=== PATIENT | female | born 1955 | race Caucasian/White ===

== ENCOUNTER 2019-10-02 14:16 | Outpatient (CLI) | payer OTHER, SELFPAY ==
--- NOTE | 2019-10-02 15:29 | ECG_ITS ---
Measurements Intervals [place] Rate: 57 P: 42 [place]: 242 QRS: -8 QRSD: 83 T: 38 QT: 426 QTc: 418 Interpretive Statements SINUS BRADYCARDIA WITH FIRST DEGREE AV BLOCK LOW QRS VOLTAGE IN PRECORDIAL LEADS CANNOT RULE OUT SEPTAL INFARCT, AGE INDETERMINATE ABNORMAL ECG Electronically Signed On 10-02-2019 15:43:49 CDT by Roddy Gao D.O.
[2019-10-02 15:52] LABS: Blood Urea Nitrogen 30 mg/dL (7-17); Calcium 9.5 mg/dL (8.4-10.2); Carbon Dioxide 31 mmol/L (22-30); Chloride 105 mmol/L (98-107); Estimated Glomerular Filt Rate 56; Glucose 92 mg/dL (65-105); Potassium 4.4 mmol/L (3.4-5.0); Sodium 139 mmol/L (137-145)
== END 2019-10-02 14:17 | disposition home or self-care (01) ==
PROVIDERS: PCP Family Medicine; Visit Provider Orthopaedic Surgery
DX: Z01.818 Encounter for other preprocedural examination (principal); I10 Essential (primary) hypertension; I44.0 Atrioventricular block, first degree
CPT/HCPCS: 36415; 80048; 93005

== ENCOUNTER 2019-10-16 17:08 | Emergency (ER) | payer OTHER, SELFPAY ==
[2019-10-16 17:13] VITALS: BP 122/70; PULSE 63; RESP 18; TEMP 36.2; O2SAT 98
--- NOTE | 2019-10-16 17:41 | ED.GENADULT ---
HPI - General Adult General Chief complaint: Wound/Laceration Stated complaint: left index finger lac Time Seen by Provider: 10/16/19 17:11 Source: patient and family Mode of arrival: ambulatory Limitations: no limitations History of Present Illness HPI narrative: Patient is a 63-year-old female who presents with skin avulsion to the distal left index finger and middle finger that occurred just prior to arrival while using a sewing machine patient in the room in no distress noting burning aching pain states that her tetanus is up-to-date has not taken anything for symptoms presents due to not being able to getting the bleeding to stop patient denies anticoagulant use and on arrival is in the room in no distress Related Data Home Medications Medication Instructions Recorded Confirmed aspirin 81 mg tablet,delayed 81 mg PO DAILY 03/31/19 release cetirizine 10 mg capsule 10 mg PO DAILY 03/31/19 cholecalciferol (vitamin D3) 25 1,000 unit PO DAILY 03/31/19 mcg (1,000 unit) tablet citalopram 10 mg tablet 10 mg PO DAILY 03/31/19 gabapentin 600 mg tablet 600 mg PO DAILY 03/31/19 multivit with 1 tablet PO DAILY 03/31/19 xyapduxc-ekad-RA-lutein 8 mg iron-400 mcg-300 mcg tablet pravastatin 20 mg tablet 20 mg PO DAILY 03/31/19 propafenone 150 mg tablet 150 mg PO Q8H 03/31/19 Allergies Allergy/AdvReac Type Severity Reaction Status Date / Time codeine Allergy Mild Verified 03/21/19 10:50 hydrocodone Allergy Unknown Verified 03/21/19 10:50 iodine Allergy Unknown Verified 03/21/19 10:50 povidone Allergy Unknown Verified 03/21/19 10:50 soap Allergy Unknown Verified 03/21/19 10:50 1.BETADINE, 2.IODINE. 3 Allergy Unknown Uncoded 03/21/19 10:50 HYDROCODEINE 4 DARVOCET NKFA Allergy Unknown Uncoded 03/21/19 10:50 POVIDONE IODINE (Generic Allergy Y Uncoded 03/21/19 10:50 Allergy) PROPOXYPHENE/ACETAMINOPHEN Allergy Y Uncoded 03/21/19 10:50 (Generic Allergy) Review of Systems Review of Systems: Narrative: CONSTITUTIONAL: Denies fever, chills, or sweats. SKIN: Skin avulsion to the distal left index and middle digits MUSCULOSKELETAL: Denies joint pain, or myalgia. NEUROLOGIC: Denies numbness, or weakness. [facility] Family History Family History Sibling Diabetes mellitus Mother Hypertension Social History Social History Smoking status: Never smoker Alcohol intake: never Gender identity (if verbalized by the patient): Female Exam Narrative: Exam Narrative: GENERAL: Well-appearing, well-nourished, and in no acute distress. HEAD: Normocephalic, atraumatic. EYES: PERRLA and EOMI. ENT: Nares clear, no rhinorrhea or epistaxis. Mucous membranes moist. EXTREMITIES: Normal range of motion. No edema. SKIN: Warm, dry, no rash. Half centimeter superficial skin avulsions of the distal left index and middle digit NEURO: No focal deficits. Alert and oriented x3. Neurovascularly intact PSYCH: Normal mood and affect. Course Course Emergency Course: Patient in the room in no distress aware of case findings treatment plan and diagnosis Vital Signs Vital signs: Vital Signs Temperature 97.2 F L 10/16/19 17:13 Pulse Rate 63 10/16/19 17:13 Respiratory Rate 18 10/16/19 17:13 Blood Pressure 122/70 10/16/19 17:13 Pulse Oximetry 98 10/16/19 17:13 Temperature 97.2 F L 10/16/19 17:13 Pulse Rate 63 10/16/19 17:13 Respiratory Rate 18 10/16/19 17:13 Blood Pressure 122/70 10/16/19 17:13 Pulse Oximetry 98 10/16/19 17:13 Procedures Other Procedure Procedure 1: Other Procedure: Surgicel LET placed on wound with hemostasis achieved 4 x 4 and Coban pressure dressing applied Medical Decision Making MDM Narrative Medical decision making narrative: Patients injury or pain is consistent with musculoskeletal etiology. No signs of neurological or vascular compro
== END 2019-10-16 19:38 | disposition home or self-care (01) ==
PROVIDERS: Emergency Provider Emergency Medicine; PCP Family Medicine
DX: S61.201A Unspecified open wound of left index finger without damage to nail, initial encounter (principal); S61.203A Unspecified open wound of left middle finger without damage to nail, initial encounter; Z79.82 Long term (current) use of aspirin; W29.2XXA Contact with other powered household machinery, initial encounter
CPT/HCPCS: 12001; 99282

== ENCOUNTER 2021-01-21 09:32 | Outpatient (CLI) | payer OTHER, SELFPAY ==
--- NOTE | 2021-01-21 09:30 | ECG_ITS ---
Measurements Intervals [place] Rate: 72 P: 57 [place]: 228 QRS: 2 QRSD: 86 T: 62 QT: 386 QTc: 423 Interpretive Statements SINUS RHYTHM WITH FIRST DEGREE AV BLOCK CANNOT RULE OUT SEPTAL INFARCT, AGE INDETERMINATE BORDERLINE ST-T WAVE ABNORMALITY- HIGH LATERAL LEADS ABNORMAL ECG Electronically Signed On 01-21-2021 9:52:17 CDT by Roddy Gao D.O.
== END 2021-01-21 09:33 | disposition home or self-care (01) ==
LOC: ANHSURGERY 09:34
PROVIDERS: PCP Family Medicine; Visit Provider Podiatrist Foot & Ankle Surgery
DX: Z01.818 Encounter for other preprocedural examination (principal); E78.00 Pure hypercholesterolemia, unspecified; R94.31 Abnormal electrocardiogram [ECG] [EKG]
CPT/HCPCS: 93005

== ENCOUNTER 2021-01-24 00:43 | Day surgery (SDC) | payer OTHER, SELFPAY ==
[2021-01-16 15:38] VITALS: BMI 28.0
--- NOTE | 2021-01-23 11:39 | WPDANESEPPF ---
Anes - Initial Pre Proc Eval Procedure: Operation Date: 01/24/21 11:30 Proposed Procedures p Arthrodesis First Metatarsal Phalangeal Joint Right Foot, Plantar Fasciotomy Right Foot - Beltran Griggs JR, MD s Tarsal Tunnel Release Right Foot - Beltran Griggs JR, MD Date/Time: 01/23/21 11:39 Surgeon: Beltran Griggs JR, MD Pre Op Diagnosis: Bunion Right Foot, Plantar Fascitis, & Patient Data Age: 65 Gender: F Height: 1.63 m Weight: 73.95 kg Allergies Allergy/AdvReac Type Severity Reaction Status Date / Time codeine Allergy Severe Nausea and Verified 01/24/21 09:48 Vomiting hydrocodone Allergy Severe Nausea and Verified 01/24/21 09:48 Vomiting iodine Allergy Unknown Unknown Verified 01/24/21 09:48 povidone Allergy Unknown Unknown Verified 01/24/21 09:48 NKFA Allergy Unknown Unknown Uncoded 01/16/21 15:13 POVIDONE IODINE (Generic Allergy Unknown Uncoded 01/24/21 09:48 Allergy) PROPOXYPHENE/ACETAMINOPHEN Allergy Nausea and Uncoded 01/24/21 09:48 (Generic Allergy) Vomiting Home Medications Medication Instructions Recorded Confirmed Type aspirin 81 mg tablet,delayed 81 mg PO DAILY 03/31/19 01/24/21 History release cetirizine 10 mg capsule 10 mg PO DAILY 03/31/19 01/24/21 History cholecalciferol (vitamin D3) 25 1,000 unit PO DAILY 03/31/19 01/24/21 History mcg (1,000 unit) tablet citalopram 10 mg tablet 5 mg PO QAM 03/31/19 01/24/21 History multivit with 1 tablet PO DAILY 03/31/19 01/24/21 History cwbxomkv-psfp-OS-lutein 8 mg iron-400 mcg-300 mcg tablet propafenone 150 mg tablet 150 mg PO BID 03/31/19 01/24/21 History pregabalin 75 mg capsule 75 mg PO BID 12/25/19 01/24/21 History diclofenac sodium 75 mg 75 mg PO BID #60 tablet 01/02/21 01/24/21 Rx tablet,delayed release ibuprofen-diphenhydramine HCl 1 cap PO HS 01/16/21 01/24/21 History [Ibuprofen PM] pravastatin 40 mg PO HS 01/16/21 01/24/21 History Patient hx anesthesia problems: none Family hx anesthesia problems: none [facility] Past Medical History Medical History (Updated 01/23/21 @ 11:40 by Kieran Paige DO) CKD (chronic kidney disease) stage 3, GFR 30-59 ml/min Idiopathic peripheral neuropathy ZEINA on CPAP Paroxysmal A-fib Pure hypercholesterolemia, unspecified Surgical History Surgical History (Updated 01/23/21 @ 11:40 by Kieran Paige DO) History of x3 History of fusion of cervical spine C5-6 History of tonsillectomy History of tubal ligation Family History Family History Sibling Diabetes mellitus Mother Hypertension Social History Social History (Updated 11/06/20 @ 09:33 by Kerry Peña) Smoking status: Never smoker Second hand tobacco smoke exposure: No Alcohol intake: never Substance use: never Substance use type: does not use Living arrangements: with family Gender identity (if verbalized by the patient): Female Spiritual care concerns: No Anes - Eval Final PreProcedure Day of Procedure 01/23/21 11:39 Patient weight: overweight Heart: regular rate and rhythm Lungs: clear to auscultation and normal air movement Airway: Mallampati scale class II Neurological: alert and oriented Last oral intake: >/= 8 hours ASA classification: III Emergent: no Anesthetic plan: proceed Anesthesia type and monitoring: general GIVS and standard monitoring Informed Consent: The patient's anesthetic plan and its attendant risks and benefits were discussed with the patient/family/POA. Questions were solicited and answers provided to the satisfaction of the patient/family/POA.
[2021-01-24] VITALS (9 sets, daily range): BP systolic 110–128; BP diastolic 52–69; PULSE 54–69; RESP 10–16; TEMP 36.7–36.9; O2SAT 95–100; BMI 27.1
--- NOTE | ~2021-01-24 | XR_ITS ---
EXAMINATION: XR surgery orthopedic EXAM DATE: 01/24/2021 12:18 INDICATION: Arthrodesis right 1st toe. TECHNIQUE: Fluoroscopy used during right 1st MTP arthrodesis performed by JR Lien Combs. Radiologist was not present for the imaging or procedure. Total fluoroscopic time of 18 seconds. The DAP for this procedure was 0.47 cGycm2. A total of 3 images sent to PACS from the exam. FINDINGS: Frontal and lateral images demonstrates an orthopedic plate bridging the right 1st metatar sophalangeal joint, with supporting screws. Correlate with procedure note. IMPRESSION: Fluoroscopy used during right 1st toe arthrodesis. Reviewed, dictated and finalized at location A.
--- NOTE | 2021-01-24 07:11 | WPDHPUPDATE1 ---
History and Physical Update Update Date/Time: 01/24/21 07:11 History and Physical has been reviewed, including an updated exam of the patient. There are NO changes in the patient's condition. Risks, benefits, and alternatives have been discussed and questions answered. Patient agrees to proceed with procedure.
--- NOTE | 2021-01-24 07:15 | WPDANESPNB ---
Anes - Peripheral Nerve Block Date/Time: 01/24/21 07:15 I have discussed with the patient/family/POA the placement of a peripheral nerve block for post-operative pain management, including associated risks, benefits, complications, and side effects. Alternative methods of post-operative analgesia were detailed. Questions were solicited and answers provided to the satisfaction of the patient/family/POA. Time-Out: A pre-procedural Time-Out was completed immediately before starting the procedure and confirmed: Patient Identification, Site, Procedure, Patient Position and the Availability of Requisite Equipment. Clinical Indications: Acute post-operative pain management requested by the operative surgeon. Nerve Block Insertion Note Anes-nerve block: posterior fossa sciatic right and adductor canal right Patient position: supine (for adductor canal) and other (right lateral for popliteal) Skin prep: chlorhexidine Needle: 22 gauge, stimulating, insulated echogenic needle. Needle length: 80 mm Technique: nerve stimulation lost at (mA) (for popliteal lost at 0.2) and ultrasound Injectate: bupivacaine 0.5% with epi 5 mcg/ml (20 mL for popliteal, 10 mL for adductor canal (no epi)) Observations: tolerated well Complications: none Procedure start time:: 1116 Procedure end time:: 1122
--- NOTE | 2021-01-24 10:06 | SUR.PREOP ---
PT STATES SHE SPOKE TO HER [employer] GATHERER AND WAS INSTRUCTED TO CONTINUE HER ASA 81MG.
[2021-01-24] MEDS: LACTATED RINGERS 1,000 ML 30 ML IV CONT ×2 (10:18→13:11)
--- NOTE | 2021-01-24 11:03 | SUR.PREOP ---
DR SHAW NOTIFIED OF PT HAVING A BLISTER ON RT 5TH TOE. AND PT CONTINUED ASA 81MG.
--- NOTE | 2021-01-24 11:06 | PM.IMHP ---
H&P: HPI History of Present Illness Date/Time: 01/24/21 11:06 The patient has a history of pain to the right first metatarsal phalangeal joint she has failed conservative treatment. Furthermore, she has received extensive conservative management to treat her chronic inferior hindfoot pain including medial hindfoot pain and proximal hindfoot and is seeking surgical management. She has been diagnosed with tarsal tunnel syndrome and plantar fasciitis of the right foot. Chief Complaint: Right foot pain Review of Systems Musculoskeletal: Comments: Pain to right foot with difficulty walking. [facility] Past Medical History Medical History (Updated 01/23/21 @ 11:40 by Kieran Paige DO) CKD (chronic kidney disease) stage 3, GFR 30-59 ml/min Idiopathic peripheral neuropathy ZEINA on CPAP Paroxysmal A-fib Pure hypercholesterolemia, unspecified Surgical History Surgical History (Updated 01/23/21 @ 11:40 by Kieran Paige DO) History of x3 History of fusion of cervical spine C5-6 History of tonsillectomy History of tubal ligation Family History Family History Sibling Diabetes mellitus Mother Hypertension Social History Social History (Updated 11/06/20 @ 09:33 by Kerry Peña) Smoking status: Never smoker Second hand tobacco smoke exposure: No Alcohol intake: never Substance use: never Substance use type: does not use Living arrangements: with family Gender identity (if verbalized by the patient): Female Spiritual care concerns: No Meds Home Medications and Allergies Home Medications Medication Instructions Recorded Confirmed Type aspirin 81 mg tablet,delayed 81 mg PO DAILY 03/31/19 01/24/21 History release cetirizine 10 mg capsule 10 mg PO DAILY 03/31/19 01/24/21 History cholecalciferol (vitamin D3) 25 1,000 unit PO DAILY 03/31/19 01/24/21 History mcg (1,000 unit) tablet citalopram 10 mg tablet 5 mg PO QAM 03/31/19 01/24/21 History multivit with 1 tablet PO DAILY 03/31/19 01/24/21 History tnzzcldp-cmbg-IV-lutein 8 mg iron-400 mcg-300 mcg tablet propafenone 150 mg tablet 150 mg PO BID 03/31/19 01/24/21 History pregabalin 75 mg capsule 75 mg PO BID 12/25/19 01/24/21 History diclofenac sodium 75 mg 75 mg PO BID #60 tablet 01/02/21 01/24/21 Rx tablet,delayed release ibuprofen-diphenhydramine HCl 1 cap PO HS 01/16/21 01/24/21 History [Ibuprofen PM] pravastatin 40 mg PO HS 01/16/21 01/24/21 History Allergies Allergy/AdvReac Type Severity Reaction Status Date / Time codeine Allergy Severe Nausea and Verified 01/24/21 09:48 Vomiting hydrocodone Allergy Severe Nausea and Verified 01/24/21 09:48 Vomiting iodine Allergy Unknown Unknown Verified 01/24/21 09:48 povidone Allergy Unknown Unknown Verified 01/24/21 09:48 NKFA Allergy Unknown Unknown Uncoded 01/16/21 15:13 POVIDONE IODINE (Generic Allergy Unknown Uncoded 01/24/21 09:48 Allergy) PROPOXYPHENE/ACETAMINOPHEN Allergy Nausea and Uncoded 01/24/21 09:48 (Generic Allergy) Vomiting Vital Signs Vital Signs - 24 hr 01/24/21 10:04 Temperature 36.9 C Pulse Rate 69 Respiratory Rate 16 Blood Pressure 113/61 Pulse Oximetry 99 Exam Extrem: Other: Decreased first metatarsal phalangeal joint range of motion right foot lateral deviation of the hallux. Positive tinel sign right medial hindfoot, positive pain along the origin of the medial band of the plantar fascia. Assessment and Plan Additional Plan 1. Bunion deformity right foot with arthralgia- Arthrodesis of the first metatarsal phalangeal joint right foot 2. Tarsal Tunnel syndrome right foot-Tarsal tunnel release right foot 3. Plantar fasciitis right foot- partial plantar fasciectomy right foot
[2021-01-24] MEDS: ceFAZolin 2 GM/D5W 50 ML 2 GM/50 ML BAG IVPB (11:25)
--- NOTE | 2021-01-24 13:13 | W.PM.PROC2 ---
Procedure Note - Detailed Date of Procedure 01/24/21 Pre-op Diagnosis 1. Arthritic bunion right foot 2. Plantar fasciitis right foot 3. Tarsal tunnel syndrome right foot Post-op Diagnosis same Procedure Performed 1. Arthrodesis of the first metatarsal phalangeal joint right foot 2. Partial plantar fasciectomy right foot 3. Tarsal tunnel release right foot Surgeon Beltran Griggs JR, SYLVIA Anesthesia general and regional (Popliteal fossa block right lower extremity) Indications Pain to the first metatarsal phalangeal right foot with pain and paresthesias to the medial ankle and inferior right heel Description of Procedure PROCEDURE IN DETAIL: Under mild sedation, the patient was brought into the operating room, placed on the operating table in supine position. A pneumatic thigh tourniquet was placed about the patient's ipsilateral thigh. Following general LMA, and a previous popliteal fossa block to the right lower extremity, the foot was then scrubbed, prepped, and draped in the usual aseptic manner. An Esmarch bandage was then used to exsanguinate the patient's foot and the pneumatic thigh tourniquet was then inflated. Surgery began in the following manner: Attention was directed to the dorsal aspect of the 1st metatarsophalangeal joint where there was a large subcutaneous prominence noted along the dorsomedial aspect of the joint along with lateral deviation of the hallux and a prominent first metatarsal head medially. The incision was made starting along the central shaft of the 1st metatarsal and extending just proximal to the interphalangeal joint of the hallux. The incision was continued deep down through the subcutaneous tissues using sharp and blunt dissection. All bleeders were cauterized as necessary. At this point, the dissection was continued down to the level of the periosteum and capsular structures overlying the 1st metatarsophalangeal joint. A full length periosteum and capsular incision was made just medial to the extensor hallucis longus tendon. The periosteum and capsular structures were freed from the base of the proximal phalanx as well as the distal 1st metatarsal. At this point, the 1st metatarsophalangeal joint was identified. There was almost complete loss of articular cartilage to the head of the 1st metatarsal as well as the base of the proximal phalanx especially superiorly and centrally. There was significant broadening and hypertrophy of the 1st metatarsophalangeal joint. Utilizing a sagittal bone saw, the hypertrophied 1st metatarsal was resected dorsally, medially, and laterally. A power bur was used to make sure that there were no rough edges and also to further debride the hypertrophic 1st metatarsal. Next, a rongeur was used to resect all hypertrophic base of the proximal phalanx. At this point, the reamer system for the Jumbas system was used to denude the degenerative cartilage from the head of the 1st metatarsal as well as the base of the proximal phalanx. The cartilage and subchondral bone were fully debrided utilizing the reamer system until healthy bleeding bone was noted. Next, a 2-0 drill bit was used to further fenestrate the head of the 1st metatarsal as well as the base of the proximal phalanx in order to facilitate fusion across the 1st metatarsophalangeal joint. Next, a 0.045 inch K-wire was driven from the medial aspect of the base of the proximal phalanx into the head of the 1st metatarsal in order to serve as temporary fixation. A large steel plate was placed under the foot to make sure that the hallux was in a rectus position both in the sagittal plane as well as the frontal and transverse plane. Excellent position of the hallux was noted. Next, a CrossCHECK plate was placed atop the 1st metatarsophalangeal joint held in position with Flippin wires. Utilizing standard principles and techniques, the 2 distal drill holes were drilled with one 2.7mm locking and one 3.5m
--- NOTE | 2021-01-24 13:41 | SUR.PHASEI ---
8122 - dr. mendez at bedside assessing exposed toes
== END 2021-01-24 15:30 | disposition home or self-care (01) ==
PROVIDERS: PCP Family Medicine; Visit Provider Podiatrist Foot & Ankle Surgery
PROC: (CPT 28750; principal; 2021-01-24 11:30)
PROC: (CPT 28035; 2021-01-24 11:30)
DX: M21.611 Bunion of right foot (principal); M72.2 Plantar fascial fibromatosis; G57.51 Tarsal tunnel syndrome, right lower limb; M19.071 Primary osteoarthritis, right ankle and foot; G89.18 Other acute postprocedural pain; N18.30 Chronic kidney disease, stage 3 unspecified; G62.9 Polyneuropathy, unspecified; I48.0 Paroxysmal atrial fibrillation; E78.00 Pure hypercholesterolemia, unspecified; G47.33 Obstructive sleep apnea (adult) (pediatric); Z98.1 Arthrodesis status; Z79.82 Long term (current) use of aspirin
CPT/HCPCS: 28060; 28750; 28035; 64445; 64447; C1713; J0690; J1100; J2250; J2405; J2704; J3010; J7120

== ENCOUNTER → 2022-05-22 15:37 | Outpatient (CLI) | payer OTHER, SELFPAY ==
--- NOTE | ~2022-05-22 | XR_ITS ---
XR finger 1st RT min 2V, XR wrist RT w scaphoid 05/22/2022 16:06 Indication: Right first finger pain Procedure: 3 views right first finger and 4 views right wrist Comparison: No prior studies for comparison. Findings: There is mild osteoarthritis of the right first metacarpal phalangeal joint. Mild degenerat becky change of the first carpal metacarpal joint. No fracture or traumatic malalignment. No focal soft tissue abnormality. No foreign bodies. Scaphoid intact. Normal mineralization. No foreign bodies. 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 Reviewed, dictated and finalized at location A. 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
== END ==
PROVIDERS: PCP Family Medicine; Visit Provider Physician Assistant
DX: M79.644 Pain in right finger(s) (principal); M19.041 Primary osteoarthritis, right hand
CPT/HCPCS: 73110; 73140

== ENCOUNTER 2022-06-10 08:56 | Outpatient (CLI) | payer OTHER, SELFPAY ==
--- NOTE | 2022-06-10 10:00 | NEURO_ITS ---
Impression: # Complains of weakness and pain in right hand. # No Carpal Tunnel Syndrome. # No ulnar neuropathy. # Normal needle/EMG exam. # Clinical correlation recommended. Motor Nerve Conduction Upper Extremities Median Nerve Conduction Velocity (m/sec) Terminal Latency (msec) Response Voltage(mV) Elbow-Wrist Wrist Elbow Wrist Right 55 3.1 4 5 Left 55 3.4 4 3 Ulnar Nerve Conduction Velocity (m/sec) Terminal Latency (msec) Response Voltage(mV) Above Elbow Below Elbow Wrist Above Elbow Below Elbow Wrist Right 55 2.3 6 7 Left 57 2.3 5 6 F-Wave Latency Median (ms) Ulnar (ms) Right 28.3 28.3 Left 29.3 29.2 Sensory Nerve Conduction Upper Extremities Median Nerve Stimulation Terminal Latency (msec) Wrist/Digit Response Voltage (uV) Wrist Right 2.8/2.7 13/41 Left 3.2/3.1 35/52 Ulnar Nerve Stimulation Terminal Latency (msec) Wrist/Digit Response Voltage (uV) Wrist Right 2.1 46 Left 2.3 38 Radial Nerve Terminal Latency (msec) Response Voltage(mV) Right 2.4 14 Left 2.7 18 Left Right Muscles Examined Fibrillation Fasciculation Scarcity Voltage Duration Left Right Left Right Left Right Left Right Left Right Deltoid Biceps X X Brachioradialis Triceps X X Pronator Teres X X Ext Indicis X X Ext Digitorum X X Abd Poll Brev X X 1st Dorsal Interosseus X X Abd Dig Min MTDD
== END 2022-06-10 08:57 | disposition home or self-care (01) ==
PROVIDERS: PCP Family Medicine; Visit Provider Family Medicine
DX: R20.0 Anesthesia of skin (principal)
CPT/HCPCS: 95886; 95911

== ENCOUNTER 2024-06-17 16:02 | Emergency (ER) | payer MEDICARE, OTHER, SELFPAY ==
--- OUTSIDE RECORDS SUMMARY | 2024-06-17 16:04 | XMS_ITS | Encounter Summary ---
Author Organization [employer] Address [address] [place] [address] Care Team Providers Care Head Sugar Reprocess Operator Name Role Phone Unavailable Primary Care Provider Unavailabl e Encounter Details Date Type Department Care Team (Latest Contact Info) Description 06/26/[address] Outpatient [address] 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
--- OUTSIDE RECORDS SUMMARY | 2024-06-17 16:04 | XMS_ITS | Encounter Summary ---
Author Organization [employer] Address [address] [place] [address] Care Team Providers Care Mapping Specialist Name Role Phone Unavailable Primary Care Provider Unavailabl e Encounter Details Date Type Department Care Team (Late st Contact Info) Description 05/14/2004 Outpatient Historical [facility] [address] 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
--- OUTSIDE RECORDS SUMMARY | 2024-06-17 16:04 | XMS_ITS | Encounter Summary ---
Author Organization [employer] Address [address] [place] [address] Care Team Providers Care Cloth Printing Back Tender Name Role Phone Unavailable Primary Care Provider Unavailabl e Encounter Details Date Type Department Care Team (Latest Contact Info) Description 05/20/2004 Outpatient Historical [facility] Jonathan Mcdowell CERVICAL SPONDYLOSIS (Primary Dx) Social History Tobacco Use Types Packs/Day Years Used Date Smoking Tobacco: Never Assessed Comments Unknown Sex and Gender Information Value Date Recorded Sex Assigned at Not on file Legal Sex Female 3:11 AM LCAC RADAR OPERATOR/NAVIGATOR Gender Identity Not on file Sexual Orientation Not on file documented as of this encounter Plan of Treatment Not on file documented as of this encounter Procedures Procedure Name Priority Date/Time Associated Diagnosis Comments HCG QUALITATIVE, URINE Routine 05/20/2004 8:53 AM LCAC RADAR OPERATOR/NAVIGATOR documented in this encounter Results * HCG QUALITATIVE, URINE (05/20/2004 8:53 AM LCAC RADAR OPERATOR/NAVIGATOR) HCG QUAL URINE Negative Negative INTER FACE SYSTEM SPECIFIC GRAVITY UA 1.020 1.001 - 1.035 INTERFACE SYSTEM 05/20/2004 8:53 AM LCAC RADAR OPERATOR/NAVIGATOR Jonathan Mcdowell URINE ORDERABLES Final Result INTERFACE SYSTEM Refer to clinic/hospital department documented in this encounter Visit Diagnoses Diagnosis Cervical spondylosis without myelopathy- Primary documented in this encounter
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
--- OUTSIDE RECORDS SUMMARY | 2024-06-17 16:05 | XMS_ITS | Encounter Summary ---
Author Name [facility] Organization [facility] Address [address] [place] [address] Care Team Providers Care Investment Professional Name Role Phone THANH ZAZUETA Primary Care [...] [employer] VISIO N PLAN May 17, 2016 [id number] [phone] KADI MARTINEZ PATIENT EYEMED (WNR) VISION VISIO N May 17, 2019 [id number] KADI MARTINEZ PATIENT MEDICARE (WNR) MEDICARE (M) PART B Nov 14, 2022 PART B [id number] KADI MARTINEZ PATIENT MEDICARE (WNR) MEDICARE (M) PART A Nov 14, 2022 PART A [id number] KADI MARTINEZ PATIENT Selected Encounter This section includes the information on record at NH for the Encounter. Date/Time Encounter Type Encounter Description Reason Pro vider Source Mar 15, 2024 08:16 AM Outpatient Encounter GENERAL INTERNAL MEDICINE IHE Encounter Template Text not used by [facility] Plan of Treatment: Future Appointments (+ 6 months) and Future Tests (+/- 45 days) The Plan of Treatment section includes future care activities for the patient from [facility]. This section includes future appointments and future orders which are active, pending or scheduled. Future Appointments This section includes appointments that were scheduled to occur 6 months from the date of the Encounter, up to a maximum of 20 appointments. The data comes from all NH treatment facilities. Appointment Date/Time Appointment Type Appointme nt Facility Name Mar 20, 2024 10:40 AM AMBULATORY - SUR[facility]ERY [facility] Apr 06, 2024 11:00 AM AMBULATORY - NONE [facility] Apr 07, 2024 09:30 AM AMBULATORY - SUR[facility]ERY [facility] Apr 25, 2024 02:30 AM [facility]ULATORY - [facility]ERY [facility] Jun 28, 2024 07:30 AM [facility]ERY [facility] Jul 25, 2024 10:00 AM AMBULATORY - SUR[facility]ERY [facility] Aug 22, 2024 10:45 AM [facility]ULATORY [facility]ERY [facility] Active, Pending, and Scheduled Orders This section includes a listing of several types of active, pending, and scheduled orders, including clinic medications orders, diagnostic test orders, procedure orders and consult orders; where the start date of the order is 45 days before the date of the Encounter or 45 days after the date of theEncounter. The data comes from all [place] treatment facilities. 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 Radiology Reports and Pathology Reports are provided separately, in subsequent sections. Lab Results This section contains the Chemistry/Hematology Results that were resulted 30 days before or 30 daysafter the date of the Encounter. Date/Time Source Result Type Result - Unit Interpretation Reference Range Comment Mar 09, 2024 11:30 AM [facility] LIPID PANEL (STL) Specimen Type: PLASMA Comment: No hemolysis noted. Ordering Provider: WARREN ZAZUETA Report Released Date/Time: Mar 09, 2024 10:49 AM Reporting Lab: [facility] [address] [place] [phone] Performing Lab: [facility] [address] [place] [phone] CHOLESTEROL 160 mg/dL 0-200 TRIGLYCERIDE 46 mg/dL 0-150 CALCULATED LDL 95 mg/dL HDL(New) 56 mg/dL >40 Mar 09, 2024 11:30 AM [facility] HGA1C Specimen Type: BLOOD No comment entered. Ordering Provider: WARREN ZAZUETA Report Released Date/Time: Mar 09, 2024 10:49 AM Reporting Lab: [facility] [address] [place] [phone] Performing Lab: [address] [phone] HGA1C 5.6 4.0-6.0 Mar 09, 2024 11:30 AM [facility] TSH W/ REFLEX FT4 (STL) Specimen Type: PLASMA No comment entered. Ordering Provider: WARREN ZAZUETA Report Released Date/Time: Mar 09, 2024 10:49 AM Reporting Lab: [facility] [address] [place] [phone] Performing Lab: [address] [address] TSH 2.453 u[IU]/mL 0.47-5 Mar 09, 2024 11:30 AM [facility] AMYLASE Specimen Type: PLASMA Comment: No hemolysis noted. Ordering Provider: WARREN ZAZUETA Report Released Date/Time: Mar 09, 2024 11:00 AM Reporting Lab: [facility] [address] [place] [phone] Performing Lab: [facility] [address] [place] [phone] AMYLASE 155 U/L H 25-125 Mar 09, 2024 11:30 AM [facility] VITAMIN D, 25-HYDROXY Specimen Type: SERUM No comment entered. Ordering Provider: WARREN ZAZUETA Report Released Date/Time: Mar 09, 2024 10:49 AM Reporting Lab: [facility] [address] [place] [phone] Performing Lab: [facility] [address] [place] [phone] VITAMIN D, 25-HYDROXY 49.2 ng/mL 30-96 Mar 09, 2024 11:30 AM [facility] URINALYSIS (STL-PB) Specimen Type: URINE No comment entered. Ordering Provider: WARREN ZAZUETA Report Released Date/Time: Mar 09, 2024 10:49 AM Reporting Lab: [facility] [address] [place] [phone] Performing Lab: [address] [phone] URINE COLOR Colorless Yellow U.BILIRUBIN Negative mg/dL Negative U.PH 7.0 5.0-8.0 APPEARANCE Clear Clear U.NITRITE Negative mg/dL Negative URN.GLUCOSE Normal mg/dL Negative URN.PROTEIN Negative mg/dL URN.UROBILINOGEN Normal mg/dL Normal URN.BLOOD Negative mg/dL Negative-Tra ce URN.KETONES Negative mg/dL Negative-Tra ce URN.LEUK.EST. Negative mg/dL Negative-Tra ce URN.SPECIFIC GRAVITY 1.004 L Mar 09, 2024 11:30 AM [facility] LIPASE Specimen Type: PLASMA Comment: No hemolysis noted. Ordering Provider: WARREN ZAZUETA Report Released Date/Time: Mar 09, 2024 11:00 AM Reporting Lab: [facility] [address] [place] [phone] Performing Lab: [facility] [address] [place] [phone] LIPASE 267 U/L H 8-78 Mar 09, 2024 11:30 AM [facility] COMPREHENSIVE METABOLIC PANEL Specimen Type: PLASMA Comment: No hemolysis noted. Ordering Provider: WARREN ZAZUETA Report Released Date/Time: Mar 09, 2024 10:49 AM Reporting Lab: [facility] [address] [place], [place] [phone] Performing Lab: [facility] [address] [facility] [phone] CREATININE 0.96 mg/dL 0.6-1.1 UREA NITROGEN 16.6 mg/dL 9.0-25.0 GLUCOSE 85 mg/dL 72-99 SODIUM 141 meq/L 136-145 POTASSIUM 3.9 meq/L 3.5-5 CHLORIDE 107 meq/L 98-107 CARBON DIOXIDE 27 meq/L 22-31 CALCIUM 9.4 mg/dL 8.4-10.4 PROTEIN 6.5 g/dL 6-8.6 ALBUMIN 4.1 g/dL 3.4-5 TOTAL BILIRUBIN 0.6 mg/dL 0.2-1.2 ALKALINE PHOSPHATASE 73 U/L 40-150 AST/SGOT 32 U/L 5-34 ALT/SGPT 19 U/L 8-40 EGFR (CKD-EPI 2020) 65.3 >60 Mar 09, 2024 11:30 AM [facility] CBC Specimen Type: BLOOD No comment entered. Ordering Provider: WARREN ZAZUETA Report Released Date/Time: Mar 09, 2024 10:49 AM Reporting Lab: [facility] [address] [facility] [phone] Performing Lab: [facility] [address] [place] [phone] WBC 4.2 10*3/uL 3.6-11.2 RBC 3.56 10*6/uL L 3.60-5.00 HGB 11.3 g/dL 11.0-14.9 HCT 33.0 32.6-43.4 MCV 92.7 fL 80.0-100.0 MCH 31.7 pg 27.0-34.0 MCHC 34.2 g/dL 33.0-36.0 PLT 211 10*3/uL 150-400 MPV 10.7 fL 7.5-11.2 RDW 11.7 L 11.8-15.1 LYMPHOCYTES, AUTO % 28 MONOCYTES, AUTO % 8 NEUTROPHILS, AUTO % 61 EOSINOPHILS, AUTO % 1 BASOPHILS, AUTO % 1 LYMPHOCYTES, ABSOLUTE 1.16 10*3/uL 0.77-4.50 MONOCYTES, ABSOLUTE 0.35 10*3/uL 0.19-0.80 NEUTROPHILS, ABSOLUTE 2.55 10*3/uL 2.10-8.00 EOSINOPHILS, ABSOLUTE 0.06 10*3/uL 0.00-0.60 BASOPHILS, ABSOLUTE 0.03 10*3/uL 0.00-0.20 Social History: Smoking Status (Most current) and Tobacco Use (All prior to encounter date) This section includes the most current, and the historical, smoking and tobacco- related health factors from the NH facility where the Encounter took place. Current Smoking Status This section includes the most current smoking, or tobacco-related health factor, from the NH facility where the Encounter took place. Date/Time Current Smoking Status Comment [place] Jan 15, 2016 10:21 AM LIFETIME NON-USER OF TOBACCO [facility] Tobacco Use History This section includes a history of the smoking, or tobacco-related health factors, that were collected on or before the date of the Encounter. The data comes from the NH facility where the Encounter took place. Date/Time Smoking Status/Tobacco Use Comment F acility Mar 04, 2015 08:10 AM LIFETIME NON-USER OF TOBACCO [facility] Aug 02, 2006 11:04 AM LIFETIME NON-USER OF TOBACCO [facility] Dec 22, 2005 03:00 PM LIFETIME NON-TOBACCO USER [facility] Feb 17, 2005 03:19 PM LIFETIME NON-TOBACCO USER [facility] Jul 17, 2004 02:13 PM LIFETIME NON-TOBACCO USER [facility] Jul 17, 2004 01:43 PM LIFETIME NON-TOBACCO USER [facility] Advance Directives: All historical and current Section Date Range: From patient's date of to the date document was created. This section includes ALL of a patient's completed or amended [place] Advance and Rescinded Directives. The entries below indicate that a directive exists for the patient, but an actual copy is not included with this document. The data comes from all [facility]. Date Advance Directives Provider Source Feb 23, 2014 ADVANCE DIRECTIVE DISCUSSION ANGELITA AGUILA [facility] Radiology Reports: +/- 30 days of the encounter Radiology Reports For cases when an order for radiology services may have been completed prior to the date of the Encounter, the report list includes the Radiology Reports that were completed up to 30 days before dateof the Encounter. For cases when an order for radiology services may have been completed after the date of the Encounter, the report list also includes the Radiology Reports that were completed up to30 days after date of the Encounter. The data comes from all NH treatment facilities. Date/Time Radiology Report Provider Source Mar 15, 2024 08:52 AM US ABDOMEN LIMITED W/BLOOD FLOW DOPPLER: KADI MARTINEZ [id number] -1955 F Exm Date: MAR 15, 2024@08:52 Req Phys: THANH ZAZUETA Pat Loc: [facility]-OLV PACT WH W2 PCP (Req'g L Img Loc: [facility]-ULTRASOUND FRAN Service: [address] [address] (Case [id number] COMPLETE) US ABDOMEN LTD, SINGLE ORG OR GENARO(US Detailed) CPT:41968 Reason for Study: pain RUQ (Case [id number] COMPLETE) US BLOOD FLOW ABD/RENAL (LTD) (US Detailed) CPT:41738 Clinical History: Organ to Image: RUQ Reason for exam: pain after eating Report Status: Verified Date Reported: MAR 15, 2024 Date Verified: MAR 15, 2024 Snout Puller E-Sig:/ES/SAMANTHA ALEMAN Report: DATE: 03/15/2024 8:52 AM EXAM: US ABDOMEN LTD, SINGLE ORG OR QUADRANT, US BLOOD FLOW ABD/RENAL (LTD) ACCESSION NUMBERS: [id number], [id number] HISTORY: pain RUQ Technique: Real-time ultrasound examination of the right upper quadrant was obtained in multiple projections using grayscale and Doppler ultrasound. Comparison: Ultrasound abdomen 04/03/2016 Findings: Pancreas: Incompletely visualized. The visible portions of the pancreas appear normal. Liver: The hepatic echotexture is mildly coarsened with subtle surface nodularity, recommend clinical correlation for chronic liver disease. The liver echogenicity appears normal. No focal liver masses are identified. Gallbladder: No gallbladder calculi are present. A few gallbladder polyps seen, the largest one measuring up to 4 mm. No gallbladder wall thickening or pericholecystic fluid is present. The sonographic Anderson's sign is negative. Biliary system: No dilatation of the intrahepatic biliary tree is seen. The common duct is within normal limits measuring 4 mm. Right kidney (limited views): Within normal limits. Doppler evaluation: The visible hepatic veins are patent with appropriate flow direction. The main portal vein is patent with appropriate hepatopetal blood flow. Impression: 1. Incidental note of a few sub-5 mm gallbladder polyps. These appear new from the prior examination performed in 2016 but are likely benign due to small size. 12 months follow-up recommended. No cholelithiasis or evidence of cholecystitis. 2. Findings suspicious for chronic liver disease, recommend clinical correlation. Ruperto Awad MD (Magistrate Judge) I, Samantha Aleman, have reviewed the images and report and concur with these findings. Primary Interpreting Staff: SAMANTHA ALEMAN MD (Snout Puller) Primary Interpreting Resident: RUPERTO AWAD, Resident Physician /SAMANTHA GONZALEZ [facility] Mar 09, 2024 12:28 PM KNEE,RIGHT 3 VIEWS: KADI MARTINEZ Phoebe [id number] -1955 F Exm Date: MAR 09, 2024@12:28 Req Phys: THANH ZAZUETA Pat Loc: -OLV PACT WH W2 PCP (Req'g L Img Loc: -MAIN RADIOLOGY SUITE Service: [address] [address] (Case [id number] COMPLETE) KNEE,RIGHT 3 VIEWS (RAD Detailed) CPT:07353 Proc Modifiers : RIGHT Reason for Study: right knee pain after fall Clinical History: Report Status: Verified Date Reported: MAR 09, 2024 Date Verified: MAR 09, 2024 Snout Puller E-Sig:/ES/AMARJIT TRACEY MD Report: Case #[id number]. Right knee examination. Finding: AP and lateral views of the right knee examination followed by sunrise view of the patella shows no fracture dislocation. No evidence of lytic or blastic bony lesion. No joint space narrowing or suprapatellar effusion. No radiopaque foreign body or abnormal calcification. Impression: No fracture dislocation or arthritic change. Primary Interpreting Staff: AMARJIT TRACEY MD, Staff Physician - Radiologist (Snout Puller) /CHRISTI VELARDE [facility] Mar 09, 2024 12:28 PM FOOT,RIGHT,3 VIEWS OR MORE: KADI MARTINEZ [id number] -1955 F Exm Date: MAR 09, 2024@12:28 Req Phys: THANH ZAZUETA Pat Loc: [facility]AN-OLV PACT W2 PCP [facility]Req[facility]g L [facility] Service: Unknown [address] [address] (Case [id number] COMPLETE) FOOT,RIGHT,3 VIEWS OR MORE (RAD Detailed) CPT:08216 Proc Modifiers : RIGHT Reason for Study: foot pain Clinical History: Report Status: Verified Date Reported: MAR 09, 2024 Date Verified: MAR 09, 2024 Snout Puller E-Sig:/ES/AMARJIT TRACEY MD Report: Case #[id number]. Right foot examination. COMPARISON: 03/18/2017. Finding: Three views of the right foot examination shows surgical fusion at the first metatarsophalangeal joint with a metallic plate and multiple screws. No recent study is available for comparison. No new fracture dislocation or arthritic change. No soft tissue swelling or radiopaque foreign body. Impression: Surgical fusion at the first metatarsophalangeal joint. No fracture dislocation or radiopaque foreign body. Primary Interpreting Staff: AMARJIT TRACEY MD, Staff Physician - Radiologist (Snout Puller) /CHRISTI VELARDE [facility] Mar 09, 2024 12:28 PM KNEE,LEFT, 3 VIEWS: KADI MARTINEZ [id number] -1955 F Exm Date: MAR 09, 2024@12:28 Req Phys: THANH ZAZUETA Loc: FRAN-OLV PACT W2 PCP (Req'g L Img Loc: [facility] RADIOLOGY SUITE Service: Unknown [address] [address] (Case [id number] COMPLETE) KNEE,LEFT, 3 VIEWS (RAD Detailed) CPT:63351 Proc Modifiers : LEFT Reason for Study: pain in knee Clinical History: Report Status: Verified Date Reported: MAR 09, 2024 Date Verified: MAR 09, 2024 Snout Puller E-Sig:/COLT/AMARJIT TRACEY MD Report: Case #[id number]. Left knee examination. COMPARISON: 10/09/2008. Finding: AP and lateral views of the left knee examination followed by sunrise view of the patella shows no fracture dislocation. No evidence of lytic or blastic bony lesion. No joint space narrowing or suprapatellar effusion. No radiopaque foreign body or abnormal calcification. Impression: No fracture dislocation or arthritic change. Primary Interpreting Staff: AMARJIT TRACEY MD, Staff Physician - Radiologist (Snout Puller) /CHRISTI VELARDE [facility] Mar 09, 2024 12:28 PM FOOT,LEFT 3 VIEWS OR MORE: MICHELLEKADI E [id number] -1955 F Exm Date: MAR 09, 2024@12:28 Req Phys: THANH ZAZUETA Pat Loc: -[facility] PACT WH W2 PCP (Req'g L Img Loc: -MAIN RADIOLOGY SUITE Service: [facility], [facility] [address] [place] [address] (Case [id number] COMPLETE) FOOT,LEFT 3 VIEWS OR MORE (RAD Detailed) CPT:86798 Proc Modifiers : LEFT Reason for Study: foot pain Clinical History: Report Status: Verified Date Reported: MAR 09, 2024 Date Verified: MAR 09, 2024 Snout Puller E-Sig:/COLT/AMARJIT TRACEY MD Report: Case #[id number]. Left foot examination. COMPARISON: 01/12/2020. Finding: Three views of the left foot examination shows no fracture dislocation. No evidence of lytic or blastic bony lesion. No joint space narrowing or marginal spur. No soft tissue swelling, radiopaque foreign body or abnormal calcification. Impression: No fracture dislocation or arthritic change. Primary Interpreting Staff: AMARJIT TRACEY MD, Staff Physician - Radiologist (Snout Puller) /CHRISTI VELARDE [facility] Encounter Notes: All associated encounter notes This section contains the clinical notes associated to the Encounter. Date/Time Encounter Note(s) Provider Source Mar 15, 2024 08:16 AM NONVA NOTE: LOCAL TITLE: COMMUNITY CARE-CARE COORDINATION PLAN NOTE [address] STANDARD TITLE: NONVA NOTE DATE OF NOTE: MAR 15, 2024@08:16 ENTRY DATE: MAR 15, 2024@08:16:51 AUTHOR: AINSLEY VEGA EXP COSIGNER: URGENCY: STATUS: COMPLETED [facility] received a call from Adrien([facility]); 's name, last four of N, address and date of were used to verify identity. REASON FOR CALL: ENT Consult Request/Advised RFS was Back Hand communicated to the caller this does not have an ENT on file, but the RFS has not yet been decided upon decision on. /colt/ AINSLEY VEGA [facility] [place] Signed: 03/15/2024 08:22 AINSLEY VEGA [facility]
--- OUTSIDE RECORDS SUMMARY | 2024-06-17 16:05 | XMS_ITS | Clinical Summary ---
Author Organization [facility] Address [address] [place] [address] Care Team Providers Care Dj Instructor Name Role Phone Patricia Diaz MD Primary Care Provider + Allergies Active Allergy Reactions Criticality Noted Date Comments Allerg Xt,D.Farinae-D.Pteronys Headache,Rhinorrhea,Sneez ing Low 05/26/2021 per [facility] Cinnamon Bark Blisters High 03/07/2021 Codeine Seizures,Vomiting High 07/05/2020 Meperidine Seizures,Nausea & Vomiting High 03/07/2021 House Dust Headache,Rhinorrhea, Sneez ing Low 07/31/2020 Iodinated Contrast Media Other (See comments) Low 1 Iodine Rash,Blisters High 07/05/2020 Poloxamer 188-Sorbitol Soln Diarrhea Low 03/07/20 21 Povidone-Iodine Rash,Blisters High 07/05/2020 Sorbitol Diarrhea Low 05/26/2021 per [facility] Medications aspirin 81 mg enteric coated tabletIndicatio ns:A-fib Take 1 tablet (81 mg total) by mouth every morning Active ldbqbjdw-pdo-pj lq-BT-lturto (Centrum Silver Women) 8 mg iron-400 mcg-300 mcg tabletIndicatio ns:otc Take 1 tablet by mouth every morning Active pravastatin (PRAVACHOL) 40 mg tabletIndicatio ns:hyperlipidem ia Take 1 tablet (40 mg total) by mouth nightly Active citalopram (CeleXA) 10 mg tabletIndicatio ns:Anxiety with Depression Take 0.5 tablets (5 mg total) by mouth every morning Active artificial tears,hypromell ose, 0.3 % dropsIndication s:Dry Eye Administer 1 drop into affected eye(s) 4 (four) times a day as needed Active propafenone (RYTHMOL) 150 mg tabletIndicatio ns:A-Fib Take 1 tablet (150 mg total) by mouth 2 (two) times a day 1 Active ibuprofen-diphe nhydramine HCl 200-25 mg capsuleIndicati ons:Insomnia,ot c Take 1 capsule by mouth nightly Active loratadine (CLARITIN) 10 mg tablet 2 Active acetaminophen (TYLENOL) 325 mg tablet 3 Active fluticasone propionate (FLONASE) 50 mcg/actuation nasal spray 3 Active Active Problems Problem Noted Date Diagnosed Date Asymmetric SNHL (sensorineural hearing loss) 05/2020 Vestibular schwannoma (CMS/HCC) 07/31/2020 Encounters Date Type Department Care Team Description 04/25/2024 2:30 PM NURSERY WORKER Office Visit [facility] Neurosurgery [address], [address] [place] [address] Kerry Zuleta PA Vestibular schwannoma (CMS/HCC) (HCC) (Primary Dx); Vertigo; Dizziness; Cochlear implant status 04/06/2024 10:20 AM NURSERY WORKER - 04/06/2024 11:59 PM NURSERY WORKER Hospital Encounter [facility] [address] [place] [address] Vestibular disorder, left; Vestibular nerve equilibration disorder, left Discharge Disposition: Discharge to home or self care 04/05/[address] [facility] Health Information Management [address] [place] [address] Scanning, Provider 04/03/2024 Telephone [facility] Scheduling [address] [place] [address] Tania Burris 03/29/[address] [facility] Information Management [address] [place] [address] Scanning, Provider 03/20/2024 10:40 AM NURSERY WORKER Office Visit [facility] ([facility]) - [facility] ENT [address] [facility] [address] [place] [address] [place] [id number] Bettie Bruno MD Vestibular schwannoma (CMS/HCC) (HCC) (Primary Dx); Asymmetric SNHL (sensorineural hearing loss) from Last 3 Months Immunizations Name Administration Dates Next Due Pfizer SARS-CoV-2 Monovalent Vaccination (12+ Yrs) PURPLE 08/13/2020,07/23/2020 Surgical History Surgery Date Site/Laterality Comments WISDOM TOOTH EXTRACTION 05/17/1976 - 05/16/1977 ANTERIOR CERVICAL DISCECTOMY W/ FUSION 05/17/2003 - 05/16/2004 CARPAL TUNNEL RELEASE 05/17/2000 - 05/16/2001 Bilateral TUBAL LIGATION 05/17/1989 - 05/16/1990 EYE MUSCLE SURGERY 05/17/2010 - 05/16/2011 BROW LIFT 05/17/2010 - 05/16/2011 BUNIONECTOMY tarsal tunnel release and plantar fascia release DORSAL COMPARTMENT RELEASE 05/17/2019 - 05/16/2020 Left COLONOSCOPY 2021 Medical History Medical History Date Comments Sleep apnea Vestibular schwannoma (HCC) Depressive disorder CKD (chronic kidney disease) stage 2, GFR 60-89 ml/min Atrial fibrillation (CMS/HCC) (HCC) Delayed emergence from general anesthesia patient states that she has been told that she is slow to wake up Motion sickness PONV (postoperative nausea and vomiting) patient states not immediately after she wakes up usually greg with medications like Codeine Allergic rhinitis 1979 HL (hearing loss) 1997 Family History Medical History Relation Name Comments Diabetes Brother Don Diabetes Maternal Grandmother Chantilly Hypertension Mother Jeanine Diabetes Mother's Brother Al Diabetes Sister Rama Relation Name Status Comments Brother Don Maternal Grandmother Julia Mother Jeanine Mother's Brother Al Sister Rama Social History Tobacco Use Types Packs/Day Years Used Date Smoking Tobacco: Never Smokeless Tobacco: Never Tobacco Cessation:Counseling Given: Not Answered Alcohol Use Standard Drinks/Week Comments Not Currently 0 (1 standard drink = 0.6 oz pur e alcohol) AUDIT-C Answer Date Recorded Q1: How often do you have a drink containing alc ohol? Never 06/17/2021 Average Number of Drinks Not on file 022 Frequency of Binge Drinking Not on file 05/2021 Comments No Sex and Gender Information Value Date Recorded Sex Assigned at Not on file Legal Sex Female 2:56 PM NURSERY WORKER Gender Identity Female 07/05/2020 12:08 PM NURSERY WORKER Sexual Orientation Straight 07/05/2020 12 :08 PM NURSERY WORKER Obstetrics History Last Filed Vital Signs Vital Sign Reading Time Taken Comments Blood Pressure 111/58 04/25/2024 2:07 PM NURSERY WORKER Pulse 84 04/25/2024 2:07 PM NURSERY WORKER Temperature 37 ??C (98.6 ??F) 04/25/2024 2:07 PM NURSERY WORKER Respiratory Rate 17 04/25/2024 2:07 PM NURSERY WORKER Oxygen Saturation 98% 04/25/2024 2:07 PM NURSERY WORKER Inhaled Oxygen Concentration - - Weight 70.8 kg (156 lb) 04/25/2024 2:07 PM NURSERY WORKER Height 162.6 cm (5' 4 ) 04/25/2024 2:07 PM NURSERY WORKER Body Mass Index 26.78 04/25/2024 2:07 PM NURSERY WORKER Plan of Treatment Health Maintenance Due Date Last Done Comments Breast Cancer Screening-Mammogram 1957 Colon Cancer Screening-Colonoscopy 1955 Depression Screening 1955 Hepatitis C Screening 1955 Osteoporosis Screening-Bone Density Scan 1957 Fall Risk Assessment 03/28/2022 03/28/2021 Well Visit 65+ 2022 Covid-19 Vaccine (4 - 2023-2 5 season) 2024 05/15/2021, 08/13/2020, 07/23/2020 DTaP/Tdap/Td Vaccine (3 - Td or Tdap) 07/06/2033 07/06/2023, 01/04/2013, 02/14/2004, Additional history exists Zoster Vaccine Completed 09/30/2021, 06/17/2021 Pneumococcal vaccine 65+ Completed 024, 09/05/2015, 03/04/2015, Additional history exists Influenza Vaccine Completed 03/09/2024, , 03/26/2022, Additional history exists Medical Devices Implanted Type Area Curriculum And Instruction Director Device Identifier Shelf Expiration Date Model / Serial / Lot [id number] Synchrony 2- Flex 28 - Coclear Implant Implanted:Qty: 1 on 03/20/2021 by Bettie Bruno MD at [facility] Other - see comments Left: Ear Med El 10/16/2023 [id number] / [id number] / Description:Cochlear Implant - Patient enrolled in [facility] ANTS study. No charge to patient. * Jolene Delgado Replaced with clinical trial item [id number] [facility]- SYNCHRONY IMPLANT SYSTEM Cervical Spine Fusion Instrumentation Spine Cervical Integra [employer] Immanuel [id number] Duragen Plus 7.5x7.5cm Patch Resorbable Suturable Cranial Dura Graft - [id number] Implanted:Qty: 1 on 03/20/2021 by Bettie Bruno MD at [facility] Left: Ear Integra [employer] [id number] 10/15/2023 [id number] / / [place] Craniomaxillof[place] ial [id number] Mtm 76x50x.85mm Embed Sheet Craniomaxillofac ial Mesh Cranial Latex Free - [id number] Implanted:Qty: 1 on 03/20/2021 by Bettie Bruno MD at [facility] Left: Ear [place] Cran[employer]axillofacia l [id number] 11/13/2028 [id number] / / [id number] [place] Craniomaxillofac ial [id number] [facility] 3 1.5mm 4mm Self Drill Axial Stability Screw Bone Latex Free - [id number] Implanted:Qty: 4 on 03/20/2021 by Bettie Bruno MD at [facility] Head [place] Craniomaxillofacia l [id number] / / Procedures Procedure Name Priority Date/Time Associated Diagnosis Comments MRI INTERNAL AUDITORY CANAL INCL BRAIN W WO CONTRAST Schedule Routine, Read Routine (OP Routine) 04/06/2024 12:10 PM NURSERY WORKER Vestibular disorder, left Vestibular nerve equilibration disorder, left SCAN - OTHER ORDERS 04/05/2024 SCAN - OTHER ORDERS 03/29/2024 12:33 PM NURSERY WORKER from Last 3 Months Results * MRI Internal Auditory Canal Brain W WO Contrast (04/06/2024 12:10 PM NURSERY WORKER) Anatomical Region Laterality Modality Head and Neck N/A Magnetic Resonan ce 04/06/2024 1:35 PM NURSERY WORKER Impressions 04/06/2024 2:17 PM NURSERY WORKER Postsurgical changes of left mastoidectomy and cochlear implantation. Within the limitations of this examination, there is no abnormal enhancement within the left cerebellopontine angle or internal auditory canal to suggest recurrent disease. ??Consider CT head without and with contrast for future follow-up given limitations imposed by metallic artifact. Dictated by: Francisco Diop D.O. The radiology attending physician has personally reviewed this study, and had reviewed and/or edited this written report and agrees with it. Electronically signed by: Roman Dupree M.D. 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 TECHNIQUE: Multiplanar multi-weighted MRI of the brain and brainstem was performed without and with intravenous contrast using the general brain protocol. Additionally sequences detailing the internal auditory canals and posterior fossa were acquired as a part of the internal auditory canal protocol. Contrast information: 14 mL Gadoterate Meglumine COMPARISON: Brain MRI dated 06/17/2021, 03/16/2022 and 04/14/2023. FINDINGS: Study is degraded due to susceptibility artifact of a left cochlear implant which limits interpretation of the majority of the left cerebellum and cerebral hemisphere. Postsurgical changes of left mastoidectomy with subsequent fat packing and cochlear implantation. ??No masslike enhancement noted within the left cerebellopontine angle or internal auditory canal to suggest recurrence. The right cerebellopontine angle is normal, with no evidence of extra-axial mass or aneurysm. The upper cervical spinal cord and spine are normal. ??Limited views of the remainder of the brain appear normal. The scalp and calvarium are normal. The superior sagittal sinus demonstrates normal venous flow. ??The pituitary and sella are normal. The brainstem and craniocervical junction are unremarkable. Mild paranasal sinus mucosal thickening of the maxillary sinuses. The orbits appear normal. 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 TECHNIQUE: Multiplanar multi-weighted MRI of the brain and brainstem was performed without and with intravenous contrast using the general brain protocol. Additionally sequences detailing the internal auditory canals and posterior fossa were acquired as a part of the internal auditory canal protocol. Contrast information: 14 mL Gadoterate Meglumine COMPARISON: Brain MRI dated 06/17/2021, 03/16/2022 and 04/14/2023. FINDINGS: Study is degraded due to susceptibility artifact of a left cochlear implant which limits interpretation of the majority of the left cerebellum and cerebral hemisphere. Postsurgical changes of left mastoidectomy with subsequent fat packing and cochlear implantation. No masslike enhancement noted within the left cerebellopontine angle or internal auditory canal to suggest recurrence. The right cerebellopontine angle is normal, with no evidence of extra-axial mass or aneurysm. The upper cervical spinal cord and spine are normal. Limited views of the remainder of the brain appear normal. The scalp and calvarium are normal. The superior sagittal sinus demonstrates normal venous flow. The pituitary and sella are normal. The brainstem and craniocervical junction are unremarkable. Mild paranasal sinus mucosal thickening of the maxillary sinuses. The orbits appear normal. IMPRESSION: Postsurgical changes of left mastoidectomy and cochlear implantation. Within the limitations of this examination, there is no abnormal enhancement within the left cerebellopontine angle or internal auditory canal to suggest recurrent disease. Consider CT head without and with contrast for future follow-up given limitations imposed by metallic artifact. Dictated by: Francisco Diop D.O. The radiology attending physician has personally reviewed this study, and had reviewed and/or edited this written report and agrees with it. Electronically signed by: Roman Dupree M.D. Eladia AGUILAR Javon MRI PROCEDURES Final Result * SCAN - OTHER ORDERS (04/05/2024) us Provider Scanning Final Result * SCAN - OTHER ORDERS (03/29/2024 12:33 PM NURSERY WORKER) us Provider Scanning Final Result from Last 3 Months Insurance [facility] MEDICARE [facility] Address: [address] [address] [place] [address] [facility] MEDICARE Advance Directives For more information, please contact: [phone] Documents on File Type Date Recorded Patient Cinetechnician Expl anation ADVANCE DIRECTIVE 03/20/2021 6:34 AM Pream ble: Advanced Medical Directive ADVANCE DIRECTIVE 03/20/2021 6:33 AM Power of Repairer Maintenance Building-Medical ADVANCE DIRECTIVE 03/20/2021 6:31 AM Appoi ntment of Agent to Control Disposition of Remains * Full Code (Latest Code Status on File) Date Activated Date Inactivated Comments 03/20/2021 4:47 PM 03/28/2021 10:55 PM Care Teams Dj Instructor Relationship Specialty Start Date End Date Patricia Diaz MD [address] [place] [address] PCP - General Internal Medicine 06/27/20
--- OUTSIDE RECORDS SUMMARY | 2024-06-17 16:05 | XMS_ITS | Encounter Summary ---
Author Name [facility] [place] [facility] [place] Address [address] [place] [address] Care Team Providers Care Manager Editorial Name Role Phone THANH ZAZUETA Primary Care [...] [employer] VIS[employer] N PLAN May 17, 2016 [id number] [phone] CHARO MARTINEZ PATIENT EYEMED (WNR) VISION VISIO N May 17, 2019 [id number] MARTINEZCHARO PATIENT MEDICARE (WNR) MEDICARE (M) PART B Nov 14, 2022 PART B [id number] [phone] CHARO MARTINEZ PATIENT MEDICARE (WNR) MEDICARE (M) PART A Nov 14, 2022 PART A [id number] MARTINEZCHARO PATIENT Selected Encounter This section includes the information on record at [place] for the Encounter. Date/Time Encounter Type Encounter Description Reason Provider Source Sep 08, 2023 10:00 AM OFFICE O/P EST MOD 30 MIN PAIN CLINIC ICD-10-CM M47.892 Other spondylosis, cervical region ISAIAS MOY [place] Encounter Template Text not used by [place] Assessments - Encounter Diagnoses This section includes the primary and secondary diagnoses documented for the Encounter. Date/Time Primary/Secondary Diagnosis Diagnosis Name Provider Source Sep 08, 2023 10:26 AM PRIMARY Other spondylosis, cervical region ISAIAS OMY [facility] Sep 08, 2023 10:26 AM SECONDARY Other chronic pain ISAIAS MOY [facility] Plan of Treatment: Future Appointments (+ 6 months) and Future Tests (+/- 45 days) The Plan of Treatment section includes future care activities for the patient from all [place] [facility]. This section includes future appointments and future orders which are active, pending or scheduled. Future Appointments This section includes appointments that were scheduled to occur 6 months from the date of the Encounter, up to a maximum of 20 appointments. The data comes from all [place] treatment facilities. Appointment Date/Time Appointment Type Appointme nt Facility Name Jan 19, 2024 01:00 PM AMBULATORY - NONE [facility] Jan 26, 2024 09:30 AM AMBULATORY - SURGERY [facility] Feb 29, 2024 01:30 PM AMBULATORY - MEDICINE [facility] Mar 09, 2024 10:30 AM AMBULATORY - MEDICINE [facility] Social History: Smoking Status (Most current) and Tobacco Use (All prior to encounter date) This section includes the most current, and the historical, smoking and tobacco- related health factors from the [place] facility where the Encounter took place. Current Smoking Status This section includes the most current smoking, or tobacco-related health factor, from the [place] facility where the Encounter took place. Date/Time Current Smoking Status Comment [place] October 12, 2013 08:01 AM LIFETIME NON-USER OF TOBACCO [facility] Tobacco Use History This section includes a history of the smoking, or tobacco-related health factors, that were collected on or before the date of the Encounter. The data comes from the [place] facility where the Encounter took place. Date/Time Smoking Status/Tobacco Use Comment F acility Dec 13, 2012 08:02 AM LIFETIME NON-USER OF TOBACCO [facility] Advance Directives: All historical and current Section Date Range: From patient's date of to the date document was created. This section includes ALL of a patient's completed or amended [place] Advance and Rescinded Directives. The entries below indicate that a directive exists for the patient, but an actual copy is not included with this document. The data comes from all [place] facilities. Date Advance Directives Provider Source Feb 23, 2014 ADVANCE DIRECTIVE DISCUSSION ANGELITA AGUILA [facility] Encounter Notes: All associated encounter notes This section contains the clinical notes associated to the Encounter. Date/Time Encounter Note(s) Provider Source Sep 08, 2023 10:04 AM PAIN NOTE: LOCAL TITLE: PAIN REHAB [facility] CLINIC F/U [facility] STANDARD TITLE: PAIN NOTE DATE OF NOTE: SEP 08, 2023@10:04 ENTRY DATE: SEP 08, 2023@10:04:28 AUTHOR: ISAIAS MOY COSIGNER: URGENCY: STATUS: COMPLETED Pain follow up note: Patient Name: CHARO MARTINEZ Patient : Nov Today's Date: SEP 08, 2023 PCP: THANH ZAZUETA Chief Complaint: neck pain HPI HISTORICAL INFO: Charo is a 67 year old FEMALE was referred by THANH ZAZUETA for consultation regarding treatment recommendations for management of chronic neck pain and back pain Charo is a 67 year-old FEMALE with a history of atrial fibrillation, depression, right carpal tunnel release 1995, 2000 , chronic kidney disease 3A, who presents with chronic neck and back pain for the last 10 plus years. The worst and more persistent of her pain is in her neck. In 2004- she was found to have bulging discs and eventually underwent a C5-C6 disc fusion , installed plate, 4 screws and cadaver bone. She previously had pain that was shooting down her right upper extremity. She had 90% improvement in the radicular component of her pain. However, she continues to have axial neck pain, radiating into her right shoulder. Current neck pain began with no precipitating event. Since onset, pain has progressed. She reports no new bowel/bladder incontinence, numbness, tingling recent fevers, chills, or weight loss. The pain is constant and described as Worst Pain: neck pain Pain description, characteristics: constant ache Pain intensity: worst pain in last week - 8/10; least pain in the last week- 2/10; current pain - 5/10. 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 She states that she is only approved for so many sessions [X ]whole health- has improved with yoga Previous injections: - no prior spinal injections Current and Prior Pain Medications: Opioid: AEDs: Pregabalin 75mg BID ( was previously on 100mg BID, however creatinine was increased on higher dosing regimen) Anti-Depressants: Muscle Relaxants: Anti-Inflammatories: Topical: Sleep Aids: Other: INTERVAL HISTORY (SEP 08, 2023): CHARO MARTINEZ returns to care for persistent neck pain. They reports no new numbness, weakness, bowel/bladder incontinence. Since the last visit, the pain has improved. Corby is taking Pregabalin 75mg BID. Corby denies any side effects to current pain medications. The pain is constant and described as achy. Corby rates his pain at 2-3/10 on average. The pain increases with looking up and down, doing yard work and decreases with rest. Corby's ADLs are difficult, but manageable on their own. Current and Prior Pain Medications: Opioid: AEDs: Pregabalin 75mg BID Anti-Depressants: Muscle Relaxants: Anti-Inflammatories: Topical: Sleep Aids: Other: Review of Systems - negative unless as stated above Active Outpatient Medications (including Supplies): Active Outpatient Medications Status 1) ACETAMINOPHEN 325MG TAB TAKE ONE TABLET BY MOUTH ACTIVE THREE TIMES A DAY NEEDED FOR PAIN CAUTION: DO NOT EXCEED 4000MG PER DAY ACETAMINOPHEN (APAP) FROM ALL MEDS. 2) ASPIRIN 81MG EC TAB TAKE ONE TABLET BY MOUTH ONCE A ACTIVE DAY FOR HEART OR CIRCULATION. TAKE WITH FOOD. 3) CHOLECALCIF 50MCG (D3-2,000UNIT) TAB TAKE ONE TABLET ACTIVE BY MOUTH ONCE A DAY FOR VITAMIN D DEFICIENCY. 4) CITALOPRAM HYDROBROMIDE 10MG TAB TAKE ONE-HALF TABLET ACTIVE BY MOUTH EVERY MORNING FOR DEPRESSION 5) ETODOLAC 300MG CAP TAKE ONE CAPSULE BY MOUTH TWICE ACTIVE DAILY NEEDED FOR PAIN (TAKE WITH FOOD) 6) FLUTICASONE PROP 50MCG 120D NASAL INHL INSTILL 1 ACTIVE SPRAY IN NOSTRIL(S) ONCE A DAY FOR ALLERGIES (MUST BE USED DIRECTED FOR MINIMUM OF 21 DAYS TO PROVIDE ADEQUATE BENEFITS) 7) LORATADINE 10MG TAB TAKE ONE TABLET BY MOUTH ONCE A ACTIVE DAY FOR ALLERGIES ON EMPTY STOMACH 8) METHOCARBAMOL 500MG TAB TAKE 1 TABLET BY MOUTH AT ACTIVE BEDTIME NEEDED 9) PRAVASTATIN NA 40MG TAB TAKE ONE TABLET BY MOUTH ACTIVE EVERY EVENING TO LOWER CHOLESTEROL (REPORT ANY MUSCLE PAIN OR WEAKNESS) 10) PREGABALIN 75MG ORAL CAP TAKE ONE CAPSULE BY MOUTH ACTIVE TWICE A DAY FOR NERVE PAIN *MAY CAUSE DROWSINESS* 11) PROPAFENONE HCL 150MG TAB TAKE ONE TABLET BY MOUTH ACTIVE TWICE A DAY FOR HEART. Allergies: CODEINE, BETADINE, IODINATED CONTRAST MEDIA Labs Methadone panel: No METHADONE PANEL EO data found Buprenorphine: No BUPRENORPHINE EO data found UDS: No URINE DRUG SCREEN EO data found Creatinine: No CREATININE EO data found Hemoglobin A1c HGA1C 5.8 % 11/03/2022 08:35 Hemoglobin HGB 13.4 g/dL 03/08/2023 09:53 Hematocrit HCT 40.5 % 03/08/2023 09:53 White Blood Cell 5.2 10*3/uL (03/08/23 09:53) Platelets: PLT 252 10*3/uL 03/08/2023 09:53 Vitamin D SCLU - Lab Cum Selected No selection items chosen for this component. LFTs: AST/SGOT 25 U/L 03/08/2023 09:53 ALT/SGPT 21 U/L 03/08/2023 09:53 Creatinine CL No CREATININE CLEARANCE(MA-PB) data found Physical Exam: - please see detailed vitals for SEP 08, 2023 BMI: 27.2 Constitutional: Patient is well-groomed, in NAD ENT: hearing assessment grossly normal Lung: normal respiratory effort Spine Cervical Palpation: Tenderness along cervical paraspinal muscles ROM: decreased in flexion and extension Special Tests: Spurling's: negative for concordant pain Neurologic: Upper Ext Power: C5 elbow flex 5/5 bilaterally C6 wrist ext 5/5 bilaterally C7 elbow ext 5/5 bilaterally C8 finger ext 5/5 bilaterally T1 finger abduction 5/5 bilaterally Results: No data available Assessment: The above note documents my personal evaluation of this patient. In addition, I have reviewed and confirmed with the patient and nurse the supportive information documented in today's scanned Patient Health Questionnaire and Office Note. Diagnosis: 1) cervical spondylosis 2) Other,chronic pain Plan: 1. Interventions: none at this time. If pain does not improve, or worsens, would like to be considered for a cervical epidural steroid injection in the community, prior to her cruise in October 2. Medications: ? Adjuvants: continue pregabalin 75mg BID 3. Imaging: none at this time 4. Referral: referral to yoga 5. Follow-up: Time documentation and that the information was discussed and agreed upon with the : I Spent 35 min total in preparing services for this patient, before, during and after the F2F visit today in evaluation, chart review and care planning with/for pt. /colt/ ISAIAS MOY Physician Signed: 09/08/2023 10:27 ISAIAS MOY [facility]
--- OUTSIDE RECORDS SUMMARY | 2024-06-17 16:05 | XMS_ITS | Continuity of Care Document ---
Author Name [facility] Organization [facility] Care Team Providers Care Chick Sexer Name Role Phone [facility] Unavailable Unavailable Problems Combined list of problems from Department of Defense and [facility] Affairs facilities. It does not include entries that were removed or entered in error. 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 Allergic rhinitis * (ICD-9-CM 477.9) Active Condition [facility] Atrial Fibrillation * (ICD-9-CM 427.31) Active Condition [facility] Breast Mass (ICD-9-CM 611.72) Active Condition 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 Chronic kidney disease stage 2 Active Condition [facility] Chronic Kidney Disease, Unspecified (ICD-9-CM 585.9) Active Condition [facility] Chronic renal insufficiency Active Condition [facility] Deficiency of other vitamins Active Condition [facility] Depression * (ICD-9-CM 311./300.4) Active Condition [facility] Gynecologic Exam Active Condition [facility] Gynecological examination normal Active Condition [facility] Hearing loss Active Condition [facility] Hearing Loss, Sensorineural, Unspecified Active Condition [facility] Hip pain Active Condition [facility] Hip Pain (ICD-9-CM 719.45) Active Condition [facility] Hyperlipidemia Active Condition [facility] Kidney Failure * (ICD-9-CM 586.) Active Condition [facility] Localized swelling, mass and lump, trunk Active Condition [facility] Low back pain Active Condition [facility] Low Back Pain * (ICD-9-CM 724.2) Active Condition [facility] Major depressive disorder Active Condition [facility] Neck pain (SNOMED CT 95725076) Active Condition [facility] Neuritis Active Condition [facility] Neuroma (SNOMED CT 529129860) Active Condition [facility] Other Malaise and Fatigue (ICD-9-CM 780.79) Active Condition [facility] Pain in joint involving ankle and foot (ICD-9-CM 719.47) Active Condition [facility] Pain in joint involving shoulder region (ICD-9-CM 719.41) Active Condition [facility] Pain in right hand Active Condition [facility] Pain of left ankle joint Active Condition [facility] Palpitations (ICD-9-CM 785.1) Active Condition [facility] Postmenopausal atrophic vaginitis Active Condition [facility] PROPHY VACC. STREP PNEU Active Condition Jan 05, 2008 Entered By: THANH ZAZUETA Comment: Right Deltoid [facility] Routine gynecologic examination done Active Condition [facility] Sinusitis * (ICD-9-CM 473.9) Active Condition [facility] Unresolved Active Condition [facility] VACCIN FOR INFLUENZA Active Condition [facility] Vaginal discharge (SNOMED CT 822342170) Active Condition [facility] Vaginitis Active Condition [facility] Diagnosis: ICD-10-CM M79.672 Pain in left foot Active Diagnosis [facility] Diagnosis: ICD-10-CM Z00.01 Encounter for general adult medical exam w abnormal findings Active Diagnosis [facility] Diagnosis: ICD-10-CM I48.0 Paroxysmal atrial fibrillation Active Diagnosis [facility] Diagnosis: ICD-10-CM 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, bilateral, mild stage Active Diagnosis [facility] Diagnosis: ICD-10-CM G47.30 Sleep apnea, unspecified Active Diagnosis [facility] Diagnosis: ICD-10-CM M47.892 Other spondylosis, cervical region Active Diagnosis [facility] Diagnosis: ICD-10-CM Z46.89 Encounter for fitting and adjustment of oth devices Active Diagnosis [facility] Diagnosis: ICD-10-CM M54.2 Cervicalgia Active Diagnosis [facility] Diagnosis: ICD-10-CM G47.36 Sleep related hypoventilation in conditions classd elswhr Active Diagnosis [facility] Diagnosis: ICD-10-CM N18.2 Chronic kidney disease, stage 2 (mild) Active Diagnosis [facility] Diagnosis: ICD-10-CM 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, unspecified foot Active Diagnosis [facility] Diagnosis: ICD-10-CM R42 Dizziness and giddiness Active Diagnosis [facility] Diagnosis: ICD-10-CM H90.3 Sensorineural hearing loss, bilateral Active Diagnosis [facility] Diagnosis: ICD-10-CM G43.709 Chronic migraine w/o aura, not intractable, w/o stat migr Active Diagnosis [facility] Diagnosis: ICD-10-CM Z12.4 Encounter for screening for malignant neoplasm of cervix Active Diagnosis [facility] Medications Combined list of outpatient medications from Department of Defense and [facility] Affairs facilities.Medications provided include 1) outpatient medications from the last 15 months, and 2) patient-reported medications. Medication Details Route Status Patient Instructions Prescription Expires Prescription Number Last Dispense Date Ordering Provider Order Date Order Qty Source ACETAMINOPH EN (U/D) 325 MG ORAL TAB TAKE ONE TABLET BY MOUTH THREE TIMES A DAY NEEDED FOR PAIN CAUTION: DO NOT EXCEED 4000MG PER DAY ACETAMIN OPHEN (APAP) FROM ALL MEDS. 03/10/2024 [id number] THANH ZAZUETA 2023 100 [facility] Divisio n ACETAMINOPH EN 325MG TAB TAKE ONE TABLET BY MOUTH THREE TIMES A DAY NEEDED FOR PAIN CAUTION: DO NOT EXCEED 4000MG PER DAY ACETAMIN OPHEN (APAP) FROM ALL MEDS. ORAL DISCONT INUED 03/10/2024 [id number] 4 Brandi ZAZUETA 2022 100 [facility] ACETAMINOPH EN 325MG TAB TAKE ONE TABLET BY MOUTH THREE TIMES A DAY NEEDED FOR PAIN CAUTION: DO NOT EXCEED 4000MG PER DAY ACETAMIN OPHEN (APAP) FROM ALL MEDS. ORAL 03/10/2024 [id number] 4 Brandi ZAZUETA 2023 300 [facility] ASPIRIN 81MG TAB,EC TAKE ONE TABLET BY MOUTH ONCE A DAY FOR CARDIOVA SCULAR DISEASE TAKE WITH FOOD. ORAL ACTIVE 03/01/2025 [id number] 4 NIURKA GARCIA 2023 120 [facility] ASPIRIN 81MG TAB,EC TAKE ONE TABLET BY MOUTH ONCE A DAY FOR HEART OR CIRCULAT ION. TAKE WITH FOOD. ORAL DISCONT INUED BY ASHLEY R 10/28/2023 [id number] 4 Brandi ZAZUETA 2022 120 [facility] ASPIRIN EC (U/D) 81 MG ORAL TBEC TAKE ONE TABLET BY MOUTH ONCE A DAY FOR HEART OR CIRCULAT ION. TAKE WITH FOOD. 10/28/2023 [id number] THANH ZAZUETA 2023 120 [facility] Divisio n ASPIRIN EC (U/D) 81 MG ORAL TBEC TAKE ONE TABLET BY MOUTH ONCE A DAY FOR HEART OR CIRCULAT ION. TAKE WITH FOOD. 10/28/2023 [id number] 4 THANH ZAZUETA 2023 120 [facility] Divisio celeXA (BRAND) 10 MG ORAL TAB TAKE ONE-HALF TABLET BY MOUTH EVERY MORNING FOR DEPRESSI ON Active 10/01/2024 [id number] 4 THANH ZAZUETA 2023 45 [facility] Divisio n celeXA (BRAND) 10 MG ORAL TAB TAKE ONE-HALF TABLET BY MOUTH EVERY MORNING FOR DEPRESSI ON Discont inued 10/28/2023 [id number] THANH ZAZUETA 2023 45 [facility] Divisio n celeXA (BRAND) 10 MG ORAL TAB TAKE ONE-HALF TABLET BY MOUTH EVERY MORNING FOR DEPRESSI ON 10/28/2023 [id number] 3 THANH ZAZUETA 2022 45 [facility] Divisio n cholecalcif (VIT D3) 2,000 UNIT ORAL TAB TAKE ONE TABLET BY MOUTH ONCE A DAY FOR VITAMIN D DEFICIEN CY. 10/28/2023 [id number] 4 RYTHANH SANCHEZ Lien 2023 100 [facility] Divisio n CHOLECALCIF MACARIO 50MCG (2,000UNIT) TAB TAKE ONE TABLET BY MOUTH ONCE A DAY FOR VITAMIN D DEFICIEN CY. ORAL 10/28/2023 [id number] 4 Brandi ZAZUETA 2022 100 [facility] CITALOPRAM HYDROBROMID E 10MG TAB TAKE ONE-HALF TABLET BY MOUTH EVERY MORNING FOR DEPRESSI ON ORAL ACTIVE 10/01/2024 [id number] 4 Brandi ZAZUETA 2023 45 [facility] DIV[facility] N CITALOPRAM HYDROBROMID E 10MG TAB TAKE ONE-HALF TABLET BY MOUTH EVERY MORNING FOR DEPRESSI ON ORAL DISCONT INUED 10/28/2023 [id number] 4 Brandi ZAZUETA 2022 45 [facility] FLONASE-OTC (BRAND) 50 MCG ANTOLIN SPSN [9.9] INSTILL 1 SPRAY IN NOSTRIL( S) ONCE A DAY FOR ALLERGIE S (MUST BE USED DIRECTED FOR MINIMUM OF 21 DAYS TO PROVIDE ADEQUATE BENEFITS ) 02/11/2024 [id number] 4 KADENDANIELTHANH 2023 1 [facility] Divisio n FLUAD QUAD (influenza vaccine quadrivalen t 2022- (65 yr up)/MF59C.1 /PF), 60MCG/.5ML, [employer] .5 ml SYRINGE Active [id number] 2023 0.5 Pharmac y Data Transac tion Service Facilit y FLUTICASONE PROPIONATE 50MCG/SPRAY SOLN,NASAL, 16GM INSTILL 1 SPRAY IN NOSTRIL( S) ONCE A DAY FOR ALLERGIE S (MUST BE USED DIRECTED FOR MINIMUM OF 21 DAYS TO PROVIDE ADEQUATE BENEFITS ) NASAL ACTIVE 03/10/2025 [id number] 4 Brandi ZAZUETA 2023 1 [facility] FLUTICASONE PROPIONATE 50MCG/SPRAY SOLN,NASAL, 16GM INSTILL 1 SPRAY IN NOSTRIL( S) ONCE A DAY FOR ALLERGIE S (MUST BE USED DIRECTED FOR MINIMUM OF 21 DAYS TO PROVIDE ADEQUATE BENEFITS ) NASAL DISCONT INUED 02/11/2024 [id number] 4 Brandi ZAZUETA 2022 1 [facility] Loratadine (Alavert ODT) Tablet 10 mg Oral TAKE ONE TABLET BY MOUTH ONCE A DAY FOR ALLERGIE S ON EMPTY STOMACH Active 08/02/2024 [id number] 4 THANH ZAZUETA 2023 90 [facility] Divisio n Loratadine (Alavert ODT) Tablet 10 mg Oral TAKE ONE TABLET BY MOUTH ONCE A DAY FOR ALLERGIE S ON EMPTY STOMACH Active 08/02/2024 [id number] 4 THANH ZAZUETA 2023 90 [facility] Divisio n Loratadine (Alavert ODT) Tablet 10 mg Oral TAKE ONE TABLET BY MOUTH ONCE A DAY FOR ALLERGIE S ON EMPTY STOMACH Discont inued 07/08/2023 [id number] THANH ZAZUETA 2023 90 [facility] Divisio n LORATADINE 10MG TAB TAKE ONE TABLET BY MOUTH ONCE A DAY FOR ALLERGIE S ON EMPTY STOMACH ORAL ACTIVE 08/02/2024 [id number] 4 Brandi ZAZUETA [address] [place] [address] LORATADINE 10MG TAB TAKE ONE TABLET BY MOUTH ONCE A DAY FOR ALLERGIE S ON EMPTY STOMACH ORAL DISCONT INUED 07/08/2023 [id number] 3 Brandi ZAZUETA 2022 90 [facility] DIV[facility] N methocarbam ol (U/D) 500 MG ORAL TAB TAKE 1 TABLET BY MOUTH AT BEDTIME NEEDED 05/26/2024 [id number] ISAIAS MOY 2023 30 [facility] Divisio n methocarbam ol (U/D) 500 MG ORAL TAB TAKE 1 TABLET BY MOUTH AT BEDTIME NEEDED 05/26/2024 [id number] ISAIAS MOY 2023 30 [facility] Divisio n methocarbam ol (U/D) 500 MG ORAL TAB TAKE 1 TABLET BY MOUTH AT BEDTIME NEEDED Discont inued 06/17/2023 [id number] ISAIAS MOY 2023 30 [facility] Divisio n methocarbam ol (U/D) 500 MG ORAL TAB TAKE 1 TABLET BY MOUTH AT BEDTIME NEEDED Discont inued 05/27/2023 [id number] ISAIAS MOY 2023 30 [facility] Divisio n METHOCARBAM OL 500MG TAB TAKE 1 TABLET BY MOUTH AT BEDTIME NEEDED ORAL DISCONT INUED 06/17/2023 [id number] 4 ISAIAS MOY 2023 30 [facility] DIVISIO N METHOCARBAM OL 500MG TAB TAKE 1 TABLET BY MOUTH AT BEDTIME NEEDED ORAL DISCONT INUED 05/27/2023 [id number] ISAIAS MOY 2022 30 [facility] DIVISIO N METHOCARBAM OL 500MG TAB TAKE 1 TABLET BY MOUTH AT BEDTIME NEEDED ORAL 05/26/2024 [id number] 4 ISAIAS MOY 2023 30 [facility] DIVISIO N PRAVASTATIN 40 MG ORAL TAB TAKE ONE TABLET BY MOUTH EVERY EVENING TO LOWER CHOLESTE ROL (REPORT ANY MUSCLE PAIN OR WEAKNESS ) Active 10/01/2024 [id number] THANH ZAZUETA [address] [place] [address] Divisio n PRAVASTATIN 40 MG ORAL TAB TAKE ONE TABLET BY MOUTH EVERY EVENING TO LOWER CHOLESTE ROL (REPORT ANY MUSCLE PAIN OR WEAKNESS ) Discont inued 10/28/2023 [id number] 4 THANH ZAZUETA 2023 90 [facility] Divisio n PRAVASTATIN 40 MG ORAL TAB TAKE ONE TABLET BY MOUTH EVERY EVENING TO LOWER CHOLESTE ROL (REPORT ANY MUSCLE PAIN OR WEAKNESS ) 10/28/2023 [id number] 4 THANH ZAZUETA 2022 90 [facility] Divisio n PRAVASTATIN NA 40MG TAB TAKE ONE TABLET BY MOUTH EVERY EVENING TO LOWER CHOLESTE ROL (REPORT ANY MUSCLE PAIN OR WEAKNESS ) ORAL ACTIVE 10/01/2024 [id number] 4 Brandi ZAZUETA 2023 90 [facility] DIVISIO N PRAVASTATIN NA 40MG TAB TAKE ONE TABLET BY MOUTH EVERY EVENING TO LOWER CHOLESTE ROL (REPORT ANY MUSCLE PAIN OR WEAKNESS ) ORAL DISCONT INUED 10/28/2023 [id number] 4 Brandi ZAZUETA 2022 90 [facility] PREGABALIN (U/D) 75 MG ORAL CAP TAKE ONE CAPSULE BY MOUTH TWICE A DAY FOR NERVE PAIN *MAY CAUSE DROWSINE SS* 12/11/2023 [id number] THANH ZAZUETA 2023 60 [facility] Divisio n PREGABALIN (U/D) 75 MG ORAL CAP TAKE ONE CAPSULE BY MOUTH TWICE A DAY FOR NERVE PAIN *MAY CAUSE DROWSINE SS* 12/11/2023 [id number] 4 THANH ZAZUETA 2023 60 [facility] Divisio n PREGABALIN (U/D) 75 MG ORAL CAP TAKE ONE CAPSULE BY MOUTH TWICE A DAY FOR NERVE PAIN *MAY CAUSE DROWSINE SS* 06/13/2023 [id number] 4 THANH ZAZUETA 2023 60 [facility] Divisio n PREGABALIN 75MG CAP,ORAL TAKE ONE CAPSULE BY MOUTH TWICE A DAY *MAY CAUSE DROWSINE SS* ORAL ACTIVE 09/09/2024 [id number] 5 Brandi ZAZUETA 2023 60 [facility] PREGABALIN 75MG CAP,ORAL TAKE ONE CAPSULE BY MOUTH TWICE A DAY *MAY CAUSE DROWSINE SS* ORAL DISCONT INUED 07/09/2024 [id number] 4 KYLE ODEN [address] [place] [address] PREGABALIN 75MG CAP,ORAL TAKE ONE CAPSULE BY MOUTH TWICE A DAY FOR NERVE PAIN *MAY CAUSE DROWSINE SS* ORAL DISCONT INUED 06/13/2023 [id number] 4 Brandi ZAZUETA [address] [place] [address] PREGABALIN 75MG CAP,ORAL TAKE ONE CAPSULE BY MOUTH TWICE A DAY FOR NERVE PAIN *MAY CAUSE DROWSINE SS* ORAL 12/11/2023 [id number] 4 Brandi ZAZUETA [address] [place] [address] PROPAFENONE 150 MG ORAL TAB TAKE ONE TABLET BY MOUTH TWICE A DAY FOR HEART. Active 10/01/2024 [id number] THANH ZAZUETA [address] [place] [address] Divisio n PROPAFENONE 150 MG ORAL TAB TAKE ONE TABLET BY MOUTH TWICE A DAY FOR HEART. Discont inued 10/28/2023 [id number] THANH ZAZUETA [address] [place] [address] Divisio n PROPAFENONE HCL 150MG TAB TAKE ONE TABLET BY MOUTH TWICE A DAY FOR HEART. ORAL ACTIVE 10/01/2024 [id number] 4 Brandi ZAZUETA [address] [place] [address] DIVISIO N PROPAFENONE HCL 150MG TAB TAKE ONE TABLET BY MOUTH TWICE A DAY FOR HEART. ORAL DISCONT INUED 10/28/2023 [id number] 4 Brandi ZAZUETA [address] [place] [address] Allergies, Adverse Reactions, Alerts Combined list of allergies from Department of Defense and Veterans Affairs facilities. It does not include entries that were removed or entered in error. Substance Category Reaction Severity Reaction type Status Date Reported Comments Source BETADINE Propensity to adverse reactions to drug (finding) Burning sensation active 5 [facility] Codeine Drug allergy (disorder) Seizures active 5 [facility] CODEINE Propensity to adverse reactions to drug (finding) Seizure active 5 [facility] IODINATED CONTRAST MEDIA Propensity to adverse reactions to drug (finding) Burning sensation active 7 [facility] Immunizations Combined list of available immunizations from the Department of Defense and Veterans Affairs facilities. Immunization Series Date Given Administered By Site Reaction Lot Number CVX Code Drug General Accounting Manager Status Comments Source INFLUENZA, HIGH-DOSE, TRIVALENT, PF 2023 SIMONS,ADDI V LEFT DELTO ID [id number] A 135 complet [facility] PNEUMOCOCCAL CONJUGATE PCV20, POLYSACCHARID E [id number] CONJUGATE, ADJUVANT, PF 2023 SIMONS,ADDI V LEFT DELTO ID [id number] 216 complet [facility] TDAP 2023 SIMONS,ADDI V LEFT DELTO ID [id number] 115 complet [facility] INFLUENZA, UNSPECIFIED FORMULATION 2023 88 complet ed [facility] DIVISIO N ZOSTER RECOMBINANT 2 2021 187 complet [facility] ZOSTER RECOMBINANT 1 2021 187 complet [facility] COVID-19 (PFIZER), MRNA, LNP-S, PF, 30 MCG/0.3 ML DOSE 3 2020 208 complet ed PFR; [id number]; 2 [facility] DIVISIO N INFLUENZA, INJECTABLE, QUADRIVALENT, PRESERVATIVE FREE 2020 150 complet ed [facility] DIV[facility] N COVID-19 (Micronotes), MRNA, LNP-S, PF, 30 MCG/0.3 ML DOSE 2 2020 208 complet ed PFR; [id number]; 1 [facility] N COVID-19 (Micronotes), MRNA, LNP-S, PF, 30 MCG/0.3 ML DOSE 1 2020 208 complet ed PFR; [id number]; 1 [facility] DIV[facility] N INFLUENZA, INJECTABLE, QUADRIVALENT, PRESERVATIVE FREE 2019 150 complet [facility] DIVISIO N typhoid Vi capsular polysaccharid e vaccine 1 2018 Unknown, Provider [id number] [employer] (PMC) complet ed typhoid Vi capsular polysacch aride vaccine DoD influenza virus vaccine, unspecified formulation 1 2017 Unknown, Provider 88 Transcribed (TRS) complet ed influenza virus vaccine, unspecifi ed formulati on DoD INFLUENZA, INJECTABLE, QUADRIVALENT, PRESERVATIVE FREE 2017 150 complet [facility] DIVISIO N tuberculin skin test; purified protein derivative solution, intradermal 1 2016 Unknown, Provider 96 Transcribed (TRS) complet ed tuberculi n skin test; purified protein derivativ e solution, intraderm al DoD INFLUENZA, INJECTABLE, QUADRIVALENT, PRESERVATIVE FREE 2016 150 complet [facility] DIVISIO N hepatitis B vaccine, adult dosage 1 2015 Unknown, Provider [id number] [employer] (SKB) complet ed hepatitis B vaccine, adult dosage DoD Influenza, seasonal, injectable, preservative free 1 2015 Unknown, Provider [id number] [employer] (SEQ) complet ed Influenza , seasonal, injectabl e, preservat becky free DoD hepatitis B vaccine, adult dosage 1 2015 Unknown, Provider [id number] 43 [employer] (SKB) complet ed hepatitis B vaccine, adult dosage DoD hepatitis A vaccine, adult dosage 1 2015 Unknown, Provider [id number] [employer] (SKB) complet ed hepatitis A vaccine, adult dosage DoD PNEUMOCOCCAL POLYSACCHARID E [id number] 2015 33 complet [facility] DIVISIO N pneumococcal polysaccharid e vaccine, 23 valent 1 2015 Unknown, Provider 33 Transcribed (TRS) complet ed pneumococ deric polysacch aride vaccine, 23 valent DoD hepatitis B vaccine, adult dosage 1 2015 Unknown, Provider [id number] 43 [employer] (SKB) complet ed hepatitis B vaccine, adult dosage DoD typhoid Vi capsular polysaccharid e vaccine 1 2015 Unknown, Provider [id number] [employer] Paste[employer] (PMC) complet ed typhoid Vi capsular polysacch aride vaccine DoD PNEUMOCOCCAL CONJUGATE PCV 13 2014 133 complet ed [facility] DIV[facility] N pneumococcal conjugate vaccine, 13 valent 1 2014 Unknown, Provider 133 Transcribed (TRS) complet ed pneumococ deric conjugate vaccine, 13 valent DoD INFLUENZA, SEASONAL, INJECTABLE, PRESERVATIVE FREE 2014 140 complet ed [facility] DIVISIO N influenza virus vaccine, unspecified formulation 1 2014 Unknown, Provider 88 Transcribed (TRS) complet ed influenza virus vaccine, unspecifi ed formulati on DoD INFLUENZA, UNSPECIFIED FORMULATION 2013 88 complet [facility] DIVISIO N INFLUENZA, UNSPECIFIED FORMULATION 2012 88 complet [facility] DIVISIO N TDAP 2012 115 complet [facility] DIVISIO N tetanus toxoid, reduced diphtheria toxoid, and acellular pertu is vaccine, adsorbed 1 2012 Unknown, Provider 115 Transcribed (TRS) complet ed tetanus toxoid, reduced diphtheri a toxoid, and acellular pertussis vaccine, adsorbed DoD INFLUENZA, UNSPECIFIED FORMULATION 2010 88 complet [facility] DIVISIO N INFLUENZA, UNSPECIFIED FORMULATION 2009 88 complet [facility] DIVISIO N hepatitis A vaccine, adult dosage 1 2008 Unknown, Provider [id number] [address] (B) complet ed hepatitis A vaccine, adult dosage DoD typhoid Vi capsular polysaccharid e vaccine 1 2008 Unknown, Provider [id number] [employer] Paste[employer] (PMC) complet ed typhoid Vi capsular polysacch aride vaccine DoD INFLUENZA, UNSPECIFIED FORMULATION 2008 88 complet [facility] DIVISIO N INFLUENZA, UNSPECIFIED FORMULATION 2007 88 complet [facility] DIVISIO N PNEUMOCOCCAL, UNSPECIFIED FORMULATION 2007 109 complet ed [facility] DIV[facility] N pneumococcal polysaccharid e vaccine, 23 valent 1 2007 Unknown, Provider 33 Transcribed (TRS) complet ed pneumococ deric polysacch aride vaccine, 23 valent DoD INFLUENZA, UNSPECIFIED FORMULATION 2005 [place] 88 comple t ed [facility] DIVISIO N tetanus and diphtheria toxoids, adsorbed, preservative free, for adult use (2 Lf of tetanus toxoid and 2 Lf of diphtheria toxoid) 1 2003 Unknown, Provider 09 Transcribed (TRS) complet ed tetanus and diphtheri a toxoids, adsorbed, preservat becky free, for adult use (2 Lf of tetanus toxoid and 2 Lf of diphtheri a toxoid) DoD tetanus and diphtheria toxoids, adsorbed, preservative free, for adult use (2 Lf of tetanus toxoid and 2 Lf of diphtheria toxoid) 1 1987 Unknown, Provider 09 () complet ed tetanus and diphtheri a toxoids, adsorbed, preservat becky free, for adult use (2 Lf of tetanus toxoid and 2 Lf of diphtheri a toxoid) [facility] vaccinia (smallpox) vaccine 1 1979 Unknown, Provider 75 () complet ed vaccinia (smallpox ) vaccine DoD typhoid vaccine, parenteral, acetone-kille d, dried (U.S. ) 1 1976 Unknown, Provider 53 () complet ed typhoid vaccine, parentera l, acetone-k illed, dried ([place].S. ) [facility] trivalent poliovirus vaccine, live, oral 1 1976 Unknown, Provider 02 () complet ed trivalent polioviru s vaccine, live, oral [facility] Results Combined list of recent chemistry, hematology and other laboratory results from Department of Defense and Veterans Affairs, ranging from 15 months to all on record, depending upon the facility. Order Name Results Value Reference Range Date Interpretation Specimen Comments Source HGA1C HEMOGLOBIN A1C/HEMOGLO BIN.TOTAL IN BLOOD 5.6 4.0 - 6.0 03/09 Specimen Type: BLOOD No comment entered. Ordering Provider: MIGUEL ZAZUETA Report Released Date/Time: Mar 09, 2024 10:49 AM Reporting Lab: [facility] [address] [facility] [id number] Performing Lab: [facility] [address] [facility] [id number] [facility] LIPID PANEL (STL) CHOLESTEROL [MASS/VOLUM E] IN SERUM OR PLASMA 160 mg/dL 0 - 200 03/09 Specimen Type: PLASMA Comment: No hemolysis noted. Ordering Provider: MIGUEL ZAZUETA Report Released Date/Time: Mar 09, 2024 10:49 AM Reporting Lab: [address] [phone] Performing Lab: [phone] [place] [address] LIPID PANEL (STL) TRIGLYCERID E [MASS/VOLUM E] IN SERUM OR PLASMA 46 mg/dL 0 - 150 03/09 Specimen Type: PLASMA Comment: No hemolysis noted. Ordering Provider: MIGUEL ZAZUETA Report Released Date/Time: Mar 09, 2024 10:49 AM Reporting Lab: [address] [address] Performing Lab: [place] [phone] [place] [address] LIPID PANEL (STL) CHOLESTEROL IN LDL [MASS/VOLUM E] IN SERUM OR PLASMA BY CALCULATION 95 mg/dL 03/09 Specimen Type: PLASMA Comment: No hemolysis noted. Ordering Provider: MIGUEL ZAZUETA Report Released Date/Time: Mar 09, 2024 10:49 AM Reporting Lab: [address] [address] Performing Lab: [address] [phone] [place] [address] LIPID PANEL (STL) CHOLESTEROL IN HDL [MASS/VOLUM E] IN SERUM OR PLASMA 56 mg/dL 40 03/09 Specimen Type: PLASMA Comment: No hemolysis noted. Ordering Provider: MIGUEL ZAZUETA Report Released Date/Time: Mar 09, 2024 10:49 AM Reporting Lab: [address] [phone] Performing Lab: [address] [phone] [place] [address] TSH W/ REFLEX FT4 (STL) THYROTROPIN [UNITS/VOLU ME] IN SERUM OR PLASMA 2.453 u[IU]/mL 0.47 - 5 03/09 Specimen Type: PLASMA No comment entered. Ordering Provider: MIGUEL ZAZUETA Report Released Date/Time: Mar 09, 2024 10:49 AM Reporting Lab: [place] [phone] Performing Lab: [address] URINALYSI S (STL-PB) COLOR OF URINE Colorles s 03/09 Specimen Type: URINE No comment entered. Ordering Provider: MIGUEL ZAZUETA Report Released Date/Time: Mar 09, 2024 10:49 AM Reporting Lab: [place] [address] Performing Lab: [address] URINALYSI S (STL-PB) BILIRUBIN.T OTAL [PRESENCE] IN URINE BY TEST STRIP Negative mg/dL 03/09 Specimen Type: URINE No comment entered. Ordering Provider: MIGUEL ZAZUETA Report Released Date/Time: Mar 09, 2024 10:49 AM Reporting Lab: [address] [address] Performing Lab: [address] [phone] [place] [address] URINALYSI S (STL-PB) PH OF URINE BY TEST STRIP 7.0 5.0 - 8.0 03/09 Specimen Type: URINE No comment entered. Ordering Provider: MIGUEL ZAZUETA Report Released Date/Time: Mar 09, 2024 10:49 AM Reporting Lab: [address] [phone] Performing Lab: [address] [phone] [place] [address] URINALYSI S (STL-PB) APPEARANCE OF URINE Clear 03/09 Specimen Type: URINE No comment entered. Ordering Provider: MIGUEL ZAZUETA Report Released Date/Time: Mar 09, 2024 10:49 AM Reporting Lab: [facility] [address] [place] [phone] Performing Lab: [facility] [address] [place] [phone] [place] [address] URINALYSI S (STL-PB) NITRITE [PRESENCE] IN URINE BY TEST STRIP Negative mg/dL 03/09 Specimen Type: URINE No comment entered. Ordering Provider: MIGUEL ZAZUETA Report Released Date/Time: Mar 09, 2024 10:49 AM Reporting Lab: [facility] [address] [place] [phone] Performing Lab: [phone] [place] [address] URINALYSI S (STL-PB) GLUCOSE [MASS/VOLUM E] IN URINE BY TEST STRIP Normalmg /dL 03/09 Specimen Type: URINE No comment entered. Ordering Provider: MIGUEL ZAZUETA Report Released Date/Time: Mar 09, 2024 10:49 AM Reporting Lab: [facility] [address] [place] [phone] Performing Lab: [address] [phone] [place] [address] URINALYSI S (STL-PB) PROTEIN [MASS/VOLUM E] IN URINE BY TEST STRIP Negative mg/dL 03/09 Specimen Type: URINE No comment entered. Ordering Provider: MIGUEL ZAZUETA Report Released Date/Time: Mar 09, 2024 10:49 AM Reporting Lab: [facility] [address] [place] [phone] Performing Lab: [facility] [address] [place] [phone] [place] [address] URINALYSI S (STL-PB) URN.UROBILI NOGEN Normalmg /dL 03/09 Specimen Type: URINE No comment entered. Ordering Provider: MIGUEL ZAZUETA Report Released Date/Time: Mar 09, 2024 10:49 AM Reporting Lab: [facility] [address] [place] [address] Performing Lab: [facility] [address] [place] [address] [phone] [place] [address] URINALYSI S (STL-PB) HEMOGLOBIN [MASS/VOLUM E] IN URINE BY TEST STRIP Negative mg/dL 03/09 Specimen Type: URINE No comment entered. Ordering Provider: MIGUEL ZAZUETA Report Released Date/Time: Mar 09, 2024 10:49 AM Reporting Lab: [facility] [address] [place] [address] Performing Lab: [address] URINALYSI S (STL-PB) KETONES [MASS/VOLUM E] IN URINE BY TEST STRIP Negative mg/dL 03/09 Specimen Type: URINE No comment entered. Ordering Provider: MIGUEL ZAZUETA Report Released Date/Time: Mar 09, 2024 10:49 AM Reporting Lab: [facility] [address] [place] [address] Performing Lab: [facility] [address] [place] [phone] [place] [address] URINALYSI S (STL-PB) URN.LEUK.ES T. Negative mg/dL 03/09 Specimen Type: URINE No comment entered. Ordering Provider: MIGUEL ZAZUETA Report Released Date/Time: Mar 09, 2024 10:49 AM Reporting Lab: [facility] [address] [place] [address] Performing Lab: [facility] [address] [place], [place] [phone] [place] [address] URINALYSI S (STL-PB) SPECIFIC GRAVITY OF URINE 1.004 03/09 L Specimen Type: URINE No comment entered. Ordering Provider: MIGUEL ZAZUETA Report Released Date/Time: Mar 09, 2024 10:49 AM Reporting Lab: [facility] [address] [place] [address] Performing Lab: [address] VITAMIN D, 25-HYDROX Y 25-HYDROXYV ITAMIN D3 [MASS/VOLUM E] IN SERUM OR PLASMA 49.2 ng/mL 30 - 96 03/09 Specimen Type: SERUM No comment entered. Ordering Provider: MIGUEL ZAZUETA Report Released Date/Time: Mar 09, 2024 10:49 AM Reporting Lab: [place] [address] Performing Lab: [address] LIPASE LIPASE [ENZYMATIC ACTIVITY/VO LUME] IN SERUM OR PLASMA 267 U/L 8 - 78 03/09 H Specimen Type: PLASMA Comment: No hemolysis noted. Ordering Provider: MIGUEL ZAZUETA Report Released Date/Time: Mar 09, 2024 11:00 AM Reporting Lab: [place] [address] Performing Lab: [address] AMYLASE AMYLASE [ENZYMATIC ACTIVITY/VO LUME] IN SERUM, PLASMA OR BLOOD 155 U/L 25 - 125 03/09 H Specimen Type: PLASMA Comment: No hemolysis noted. Ordering Provider: MIGUEL ZAZUETA Report Released Date/Time: Mar 09, 2024 11:00 AM Reporting Lab: [facility] [address] [place] [address] Performing Lab: [address] COMPREHEN SIVE METABOLIC PANEL CREATININE [MASS/VOLUM E] IN SERUM OR PLASMA 0.96 mg/dL 0.6 - 1.1 03/09 Specimen Type: PLASMA Comment: No hemolysis noted. Ordering Provider: MIGUEL ZAZUETA Report Released Date/Time: Mar 09, 2024 10:49 AM Reporting Lab: [facility] [address] [facility] [address] Performing Lab: [facility] [address] [facility] [phone] [place] [address] COMPREHEN SIVE METABOLIC PANEL UREA NITROGEN [MASS/VOLUM E] IN SERUM OR PLASMA 16.6 mg/dL 9.0 - 25.0 03/09 Specimen Type: PLASMA Comment: No hemolysis noted. Ordering Provider: MIGUEL ZAZUETA Report Released Date/Time: Mar 09, 2024 10:49 AM Reporting Lab: [facility] [address] [place] [phone] Performing Lab: [facility] [address] [place], [place] [phone] [place] [address] COMPREHEN SIVE METABOLIC PANEL GLUCOSE [MASS/VOLUM E] IN SERUM OR PLASMA 85 mg/dL 72 - 99 03/09 Specimen Type: PLASMA Comment: No hemolysis noted. Ordering Provider: MIGUEL ZAZUETA Report Released Date/Time: Mar 09, 2024 10:49 AM Reporting Lab: [facility] [address] [place] [phone] Performing Lab: [facility] [address] [place] [address] [phone] [place] [address] COMPREHEN SIVE METABOLIC PANEL SODIUM [MOLES/VOLU ME] IN SERUM OR PLASMA 141 meq/L 136 - 145 03/09 Specimen Type: PLASMA Comment: No hemolysis noted. Ordering Provider: MIGUEL ZAZUETA Report Released Date/Time: Mar 09, 2024 10:49 AM Reporting Lab: [facility] [address] [place] [phone] Performing Lab: [facility] [address] [place] [phone] [place] [address] COMPREHEN SIVE METABOLIC PANEL POTASSIUM [MOLES/VOLU ME] IN SERUM OR PLASMA 3.9 meq/L 3.5 - 5 03/09 Specimen Type: PLASMA Comment: No hemolysis noted. Ordering Provider: MIGUEL ZAZUETA Report Released Date/Time: Mar 09, 2024 10:49 AM Reporting Lab: [facility] [address] [place], [place] [phone] Performing Lab: [facility] [address] [place] [phone] [place] [address] COMPREHEN SIVE METABOLIC PANEL CHLORIDE [MOLES/VOLU ME] IN SERUM OR PLASMA 107 meq/L 98 - 107 03/09 Specimen Type: PLASMA Comment: No hemolysis noted. Ordering Provider: MIGUEL ZAZUETA Report Released Date/Time: Mar 09, 2024 10:49 AM Reporting Lab: [facility] [address] [place] [address] Performing Lab: [facility] [address] [place] [phone] [place] [address] COMPREHEN SIVE METABOLIC PANEL CARBON DIOXIDE, TOTAL [MOLES/VOLU ME] IN SERUM OR PLASMA 27 meq/L 22 - 31 03/09 Specimen Type: PLASMA Comment: No hemolysis noted. Ordering Provider: MIGUEL ZAZUETA Report Released Date/Time: Mar 09, 2024 10:49 AM Reporting Lab: [facility] [address] [place] [phone] Performing Lab: [facility] [address] [place] [phone] [place] [address] COMPREHEN SIVE METABOLIC PANEL CALCIUM [MASS/VOLUM E] IN SERUM OR PLASMA 9.4 mg/dL 8.4 - 10.4 03/09 Specimen Type: PLASMA Comment: No hemolysis noted. Ordering Provider: MIGUEL ZAZUETA Report Released Date/Time: Mar 09, 2024 10:49 AM Reporting Lab: [facility] [address] [place] [phone] Performing Lab: [facility] [address] [place] [phone] [place] [address] COMPREHEN SIVE METABOLIC PANEL PROTEIN [MASS/VOLUM E] IN SERUM OR PLASMA 6.5 g/dL 6 - 8.6 03/09 Specimen Type: PLASMA Comment: No hemolysis noted. Ordering Provider: MIGUEL ZAZUETA Report Released Date/Time: Mar 09, 2024 10:49 AM Reporting Lab: [facility] [address] [place] [phone] Performing Lab: [facility] [address] [facility] [phone] [place] [address] COMPREHEN SIVE METABOLIC PANEL ALBUMIN [MASS/VOLUM E] IN SERUM OR PLASMA 4.1 g/dL 3.4 - 5 03/09 Specimen Type: PLASMA Comment: No hemolysis noted. Ordering Provider: MIGUEL ZAZUETA Report Released Date/Time: Mar 09, 2024 10:49 AM Reporting Lab: [facility] [address] [place] [address] Performing Lab: [facility] [address] [place] [address] [phone] [place] [address] COMPREHEN SIVE METABOLIC PANEL BILIRUBIN.T OTAL [MASS/VOLUM E] IN SERUM OR PLASMA 0.6 mg/dL 0.2 - 1.2 03/09 Specimen Type: PLASMA Comment: No hemolysis noted. Ordering Provider: MIGUEL ZAZUETA Report Released Date/Time: Mar 09, 2024 10:49 AM Reporting Lab: [facility] [address] [facility] [phone] Performing Lab: [facility] [address] [place] [phone] [place] [address] COMPREHEN SIVE METABOLIC PANEL ALKALINE PHOSPHATASE [ENZYMATIC ACTIVITY/VO LUME] IN SERUM OR PLASMA 73 U/L 40 - 150 03/09 Specimen Type: PLASMA Comment: No hemolysis noted. Ordering Provider: MIGUEL ZAZUETA Report Released Date/Time: Mar 09, 2024 10:49 AM Reporting Lab: [facility] [address] [facility] [phone] Performing Lab: [facility] [address] [place] [phone] [facility] COMPREHEN SIVE METABOLIC PANEL ASPARTATE AMINOTRANSF ERASE [ENZYMATIC ACTIVITY/VO LUME] IN SERUM OR PLASMA 32 U/L 5 - 34 03/09 Specimen Type: PLASMA Comment: No hemolysis noted. Ordering Provider: MIGUEL ZAZUETA Report Released Date/Time: Mar 09, 2024 10:49 AM Reporting Lab: [facility] [address] [place] [phone] Performing Lab: [address] [phone] [place] [address] COMPREHEN SIVE METABOLIC PANEL ALANINE AMINOTRANSF ERASE [ENZYMATIC ACTIVITY/VO LUME] IN SERUM OR PLASMA 19 U/L 8 - 40 03/09 Specimen Type: PLASMA Comment: No hemolysis noted. Ordering Provider: MIGUEL ZAZUETA Report Released Date/Time: Mar 09, 2024 10:49 AM Reporting Lab: [address] [phone] Performing Lab: [address] COMPREHEN SIVE METABOLIC PANEL GLOMERULAR FILTRATION RATE/1.73 SQ M.PREDICTED [VOLUME RATE/AREA] IN SERUM, PLASMA OR BLOOD BY CREATININE- BASED FORMULA (CKD-EPI 2020) 65.3 60 03/09 Specimen Type: PLASMA Comment: No hemolysis noted. Ordering Provider: MIGUEL ZAZUETA Report Released Date/Time: Mar 09, 2024 10:49 AM Reporting Lab: [facility] [address] [place] [phone] Performing Lab: [address] [phone] [facility] LEUKOCYTES [#/VOLUME] IN BLOOD BY AUTOMATED COUNT 4.2 10*3/uL 3.6 - 11.2 03/09 Specimen Type: BLOOD No comment entered. Ordering Provider: MIGUEL ZAZUETA Report Released Date/Time: Mar 09, 2024 10:49 AM Reporting Lab: [facility] [address] [place] [phone] Performing Lab: [address] [phone] [facility] CBC ERYTHROCYTE S [#/VOLUME] IN BLOOD BY AUTOMATED COUNT 3.56 10*6/uL 3.60 - 5.00 03/09 L Specimen Type: BLOOD No comment entered. Ordering Provider: MIGUEL ZAZUEAT Report Released Date/Time: Mar 09, 2024 10:49 AM Reporting Lab: [place] [address] Performing Lab: [address] [facility] HEMOGLOBIN [MASS/VOLUM E] IN BLOOD 11.3 g/dL 11.0 - 14.9 03/09 Specimen Type: BLOOD No comment entered. Ordering Provider: MIGUEL ZAZUETA Report Released Date/Time: Mar 09, 2024 10:49 AM Reporting Lab: [place] [address] Performing Lab: [address] [facility] HEMATOCRIT [VOLUME FRACTION] OF BLOOD 33.0 32.6 - 43.4 03/09 Specimen Type: BLOOD No comment entered. Ordering Provider: MIGUEL ZAZUETA Report Released Date/Time: Mar 09, 2024 10:49 AM Reporting Lab: [address] [phone] Performing Lab: [address] [phone] [place] [address] CBC MCV [ENTITIC VOLUME] BY AUTOMATED COUNT 92.7 fL 80.0 - 100.0 03/09 Specimen Type: BLOOD No comment entered. Ordering Provider: MIGUEL ZAZUETA Report Released Date/Time: Mar 09, 2024 10:49 AM Reporting Lab: [address] [phone] Performing Lab: [address] [phone] [place] [address] CBC MCH [ENTITIC MASS] BY AUTOMATED COUNT 31.7 pg 27.0 - 34.0 03/09 Specimen Type: BLOOD No comment entered. Ordering Provider: MIGUEL ZAZUETA Report Released Date/Time: Mar 09, 2024 10:49 AM Reporting Lab: [facility] [address] [place] [phone] Performing Lab: [address] [phone] [place] [address] CBC MCHC [MASS/VOLUM E] BY AUTOMATED COUNT 34.2 g/dL 33.0 - 36.0 03/09 Specimen Type: BLOOD No comment entered. Ordering Provider: MIGUEL ZAZUETA Report Released Date/Time: Mar 09, 2024 10:49 AM Reporting Lab: [facility] [address] [place] [address] Performing Lab: [address] CBC PLATELETS [#/VOLUME] IN BLOOD BY AUTOMATED COUNT 211 10*3/uL 150 - 400 03/09 Specimen Type: BLOOD No comment entered. Ordering Provider: MIGUEL ZAZUETA Report Released Date/Time: Mar 09, 2024 10:49 AM Reporting Lab: [facility] [address] [place] [phone] Performing Lab: [address] [phone] [place] [address] CBC PLATELET MEAN VOLUME [ENTITIC VOLUME] IN BLOOD BY AUTOMATED COUNT 10.7 fL 7.5 - 11.2 03/09 Specimen Type: BLOOD No comment entered. Ordering Provider: MIGUEL ZAZUETA Report Released Date/Time: Mar 09, 2024 10:49 AM Reporting Lab: [facility] [address] [place] [address] Performing Lab: [facility] [address] [place] [address] [phone] [place] [address] CBC ERYTHROCYTE DISTRIBUTIO N WIDTH [RATIO] BY AUTOMATED COUNT 11.7 11.8 - 15.1 10/24 /2024 L Specimen Type: BLOOD No comment entered. Ordering Provider: MIGUEL ZAZUETA Report Released Date/Time: Mar 09, 2024 10:49 AM Reporting Lab: [facility] [address] [facility] [phone] Performing Lab: [facility] [address] [facility] [address] [facility] CBC LYMPHOCYTES /100 LEUKOCYTES IN BLOOD BY AUTOMATED COUNT 28 03/09 Specimen Type: BLOOD No comment entered. Ordering Provider: MIGUEL ZAZUETA Report Released Date/Time: Mar 09, 2024 10:49 AM Reporting Lab: [facility] [address] [facility] [phone] Performing Lab: [facility] [address] [facility] [phone] [place] [address] CBC MONOCYTES/1 00 LEUKOCYTES IN BLOOD BY AUTOMATED COUNT 8 03/09 Specimen Type: BLOOD No comment entered. Ordering Provider: MIGUEL ZAZUETA Report Released Date/Time: Mar 09, 2024 10:49 AM Reporting Lab: [facility] [address] [facility] [phone] Performing Lab: [facility] [address] [facility] [phone] [place] [address] CBC NEUTROPHILS /100 LEUKOCYTES IN BLOOD BY AUTOMATED COUNT 61 03/09 Specimen Type: BLOOD No comment entered. Ordering Provider: MIGUEL ZAZUETA Report Released Date/Time: Mar 09, 2024 10:49 AM Reporting Lab: [facility] [address] [facility] [address] Performing Lab: [facility] [address] [facility] [phone] [place] [address] CBC EOSINOPHILS /100 LEUKOCYTES IN BLOOD BY AUTOMATED COUNT 1 03/09 Specimen Type: BLOOD No comment entered. Ordering Provider: MIGUEL ZAZUETA Report Released Date/Time: Mar 09, 2024 10:49 AM Reporting Lab: [facility] [address] [facility] [phone] Performing Lab: [facility] [address] [place] [phone] [facility] CBC BASOPHILS/1 00 LEUKOCYTES IN BLOOD BY AUTOMATED COUNT 1 03/09 Specimen Type: BLOOD No comment entered. Ordering Provider: MIGUEL ZAZUETA Report Released Date/Time: Mar 09, 2024 10:49 AM Reporting Lab: [address] [phone] Performing Lab: [address] [address] [facility] CBC LYMPHOCYTES [#/VOLUME] IN BLOOD BY AUTOMATED COUNT 1.16 10*3/uL 0.77 - 4.50 03/09 Specimen Type: BLOOD No comment entered. Ordering Provider: MIGUEL ZAZUETA Report Released Date/Time: Mar 09, 2024 10:49 AM Reporting Lab: [address] [phone] Performing Lab: [address] [address] [facility] CBC MONOCYTES [#/VOLUME] IN BLOOD BY AUTOMATED COUNT 0.35 10*3/uL 0.19 - 0.80 03/09 Specimen Type: BLOOD No comment entered. Ordering Provider: MIGUEL ZAZUETA Report Released Date/Time: Mar 09, 2024 10:49 AM Reporting Lab: [address] [phone] Performing Lab: [address] [phone] [facility] CBC NEUTROPHILS [#/VOLUME] IN BLOOD BY AUTOMATED COUNT 2.55 10*3/uL 2.10 - 8.00 03/09 Specimen Type: BLOOD No comment entered. Ordering Provider: MIGUEL ZAZUETA Report Released Date/Time: Mar 09, 2024 10:49 AM Reporting Lab: [address] [address] Performing Lab: [address] [phone] CBC EOSINOPHILS [#/VOLUME] IN BLOOD BY AUTOMATED COUNT 0.06 10*3/uL 0.00 - 0.60 03/09 Specimen Type: BLOOD No comment entered. Ordering Provider: MIGUEL ZAZUETA Report Released Date/Time: Mar 09, 2024 10:49 AM Reporting Lab: [address] [phone] Performing Lab: [address] CBC BASOPHILS [#/VOLUME] IN BLOOD BY AUTOMATED COUNT 0.03 10*3/uL 0.00 - 0.20 03/09 Specimen Type: BLOOD No comment entered. Ordering Provider: MIGUEL ZAZUETA Report Released Date/Time: Mar 09, 2024 10:49 AM Reporting Lab: [place] [address] Performing Lab: [address] CYSTATIN C EGFR PANELS (STL-PB-M A) CYSTATIN C [MASS/VOLUM E] IN SERUM OR PLASMA 0.91 mg/L 0.57 - 1.80 03/08 Specimen Type: PLASMA Comment: Choice of which of the reported eGFR values to use depends on the clinical situation. For example, for patients with severe muscle wasting or reduced muscle mass, eGFR calculated using the 2012 cystatin equation may be preferred. Ordering Provider: MIGUEL ZAZUETA Report Released Date/Time: Dec 11, 2022 02:35 PM Reporting Lab: [address] [id number] Performing Lab: [address] CYSTATIN C EGFR PANELS (STL-PB-M A) CKD-EPI CYSTATIN C (2011) 80.5 60 03/08 Specimen Type: PLASMA Comment: Choice of which of the reported eGFR values to use depends on the clinical situation. For example, for patients with severe muscle wasting or reduced muscle mass, eGFR calculated using the 2012 cystatin equation may be preferred. Ordering Provider: MIGUEL ZAZUETA Report Released Date/Time: Dec 11, 2022 02:35 PM Reporting Lab: [address] [id number] Performing Lab: [id number] [place] [address] CYSTATIN C EGFR PANELS (STL-PB-M A) CKD-EPI CREAT-CYSC (2020) 77.3 60 03/08 Specimen Type: PLASMA Comment: Choice of which of the reported eGFR values to use depends on the clinical situation. For example, for patients with severe muscle wasting or reduced muscle mass, eGFR calculated using the 2011 cystatin equation may be preferred. Ordering Provider: MIGUEL ZAZUETA Report Released Date/Time: Dec 11, 2022 02:35 PM Reporting Lab: [address] [id number] Performing Lab: [id number] [place] [address] CYSTATIN C EGFR PANELS (STL-PB-M A) CREATININE [MASS/VOLUM E] IN SERUM OR PLASMA 0.95 mg/dL 0.6 - 1.1 03/08 Specimen Type: PLASMA Comment: Choice of which of the reported eGFR values to use depends on the clinical situation. For example, for patients with severe muscle wasting or reduced muscle mass, eGFR calculated using the 2011 cystatin equation may be preferred. Ordering Provider: MIGUEL ZAZUETA Report Released Date/Time: Dec 11, 2022 02:35 PM Reporting Lab: [address] [phone] Performing Lab: [address] [id number] Vital Signs Combined list of inpatient and outpatient Vital Signs from [employer], ranging from 12 months to all on record, depending upon the facility. Vital Sign Value Date Comments Source SYSTOLIC BLOOD PRESSURE [id number] 03/09/2024 10:04:00 M [facility] DIASTOLIC BLOOD PRESSURE 57 03/09/2024 10:04:00 [facility] PULSE OXIMETRY 100 03/09/2024 10:04:00 [facility] WEIGHT 156 03/09/2024 10:04:00 [facility] BMI 27kg/m2 03/09/2024 10:04:00 [facility] PAIN 4 03/09/2024 10:04:00 [facility] HEIGHT 64 03/09/2024 10:04:00 [facility] TEMPERATURE 97.6 03/09/2024 10:04:00 [facility] PULSE 69 03/09/2024 10:04:00 [facility] RESPIRATION 18 03/09/2024 10:04:00 [facility] SYSTOLIC BLOOD PRESSURE 105 02/29/2024 13:36:23 [facility] DIASTOLIC BLOOD PRESSURE 66 02/29/2024 13:36:23 [facility] PULSE OXIMETRY 97 02/29/2024 13:36:23 [facility] WEIGHT 156.6 02/29/2024 13:36:23 [facility] BMI 27kg/m2 02/29/2024 13:36:23 [facility] PAIN 0 02/29/2024 13:36:23 [facility] TEMPERATURE 97.8 02/29/2024 13:36:23 [facility] PULSE 78 02/29/2024 13:36:23 [facility] RESPIRATION 16 02/29/2024 13:36:23 [facility] SYSTOLIC BLOOD PRESSURE 104 07/06/2023 10:30:05 [facility] DIASTOLIC BLOOD PRESSURE 64 07/06/2023 10:30:05 [facility] PULSE OXIMETRY 96 07/06/2023 10:30:05 [facility] WEIGHT 158 07/06/2023 10:30:05 [facility] BMI 27kg/m2 07/06/2023 10:30:05 [facility] PAIN 0 07/06/2023 10:30:05 [facility] HEIGHT 64 07/06/2023 10:30:05 [facility] TEMPERATURE 97.7 07/06/2023 10:30:05 [facility] PULSE 81 07/06/2023 10:30:05 [facility] RESPIRATION 16 07/06/2023 10:30:05 [facility] PAIN 0 06/30/2023 09:34:48 [facility] Encounters Combined list of: 1) Encounters from Department of [facility] Affairs facilities going back up to thelast 18 months. 2) Encounters from the Department of Defense facilities going back up to 280 months. 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, bilater al, mild stage<b r/> LEBRON,J DENTON B III 12/22 [facility] VISUAL FIELD EXAMINATIO N(S) [id number] Diagnos is: ICD-10- CM 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, bilater al, mild stage<b r/> ERICA MOLINA I M 12/22 [facility] OFF/OP CONSLTJ NEW/[place] HI 55 [id number] Diagnos is: ICD-10- CM M47.892 Other spondyl osis, cervica l region< br/> ISAIAS MOY A 01/05 [facility] Outpatient Encounter [id number] 01/12 [facility] OFFICE O/P EST LOW 20-29 MIN [id number] [id number] Diagnos is: ICD-10- CM G43.709 Chronic migrain e w/o aura, not intract able, w/o stat migr
CHUCK KAY 01/14 [facility] HEARING AID SUP/ACCESS /DEV [id number] Diagnos is: ICD-10- CM H90.3 Sensori neural hearing loss, bilater al
MALLOYENRIQUE K 02/16 [facility] OFFICE O/P EST MOD 30-39 MIN [id number] Diagnos is: ICD-10- CM I48.0 Paroxys mal atrial fibrill ation<b r/> SARAY GARCIA H 02/26 [facility] Outpatient Encounter [id number] MARCUS NUNEZ NTHIA A 03/01 [facility] Outpatient Encounter [id number] 03/01 [facility] OFFICE O/P EST MOD 30-39 MIN [id number] [id number] Diagnos is: ICD-10- CM M54.2 Cervica lgia
LAUREN ZAZUETA M 03/10 [facility] Outpatient Encounter [id number] 03/12 [facility] Outpatient Encounter [id number] JO ANN HELLER YNDA R 03/15 [facility] Outpatient Encounter [id number] 03/17 [facility] Outpatient Encounter [id number] 03/29 [facility] Outpatient Encounter [id number] 04/01 [facility] Outpatient Encounter [id number] 04/13 [facility] OFFICE O/P EST MOD 30-39 MIN [id number] [id number] Diagnos is: ICD-10- CM M47.892 Other spondyl osis, cervica l region< br/> ISAIAS MOY 04/27 [facility] MNGMENT TRAINING [id number] Diagnos is: ICD-10- CM M54.2 Cervica lgia
PARVIN DODSON 04/27 [facility] Outpatient Encounter [id number] 04/28 [facility] Outpatient Encounter [id number] [id number] 04/29 [facility] Outpatient Encounter [id number] [id number] 05/03 [facility] MANUAL THERAPY 1/> REGIONS [id number] [id number] Diagnos is: ICD-10- CM M54.2 Cervica lgia
MAURICIO MAHMOOD 05/12 [facility] Outpatient Encounter [id number] WILY JACKSON A 05/14 [facility] MANUAL THERAPY 1/> REGIONS [id number] [id number] Diagnos is: ICD-10- CM M54.2 Cervica lgia
PARVIN DODSON 05/20 [facility] Outpatient Encounter [id number] [id number] FEROZ AUSTIN T 05/20 [facility] Outpatient Encounter [id number] [id number] FEROZ AUSTIN T 05/24 [facility] Outpatient Encounter [id number] 05/26 [facility] OFFICE O/P EST MOD 30 MIN [id number] [id number] Diagnos is: ICD-10- CM M47.892 Other spondyl osis, cervica l region< br/> ISAIAS MOY 05/26 [facility] NEUROMUSCU LAR REEDUCATIO N [id number] [id number] Diagnos is: ICD-10- CM R42 Dizzine ss and giddine ss
LEILANI CARTWRIGHT J 06/01 [facility] MANUAL THERAPY 1/> REGIONS [id number] [id number] Diagnos is: ICD-10- CM M54.2 Cervica lgia
PARVIN DODSON 06/08 [facility] Outpatient Encounter [id number] JO ANN HELLER R 06/09 [facility] Outpatient Encounter [id number] [id number] 06/16 [facility] MANUAL THERAPY 1/> REGIONS [id number] [id number] Diagnos is: ICD-10- CM M54.2 Cervica lgia
PARVIN DODSON J 06/24 [facility] Outpatient Encounter [id number] [id number] WILY JACKSON 06/25 [facility] Outpatient Encounter [id number]. 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
LAUREN ZAZUETA 07/06 [facility] Outpatient Encounter [id number] 07/08 [facility] NEUROMUSCU LAR REEDUCATIO N [id number] [id number] Diagnos is: ICD-10- CM N18.2 Chronic kidney disease , stage 2 (mild)< br/> LEILANI CARTWRIGHT MIN J 07/13 [facility] Outpatient Encounter [id number] [id number] JO ANN HELLER R 07/13 [facility] MANUAL THERAPY 1/> REGIONS [id number] [id number] Diagnos is: ICD-10- CM M54.2 Cervica lgia
PARVIN DODSON [facility] COMPRE OPH EXAM EST PT /> [id number] [id number] Diagnos is: ICD-10- CM 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, bilater al, mild stage<b r/> Bernardino LEBRON III 07/27 [facility] CMPTR OPHTH IMG OPTIC NERVE [id number] [id number] Diagnos is: ICD-10- CM 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, bilater al, mild stage<b r/> ERICA MOILNA I M 07/27 [facility] Outpatient Encounter [id number] Diagnos is: ICD-10- CM G47.30 Sleep apnea, unspeci fied
LAUREN ZAZUETA HARVINDER M 07/27 [facility] PT EDUCATION NOC INDIVID [id number] [id number] Diagnos is: ICD-10- CM G47.36 Sleep related hypoven tilatio n in conditi ons classd elswhr< br/> MILLION,KE LLY G 08/01 [facility] Outpatient Encounter [id number] [id number] JO ANN HELLER R 08/01 [facility] MANUAL THERAPY 1/> REGIONS [id number] [id number] Diagnos is: ICD-10- CM M54.2 Cervica lgia
PARVIN DODSON 08/04 [facility] ORTHO DVC REPAIR PER 15 MIN [id number] [id number] Diagnos is: ICD-10- CM Z46.89 Encount er for fitting and adjustm ent of oth devices
JORGE SHARMA ERT J 08/08 [facility] NEUROMUSCU LAR REEDUCATIO N [id number] [id number] Diagnos is: ICD-10- CM M54.2 Cervica lgia
LEILANI CARTWRIGHT J 08/16 [facility] Outpatient Encounter [id number] 08/22 [facility] Outpatient Encounter [id number] [id number] NOHELIA BRUNNER 08/29 [facility] MNGMENT TRAINING [id number] [id number] Diagnos is: ICD-10- CM M54.2 Cervica lgia
PARVIN DODSON 08/31 [facility] Outpatient Encounter [id number] [id number] 09/01 [facility] DIAB SHOE FOR DENSITY INSERT [id number] Diagnos is: ICD-10- CM Z46.89 Encount er for fitting and adjustm ent of oth devices
JORGE SHARMA J 09/06 [facility] OFFICE O/P EST MOD 30 MIN [id number] [id number] Diagnos is: ICD-10- CM M47.892 Other spondyl osis, cervica l region< br/> ISAIAS MOY A 09/07 [facility] Outpatient Encounter [id number] 09/20 [facility] Outpatient Encounter [id number] SCAR CLARK 09/28 [facility] Outpatient Encounter [id number] JO ANN HELLER 09/30 [facility] QNHP OL DIG ASSMT&MGMT 5-10 [id number] [id number] Diagnos is: ICD-10- CM G47.30 Sleep apnea, unspeci fied
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, bilater al, mild stage<b r/> JESSEMALDONADO Monique M 01/25 [facility] INTRM OPH EXAM EST PATIENT [id number] [id number] Diagnos is: ICD-10- CM 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, bilater al, mild stage<b r/> Bernardino LEBRON DENTON B III 01/25 [facility] Outpatient Encounter [id number] [id number] JO ANN HELLER R 02/06 [facility] Outpatient Encounter [id number] [id number] Bernardino LEBRON DENTON B III 02/07 [facility] Outpatient Encounter [id number] [id number] Bernardino LEBRON DENTON B III 02/08 [facility] Outpatient Encounter [id number] [id number] ADDI SIMONS V 02/28 [facility] OFFICE O/P EST MOD 30 MIN [id number] [id number] Diagnos is: ICD-10- CM I48.0 Paroxys mal atrial fibrill ation<b r/> SARAY GARCIA H 02/28 [facility] Outpatient Encounter [id number] [id number] AJAY DARBY 02/28 [facility] OFFICE O/P EST MOD 30 MIN [id number] [id number] Diagnos is: ICD-10- CM Z00.01 Encount er for general adult medical exam w abnorma l finding s
LAUREN ZAZUETA 03/09 [facility] Outpatient Encounter [id number] [id number] 03/10 [facility] Outpatient Encounter [id number] [id number] 03/10 [facility] Outpatient Encounter [id number] [id number] JO ANN HELLER R 03/13 [facility] Outpatient Encounter [id number] [id number] 03/15 [facility] Outpatient Encounter [id number] [id number] 03/21 [facility] Outpatient Encounter [id number] [id number] JO ANN HELLER R 03/21 [facility] Outpatient Encounter [id number] [id number] 03/31 [facility] Outpatient Encounter [id number] [id number] 04/03 [facility] Outpatient Encounter [id number] [id number] 04/06 [facility] OFF/OP CNSLTJ NEW/EST MOD 40 [id number] [id number] Diagnos is: ICD-10- CM M79.672 Pain in left foot
RADHA,ST UART L 04/07 [facility] Outpatient Encounter [id number] 04/[address] [facility] Outpatient Encounter [id number] ENRIQUE MALLOY 05/[address] [facility] Outpatient Encounter [id number] [id number] 05/30 [facility] Procedures Combined list of: 1) Procedures from Department of Veterans Affairs facilities going back up to thelast 18 months, not all [place] non-surgical procedures are included; 2) All procedures from the Department of Defense facilities. Procedure Procedure Type Code Date Perfomer Comments Shira chacon SYNOVECTOMY OF WRIST 12/28/1995 [facility] RELEASE OF CARPAL TUNNEL 12/28/1995 [facility] OTHER BILATERAL DESTRUCTION OR OCCLUSION OF FALLOPIAN TUBES 06/13/1989 [facility] INJECTION OF ANTIBIOTIC 06/13/1989 [facility] MONITORING, NOT OTHERWISE SPECIFIED 06/13/1989 [facility] EKG (SCALP) 06/13/1989 [facility] LOW CERVICAL SECTION 06/13/1989 [facility] INJECTION OR INFUSION OF OTHER THERAPEUTIC OR PROPHYLACTIC SUBSTANCE 06/13/1989 [facility] MEDICAL INDUCTION OF LABOR 06/13/1989 [facility] INJECTION OR INFUSION OF OTHER THERAPEUTIC OR PROPHYLACTIC SUBSTANCE 06/02/1989 [facility] OTHER DIAGNOSTIC PROCEDURES ON FETUS AND AMNION 06/02/1989 [facility] INJECTION OR INFUSION OF OTHER THERAPEUTIC OR PROPHYLACTIC SUBSTANCE 07/23/1988 [facility] INJECTION OF ANTIBIOTIC 07/23/1988 [facility] DILATION AND CURETTAGE FOLLOWING DELIVERY OR 07/23/1988 [facility] Social History Combined list of available smoking, tobacco, and other social history from Department of Defense and Veterans Affairs facilities. Social History Type Response Date Comment Shira chacon Tobacco smoking status [facility] VA-TOBACCO NEVER USED 03/09/2024 [facility] History of tobacco use VA-TOBACCO NEVER USED 10/27/2022 [facility] History of tobacco use VA-TOBACCO NEVER USED 09/30/2021 [facility] History of tobacco use VA-TOBACCO NEVER USED 12/26/2019 [facility] History of tobacco use LIFETIME NON-USER OF TOBACCO 03/03/2017 [facility] History of tobacco use LIFETIME NON-USER OF TOBACCO 01/15/2016 [facility] History of tobacco use LIFETIME NON-USER OF TOBACCO 03/04/2015 [facility] History of tobacco use LIFETIME NON-USER OF TOBACCO 10/12/2013 [facility] History of tobacco use LIFETIME NON-USER OF TOBACCO 12/13/2012 [facility] History of tobacco use LIFETIME NON-USER OF TOBACCO 08/02/2006 [facility] History of tobacco use 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 [facility] Plan of Care List of future care activities from [facility] facilities. Additional future care activities may be listed in the Assessment and Plan section. Date/Time Care Activity Care Activity Detail [place] [facility] 06/28/2024 AMBULATORY - SURGERY AMBULATORY - SURGERY [facility] 07/25/2024 AMBULATORY - SURGERY AMBULATORY - SURGERY [facility] 08/22/2024 AMBULATORY - SURGERY AMBULATORY - SURGERY [facility] Advance Directives List of completed, amended, or rescinded Advance Directives on record at [facility] facilities. An actual copy of the Directive is not included. Date Advance Directive Provider Source 02/23/2014 ADVANCE DIRECTIVE DISCUSSION ANGELITA AGUILA [facility]
--- OUTSIDE RECORDS SUMMARY | 2024-06-17 16:05 | XMS_ITS | Encounter Summary ---
Author Organization [employer] Address [address] [place] [address] Care Team Providers Care Fish Seiner Name Role Phone Unavailable Primary Care Provider Unavailabl e Encounter Details Date Type Department Care Team (Latest Contact Info) Description 04/20/2005 Outpatient Historical [facility] Jonathan Mcdowell CERVICALGIA (Primary Dx) Social History Tobacco Use Types Packs/Day Years Used Date Smoking Tobacco: Never Assessed Comments Unknown Sex and Gender Information Value Date Recorded Sex Assigned at Not on file Legal Sex Female 3:11 AM [employer] Gender Identity Not on file Sexual Orientation Not on file documented as of this encounter Plan of Treatment Not on file documented as of this encounter Visit Diagnoses Diagnosis Cervicalgia- Primary documented in this encounter
--- OUTSIDE RECORDS SUMMARY | 2024-06-17 16:05 | XMS_ITS | Referral Summary ---
Author Organization [facility] Address [address] [place] [address] Care Team Providers Care Stamps Or Coins Salesperson Name Role Phone Patricia Diaz MD Primary Care Provider + Encounters Date Type Department Care Team Description 04/25/2024 2:30 PM BAR TACKER SEWING MACHINE Office Visit [facility] Neurosurgery [address], [address] [place] [address] Kerry Zuleta PA Vestibular schwannoma (CMS/HCC) (HCC) (Primary Dx); Vertigo; Dizziness; Cochlear implant status 04/06/2024 10:20 AM BAR TACKER SEWING MACHINE - 04/06/2024 11:59 PM BAR TACKER SEWING MACHINE Hospital Encounter [facility] [address] [place] [address] Vestibular disorder, left; Vestibular nerve equilibration disorder, left Discharge Disposition: Discharge to home or self care 04/05/2024 Orders Only [facility] Information Management [address] [place] [address] Scanning, Provider 04/03/2024 Telephone [facility] Scheduling [address] [place] [address] Tania Burris 03/29/2024 Orders Only [facility] Information Management [address] [place] [address] Scanning, Provider 03/20/2024 10:40 AM BAR TACKER SEWING MACHINE Office Visit [facility] - [facility] ENT [address] 11th [place] [address] Bettie Bruno MD Vestibular schwannoma (CMS/HCC) ([facility]) (Primary Dx); Asymmetric SNHL (sensorineural hearing loss) from Last 3 Months Allergies Active Allergy Reactions Criticality Noted Date Comments Allerg Xt,D.Farinae-D.Pteronys Headache,Rhinorrhea,Sneez ing Low 05/26/2021 per [facility] Cinnamon Bark Blisters High 03/07/2021 Codeine Seizures,Vomiting High 07/05/2020 Meperidine Seizures,Nausea & Vomiting High 03/07/2021 House Dust Headache,Rhinorrhea, Sneez ing Low 07/31/2020 Iodinated Contrast Media Other (See comments) Low 1 Iodine Rash,Blisters High 07/05/2020 Poloxamer 188-Sorbitol Soln Diarrhea Low 03/07/20 Povidone-Iodine Rash,Blisters High 07/05/2020 Sorbitol Diarrhea Low 05/26/2021 per [facility] Medications aspirin 81 mg enteric coated tabletIndicatio ns:A-fib Take 1 tablet (81 mg total) by mouth every morning Active yelirnln-cal-wu gg-YG-pwspgv (Centrum Silver Women) 8 mg iron-400 mcg-300 [...] by mouth 2 (two) times a day Active ibuprofen-diphe nhydramine HCl 200-25 mg capsuleIndicati ons:Insomnia,ot c Take 1 capsule by mouth nightly Active loratadine (CLARITIN) 10 mg tablet 2 Active acetaminophen (TYLENOL) 325 mg tablet 3 Active fluticasone propionate (FLONASE) 50 mcg/actuation nasal spray 3 Active Active Problems Problem Noted Date Diagnosed Date Asymmetric SNHL (sensorineural hearing loss) 05/2020 Vestibular schwannoma (CMS/HCC) 07/31/2020 Immunizations Name Administration Dates Next Due Pfizer SARS-CoV-2 Monovalent Vaccination (12+ Yrs) PURPLE 08/13/2020,07/23/2020 Social History Tobacco Use Types Packs/Day Years [...] on file Legal Sex Female 2:56 PM BAR TACKER SEWING MACHINE Gender Identity Female 07/05/2020 12:08 PM BAR TACKER SEWING MACHINE Sexual Orientation Straight 07/05/2020 12 :08 PM BAR TACKER SEWING MACHINE Last Filed Vital Signs Vital Sign Reading Time Taken Comments Blood Pressure 111/58 04/25/2024 2:07 PM BAR TACKER SEWING MACHINE Pulse 84 04/25/2024 2:07 PM BAR TACKER SEWING MACHINE Temperature 37 ??C (98.6 ??F) 04/25/2024 2:07 PM BAR TACKER SEWING MACHINE Respiratory Rate 17 04/25/2024 2:07 PM BAR TACKER SEWING MACHINE Oxygen Saturation 98% 04/25/2024 2:07 PM BAR TACKER SEWING MACHINE Inhaled Oxygen Concentration - - Weight 70.8 kg (156 lb) 04/25/2024 2:07 PM BAR TACKER SEWING MACHINE Height 162.6 cm (5' 4 ) 04/25/2024 2:07 PM BAR TACKER SEWING MACHINE Body Mass Index 26.78 04/25/2024 2:07 PM BAR TACKER SEWING MACHINE Plan of Treatment Not on file Medical Devices Implanted Type Area Retail Team Leader Device Identifier Shelf Expiration Date Model / Serial / Lot [id number] Synchrony 2- Flex 28 - Coclear Implant Implanted:Qty: 1 on 03/20/2021 by Bettie Bruno MD at [facility] Other - see comments Left: Ear Med El 10/16/2023 [id number] / [id number] / Description:Cochlear Implant - Patient enrolled in [facility] ANTS study. No charge to patient. * Jolene Delgado Replaced with clinical trial item [id number] MED-EL SYNCHRONY IMPLANT SYSTEM Cervical Spine Fusion Instrumentation Spine Cervical Integra Lif[employer]iences Immanuel [id number] Duragen Plus 7.5x7.5cm Patch Resorbable Suturable Cranial Dura Graft - [id number] Implanted:Qty: 1 on 03/20/2021 by Bettie Bruno MD at [facility] Left: Ear Integra [employer] Immanuel [id number] 10/15/2023 [id number] / / [place] Craniomaxillofac ial [id number] Mtm 76x50x.85mm Embed Sheet Craniomaxillofac ial Mesh Cranial Latex Free - [id number] Implanted:Qty: 1 on 03/20/2021 by Bettie Bruno MD at [facility] Left: Ear [place] Craniomaxillofacia l [id number] 11/13/2028 [id number] / / [id number] [place] Craniomaxillofac ial [id number] [place] Neuro 3 1.5mm 4mm Self Drill Axial Stability Screw Bone Latex Free - [id number] Implanted:Qty: 4 on 03/20/2021 by Bettie Bruno MD at [facility] Head [place] Craniomaxillofacia l [id number] / / Procedures Procedure Name Priority Date/Time Associated Diagnosis Comments MRI INTERNAL AUDITORY CANAL INCL BRAIN W WO CONTRAST Schedule Routine, Read Routine (OP Routine) 04/06/2024 12:10 PM BAR TACKER SEWING MACHINE Vestibular disorder, left Vestibular nerve equilibration disorder, left SCAN - OTHER ORDERS 04/05/2024 SCAN - OTHER ORDERS 03/29/2024 12:33 PM BAR TACKER SEWING MACHINE from Last 3 Months Results * MRI Internal Auditory Canal Brain W WO Contrast (04/06/2024 12:10 PM BAR TACKER SEWING MACHINE) Anatomical Region Laterality Modality Head and Neck N/A Magnetic Resonan ce 04/06/2024 1:35 PM BAR TACKER SEWING MACHINE Impressions 04/06/2024 2:17 PM BAR TACKER SEWING MACHINE Postsurgical changes of left mastoidectomy and cochlear [...] Roman Dupree M.D. Narrative 04/06/2024 2:17 PM BAR TACKER SEWING MACHINE EXAMINATION: Magnetic resonance imaging (MRI) of the [...] it. Electronically signed by: Roman Dupree M.D. us Eladia AGUILAR IM MRI PROCEDURES Final Result * SCAN - OTHER ORDERS (04/05/2024) us Provider Scanning Final Result * SCAN - OTHER ORDERS (03/29/2024 12:33 PM BAR TACKER SEWING MACHINE) us Provider Scanning Final Result from Last 3 Months Insurance [place] [id number] [facility] MEDICARE [place] [id number] [facility] CARE [facility] CARE [facility] MEDICARE Advance Directives For more information, please contact: [phone] Documents on File Type Date Recorded Patient Weight Inspector Expl anation ADVANCE DIRECTIVE 03/20/2021 6:34 AM Pream ble: Advanced Medical Directive ADVANCE DIRECTIVE 03/20/2021 6:33 AM Power of Conservation Science Teacher-Medical ADVANCE DIRECTIVE 03/20/2021 6:31 AM Appoi ntment of Agent to Control Disposition of Remains * Full Code (Latest Code Status on File) Date Activated Date Inactivated Comments 03/20/2021 4:47 PM 03/28/2021 10:55 PM Care Teams Stamps Or Coins Salesperson Relationship Specialty Start Date End Date Patricia Diaz MD [address] [place] [address] PCP - General Internal Medicine 06/27/20
--- OUTSIDE RECORDS SUMMARY | 2024-06-17 16:05 | XMS_ITS ---
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 Date/Time Primary/Secondary Diagnosis Diagnosis Name Provider Source Jul 06, 2023 10:52 AM PRIMARY Congenital vertical talus deformity, unspecified foot PATRICIA ZAZUETA [facility] Jul 06, 2023 10:52 AM SECONDARY Encounter for immunization ADDI SIMONS V [facility] Jul 06, 2023 10:52 AM SECONDARY Neuralgia and neuritis, unspecified KADENDANIELPATRICIA Emmanuel [facility] Plan of Treatment: Future Appointments (+ 6 months) and Future Tests (+/- 45 days) The Plan of Treatment section includes future care activities for the patient from all [place] treatment[facility]. This section includes future appointments and future orders which are active, pending or scheduled. Future Appointments This section includes appointments that were scheduled to occur 6 months from the date of the Encounter, up to a maximum of 20 appointments. The data comes from all [place] treatment facilities. Appointment Date/Time Appointment Type Appointme nt Facility Name Jul 13, 2023 10:00 AM AMBULATORY - REHAB MEDICIN E [facility] Jul 15, 2023 09:00 AM AMBULATORY - REHAB MEDICIN E [facility] Jul 28, 2023 09:30 AM AMBULATORY - SURGERY [facility] Jul 28, 2023 02:00 PM AMBULATORY - MEDICINE [facility] Aug 02, 2023 01:00 PM AMBULATORY - MEDICINE [facility] Aug 05, 2023 10:00 AM AMBULATORY - REHAB MEDICIN E [facility] Aug 09, 2023 09:30 AM AMBULATORY - NONE [facility] Aug 17, 2023 10:30 AM AMBULATORY - REHAB MEDICIN E [facility] Sep 01, 2023 09:30 AM AMBULATORY - REHAB MEDICIN E [facility] Sep 02, 2023 05:00 PM AMBULATORY - MEDICINE [facility] Sep 07, 2023 08:00 AM AMBULATORY - NONE [facility] Sep 08, 2023 10:00 AM AMBULATORY - NONE [facility] Vital Signs: All taken on the encounter date This section contains inpatient and outpatient Vital Signs collected on the date of the Encounter. Date/Time Temperature Pulse Blood Pressure Respiratory Rate SP02 Pain Height Weight Body Mass Index Source Jul 06, 2023 10:30 AM 97.7 81 104/64 16 96 0 64 158 27 [facility] Immunizations: All administered on the encounter date This section contains immunizations associated to the Encounter. Immunization Series Date Issued Reaction Comments PNEUMOCOCCAL CONJUGATE PCV20 , POLYSACCHARIDE [id number] CONJUGATE, ADJUVANT, PF Jul 06, 2023 TDAP Jul 06, 2023 Social History: Smoking Status (Most current) and Tobacco Use (All prior to encounter date) This section includes the most current, and the historical, smoking and tobacco- related health factors from the [place] facility where the Encounter took place. Current Smoking Status This section includes the most current smoking, or tobacco-related health factor, from the [place] facility where the Encounter took place. Date/Time Current Smoking Status Comment Facil niko Oct 27, 2022 03:00 PM [place]-TOBACCO NEVER USED [facility] Tobacco Use History This section includes a history of the smoking, or tobacco-related health factors, that were collected on or before the date of the Encounter. The data comes from the [place] facility where the Encounter took place. Date/Time Smoking Status/Tobacco Use Comment F acility September 30, 2021 01:30 PM [place]-TOBACCO NEVER USED [facility] Dec 26, 2019 03:02 PM [place]-TOBACCO NEVER USED [facility] Mar 03, 2017 08:52 AM LIFETIME NON-USER OF TOBACCO [facility] Advance Directives: All historical and current Section Date Range: From patient's date of to the date document was created. This section includes ALL of a patient's completed or amended [place] Advance and Rescinded Directives. The entries below indicate that a directive exists for the patient, but an actual copy is not included with this document. The data comes from all [place] facilities. Date Advance Directives Provider Source Feb 23, 2014 ADVANCE DIRECTIVE DISCUSSION ANGELITA AGUILA [facility] Encounter Notes: All associated encounter notes This section contains the clinical notes associated to the Encounter. Date/Time Encounter Note(s) Provider Source Jul 06, 2023 11:01 AM NURSING IMMUNIZATI ON NOTE: LOCAL TITLE: CLINIC ADMINISTERED IMMUNIZATION/MEDICATION(S) STANDARD TITLE: NURSING IMMUNIZATION NOTE DATE OF NOTE: JUL 06, 2023@11:01:20 ENTRY DATE: JUL 06, 2023@11:01:20 AUTHOR: ADDI SIMONS V EXP COSIGNER: URGENCY: STATUS: COMPLETED Administered: TDAP Date Administered: Jul 06, 2023 10:30 Series: Complete Radiation Officer: SANOFI PASTEUR Lot: [id number] Exp Date: Oct 20, 2024 ND: [id number] Admin Route/Site: INTRAMUSCULAR/LEFT DELTOID Dosage: 0.5mL Vaccine Information Statement(s): TDAP (TETANUS, DIPHTHERIA, PERTUSSIS) VACCINE VIS Dec 20, 2020 ([place]) Order By: Patricia Zazueta Administered By: Addi Simons V /colt/ ADDI SIMONS LPN LICENSED PRACTICAL NURSE Signed: 07/06/2023 11:10 ADDI SIMONS V [facility] Jul 06, 2023 10:54 AM ORTHOTICS PROSTHET ICS NOTE: LOCAL TITLE: PROSTHETICS FOOT EVALUATION ST STANDARD TITLE: ORTHOTICS PROSTHETICS NOTE DATE OF NOTE: JUL 06, 2023@10:54 ENTRY DATE: JUL 06, 2023@10:55:01 AUTHOR: PATRICIA ZAZUETA EXP COSIGNER: URGENCY: STATUS: COMPLETED PROSTHETICS FOOT EVALUATION DIAGNOSIS: Tarsal tunnel syndrome, pes cavus, hallux limitus, bunion deformity neuritis Giles-Filament Test: Jun (within last 30 days) Sensation: Intact Circulation: Pedal Pulses: Posterior Tibial LEFT: Present RIGHT: Present Dorsalis Pedis LEFT: Present RIGHT: Present Hair Present: No History of Ulcers/Amputation: No List specific issues below. If none, indicate none below. pes cavus, hallux limitus, bunion deformity,neuritis ASSESSMENT: Foot Risk Score Level 2 MODERATE RISK Decreased sensation and circulation Foot deformity No ulceration or history of amputation Description of foot deformity or infection: foot deformity and neuritis /colt/ PATRICIA ZAZUETA M.D. physician Signed: 07/06/2023 10:57 PATRICIA ZAZUETA [facility] Jul 06, 2023 10:40 AM PRIMARY CARE NOTE: LOCAL TITLE: PRIMARY CARE PROVIDER ESTABLISHED VISIT ST STANDARD TITLE: PRIMARY CARE NOTE DATE OF NOTE: JUL 06, 2023@10:40 ENTRY DATE: JUL 06, 2023@10:40:21 AUTHOR: PATRICIA ZAZUETA COSIGNER: URGENCY: STATUS: COMPLETED This is a 67 year old, WHITE FEMALE with a chief complaint of: Referral to podiatry for orthotics With the following known Allergies: CODEINE, BETADINE, IODINATED CONTRAST MEDIA On the following Active Medications: Active Outpatient Medications (including Supplies): Active Outpatient [...] MOUTH ACTIVE TWICE A DAY FOR HEART. Recent Vital Signs: Temperature: 97.7 F [36.5 C] (07/06/2023 10:30) BP: 104/64 (07/06/2023 10:30) Pulse: 81 (07/06/2023 10:30) Resp: 16 (07/06/2023 10:30) Pain: 0 (07/06/2023 10:30) Weight: 158 lb [71.67 kg] (07/06/2023 10:30) Patient is alert,oriented x 3 chest cta bilateral CVS S1,S2 nsr abdomen soft ext no edema foot exam: color normal, pulses 2 +, sensory intact. pes cavus, hallux limitus, bunion deformity,neuritis Recent Labs: HGB A1C (last): HGA1C 5.8 % 11/03/2022 08:35 LDL(calculated): CALCULATED LDL 103 mg/dL 11/03/2022 08:35 HDL:57 mg/dL (11/03/22 08:35) Cholesterol:CHOLESTEROL 172 mg/dL 11/03/2022 08:35 Triglycerides: 60 mg/dL (11/03/22 08:35) PSA:No PSA EO data found Urine Micral/creat profile: No data available WBC:5.2 10*3/uL (03/08/23 09:53) RBC:4.30 10*6/uL (03/08/23 09:53) HGB:HGB 13.4 g/dL 03/08/2023 09:53 HCT:40.5 % (03/08/23 09:53) PLT:PLT 252 10*3/uL 03/08/2023 09:53 Chem 7 SODIUM 139 mEq/L 03/08/2023 09:53 POTASSIUM 4.5 mEq/L 03/08/2023 09:53 CHLORIDE 104 mEq/L 03/08/2023 09:53 UREA NITROGEN 14.1 mg/dL 03/08/2023 09:53 CREATININE 0.95 mg/dL 03/08/2023 09:53 CALCIUM 9.7 mg/dL 03/08/2023 09:53 CARBON DIOXIDE 29 mEq/L 03/08/2023 09:53 GLUCOSE 90 mg/dL 03/08/2023 09:53 EGFR (CKD-EPI 2020) 66.5 03/08/2023 09:53 Urinalysis URINE COLOR Light-Yellow 11/03/2022 08:35 APPEARANCE Clear 11/03/2022 08:35 U.PH 5.5 11/03/2022 08:35 U.BILIRUBIN Negative mg/dL 11/03/2022 08:35 U.NITRITE Negative mg/dL 11/03/2022 08:35 URINE RBC/HPF <1 /HPF 11/03/2022 08:35 URINE WBC/HPF 1 /HPF 11/03/2022 08:35 SQUAMOUS EPITH. <1 /HPF 11/03/2022 08:35 A: Foot deformity, neuritis. Referral for orthotics foot clinic Td / Tdap Immunization: See orders Pneumococcal PPSV23 (Pneumovax): See orders. Palliative Care Provider: Palliative care is not clinically indicated at this time. /colt/ PATRICIA ZAZUETA M.D. physician Signed: 07/06/2023 10:54 PATRICIA ZAZUETA [facility] Jul 06, 2023 10:38 AM NURSING NOTE: LOCAL TITLE: V15 PACT FACE TO FACE NOTE STL STANDARD TITLE: NURSING NOTE DATE OF NOTE: JUL 06, 2023@10:38 ENTRY DATE: JUL 06, 2023@10:38:14 AUTHOR: ADDI SIMONS COSIGNER: URGENCY: STATUS: COMPLETED V15 PACT FACE TO FACE NOTE STL Has ADDENDA Provider Visit: Patient Identifiers : Full Name Date of Reason for visit: Other: Patient is a white female 67 years of age presents alert oriented able to make needs known. Here today for foot exam podiatry consult for Orthotics. Mode of Arrival: Ambulatory Allergy Review: CODEINE, BETADINE, IODINATED CONTRAST MEDIA Allergy list reviewed and remains current. Recent Vital Signs: Temperature: 97.7 F [36.5 C] (07/06/2023 10:30) Pulse: 81 (07/06/2023 10:30) Respiration: 16 (07/06/2023 10:30) B/P: 104/64 (07/06/2023 10:30) Pain: 0 (07/06/2023 10:30) Wt: 158 lb [71.67 kg] (07/06/2023 10:30) Ht: 64 in [162.6 cm] (07/06/2023 10:30) BMI: 27.2 POX: 96% (07/06/2023 10:30) Would you like to discuss any personal problem, family problem, alcohol use, drug use, or a mental or emotional illness? No My [facility] ([facility]), please select appointment type: Face to face: Yes-Do you have an upgraded (Premium) account which gives you the added benefit of Secure Messaging with your Primary Care Provider and refilling your prescriptions online? Contact provided Primary Care phone number and encouraged to call if any questions or concerns. Review that after hours nurse line [phone] and emergency room are available 07/12 for patient use. Contact verbalized good understanding. Homelessness/Food Insecurity Screen: In the past 2 months, have you been living in stable housing that you own, rent, or stay in as part of a household? Yes - Living in stable housing. Are you worried or concerned that in the next 2 months you may NOT have stable housing that you own, rent, or stay in as part of a household? No - Not worried about housing near future The reports the following: Within the past 12 months, you worried whether your food would run out before you got money to buy more. Never true Within the past 12 months, the food you bought just didn't last and you didn't have money to get more. Never true Influenza Immunization: The patient has received the seasonal influenza vaccine for the current season at another location. Documented: INFLUENZA, UNSPECIFIED FORMULATION Historical Date Administered: May 26, 2023 Outside Location: [facility] Admin Route/Site: INTRAMUSCULAR/ Information Source: FROM PATIENT'S WRITTEN RECORD /colt/ ADDI SIMONS LPN LICENSED PRACTICAL NURSE Signed: 07/06/2023 10:58 07/06/2023 ADDENDUM STATUS: COMPLETED Pneumococcal Conjugate Vaccine (PCV15/PCV20): PCV20 (Prevnar 20) Administered: PNEUMOCOCCAL CONJUGATE PCV20, POLYSACCHARIDE [id number] CONJUGATE, ADJUVANT, PF Date Administered: Jul 06, 2023 10:30 Series: Complete Radiation Officer: [employer] Lot: [id number] Exp Date: Aug 14, 2024 Admin Route/Site: INTRAMUSCULAR/LEFT DELTOID Dosage: 0.5mL Vaccine Information Statement(s): PNEUMOCOCCAL CONJUGATE ([id number]) VIS September 25, 2022 ([place]) Order By: Patricia Zazueta Administered By: Addi Simons V Vaccine Information Sheet (VIS) was given to the patient/caregiver, education regarding adverse reactions was discussed, as well as barriers to learning, if any, were acknowledged. /colt/ ADDI SIMONS LPN LICENSED PRACTICAL NURSE Signed: 07/06/2023 11:12 ADDI SIMONS V [facility]
--- OUTSIDE RECORDS SUMMARY | 2024-06-17 16:05 | XMS_ITS | Encounter Summary ---
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 Date/Time Encounter Type Encounter Description Reason Provider Source Aug 30, 2023 04:42 PM Outpatient Encounter ADMIN PAT ACTIVTIES (MASNONCT) MYLES BRUNNER [place] Encounter Template Text not used by [place] Plan of Treatment: Future Appointments (+ 6 months) and Future Tests (+/- 45 days) The Plan of Treatment section includes future care activities for the patient from all [place] [facility]. This section includes future appointments and future orders which are active, pending or scheduled. Future Appointments This section includes appointments that were scheduled to occur 6 months from the date of the Encounter, up to a maximum of 20 appointments. The data comes from all [place] treatment facilities. Appointment Date/Time Appointment Type Appointme nt Facility Name Sep 01, 2023 09:30 AM AMBULATORY - REHAB MED[facility]IN [facility] Sep 02, 2023 05:00 PM AMBULATORY - MEDICINE [facility] Sep 07, 2023 08:00 AM AMBULATORY - NONE [facility] Sep 08, 2023 10:00 AM AMBULATORY - NONE [facility] Jan 19, 2024 01:00 PM AMBULATORY - NONE . [facility] Jan 26, 2024 09:30 AM AMBULATORY - SURGERY . [facility] Feb 29, 2024 01:30 PM AMBULATORY - MEDICINE [facility] Social History: Smoking Status (Most current) and Tobacco Use (All prior to encounter date) This section includes the most current, and the historical, smoking and tobacco- related health factors from the [place] facility where the Encounter took place. Current Smoking Status This section includes the most current smoking, or tobacco-related health factor, from the [place] facility where the Encounter took place. Date/Time Current Smoking Status Comment [place] October 12, 2013 08:01 AM LIFETIME NON-USER OF TOBACCO [facility] Tobacco Use History This section includes a history of the smoking, or tobacco-related health factors, that were collected on or before the date of the Encounter. The data comes from the [place] facility where the Encounter took place. Date/Time Smoking Status/Tobacco Use Comment F acility Dec 13, 2012 08:02 AM LIFETIME NON-USER OF TOBACCO [facility] Advance Directives: All historical and current Section Date Range: From patient's date of to the date document was created. This section includes ALL of a patient's completed or amended [place] Advance and Rescinded Directives. The entries below indicate that a directive exists for the patient, but an actual copy is not included with this document. The data comes from all [place] facilities. Date Advance Directives Provider Source Feb 23, 2014 ADVANCE DIRECTIVE DISCUSSION LEATHAANGELITA [facility] Encounter Notes: All associated encounter notes This section contains the clinical notes associated to the Encounter. Date/Time Encounter Note(s) Provider Source Aug 30, 2023 04:42 PM PHARMACY MEDICATIO N MGT DISCHARGE NOTE: LOCAL TITLE: PHARMACY COMMUNITY CARE PRESCRIPTION PROCESSING NOT STANDARD TITLE: PHARMACY MEDICATION MGT DISCHARGE NOTE DATE OF NOTE: AUG 30, 2023@16:42 ENTRY DATE: AUG 30, 2023@16:42:54 AUTHOR: MYLES BRUNNER WHI EXP COSIGNER: URGENCY: STATUS: COMPLETED Pharmacy service received prescription(s) via: Inbound ERx ELIGIBILITY: [facility] ([facility]) eligibility has been verified and/or is documented. PRESCRIPTION INFORMATION: Provider Information:Robbie Shaw, fax: [phone] 1) Nasacort Allergy 24HR 55 MCG/ACT Aerosol, 2 sprays in each nostril Nasally Once a day 30 days #1, 3 refills DISPOSITION: The medication(s) prescribed is/are non-formulary. A fax was sent to the prescriber including the formulary alternatives, a non-formulary request form, and [place] Criteria for Use (if applicable). Contacted patient's provider regarding: Prescription is for a non-formulary medication/supply or has criteria for use and further information and evaluation is required. Recommendation to convert to a formulary or [place] preferred product /es/ MYLES BRUNNER PharmD [facility] Pharmacist, Pharmacy Signed: 08/30/2023 16:44 MYLES BRUNNER [facility]
--- OUTSIDE RECORDS SUMMARY | 2024-06-17 16:05 | XMS_ITS | Encounter Summary ---
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 Date/Time Encounter Type Encounter Description Reason Provider Source Aug 05, 2023 10:00 AM MANUAL THERAPY 1/> [facility] ICD-10-CM M54.2 Cervicalgia LYNN DODSON [facility] Encounter Template Text not used by [place] Assessments - Encounter Diagnoses This section includes the primary and secondary diagnoses documented for the Encounter. Date/Time Primary/Secondary Diagnosis Diagnosis Name Provider Source Aug 05, 2023 11:24 AM PRIMARY Cervicalgia LYNN DODSON [facility] Plan of Treatment: Future Appointments (+ 6 months) and Future Tests (+/- 45 days) The Plan of Treatment section includes future care activities for the patient from all [place] [facility]. This section includes future appointments and future orders which are active, pending or scheduled. Future Appointments This section includes appointments that were scheduled to occur 6 months from the date of the Encounter, up to a maximum of 20 appointments. The data comes from all [place] treatment facilities. Appointment Date/Time Appointment Type Appointme nt Facility Name Aug 09, 2023 09:30 AM AMBULATORY - NONE [facility] Aug 17, 2023 10:30 AM AMBULATORY - REHAB MEDICIN E [facility] Sep 01, 2023 09:30 AM [facility] Sep 02, 2023 05:00 PM AMBULATORY - MEDICINE [facility] Sep 07, 2023 08:00 AM AMBULATORY - NONE [facility] Sep 08, 2023 10:00 AM AMBULATORY - NONE [facility] Jan 19, 2024 01:00 PM AMBULATORY - NONE [facility] Jan 26, 2024 09:30 AM AMBULATORY - SURGERY [facility] Advance Directives: All historical and current [...] 23, 2014 ADVANCE DIRECTIVE DISCUSSION ANGELITA AGUILA [facility] Encounter Notes: All associated encounter notes This section contains the clinical notes associated to the Encounter. Date/Time Encounter Note(s) Provider Source Aug 05, 2023 07:41 AM PHYSICAL MEDICINE REHAB TREATMENT PLAN NOTE: LOCAL TITLE: REHAB TREATMENT PLAN EXTENSION STANDARD TITLE: PHYSICAL MEDICINE REHAB TREATMENT PLAN NOTE DATE OF NOTE: AUG 05, 2023@07:41 ENTRY DATE: AUG 05, 2023@07:41:57 AUTHOR: LYNN DODSON EXP COSIGNER: URGENCY: STATUS: COMPLETED Chart Review: Imaging Chart Review: PMH including: --- Referring provider: THANH ZAZUETA Start of Care: 04/27/2023 Reevaluation due:04/27/2024 POC through: 07/27/2023 Visits to date: 8 No shows/cancellations: 0 Diagnosis: Cervicalgia(ICD-10-CM M54.2) Treatment time: Total: 35 mins. Therapeutic exercise:25 mins. Manual Therapy:10 mins Self care-management: mins Mechanical traction: mins reassessment: mins neuro re ed : mins Todays subjective 08/05/23: Patient rates neck pain at 1/10, reports having sinus MARTINES today. Rates pain at 3-4/10 at worst. EVAL Subjective: Pt reports neck pain and [...] (* = pain) right left -cervical rotation 55 deg* 59 deg* (08/04) -cervical lateral flexion 20 deg* 22 deg* -cervical flexion -cervical extension AROM Shoulder: (* = pain) right left -standing flexion 165 deg 165 deg (no neck pain with b/l shoulder flexion) -standing abduction NT Treatment: Therapeutic exercise: -D2 with yellow TB, 3 x 10 reps -standing unilateral shoulder extension with yellow Tb, x 30 reps -hooklying serratus anterior punch with yellow TB, 3 x 10 reps -seated mid back stretch with self subclavius release. Pt was instructed in and demonstrated independence with current HEP x 1 (pt was provided with handouts): -hooklying cervical rotation, x 10 reps b/l; 2x daily -hooklying thoracic rotation, opp UE/LE rotation; 1-2 x daily-d/c -hooklying cane flexion, 2 x 10 reps; 2x daily-d/c -wall slides with lift off, x 10 reps; 3x daily -seated mid back stretch, cueing for posterior mediastinum expansion -hooklying horizontal abd with yellow TB, 2 x 10; reps -hooklying serratus anterior punch with yellow TB Manual Therapy: -right subclavius release neuro re-ed-added to HEP [] seated on [place] ball medial/lateral bounce slow down to a stop 5-10 sec x 3 reps [] seated on [place] ball vertical bounce slow down to a stop 5-10 sec x 3 reps taping [] posterior superior tape to support R Rib at level T3-T4 / area of tenderness Patient education: -discussed sitting postures, looking down at phone, breaks with crotching -discussed graduated walking program Assessment: Patient reports subjective pain improvements, demonstrates improved cervical ROM and proficiencty with HEP. Will consider d/c next visit given symptoms don't increase. tx tolerance: minimal complaints of pain. utes spent on above code: Goals: Short term:(4 weeks) 1) Pt. will demonstrate independence with current HEP x 1 (met) 2) Pt. will verbalize 8/10 pain at worst (met) 3) Pt. will demonstrate independence with sitting, standing, and sleeping postures.(ongoing) Penitentiary: (12 weeks) 1) Pt. will demonstrate independence with current HEP x 1(met) 2) Pt. will verbalize 4/10 pain at worst to assist with ADL's(met) 3) Pt will improve b/l shoulder flexion to 165 deg b/l without pain (met) indicating improved scapular mechanics and ADL's.(met) --BARRIERS: [...] Has: -TENS unit, theracane Plan: Cont. PT 1-2 visits to finalize HEP. --PATIENT EDUCATION DOCUMENTATION: Person(s) who received education: [...] instruction [] Family/Other acknowledged understanding of instruction /es/ LYNN DODSON Physical Therapist Signed: 08/05/2023 11:25 LYNN DODSON [facility]
--- OUTSIDE RECORDS SUMMARY | 2024-06-17 16:06 | XMS_ITS ---
Author Name [facility] Organization [facility] Address [address] [place] [address] Care Team Providers Care [employer] Salesperson Name Role Phone THANH DIAZ Primary Care Provider Unavailsameer e Insurance Providers: [...] [employer] VISIO N PLAN May 17, 2016 [id number] [phone] KADI MARTNIEZ PATIENT EYEMED (WNR) VISION VISIO N May 17, 2019 [id number] [phone] KADI MARTINEZ PATIENT MEDICARE (WNR) MEDICARE (M) PART B Nov 14, 2022 PART B [id number] KADI MARTINEZ PATIENT MEDICARE (WNR) MEDICARE (M) PART A Nov 14, 2022 PART A [id number] KADI MARTINEZ PATIENT Selected Encounter This section includes the information on record at ID for the Encounter. Date/Time Encounter Type Encounter Description Reason Provider Source Mar 09, 2024 10:30 AM OFFICE O/P EST MOD 30 MIN COMP WMS HLTH [facility]DR D[facility]SE [facility] ICD-10-CM Z00.01 Encounter for general adult medical exam w abnormal findings THANH DIAZ [facility] Encounter Template Text not used by ID Assessments - Encounter Diagnoses This section includes the primary and secondary diagnoses documented for the Encounter. Date/Time Primary/Secondary Diagnosis Diagnosis Name Provider Source Mar 09, 2024 11:06 AM PRIMARY Encounter for general adult medical exam w abnormal findings [facility] Mar 09, 2024 11:06 AM SECONDARY Encounter for immunization [facility] Mar 09, 2024 11:06 AM SECONDARY Hyperlipidemia, unspecified [facility] Mar 09, 2024 11:06 AM SECONDARY Pain in left foot [facility] Mar 09, 2024 11:06 AM SECONDARY Pain in right knee [facility] Plan of Treatment: Future Appointments (+ 6 months) and Future Tests (+/- 45 days) The Plan of Treatment section includes future care activities for the patient from all [facility] This section includes future appointments and future orders which are active, pending or scheduled. Future Appointments This section includes appointments that were scheduled to occur 6 months from the date of the Encounter, up to a maximum of 20 appointments. The data comes from all ID treatment facilities. Appointment Date/Time Appointment Type Appointme nt Facility Name Mar 15, 2024 09:00 AM AMBULATORY - MEDICINE [facility] Mar 20, 2024 10:40 AM AMBULATORY - SURGERY [facility] Apr 06, 2024 11:00 AM AMBULATORY - NONE [facility] Apr 07, 2024 09:30 AM [facility] Apr 25, 2024 02:30 AM AM[facility]ULATORY - SUR[facility]ERY [facility] Jun 28, 2024 07:30 AM AMBULATORY - SUR[facility]ERY [facility] Jul 25, 2024 10:00 AM AMBULATORY - SURGERY [facility] Aug 22, 2024 10:45 AM AMBULATORY - SURGERY [facility] Active, Pending, and Scheduled Orders This section includes a listing of several types of active, pending, and scheduled orders, including clinic medications orders, diagnostic test orders, procedure orders and consult orders; where the start date of the order is 45 days before the date of the Encounter or 45 days after the date of theEncounter. The data comes from all ID treatment facilities. Test Date/Time Test Type Test Details Facility Name Mar 13, 2024 03:23 PM Consult Order [facility] Cons Docking Saw Operator's Choice [facility] Lab Results: +/- 30 days of the encounter This section includes the Chemistry and Hematology Lab Results on record with ID for the patient. Radiology Reports and Pathology Reports are provided separately, in subsequent sections. Lab Results This section contains the Chemistry/Hematology Results that were resulted 30 days before or 30 daysafter the date of the Encounter. Date/Time Source Result Type Result - Unit Interpretation Reference Range Comment Mar 09, 2024 11:[address] [facility] LIPID PANEL (STL) Specimen Type: PLASMA Comment: No hemolysis noted. Ordering Provider: WARREN DIAZ Report Released Date/Time: Mar 09, 2024 10:49 AM Reporting Lab: [facility] [address] [facility] [facility] [phone] Performing Lab: [facility] [address] [place] [phone] CHOLESTEROL 160 mg/dL 0-200 TRIGLYCERIDE 46 mg/dL 0-150 CALCULATED LDL 95 mg/dL HDL(New) 56 mg/dL >40 Mar 09, 2024 11:[address] [facility] HGA1C Specimen Type: BLOOD No comment entered. Ordering Provider: WARREN DIAZ Report Released Date/Time: Mar 09, 2024 10:49 AM Reporting Lab: [facility] [address] [phone] Performing Lab: [facility] [address] [place] [phone] HGA1C 5.6 4.0-6.0 Mar 09, 2024 11:[address] [facility] TSH W/ REFLEX FT4 (STL) Specimen Type: PLASMA No comment entered. Ordering Provider: WARREN DIAZ Report Released Date/Time: Mar 09, 2024 10:49 AM Reporting Lab: [facility] [address] [facility] [phone] Performing Lab: [facility] [address] [place] [phone] TSH 2.453 u[IU]/mL 0.47-5 Mar 09, 2024 11:[address] [facility] URINALYSIS (STL-PB) Specimen Type: URINE No comment entered. Ordering Provider: WARREN DIAZ Report Released Date/Time: Mar 09, 2024 10:49 AM Reporting Lab: [facility] [address] [place] [phone] Performing Lab: [address] [address] URINE COLOR Colorless Yellow U.BILIRUBIN Negative mg/dL Negative U.PH 7.0 5.0-8.0 APPEARANCE Clear Clear U.NITRITE Negative mg/dL Negative URN.GLUCOSE Normal mg/dL Negative URN.PROTEIN Negative mg/dL URN.UROBILINOGEN Normal mg/dL Normal URN.BLOOD Negative mg/dL Negative-Tra ce URN.KETONES Negative mg/dL Negative-Tra ce URN.LEUK.EST. Negative mg/dL Negative-Tra ce URN.SPECIFIC GRAVITY 1.004 L Mar 09, 2024 11:[address] [facility] AMYLASE Specimen Type: PLASMA Comment: No hemolysis noted. Ordering Provider: WARREN DIAZ Report Released Date/Time: Mar 09, 2024 11:00 AM Reporting Lab: [facility] [address] [place] [phone] Performing Lab: [facility] [address] [place] [phone] AMYLASE 155 U/L H 25-125 Mar 09, 2024 11:[address] [facility] VITAMIN D, 25-HYDROXY Specimen Type: SERUM No comment entered. Ordering Provider: WARREN DIAZ Report Released Date/Time: Mar 09, 2024 10:49 AM Reporting Lab: [facility] [address] [place] [phone] Performing Lab: [facility] [place] [phone] VITAMIN D, 25-HYDROXY 49.2 ng/mL 30-96 Mar 09, 2024 11:[address] [facility] LIPASE Specimen Type: PLASMA Comment: No hemolysis noted. Ordering Provider: WARREN DIAZ Report Released Date/Time: Mar 09, 2024 11:00 AM Reporting Lab: [address] [phone] Performing Lab: [address] [address] LIPASE 267 U/L H 8-78 Mar 09, 2024 11:[address] [facility] COMPREHENSIVE METABOLIC PANEL Specimen Type: PLASMA Comment: No hemolysis noted. Ordering Provider: WARREN DIAZ Report Released Date/Time: Mar 09, 2024 10:49 AM Reporting Lab: [address] [address] Performing Lab: [address] [address] CREATININE 0.96 mg/dL 0.6-1.1 UREA NITROGEN 16.6 [...] 65.3 >60 Mar 09, 2024 11:[address] [facility] CBC Specimen Type: BLOOD No comment entered. Ordering Provider: WARREN DIAZ Report Released Date/Time: Mar 09, 2024 10:49 AM Reporting Lab: [facility] [address] [place] [phone] Performing Lab: [address] [place] [address] WBC 4.2 10*3/uL 3.6-11.2 RBC 3.56 10*6/uL [...] 10*3/uL 0.00-0.60 BASOPHILS, ABSOLUTE 0.03 10*3/uL 0.00-0.20 Vital Signs: All taken on the encounter date This section contains inpatient and outpatient Vital Signs collected on the date of the Encounter. Date/Time Temperature Pulse Blood Pressure Respiratory Rate SP02 Pain Height Weight Body Mass Index Source Mar 09, 2024 10:04 AM 97.6 69 112/57 18 [address] [facility] Immunizations: All administered on the encounter date This section contains immunizations associated to the Encounter. Immunization Series Date Issued Reaction Comments INFLUENZA, HIGH-DOSE, TRIVALENT, PF Mar 09 Social History: Smoking Status (Most current) and Tobacco Use (All prior to encounter date) This section includes the most current, and the historical, smoking and tobacco- related health factors from the ID facility where the Encounter took place. Current Smoking Status This section includes the most current smoking, or tobacco-related health factor, from the ID facility where the Encounter took place. Date/Time Current Smoking Status Comment Nehal pope Mar 09, 2024 10:30 AM VA-TOBACCO NEVER USED [facility] Tobacco Use History This section includes a history of the smoking, or tobacco-related health factors, that were collected on or before the date of the Encounter. The data comes from the ID facility where the Encounter took place. Date/Time Smoking Status/Tobacco Use Comment F acility Oct 27, 2022 03:00 PM ID-TOBACCO NEVER USED [facility] September 30, 2021 01:30 PM ID-TOBACCO NEVER USED [facility] Dec 26, 2019 03:02 PM ID-TOBACCO NEVER USED [facility] Mar 03, 2017 08:52 AM LIFETIME NON-USER OF TOBACCO [facility] Advance Directives: All historical and current Section Date Range: From patient's date of to the date document was created. This section includes ALL of a patient's completed or amended ID Advance and Rescinded Directives. The entries below indicate that a directive exists for the patient, but an actual copy is not included with this document. The data comes from all ID facilities. Date Advance Directives Provider Source Feb 23, 2014 ADVANCE DIRECTIVE DISCUSSION ANGELITA AGUILA [facility] Radiology Reports: +/- 30 days of the [...] the Encounter. The data comes from all ID treatment facilities. Date/Time Radiology Report Provider Source Mar 15, 2024 08:52 AM US ABDOMEN LIMITED W/BLOOD FLOW DOPPLER: KADI MARTINEZ [id number] -1955 F Exm Date: MAR 15, 2024@08:52 Req Phys: THANH DIAZ Pat Loc: [facility] PACT WH W2 PCP (Req'g L Img Loc: [facility]ULTRASOUND [facility] Service: Unknown [address] [address] (Case [id number] COMPLETE) US ABDOMEN LTD, SINGLE ORG OR GENARO(US Detailed) CPT:38170 Reason for Study: pain RUQ (Case [id number] COMPLETE) US BLOOD FLOW ABD/RENAL (LTD) (US Detailed) CPT:89448 Clinical History: Organ to Image: RUQ Reason for exam: pain after eating Report Status: Verified Date Reported: MAR 15, 2024 Date Verified: MAR 15, 2024 Product Expert E-Sig:/ES/SAMANTHA ALEMAN Report: DATE: 03/15/2024 8:52 AM EXAM: US ABDOMEN LTD, SINGLE ORG OR QUADRANT, US BLOOD FLOW ABD/RENAL (LTD) ACCESSION NUMBERS: [id number], [id number] HISTORY: pain RUQ Technique: Real-time ultrasound examination [...] new from the prior examination performed in 2015 but are likely benign due to small size. 12 months follow-up recommended. No cholelithiasis or evidence of cholecystitis. 2. Findings suspicious for chronic liver disease, recommend clinical correlation. Ruperto Awad MD (College Associate) Samantha Amaya, have reviewed the images and report and concur with these findings. Primary Interpreting Staff: SAMANTHA ALEMAN MD (Product Expert) Primary Interpreting Resident: RUPERTO AWAD, Resident Physician /SAMANTHA GONZALEZ [facility] Mar 09, 2024 12:28 PM KNEE,RIGHT 3 VIEWS: KADI MARTINEZ [id number] -1955 F Exm Date: MAR 09, 2024@12:28 Req Phys: THANH DIAZ Pat Loc: [facility] PACT W2 PCP (Req'g L Img Loc: [facility] RADIOLOGY SUITE Service: Unknown [address] [address] (Case [id number] COMPLETE) KNEE,RIGHT 3 VIEWS (RAD Detailed) CPT:26205 Proc Modifiers : RIGHT Reason for Study: right knee pain after fall Clinical History: Report Status: Verified Date Reported: MAR 09, 2024 Date Verified: MAR 09, 2024 Product Expert E-Sig:/COLT/AMARJIT TRACEY MD Report: Case #[id number]. Right knee [...] AMARJIT TRACEY MD, Staff Physician - Radiologist (Product Expert) /CHRISTI VELARDE [facility] Mar 09, 2024 12:28 PM KNEE,LEFT, 3 VIEWS: KADI MARTINEZ Phoebe [id number] -1955 F Exm Date: MAR 09, 2024@12:28 Req Phys: THANH DIAZ Loc: [facility] PACT W2 PCP (Req'g L Img Loc: [facility] SUITE Service: Unknown [address] [address] (Case [id number] COMPLETE) KNEE,LEFT, 3 VIEWS (RAD Detailed) CPT:80717 Proc Modifiers : LEFT Reason for Study: pain in knee Clinical History: Report Status: Verified Date Reported: MAR 09, 2024 Date Verified: MAR 09, 2024 Product Expert E-Sig:/COLT/AMARJIT TRACEY MD Report: Case #[id number]. Left [...] AMARJIT TRACEY MD, Staff Physician - Radiologist (Product Expert) /CHRISTI VELARDE [facility] Mar 09, 2024 12:28 PM FOOT,LEFT 3 VIEWS OR MORE: KADI MARTINEZ [id number] -1955 F Exm Date: MAR 09, 2024@12:28 Req Phys: THANH DIAZ Loc: [facility] PACT W2 PCP (Req'g L Img Loc: [facility] SUITE Service: Unknown [address] [address] (Case [id number] COMPLETE) FOOT,LEFT 3 VIEWS OR MORE (RAD Detailed) CPT:17652 Proc Modifiers : LEFT Reason for Study: foot pain Clinical History: Report Status: Verified Date Reported: MAR 09, 2024 Date Verified: MAR 09, 2024 Product Expert E-Sig:/ES/AMARJIT TRACEY MD Report: Case #[id number]. Left foot [...] AMARJIT TRACEY MD, Staff Physician - Radiologist (Product Expert) /CHRISTI VELARDE [facility] Mar 09, 2024 12:28 PM FOOT,RIGHT,3 VIEWS OR MORE: KADI MARTINEZ [id number] -1955 F Exm Date: MAR 09, 2024@12:28 Req Phys: THANH DIAZ Loc: [facility] PACT W2 PCP (Req'g L Img Loc: [facility] SUITE Service: Unknown [address] [address] (Case [id number] COMPLETE) FOOT,RIGHT,3 VIEWS OR MORE (RAD Detailed) CPT:06553 Proc Modifiers : RIGHT Reason for Study: foot pain Clinical History: Report Status: Verified Date Reported: MAR 09, 2024 Date Verified: MAR 09, 2024 Product Expert E-Sig:/ES/AMARJIT TRACEY MD Report: Case #[id number]. Right [...] AMARJIT TRACEY MD, Staff Physician - Radiologist (Product Expert) /CHRISTI VELARDE [facility] Encounter Notes: All associated encounter notes This section contains the clinical notes associated to the Encounter. Date/Time Encounter Note(s) Provider Source Mar 10, 2024 02:01 PM PHYSICIAN LETTERS: LOCAL TITLE: TEST RESULT GENERAL LETTER STL STANDARD TITLE: PHYSICIAN LETTERS DATE OF NOTE: MAR 10, 2024@14:01 ENTRY DATE: MAR 10, 2024@14:01:45 AUTHOR: THANH DIAZ EXP COSIGNER: URGENCY: STATUS: COMPLETED [facility] [address] [place] [address] MAR 10, 2024 KADI MARTINEZ [address] [place], [place] [address] Dear Kadi Martinez, I would like to update you on your recent test results. LIPID PROFILE - High cholesterol and triglycerides (lipids) are risk factors for heart disease. Your cholesterol should fall between 140 and 200, and your triglycerides levels should be less than or equal to 150. HDL is the good cholesterol and should ideally be greater than 40. LDL is the bad cholesterol and optimal levels should be less than 100 (near optimal is between 100 and 129). TRIGLYCERIDE 46 mg/dL 03/09/2024 11:30 CHOLESTEROL 160 mg/dL 03/09/2024 11:30 HDL(New) 56 mg/dL 03/09/2024 11:30 CALCULATED LDL 95 mg/dL 03/09/2024 11:30 No DIRECT LDL EO data found These readings are within normal limits. HEMOGLOBIN A1C - Gives us information about your diabetes (sugar or glucose) control over the past 3 months. Your target is to keep your A1C below 0 %. HGA1C 5.6 % 03/09/2024 11:30 These readings are within normal limits. CBC - A complete blood count (CBC) gives important information about the kinds and numbers of cells in the blood, especially red blood cells, white blood cells, and platelets. HGB 11.3 g/dL 03/09/2024 11:30 HEMATOCRIT 33.0 % (03/09/24 11:30) PLT 211 10*3/uL 03/09/2024 11:30 WHITE BLOOD COUNT 4.2 10*3/uL (03/09/24 11:30) These readings are within normal limits. CHEM 7 - This is important information about the current status of your kidneys, liver, and electrolyte and acid/base balance as well as of your blood sugar and blood proteins. SODIUM 141 mEq/L 03/09/2024 11:30 POTASSIUM 3.9 mEq/L 03/09/2024 11:30 CHLORIDE 107 mEq/L 03/09/2024 11:30 UREA NITROGEN 16.6 mg/dL 03/09/2024 11:30 CREATININE 0.96 mg/dL 03/09/2024 11:30 CALCIUM 9.4 mg/dL 03/09/2024 11:30 CARBON DIOXIDE 27 mEq/L 03/09/2024 11:30 GLUCOSE 85 mg/dL 03/09/2024 11:30 EGFR (CKD-EPI 2020) 65.3 03/09/2024 11:30 These readings are within normal limits. LIVER FUNCTION PANEL - These are tests for liver function: PROTEIN 6.5 g/dL 03/09/2024 11:30 ALBUMIN 4.1 g/dL 03/09/2024 11:30 TOTAL BILIRUBIN 0.6 mg/dL 03/09/2024 11:30 ALKALINE PHOSPHATASE 73 U/L 03/09/2024 11:30 AST/SGOT 32 U/L 03/09/2024 11:30 ALT/SGPT 19 U/L 03/09/2024 11:30 These readings are within normal limits. TSH - Thyroid-stimulating hormone (also known as TSH or thyrotropin) is a peptide hormone synthesized and secreted by thyrotrope cells in the anterior pituitary gland, which regulates the endocrine function of the thyroid gland. TSH TSH 2.453 uIU/mL 03/09/2024 11:30 These readings are within normal limits. VITAMIN D - Helps promote the proper utilization of calcium and phosphorus, thereby producing proper bone maintenance. VITAMIN D, 25-HYDROXY 49.2 ng/mL 03/09/2024 11:30 These readings are within normal limits. URINALYSIS - A urinalysis (or UA ) is an array of tests performed on urine and one of the most common methods of medical diagnosis. URINALYSIS URINE COLOR Colorless 03/09/2024 11:30 APPEARANCE Clear 03/09/2024 11:30 U.PH 7.0 03/09/2024 11:30 U.BILIRUBIN Negative mg/dL 03/09/2024 11:30 U.NITRITE Negative mg/dL 03/09/2024 11:30 URINE RBC/HPF <1 /HPF 11/03/2022 08:35 URINE WBC/HPF 1 /HPF 11/03/2022 08:35 SQUAMOUS EPITH. <1 /HPF 11/03/2022 08:35 These readings are within normal limits. FUTURE APPOINTMENTS: 03/15/2024 09:00 [facility]-ULTRASOUND (1) 07/25/2024 10:00 [facility]OPHTH EYE [facility] 03/01/2025 10:00 [facility]-CARDIOLOGY EP TECHNICAL DOCUMENTATION SPECIALIST 1 Sincerely, THANH DIAZ M.D. physician KADI MARTINEZ,THANH [facility] Mar 09, 2024 11:13 AM ACCOUNTING OF DISC LOSURES NOTE: LOCAL TITLE: STATE PRESCRIPTION DRUG MONITORING PROGRAM STANDARD TITLE: ACCOUNTING OF DISCLOSURES NOTE DATE OF NOTE: MAR 09, 2024@11:13:28 ENTRY DATE: MAR 09, 2024@11:13:28 AUTHOR: RYERSON,THANH M EXP COSIGNER: URGENCY: STATUS: COMPLETED This PDMP query was submitted by Thanh Diaz MD. The clinical justification for this PDMP query is to review controlled substances prescribed outside of the [facility], and any additional information that may become available, as an important component of standard clinical care, and in accordance with [facility] policy. Patient information was shared with the PDMP [employer] [place]. No prescription(s) for controlled substances outside the [facility] were found in the last 90 days. /colt/ THANH DIAZ M.D. physician Signed: 03/09/2024 11:[address] [facility] Mar 09, 2024 11:09 AM NURSING NOTE: LOCAL TITLE: V15 PACT FACE TO FACE NOTE STL STANDARD TITLE: NURSING NOTE DATE OF NOTE: MAR 09, 2024@11:09 ENTRY DATE: MAR 09, 2024@11:09:27 AUTHOR: MATILDA SIMONS V EXP COSIGNER: URGENCY: STATUS: COMPLETED V15 PACT FACE TO FACE NOTE STL Has ADDENDA Provider Visit: Patient Identifiers : Full Name Date of Reason for visit: Other: Patient is a white female 68 years of age, presents alert and oriented able to make needs known. Here today for management of chronic medical conditions, preventive/annual exam, flu vaccine, labs and be evaluated for injury to her left knee from a fall, left foot, and pain upper right quadrant after eating. Mode of Arrival: Ambulatory Allergy Review: CODEINE, BETADINE, IODINATED CONTRAST MEDIA Allergy list reviewed and remains current. Recent Vital Signs: Temperature: 97.6 F [36.4 C] (03/09/2024 10:04) Pulse: 69 (03/09/2024 10:04) Respiration: 18 (03/09/2024 10:04) B/P: 112/57 (03/09/2024 10:04) Pain: 4 (03/09/2024 10:04) Wt: 156 lb [70.76 kg] (03/09/2024 10:04) Ht: 64 in [162.6 cm] (03/09/2024 10:04) BMI: 26.8 POX: 100% (03/09/2024 10:04) PERSONAL HEALTH INVENTORY Notes: No data available for PHI note titles PERSONAL HEALTH INVENTORY - MAP: 08/21/2020 Personal Health Plan [place], [place], Purpose (MAP) Want to be more active, play with my grandkids ane keep up with traveling. What matters most to you in your life right now? - [place] Response: [id number] Would you like to discuss any personal problem, family problem, alcohol use, drug use, or a mental or emotional illness? No My [facility] ([facility]), please select appointment type: Face to face: Yes- Done Contact provided Primary Care phone number and encouraged to call if any questions or concerns. Review that after hours nurse line [phone] and emergency room are available 07/12 for patient use. Contact verbalized good understanding. Influenza Immunization - L,N,P,PH,U: Influenza, High-Dose, Trivalent, Preservative Free (Fluzone-Syringe) Administered: INFLUENZA, HIGH-DOSE, TRIVALENT, PF Date Administered: Mar 09, 2024 10:30 Series: Complete Research Test Engine Evaluator: SANOFI PASTEUR Lot: [id number] Exp Date: Nov 13, [address] [facility]: [phone] Admin Route/Site: INTRAMUSCULAR/LEFT DELTOID Dosage: 0.5mL Vaccine Information Statement(s): INFLUENZA(FLU) VACC(INACTIVATED OR RECOMBINANT)VIS Dec 20, 2020 ([place]RA[place]) Order By: Policy Administered By: Matilda Simons V The Influenza Vaccine Information Statement (VIS) was reviewed with the patient/caregiver which lists the benefits and risks of the vaccine and the risks of not receiving the Influenza vaccine. The patient/caregiver denied any prior severe reaction to this vaccine or its components or a severe allergic reaction, such as anaphylaxis, to any vaccine or any injectable therapy. The patient/caregiver gave verbal consent to receive the vaccine. Alcohol Use Screen (AUDIT-C) - V: Alcohol Screen: SCREEN FOR ALCOHOL (AUDIT-C) An alcohol screening test (AUDIT-C) was negative (score=0). 1. How often did you have a drink containing alcohol in the past year? Consider a drink to be a 12 ounce can or bottle of regular beer, 8 ounces of malt liquor, a 5 ounce glass of table wine, or a 1.5 ounce shot of liquor (like scotch, gin, or vodka). Never 2. How many drinks containing alcohol did you have on a typical day when you were drinking in the past year? Response not required due to responses to other questions. 3. How often did you have 4 or more drinks on one occasion in the past year? Response not required due to responses to other questions. COVID-19 Immunization - L,N,P,PH,U: Refused Pfizer Monovalent COVID-19 vaccine Immunization: COVID-19 (PFIZER), MRNA, LNP-S, PF, YVONNE-SUCROSE, 30 MCG/0.3 ML (AGES 12+ YEARS) Refusal Reason: PATIENT DECISION Patient refuses all immunization(s) in the COVID-19 group Date Documented: 03/09/24 11:57 /colt/ MATILDA SIMONS LPN LICENSED PRACTICAL NURSE Signed: 03/09/2024 12:00 03/09/2024 ADDENDUM STATUS: COMPLETED What matters most to you in life right now. Patient response: Volunteering, traveling, time with family and friends /keyla SIMONS LPN LICENSED PRACTICAL NURSE Signed: 03/09/2024 12:[address] [facility] Mar 09, 2024 10:50 AM PRIMARY CARE NOTE: LOCAL TITLE: PRIMARY CARE PROVIDER ESTABLISHED VISIT [facility] STANDARD TITLE: PRIMARY CARE NOTE DATE OF NOTE: MAR 09, 2024@10:50 ENTRY DATE: MAR 09, 2024@10:50:12 AUTHOR: THANH DIAZ COSIGNER: URGENCY: STATUS: COMPLETED PRIMARY CARE PROVIDER ESTABLISHED VISIT [facility] Has ADDENDA ESTABLISHED PATIENT [id number]: REASON FOR VISIT/CHIEF COMPLAINT: Ms. Martinez is 68 y/o female established patient comes in for her annual/preventive and follow up chronic medical conditions. Patient reports recent fall injuring her knees. She has a new puppy and was climbing over the fence and fell. She also reports ongoing left foot pain. Patient is requesting to see podiatry. 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 She also reports pain in right upper quadrant after eating. 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 STREP PNEU 18) Vaginitis 19) Sinusitis * (ICD-9-CM 473.9) 20) Low Back Pain * (ICD-9-CM 724.2) 21) Cervicalgia (SNOMED CT 90888956) 22) Hearing Loss, Sensorineural, Unspecified 23) Unresolved 24) Hip Pain (ICD-9-CM 719.45) 25) Pain in joint involving ankle and foot (ICD-9-CM 719.47) 26) Kidney Failure * (ICD-9-CM 586.) 27) Kidney Failure * (ICD-9-CM 586.) 28) Kidney Failure * (ICD-9-CM 586.) 29) Chronic Kidney Disease, Unspecified (ICD-9-CM 585.9) 30) Acute upper respiratory infections of unspecified site (ICD-9-CM 465.9) 31) Pain in joint involving shoulder region (ICD-9-CM 719.41) 32) Vaginal discharge (SNOMED CT 917819117) 33) Neuroma (SNOMED CT 602167211) 34) Deficiency of other vitamins 35) Abnormal cervical Papanicolaou smear 36) Localized swelling, mass and lump, trunk 37) Major depressive disorder 38) Hearing loss 39) Hyperlipidemia 40) Low back pain 41) Hip pain 42) Routine gynecologic examination done 43) Chronic kidney disease stage 2 44) Postmenopausal atrophic vaginitis 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 MEDICATION RECONCILIATION: I have reviewed the patient's medication list with the patient and/or his/her care-nursing department chairperson. Handwritten corrections, additions and/or deletions were made to the list. Corrected Outpatient Medication List was provided to the patient/caregiver. Active Outpatient Medications (including Supplies): Active Outpatient Medications Status 1) ACETAMINOPHEN 325MG TAB TAKE ONE TABLET BY MOUTH ACTIVE THREE TIMES A DAY NEEDED FOR PAIN CAUTION: DO NOT EXCEED 4000MG PER DAY ACETAMINOPHEN (APAP) FROM ALL MEDS. 2) ASPIRIN 81MG EC TAB TAKE ONE TABLET BY MOUTH ONCE A ACTIVE DAY FOR CARDIOVASCULAR DISEASE TAKE WITH FOOD. 3) CITALOPRAM HYDROBROMIDE 10MG TAB TAKE ONE-HALF TABLET ACTIVE BY MOUTH EVERY MORNING FOR DEPRESSION 4) ETODOLAC 300MG CAP TAKE ONE CAPSULE BY MOUTH TWICE ACTIVE DAILY NEEDED FOR PAIN (TAKE WITH FOOD) 5) LORATADINE 10MG TAB TAKE ONE TABLET BY MOUTH ONCE A ACTIVE DAY FOR ALLERGIES ON EMPTY STOMACH 6) METHOCARBAMOL 500MG TAB TAKE 1 TABLET BY MOUTH AT ACTIVE BEDTIME NEEDED 7) PRAVASTATIN NA 40MG TAB TAKE ONE TABLET BY MOUTH ACTIVE EVERY EVENING TO LOWER CHOLESTEROL (REPORT ANY MUSCLE PAIN OR WEAKNESS) 8) PREGABALIN 75MG ORAL CAP TAKE ONE CAPSULE BY MOUTH ACTIVE TWICE A DAY *MAY CAUSE DROWSINESS* 9) PROPAFENONE HCL 150MG TAB TAKE ONE TABLET BY MOUTH ACTIVE (S) TWICE A DAY FOR HEART. REVIEW OF SYSTEMS: General: Normal Cardiovascular: Normal Respiratory: Normal ABD/GI: Normal Musculoskeletal/Extremities: Abnormal Pain, Stiffness/reduced ROM /RESPIRATORY THERAPY AIDE: Normal Hematology & Lymph: Normal Endocrine: Normal Psych: Normal Neuro: Normal Skin: Normal PHYSICAL EXAMINATION: Female General appearance: VITALS (most recent, as listed in the electronic record): B/P: 112/57 (03/09/2024 10:04) Pulse: 69 (03/09/2024 10:04) Temperature: 97.6 F [36.4 C] (03/09/2024 10:04) Weight: 156 lb [70.76 kg] (03/09/2024 10:04) Height: 64 in [162.6 cm] (03/09/2024 10:04) BMI: 26.8 Pain: 4 (03/09/2024 10:04) (0-10 scale) Physical exam: General: Alert and oriented. NAD. Eyes: Conjunctiva clear. Nasal: Normal mucosa without discharge. Mouth/Throat: Oral mucosa is pink and moist. Neck: Supple. No adenopathy. No thyromegaly. Cardiovascular: Regular rate and rhythm. No murmurs or extra heart sounds appreciated on auscultation. Respiratory: Breathing is nonlabored on room air. Lungs are clear to auscultation bilaterally. Abdomen: Abdomen is soft, nontender, and non-distended. Extremities: No swelling or edema. Neurologic: CN II-XII grossly intact. No focal deficits. Skin: No rashes. knee: right knee bruise, mild edema, lower extremity no edema, burising noted Foot exam: Right foot color normal, no bony abnormalities, Pain right in right fibularis tendon DATA REVIEW: HbA1C: HGA1C 5.8 % 11/03/2022 08:35 Lipid Panel: TRIGLYCERIDE 60 mg/dL 11/03/2022 08:35 CHOLESTEROL 172 mg/dL 11/03/2022 08:35 HDL(New) 57 mg/dL 11/03/2022 08:35 CALCULATED LDL 103 mg/dL 11/03/2022 08:35 CMP: SODIUM 139 mEq/L 03/08/2023 09:53 POTASSIUM 4.5 mEq/L 03/08/2023 09:53 CHLORIDE 104 mEq/L 03/08/2023 09:53 UREA NITROGEN 14.1 mg/dL 03/08/2023 09:53 CREATININE 0.95 mg/dL 03/08/2023 09:53 CALCIUM 9.7 mg/dL 03/08/2023 09:53 PROTEIN 7.0 g/dL 03/08/2023 09:53 ALBUMIN 4.3 g/dL 03/08/2023 09:53 ALKALINE PHOSPHATASE 74 U/L 03/08/2023 09:53 ALT/SGPT 21 U/L 03/08/2023 09:53 AST/SGOT 25 U/L 03/08/2023 09:53 TOTAL BILIRUBIN 0.6 mg/dL 03/08/2023 09:53 CARBON DIOXIDE 29 mEq/L 03/08/2023 09:53 GLUCOSE 90 mg/dL 03/08/2023 09:53 EGFR (CKD-EPI 2020) 66.5 03/08/2023 09:53 CBC: WBC 5.2 10*3/uL 03/08/2023 09:53 RBC 4.30 10*6/uL 03/08/2023 09:53 HGB 13.4 g/dL 03/08/2023 09:53 HCT 40.5 % 03/08/2023 09:53 MCV 94.2 fL 03/08/2023 09:53 MCH 31.2 pg 03/08/2023 09:53 MCHC 33.1 g/dL 03/08/2023 09:53 RDW 12.0 % 03/08/2023 09:53 PLT 252 10*3/uL 03/08/2023 09:53 MPV 10.3 fL 03/08/2023 09:53 NEUTROPHILS, AUTO % 65 % 03/08/2023 09:53 LYMPHOCYTES, AUTO % 24 % 03/08/2023 09:53 MONOCYTES, AUTO % 9 % 03/08/2023 09:53 EOSINOPHILS, AUTO % 2 % 03/08/2023 09:53 BASOPHILS, AUTO % 1 % 03/08/2023 09:53 NEUTROPHILS, ABSOLUTE 3.35 10*3/uL 03/08/2023 09:53 LYMPHOCYTES, ABSOLUTE 1.25 10*3/uL 03/08/2023 09:53 MONOCYTES, ABSOLUTE 0.46 10*3/uL 03/08/2023 09:53 EOSINOPHILS, ABSOLUTE 0.08 10*3/uL 03/08/2023 09:53 BASOPHILS, ABSOLUTE 0.04 10*3/uL 03/08/2023 09:53 PSA: No PSA EO data found TSH: No TSH (1YR) EO data found INR: No INR EO data found UA: URINE COLOR Light-Yellow 11/03/2022 08:35 APPEARANCE Clear 11/03/2022 08:35 U.PH 5.5 11/03/2022 08:35 U.BILIRUBIN Negative mg/dL 11/03/2022 08:35 U.NITRITE Negative mg/dL 11/03/2022 08:35 URINE RBC/HPF <1 /HPF 11/03/2022 08:35 URINE WBC/HPF 1 /HPF 11/03/2022 08:35 SQUAMOUS EPITH. <1 /HPF 11/03/2022 08:35 Dilantin: ____ Digoxin: No data available for: DIGOXIN Chest x-ray: Impression for CHEST X-RAY, 2 VIEWS, 12/22/22, case [id number] No active pulmonary disease. EKG: No data available for: EKG CONSULT STL EKG CONSULTS PB EKG RESULTS MA Result: Above target Follow-up Action: Data results reviewed with patient and/or caregiver. ASSESSMENT/PLAN: annual/preventive exam right knee pain after fall. Bruises present. takes baby asa. imaging left foot pain. Imaging prior to podiatry referral RUQ pain. Ultrasound f/u phone visit hld. check fasting cholesterol fibromyalgia. Rx pregabalin. PDMP SUMMARY STATEMENT: Plan of care has been discussed with including expected therapeutic benefits and potential side effects of prescribed medication and treatments. verbalizes understanding and is in agreement with the plan of care. Patient was instructed to keep all scheduled appointments and contact reconditioner for any additional problems. PREVENTION & SCREENING: ALCOHOL: Clinical Reminder not due now or within a month BLOOD PRESSURE: Clinical Reminder not due now or within a month HEMOGLOBIN A1C: Clinical Reminder not due now or within a month Tobacco Use Screening - AT,DE,L,M,N,P,PH,PS,S: The patient has never used tobacco. Depression Screening - V: Perform PHQ-2 A PHQ-2 screen was performed. The score was 0 which is a negative screen for depression. Over the past two weeks, how often have you been bothered by the following problems? 1. Little interest or pleasure in doing things Not at all 2. Feeling down, depressed, or hopeless Not at all /colt/ THANH DIAZ M.D. physician Signed: 03/09/2024 11:07 03/10/2024 ADDENDUM STATUS: COMPLETED Called patient and discuss lab test results. Elevated Lipase. Patient is scheduled for abdominal ultrasound next week. /colt/ THANH DIAZ M.D. physician Signed: 03/10/2024 14:[address] [facility]
--- OUTSIDE RECORDS SUMMARY | 2024-06-17 16:06 | XMS_ITS ---
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 Date/Time Encounter Type Encounter Description Reason Provider Source Jan 26, 2024 09:30 AM INTRM OPH EXAM EST PATIENT OPHTHALMOLOGY ICD-10-CM 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, bilateral, mild stage LEBRON,EZE B III [facility] Encounter Template Text not used by [facility] Assessments - Encounter Diagnoses This section includes the primary and secondary diagnoses documented for the Encounter. Date/Time Primary/Secondary Diagnosis Diagnosis Name Provider Source Jan 26, 2024 09:42 AM PRIMARY Low-tension glaucoma, bilateral, mild stage LEBRON,EZE B III [facility] Plan of Treatment: Future Appointments (+ 6 months) and Future Tests (+/- 45 days) The Plan of Treatment section includes future care activities for the patient from all [place] [facility]. This section includes future appointments and future orders which are active, pending or scheduled. Future Appointments This section includes appointments that were scheduled to occur 6 months from the date of the Encounter, up to a maximum of 20 appointments. The data comes from all [place] treatment facilities. Appointment Date/Time Appointment Type Appointme nt Facility Name Feb 29, 2024 01:30 PM AMBULATORY - MEDICINE [facility] Mar 09, 2024 10:30 AM AMBULATORY - MEDICINE [facility] Mar 15, 2024 09:00 AM AMBULATORY - MEDICINE [facility] Mar 20, 2024 10:40 AM AMBULATORY - SURGERY [facility] Apr 06, 2024 11:00 AM AMBULATORY - NONE [facility] Apr 07, 2024 09:30 AM AMBULATORY [facility] Apr 25, 2024 02:30 AM AMBULATORY [facility] SUR[facility]ERY [facility] Jun 28, 2024 07:30 AM AMBULATORY - SUR[facility]ERY [facility] Jul 25, 2024 10:00 AM AMBULATORY - SURGERY [facility] Social History: Smoking Status (Most current) and Tobacco Use (All prior to encounter date) This section includes the most current, and the historical, smoking and tobacco- related health factors from the [facility] facility where the Encounter took place. Current Smoking Status This section includes the most current smoking, or tobacco-related health factor, from the [facility] facility where the Encounter took place. Date/Time Current Smoking Status Comment Facil ity Jan 15, 2016 10:21 AM LIFETIME NON-USER OF TOBACCO [facility] Tobacco Use History This section includes a history of the smoking, or tobacco-related health factors, that were collected on or before the date of the Encounter. The data comes from the [place] facility where the Encounter took place. Date/Time Smoking Status/Tobacco Use Comment [facility] Mar 04, 2015 08:10 AM LIFETIME NON-USER OF TOBACCO [facility] Aug 02, 2006 11:04 AM LIFETIME NON-USER OF TOBACCO [facility] Dec 22, 2005 03:00 PM LIFETIME NON-TOBACCO USER [facility] Feb 17, 2005 03:19 PM LIFETIME NON-TOBACCO USER [facility] Jul 17, 2004 02:13 PM LIFETIME NON-TOBACCO USER [facility] Jul 17, 2004 01:43 PM LIFETIME NON-TOBACCO USER [facility] Advance Directives: All historical and current Section Date Range: From patient's date of to the date document was created. This section includes ALL of a patient's completed or amended [place] Advance and Rescinded Directives. The entries below indicate that a directive exists for the patient, but an actual copy is not included with this document. The data comes from all [place] facilities. Date Advance Directives Provider Source Feb 23, 2014 ADVANCE DIRECTIVE DISCUSSION ANGELITA AGUILA [facility] Radiology Reports: +/- 30 days of [...] the Encounter. The data comes from all [place] treatment facilities. Date/Time Radiology Report Provider Source Jan 19, 2024 01:05 PM MAMM DIG SCREENING WITH CAD-P: KADI MARTINEZ [id number] -[id number] F Exm Date: JAN 19, 2024@13:05 Req Phys: THANH ZAZUETA Pat Loc: [facility] (Req'g Loc) Img Loc: [facility] Service: Unknown [facility], [address] [place] [address] (Case [id number] COMPLETE) SCREENING DIG BREAST JAZZY, BILAT,([facility] Detailed) CPT:80835 Reason for Study: #PSDS, screening 12/22/2022, BI-RADS 1 (Case 194 COMPLETE) MAMMOGRAPHY SCREENING, BILAT INCL([facility] Detailed) CPT:13464 Clinical History: Report Status: Verified Date Reported: JAN 19, 2024 Date Verified: JAN 19, 2024 [facility] E-Sig:/ES/PERRY PEREZ Report: BILATERAL SCREENING MAMMOGRAM CASE NUMBERS: [id number], [id number] DATE: 01/29/2024. COMPARISON: Multiple prior mammograms, most recently 12/22/2022 and dating from 01/27. HISTORY: Screening mammogram. Maternal aunt with breast cancer age 70 TECHNIQUE: Mammogram images were performed using 3D tomosynthesis images with reconstructed/synthetic 2D images and CAD analysis. BREAST COMPOSITION: There are scattered areas of fibroglandular density. MAMMOGRAM FINDINGS: There is no suspicious mass, clustered microcalcification, or architectural distortion in either breast on 2D or 3D images. There has been no change in the mammographic appearance compared with the prior study. Impression: No mammographic evidence of malignancy. ASSESSMENT: BI-RADS Category 1: Negative mammogram. RECOMMENDATION: Screening mammography according to the [employer] / [employer] guidelines in consultation with primary healthcare provider. Primary Interpreting Staff: PERRY PEREZ, RADIOLOGIST ([facility]) /PERRY BOSE [facility] Encounter Notes: All associated encounter notes This section contains the clinical notes associated to the Encounter. Date/Time Encounter Note(s) Provider Source Jan 26, 2024 09:11 AM OPHTHALMOLOGY CONS ULT: LOCAL TITLE: OPHTHALMOLOGY CONSULT STL STANDARD TITLE: OPHTHALMOLOGY CONSULT DATE OF NOTE: JAN 26, 2024@09:11 ENTRY DATE: JAN 26, 2024@09:11:38 AUTHOR: EZE LEBRON II EXP COSIGNER: URGENCY: STATUS: [facility] Follow up normal-tension glaucoma ===== Prior strabismus surgeries: 04/03/92: RSRc 8mm + RMR 3mm for ET and DVD OD (pre-op and post-op measurements not recorded) 06/27/92: LSRc (amount unrecorded) + LMR myectomy for continued ET and LHT. 07/01/10: LIOc ([facility] at [facility]) ==== Alignment: 8 RE(T) _ 10 RET 8 RET 10 RET 3 LHT _ 8 RET 8 LHT Small amplitude rotary nystagmus (old) ===== NFL (prior): superior nerve thinning OU, stable from last NFL (07/31): superior thinning OU (stable c/w 2012) NFL (09/01): superior thinning OU stable previous exams + mild nasal thin OS NFL (07/08): superior thinning OU stable + mild nasal thinning OS NFL (07/09): superior thinning OU stable + nasal thinning OS - appears worse NFL (08/07): superior thinning OU + inf thinning OD - 68/71 GCL (07/07): supronasal thinning OS>OD (70/70) GCL (07/09): supronasal thinning OU (69/70) - slight progression OD GCL (08/07): supronasal thinning OU (70/70) - stable HVF 24-2 (01/30): Shallow inferior arcuates OU (roughly stable) HVF 24-2 (03/02): Shallow inferior arcuates OU HVF 24-2 01/21/18 : stable HVF 24-2 03/31/19: Shallow inferior depressions OS>OD. fairly stable HVF 24-2 06/24/20: non-specific scatter OD, full OS, stable OU HVF 24-2 06/23/21: Shallow inferior rim depression OU - stable HVF 24-2 06/23/22: Shallow inferior depressions OU - slt worse but similar to ' HVF 24-2 12/22/22: Shallow inferior depressions OS>OD-slt worse but similar to ' HVF 24-2 01/26/24: Shallow inferior depressions OS>OD - variable but pos worse ======Ocular Examination====== [facility]: 20/25 OU P No APD G(06/23/22): Grade III OU with 2+ pigment - Slight double hump G(01/26/24): Grade II-III OU with 2+ pigment - Slight double hump Tap: 01/26/24 13 13 no drops 07/28/23 13 13 no drops 12/22/22 12 10 no drops 11/23/22 11 -- no drops 06/23/22 15 12 no drops 06/23/21 13 11 no drops 06/24/20 12 13 no drops 03/31/19 13 13 no drops SLEX L/L wnl OU C&S scars s/p strab surgery K clear, no staining, no spindle AC: Deep and Q OU Iris round, dilated lens 1+ nsc OU, mild CS, rare vacuoles OU - no PXF Fundus (07/28/23) CDR: 0.7/0.65, tilted and PPA OU OCT (07/28/23): wnl OU === A/P: 68 year old with... 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 - New tinted polycarb PALs, polarized with backside A/R. # Mild cataract OU - not VS - follow # MGD/DAVID - Con't AT/WC/LS # H/O infantile ET with DVD OD - h/o multiple prior strab surgeries (see above) most recently with Calvin Walls at [facility]. Still has some visual confusion/diplopia. A variety of prisms of no help in the past. It is likely that her first surgery in [place] in the moved her out of her suppression scotoma OD and now she can't entirely suppress the image from the right eye. With or without prism offset, she feels her right eye turning on and off . I suspect that additional surgery and/or prisms would NOT help as she is certianly not a fuser and no longer has a stable (or stably located) suppression scotoma OD. 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
--- OUTSIDE RECORDS SUMMARY | 2024-06-17 16:06 | XMS_ITS ---
Author Name [facility] [place] [facility] [place] Address [address] [place] [address] Care Team Providers Care Clerical Receptionist Name Role Phone THANH ZAZUETA Primary Care [...] [employer] VISIO N PLAN May 17, 2016 [id number] [phone] KADI MARTINEZ PATIENT EYEMED (WNR) VISION VISIO N May 17, 2019 [id number] MARTINEZKADI PATIENT MEDICARE (WNR) MEDICARE ([place]) PART A Nov 14, 2022 PART A [id number] KADI MARTINEZ PATIENT MEDICARE (WNR) MEDICARE (M) PART B Nov 14, 2022 PART B [id number] MARTINEZKADI PATIENT Selected Encounter This section includes the information on record at [place] for the Encounter. Date/Time Encounter Type Encounter Description Reason Provider Source Feb 29, 2024 01:30 PM OFFICE O/P EST MOD 30 MIN CARDIOLOGY ICD-10-CM I48.0 Paroxysmal atrial fibrillation BRIAN ORTIZ [facility] Encounter Template Text not used by [place] Assessments - Encounter Diagnoses This section includes the primary and secondary diagnoses documented for the Encounter. Date/Time Primary/Secondary Diagnosis Diagnosis Name Provider Source Mar 07, 2024 10:17 AM PRIMARY Paroxysmal atrial fibrillation BRIAN ORTIZ [facility] Mar 07, 2024 10:17 AM SECONDARY Hyperlipidemia, unspecified BRIAN ORTIZ [facility] Mar 07, 2024 10:17 AM SECONDARY Sleep apnea, unspecified BRIAN ORTIZ [facility] Plan of Treatment: Future Appointments (+ 6 months) and Future Tests (+/- 45 days) The Plan of Treatment section includes future care activities for the patient from all [place] treatmentfacilities. This section includes future appointments and future orders which are active, pending or scheduled. Future Appointments This section includes appointments that were scheduled to occur 6 months from the date of the Encounter, up to a maximum of 20 appointments. The data comes from all [place] treatment facilities. Appointment Date/Time Appointment Type Appointme nt Facility Name Mar 09, 2024 10:30 AM AMBULATORY - MEDICINE [facility] Mar 15, 2024 09:00 AM AMBULATORY - MEDICINE [facility] Mar 20, 2024 10:40 AM AMBULATORY - SURGERY [facility] Apr 06, 2024 11:00 AM AMBULATORY - NONE [facility] Apr 07, 2024 09:30 AM AMBULATORY - SURGERY [facility] Apr 25, 2024 02:30 AM AMBULATORY - SURGERY [facility] Jun 28, 2024 07:30 AM AMBULATORY - SURGERY [facility] Jul 25, 2024 10:00 AM AMBULATORY - SURGERY [facility] Aug 22, 2024 10:45 AM AMBULATORY - SURGERY [facility] Active, Pending, and Scheduled Orders This section includes a listing of several types of active, pending, and scheduled orders, including clinic medications orders, diagnostic test orders, procedure orders and consult orders; where the start date of the order is 45 days before the date of the Encounter or 45 days after the date of theEncounter. The data comes from all [place] treatment facilities. Test Date/Time Test Type Test Details Facility Name Mar 13, 2024 03:23 PM Consult Order [facility] [employer] Lab Results: +/- 30 days of the encounter This section includes the Chemistry and Hematology Lab Results on record with [place] for the patient. Radiology Reports and Pathology Reports are provided separately, in subsequent sections. Lab Results This section contains the Chemistry/Hematology Results that were resulted 30 days before or 30 daysafter the date of the Encounter. Date/Time Source Result Type Result - Unit Interpretation Reference Range Comment Mar 09, 2024 11:30 AM [facility] LIPID PANEL (STL) Specimen Type: PLASMA Comment: No hemolysis noted. Ordering Provider: WARREN ZAZUETA Report Released Date/Time: Mar 09, 2024 10:49 AM Reporting Lab: [facility] [address] [facility] [phone] Performing Lab: [facility] [address] [facility] [phone] CHOLESTEROL 160 mg/dL 0-200 TRIGLYCERIDE 46 mg/dL 0-150 CALCULATED LDL 95 mg/dL HDL(New) 56 mg/dL >40 Mar 09, 2024 11:30 AM [facility] TSH W/ REFLEX FT4 ([facility] [[email or web address] Specimen Type: PLASMA No comment entered. Ordering Provider: WARREN ZAZUETA Report Released Date/Time: Mar 09, 2024 10:49 AM Reporting Lab: [facility] [address] [phone] Performing Lab: [facility] [address] [phone] TSH 2.453 u[IU]/mL 0.47-5 Mar 09, 2024 11:30 AM [facility] HGA1C Specimen Type: BLOOD No comment entered. Ordering Provider: WARREN ZAZUETA Report Released Date/Time: Mar 09, 2024 10:49 AM Reporting Lab: [facility] [address] [facility] [phone] Performing Lab: [facility] [address] [place] [phone] HGA1C 5.6 4.0-6.0 Mar 09, 2024 11:30 AM [facility] URINALYSIS (STL-PB) Specimen Type: URINE No comment entered. Ordering Provider: WARREN ZAZUETA Report Released Date/Time: Mar 09, 2024 10:49 AM Reporting Lab: [address] [phone] Performing Lab: [address] [address] URINE COLOR Colorless Yellow U.BILIRUBIN Negative mg/dL Negative U.PH 7.0 5.0-8.0 APPEARANCE Clear Clear U.NITRITE Negative mg/dL Negative URN.GLUCOSE Normal mg/dL Negative URN.PROTEIN Negative mg/dL URN.UROBILINOGEN Normal mg/dL Normal URN.BLOOD Negative mg/dL Negative-Tra ce URN.KETONES Negative mg/dL Negative-Tra ce URN.LEUK.EST. Negative mg/dL Negative-Tra ce URN.SPECIFIC GRAVITY 1.004 L Mar 09, 2024 11:30 AM [facility] VITAMIN D, 25-HYDROXY Specimen Type: SERUM No comment entered. Ordering Provider: WARREN ZAZUETA Report Released Date/Time: Mar 09, 2024 10:49 AM Reporting Lab: [facility] [address] [place] [phone] Performing Lab: [address] [address] VITAMIN D, 25-HYDROXY 49.2 ng/mL 30-96 Mar 09, 2024 11:30 AM [facility] AMYLASE Specimen Type: PLASMA Comment: No hemolysis noted. Ordering Provider: WARREN ZAZUETA Report Released Date/Time: Mar 09, 2024 11:00 AM Reporting Lab: [facility] [address] [place] [phone] Performing Lab: [address] [address] AMYLASE 155 U/L H 25-125 Mar 09, 2024 11:30 AM [facility] COMPREHENSIVE METABOLIC PANEL Specimen Type: PLASMA Comment: No hemolysis noted. Ordering Provider: WARREN ZAZUETA Report Released Date/Time: Mar 09, 2024 10:49 AM Reporting Lab: [facility] [address] [place] [phone] Performing Lab: [facility] [address] [place] [phone] CREATININE 0.96 mg/dL 0.6-1.1 UREA NITROGEN 16.6 [...] 65.3 >60 Mar 09, 2024 11:30 AM [facility] LIPASE Specimen Type: PLASMA Comment: No hemolysis noted. Ordering Provider: WARREN ZAZUETA Report Released Date/Time: Mar 09, 2024 11:00 AM Reporting Lab: [facility] [address] [place] [phone] Performing Lab: [address] [phone] LIPASE 267 U/L H 8-78 Mar 09, 2024 11:30 AM [facility] CBC Specimen Type: BLOOD No comment entered. Ordering Provider: WARREN ZAZUETA Report Released Date/Time: Mar 09, 2024 10:49 AM Reporting Lab: [facility] [address] [place] [phone] Performing Lab: [facility] [address] [place] [phone] WBC 4.2 10*3/uL 3.6-11.2 RBC 3.56 10*6/uL [...] Pain Height Weight Body Mass Index Source Feb 29, 2024 01:36 PM 97.8 78 105/66 [address] [facility] Social History: Smoking Status (Most current) and Tobacco Use (All prior to encounter date) This section includes the most current, and the historical, smoking and tobacco- related health factors from the [place] facility where the Encounter took place. Current Smoking Status This section includes the most current smoking, or tobacco-related health factor, from the [place] facility where the Encounter took place. Date/Time Current Smoking Status Comment Nehal pope Jan 15, 2016 10:21 AM LIFETIME NON-USER OF TOBACCO [facility] Tobacco Use History This section includes a history of the smoking, or tobacco-related health factors, that were collected on or before the date of the Encounter. The data comes from the [place] facility where the Encounter took place. Date/Time Smoking Status/Tobacco Use Comment Mehreen gabriel Mar 04, 2015 08:10 AM LIFETIME NON-USER OF TOBACCO [facility] Aug 02, 2006 11:04 AM LIFETIME NON-USER OF TOBACCO [facility] Dec 22, 2005 03:00 PM LIFETIME NON-TOBACCO USER [facility] Feb 17, 2005 03:19 PM LIFETIME NON-TOBACCO USER [facility] Jul 17, 2004 02:13 PM LIFETIME NON-TOBACCO USER [facility] Jul 17, 2004 01:43 PM LIFETIME NON-TOBACCO USER [facility] Advance Directives: All historical and current Section Date Range: From patient's date of to the date document was created. This section includes ALL of a patient's completed or amended [place] Advance and Rescinded Directives. The entries below indicate that a directive exists for the patient, but an actual copy is not included with this document. The data comes from all [place] facilities. Date Advance Directives Provider Source Feb 23, 2014 ADVANCE DIRECTIVE DISCUSSION ANGELITA AGUILA [facility] Radiology Reports: +/- 30 days of [...] the Encounter. The data comes from all [place] treatment facilities. Date/Time Radiology Report Provider Source Mar 15, 2024 08:52 AM US ABDOMEN LIMITED W/BLOOD FLOW DOPPLER: KADI MARTINEZ [id number] -1955 F Exm Date: MAR 15, 2024@08:52 Req Phys: HTANH ZAZUETA Pat Loc: [facility] PACT WH W2 PCP (Req'g L Img Loc: [facility]UL[facility] Service: [facility], [address] [address] (Case [id number] COMPLETE) US ABDOMEN LTD, SINGLE ORG OR GENARO(US Detailed) CPT:68516 Reason for Study: pain RUQ (Case 2071 COMPLETE) US BLOOD FLOW ABD/RENAL (LTD) (US Detailed) CPT:07459 Clinical History: Organ to Image: RUQ Reason for exam: pain after eating Report Status: Verified Date Reported: MAR 15, 2024 Date Verified: MAR 15, 2024 Fitting Room Maintenance Mechanic E-Sig:/ES/SAMANTHA ALEMAN Report: DATE: 03/15/2024 8:52 AM EXAM: US ABDOMEN LTD, SINGLE ORG OR QUADRANT, US BLOOD FLOW ABD/RENAL (LTD) ACCESSION NUMBERS: [id number], [id number] HISTORY: pain RUQ Technique: Real-time ultrasound examination [...] disease, recommend clinical correlation. Ruperto Awad MD (Data Entry Clerk) Samantha Amaya, have reviewed the images and report and concur with these findings. Primary Interpreting Staff: SAMANTHA ALEMAN MD (Fitting Room Maintenance Mechanic) Primary Interpreting Resident: RUPERTO AWAD, Resident Physician /SAMANTHA GONZALEZ [facility] Mar 09, 2024 12:28 PM KNEE,LEFT, 3 VIEWS: KADI MARTINEZ [id number] -1955 F Exm Date: MAR 09, 2024@12:28 Req Phys: THANH ZAZUETA Loc: [facility] PACT W2 PCP (Req'g L Img Loc: [facility] RADIOLOGY SUITE Service: Unknown [address] [address] (Case [id number] COMPLETE) KNEE,LEFT, 3 VIEWS (RAD Detailed) CPT:68815 Proc Modifiers : LEFT Reason for Study: pain in knee Clinical History: Report Status: Verified Date Reported: MAR 09, 2024 Date Verified: MAR 09, 2024 Fitting Room Maintenance Mechanic E-Sig:/ES/AMARJIT TRACEY MD Report: Case #[id number]. Left knee [...] AMARJIT TRACEY MD, Staff Physician - Radiologist (Fitting Room Maintenance Mechanic) /CHRISTI VELARDE [facility] Mar 09, 2024 12:28 PM KNEE,RIGHT 3 VIEWS: MICHELLEKADI E [id number] -1955 F Exm Date: MAR 09, 2024@12:28 Req Phys: THANH ZAZUETA Loc: -[facility] PACT W2 PCP (Req'g L Img Loc: [facility] RADIOLOGY SUITE Service: Unknown [address] [address] (Case [id number] COMPLETE) KNEE,RIGHT 3 VIEWS (RAD Detailed) CPT:83737 Proc Modifiers : RIGHT Reason for Study: right knee pain after fall Clinical History: Report Status: Verified Date Reported: MAR 09, 2024 Date Verified: MAR 09, 2024 Fitting Room Maintenance Mechanic E-Sig:/COLT/AMARJIT TRACEY MD Report: Case #[id number]. Right knee examination. Finding: AP and lateral views of the right knee examination followed by sunrise view of the patella shows no fracture dislocation. No evidence of lytic or blastic bony lesion. No joint space narrowing or suprapatellar effusion. No radiopaque foreign body or abnormal calcification. Impression: No fracture dislocation or arthritic change. Primary Interpreting Staff: AMAJRIT TRACEY MD, Staff Physician - Radiologist (Fitting Room Maintenance Mechanic) /CHRISTI VELARDE [facility] Mar 09, 2024 12:28 PM FOOT,RIGHT,3 VIEWS OR MORE: KADI MARTINEZ [id number] -1955 F Exm Date: MAR 09, 2024@12:28 Req Phys: THANH ZAZUETA Loc: [facility] PACT W2 PCP (Req'g L Img [facility] SUITE Service: Unknown [address] [address] (Case [id number] COMPLETE) FOOT,RIGHT,3 VIEWS OR MORE (RAD Detailed) CPT:90182 Proc Modifiers : RIGHT Reason for Study: foot pain Clinical History: Report Status: Verified Date Reported: MAR 09, 2024 Date Verified: MAR 09, 2024 Fitting Room Maintenance Mechanic E-Sig:/ES/AMARJIT TRACEY MD Report: Case #[id number]. Right [...] AMARJIT TRACEY MD, Staff Physician - Radiologist (Fitting Room Maintenance Mechanic) /CHRISTI VELARDE [facility] Mar 09, 2024 12:28 PM FOOT,LEFT 3 VIEWS OR MORE: KADI MARTINEZ [id number] -1955 F Exm Date: MAR 09, 2024@12:28 Req Phys: THANH ZAZUETA Loc: -[facility] PACT W2 PCP (Req'g L Img Loc: [facility] SUITE Service: Unknown [facility], [address] [place] [address] (Case [id number] COMPLETE) FOOT,LEFT 3 VIEWS OR MORE (RAD Detailed) CPT:82245 Proc Modifiers : LEFT Reason for Study: foot pain Clinical History: Report Status: Verified Date Reported: MAR 09, 2024 Date Verified: MAR 09, 2024 Fitting Room Maintenance Mechanic E-Sig:/ES/AMARJIT TRACEY MD Report: Case #[id number]. Left [...] AMARJIT TRACEY MD, Staff Physician - Radiologist (Fitting Room Maintenance Mechanic) /CHRISTI VELARDE [facility] Encounter Notes: All associated encounter notes This section contains the clinical notes associated to the Encounter. Date/Time Encounter Note(s) Provider Source Feb 29, 2024 01:22 PM CARDIOLOGY OUTPATI ENT NOTE: LOCAL TITLE: CARDIOLOGY OUTPATIENT FOLLOW UP [facility] [[email or web address]] STANDARD TITLE: CARDIOLOGY OUTPATIENT NOTE DATE OF NOTE: FEB 29, 2024@13:22 ENTRY DATE: FEB 29, 2024@13:22:32 AUTHOR: BRIAN ORTIZ COSIGNER: URGENCY: STATUS: COMPLETED [facility] CARDIOLOGY SERVICE: FOLLOW-UP VISIT NOTE PRINCIPAL AND SECONDARY DIAGNOSES: #. Atrial fibrillation #. HLD #. ZEINA #. S/p meningioma resection and left cochlear implant #. Tension headaches #. Depression #. CKD CARE TEAM: 1. THANH ZAZUETA pcp INTERVAL HISTORY: MsAbraham Martinez is a 68 year old female with PMH significant for Afib (diagnosed 30 years ago), CKD, HLD, carpal tunnel, s/p C5-C6 fusion (2004). She was previously followed in cardiology by Dr. Bagley who is now retired. She was diagnosed with Afib about 30 years ago and has been taking propafenone for >20 years. She was originally referred to cardiology clinic for history of chest pain and an abnormal stress test and subsequently found to have paroxysmal atrial fibrillation for which she takes propafenone 150 mg B ID. S/p meningioma resection at [place]. Dr. Rivera (neurosurgeon)/Kiana (ENT) completed resection of meningioma and left cochlear implant in 2020. Hospitalized for 8 days and rehab for 12 days. Last clinic visit 02/26/2023. No interim ED visits or hospitalizations for cardiac issues. TODAY She is overall doing well. She remains quite active walking on the treadmill and riding her bike. She endorses palpitations once every other week that last about a minute, stable from prior. Her Apple Watch has not alerted her to any episodes of Afib. She denies chest pain, chest tightness, shortness of breath, lightheadedness, or syncope. She notes some unsteadiness/balance issues since meningioma resection. She has difficulty tolerating CPAP. Of note, a 12 point review of systems was performed; all other review of systems negative, except as listed in the interval history. PAST MEDICAL HISTORY: 1) Carpal Tunnel Syndrome 2) Allergic rhinitis * (ICD-9-CM 477.9) 3) Other Malaise and Fatigue (ICD-9-CM 780.79) 4) Gynecologic Exam 5) Aftercare following organ transplant (ICD-9-CM V58.44) 6) Cervicalgia (SNOMED CT 92317230) 7) Acne (ICD-9-CM 706.1) 8) Cervicobrachial syndrome (diffuse) (ICD-9-CM 723.3) 9) Palpitations (ICD-9-CM 785.1) 10) VACCIN FOR INFLUENZA 11) Chest Pain * (ICD-9-CM 786.50) 12) Atrial Fibrillation * (ICD-9-CM 427.31) 13) Depression * (ICD-9-CM 311./300.4) 14) Neck pain (SNOMED CT 62050643) 15) Cervicitis * (ICD-9-CM 616.0) 16) Breast Mass (ICD-9-CM 611.72) 17) PROPHY VACC. 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 2) CITALOPRAM HYDROBROMIDE 10MG TAB TAKE ONE-HALF TABLET ACTIVE BY MOUTH EVERY MORNING FOR DEPRESSION 3) ETODOLAC 300MG CAP TAKE ONE CAPSULE BY MOUTH TWICE ACTIVE DAILY NEEDED FOR PAIN (TAKE WITH FOOD) 4) LORATADINE 10MG TAB TAKE ONE TABLET BY MOUTH ONCE A ACTIVE DAY FOR ALLERGIES ON EMPTY STOMACH 5) METHOCARBAMOL 500MG TAB TAKE 1 TABLET BY MOUTH AT ACTIVE BEDTIME NEEDED 6) PRAVASTATIN NA 40MG TAB TAKE ONE TABLET BY MOUTH ACTIVE EVERY EVENING TO LOWER CHOLESTEROL (REPORT ANY MUSCLE PAIN OR WEAKNESS) 7) PREGABALIN 75MG ORAL CAP TAKE ONE CAPSULE BY MOUTH ACTIVE TWICE A DAY *MAY CAUSE DROWSINESS* 8) PROPAFENONE HCL 150MG TAB TAKE ONE TABLET BY MOUTH ACTIVE (S) TWICE A DAY FOR HEART. - All cardiac medications were reconciled during the visit. pravastatin 40 propafenone 150 asa 81 () PHYSICAL EXAM: Date Vital Measurement Qualifiers 02/29/2024 13:36 Temp F (C) 97.8 (36.6) Pulse 78 Respir 16 BP 105/66 Wt lbs (kg)[BMI] 156.6 (71.03)[27] Pain 0 POx (L/Min)(%) 97 GENERAL: Sclera anicteric, PERRLA, MMM NECK: Carotids were brisk without bruits. CHEST/LUNGS: Clear to auscultation bilaterally with no rales or wheezes. Good respiratory effort and excursion. HEART: S1 S2, RRR, no JVP ABDOMEN: Soft, nontender, BS positive x 4 quadrants EXTREMITIES: No lower extremity edema. Pedal pulses intact bilaterally NEUROLOGICAL: Alert and oriented x 3. Normal motor strength. PSYCHIATRIC: Mood and affect appropriate DIAGNOSTIC DATA: ###. ECHOCARDIOGRAM: TTE 02/18/2007 SUMMARY: 1. Normal chamber sizes. 2. Normal LV systolic function. Calculated LVEF=65%. 3. Normal diastolic function. 4. Myxomatous mitral valve without evidence of prolapse. No regurgitation seen. 5. Mild tricuspid regurgitation. Estimated PASP~28mmHg. ###. ECG: -The ECG was personally reviewed, with findings of: 01/2018: sinus rhythm at 69 bpm with first degree AV block and otherwise WNL. ###. Treadmill stress test January 2007- 12.7 METs (about 50% above average for age); endpoint fatigue at 98% age-predicted peak heart rate; up to [address] depression in chest leads; Weaver Treadmill Score about +5 (low risk). ###. CARDIAC CATH: none ###. ICD: not indicated ###. Current NYHA Class: I ###. Holter monitor in 2006 revealed a brief (30 minute) bout of atrial fibrillation with RVR (167 bpm). ###. Holter Dec 2008: Rhythm Interpretation: 1) Sinus rhythm with an average heart rate of 68/m. 2) There was an average of 14 multiform PVC's/hr; no complex arrhythmia. 3) There was a total of 77 isolated PAC's/scan with 4 paired PAC's and two runs of PAT, both 3 beats long. The fastest rate was 123/m. 4) Diary entries of pounding were seen by isolated ventricular ectopy and sinus tachycardia. Clinical Significance: 1) Good correlation between patient's complaints and isolated arrhythmia, tachycardia rates. 2) No significant ventricular arrhythmia. ###. 30 day event monitor September 2009: All routine calls revealed sinus rhythm; six of 29 routine/auto capture calls revealed isolated PVC's. No complex arrhythmia. Clinical Significance: 1) No correlation between patient's complaints and ectopy. 2) No complex arrhythmia documented. ###. Holter Jan 2018: High Heart Rate: 137/m Average Heart Rate: 76/m Low Heart Rate: 56/m VENTRICULAR ECTOPY Average number of Premature Ventricular Contraction's/hr: 0 Total Paired PVC's: 0 Total runs of Non-sustained Ventricular Tachycardia: 0 ATRIAL ECTOPY Average number of Premature Atrial Contractions per hour: 0 Total Paired PAC's: 0 Total runs of Paroxysmal Atrial Tachycardia: 1 Longest Run: 3 Fastest Run: 123/m Rhythm Interpretation: 1) Sinus rhythm with an average heart rate of 76/m. 2) No ventricular ectopy. 3) There was a total of 3 isolated PAC's/scan with 1 run of PSVT 3 beats long @ 123/m. 4) No symptoms in diary. Clinical Significance: 1) 48-hour ambulatory Holter within normal limits. 2) No atrial fibrillation documented on this study. ###. LABORATORIES: COMPREHENSIVE METABOLIC PANEL SODIUM 139 mEq/L 03/08/2023 09:53 POTASSIUM 4.5 [...] 09:53 EGFR (CKD-EPI 2020) 66.5 03/08/2023 09:53 COMPLETE BLOOD COUNT WBC 5.2 10*3/uL 03/08/2023 09:53 RBC 4.30 [...] 09:53 BASOPHILS, ABSOLUTE 0.04 10*3/uL 03/08/2023 09:53 HGA1C: HGA1C 5.8 % 11/03/2022 08:35 LIPIDS TRIGLYCERIDE 60 mg/dL 11/03/2022 08:35 CHOLESTEROL 172 mg/dL 11/03/2022 08:35 HDL(New) 57 mg/dL 11/03/2022 08:35 CALCULATED LDL 103 mg/dL 11/03/2022 08:35 ASSESSMENT AND PLAN: In summary, KADI MARTINEZ is a 68 year old FEMALE with a history of Afib who presents for follow up. Overall, the patient is endorsing NYHA class I symptoms and appears euvolemic on exam today. PLAN: #. Paroxysmal Atrial fibrillation - diagnosed >30 years ago - Continue propafenone - [id number] score = 2 (age 68, female) - Patient has never been on AC for Afib. She previously took ASA 325 mg but had easy bleeding/bruising so this was decreased to ASA 81. There has been no documented AF on holter monitors in 2009 and 2017, or ECGs at the [place] since 2004. We discussed risks/benefits of AC. Patient's preference is not to start AC. She is at low-moderate risk of stroke/TIA/embolism. All questions were answered and patient expressed understanding. #. Myxomatous mitral valve - Noted on echo 2006 without evidence of MR or MVP #. HLD - continue statin #. ZEINA - difficult for patient to tolerate CPAP - defer treatment to PCP #. Dispo - RTC 12 months with EP Thank you for allowing us to participate [facility]. Please do not hesitate to call the HF team with any questions or concerns. /colt/ Brian Ortiz PA-C Cardiology Physician Mobile Crane Operator Signed: 02/29/2024 15:03 BRIAN ORTIZ [facility]
--- OUTSIDE RECORDS SUMMARY | 2024-06-17 16:06 | XMS_ITS | Encounter Summary ---
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 Date/Time Encounter Type Encounter Description Reason Provider Source Jul 13, 2023 10:00 AM NEUROMUSCULAR REEDUCATION PHYSICAL THERAPY ICD-10-CM N18.2 Chronic kidney disease, stage 2 (mild) COBY GÓMEZ [facility] Encounter Template Text not used by [place] Assessments - Encounter Diagnoses This section includes the primary and secondary diagnoses documented for the Encounter. Date/Time Primary/Secondary Diagnosis Diagnosis Name Provider Source Jul 13, 2023 03:22 PM PRIMARY Chronic kidney disease, stage 2 (mild) COBY GÓMEZ [facility] Jul 13, 2023 03:22 PM SECONDARY Dizziness and giddiness COBY GÓMEZ [facility] Plan of Treatment: Future Appointments (+ 6 months) and Future Tests (+/- 45 days) The Plan of Treatment section includes [facility] care activities for the [facility] [place] [facility] This section includes future appointments and future orders which are active, pending or scheduled. Future Appointments This section includes appointments that were scheduled to occur 6 months from the date of the Encounter, up to a maximum of 20 appointments. The data comes from all [place] treatment facilities. Appointment Date/Time Appointment Type Appointme nt Facility Name Jul 15, 2023 09:00 AM AMBULATORY - REHAB [facility]ICIN [facility] Jul 28, 2023 09:30 AM AMBULATORY - SURGERY [facility] Jul 28, 2023 02:00 PM AMBULATORY - MEDICINE [facility] Aug 02, 2023 01:00 PM AMBULATORY - MEDICINE [facility] Aug 05, 2023 10:00 AM AMBULATORY - REHAB MEDICIN E [facility] Aug 09, 2023 09:30 AM AMBULATORY - NONE [facility] Aug 17, 2023 10:30 AM AMBULATORY - REHAB MEDICIN E [facility] Sep 01, 2023 09:30 AM AMBULATORY - REHAB MEDICIN E [facility] Sep 02, 2023 05:00 PM AMBULATORY - MEDICINE [facility] Sep 07, 2023 08:00 AM AMBULATORY - NONE [facility] Sep 08, 2023 10:00 AM AMBULATORY - NONE [facility] Social History: Smoking Status (Most current) and Tobacco Use (All prior to encounter date) This section includes the most current, and the historical, smoking and tobacco- related health factors from the [place] facility where the Encounter took place. Current Smoking Status This section includes the most current smoking, or tobacco-related health factor, from the [place] facility where the Encounter took place. Date/Time Current Smoking Status Comment Nehal pope Jan 15, 2016 10:21 AM LIFETIME NON-USER OF TOBACCO [facility] Tobacco Use History This section includes a history of the smoking, or tobacco-related health factors, that were collected on or before the date of the Encounter. The data comes from the [place] facility where the Encounter took place. Date/Time Smoking Status/Tobacco Use Comment Mehreen acgaldino Mar 04, 2015 08:10 AM LIFETIME NON-USER OF TOBACCO [facility] Aug 02, 2006 11:04 AM LIFETIME NON-USER OF TOBACCO [facility] Dec 22, 2005 03:00 PM LIFETIME NON-TOBACCO USER [facility] Feb 17, 2005 03:19 PM LIFETIME NON-TOBACCO USER [facility] Jul 17, 2004 02:13 PM LIFETIME NON-TOBACCO USER [facility] Jul 17, 2004 01:43 PM LIFETIME NON-TOBACCO USER [facility] Advance Directives: All historical and current Section Date Range: From patient's date of to the date document was created. This section includes ALL of a patient's completed or amended [place] Advance and Rescinded Directives. The entries below indicate that a directive exists for the patient, but an actual copy is not included with this document. The data comes from all [place] facilities. Date Advance Directives Provider Source Feb 23, 2014 ADVANCE DIRECTIVE DISCUSSION ANGELITA AGUILA [facility] Encounter Notes: All associated encounter notes This section contains the clinical notes associated to the Encounter. Date/Time Encounter Note(s) Provider Source Jul 13, 2023 10:09 AM PHYSICAL MEDICINE REHAB NOTE: LOCAL TITLE: PT DAILY [facility] STANDARD TITLE: PHYSICAL MEDICINE REHAB NOTE DATE OF NOTE: JUL 13, 2023@10:09 ENTRY DATE: JUL 13, 2023@10:09:57 AUTHOR: COBY GÓMEZ COSIGNER: URGENCY: STATUS: COMPLETED Chart Review: Imaging Chart Review: [facility] including: --- Referring provider: THANH ZAZUETA Start of Care: 04/27/2023 Reevaluation due:04/27/2024 POC through: 07/27/2023 Visits to date:05/12/23) No shows/cancellations: 0 Diagnosis: Cervicalgia(ICD-10-CM M54.2) Treatment [...] bouts without benefit --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 mild R baeating Gaze holding nystagmus? mild R beating (end range) Horizontal head shaking-induced nystagmus? neg Tragal Pressure test: Skull Vibration?neg Hyperventilation induced nystagmus Finger Rubbing test( assess for hearing): Right Ear: impaired Left Ear: impaired Functional Activity Limitations: Functional gait assessment 07/13/23 20/30 (IMPROVED) 05/12/23: <22/30 suggestive of falls <20 suggestive of falls in the next 6 months Treatment: Neuro re ed x30min -education on vestibulr dysfucntion -VOR x1 x1min x4 reps, x4 sets per day -VORx2 x1min x2 -FGA -habituation exercise (cont sitting/bouncing on algerian ball - Pt was instructed in and demonstrated independence with current HEP x 1 Vestibular home program Access Code: [email or web address] URL: [email or web address] Date: 06/01/2023 Prepared by: Rico Exercises - Seated Gaze Stabilization with Head Rotation - 4 x daily - 7 x weekly - 2 x 1 minute per session - Seated Gaze Stabilization with Head Nod - 4 x daily - 7 x weekly - 2 x 1 minute per session - Seated Lateral Pelvic Tilt on Irish Ball - 1 x daily - 7 x weekly - 3 sets - VORx2 4 x1 min Assessment: Bishop presents wtih continued dizziness, she states she only gets dizzy when doing exercises which is an improvement. She had mild inc in dizziness when doing VORx2 adn was educated on doing this as long as her symptoms returned to baseline within 1 minute. Otherwise, she improved her FGA score and demonstrates prgoress. Will f/u in 1 month to re asess and if doing well consider dc. Goals: Short term:(4 weeks) 1) Pt. will demonstrate independence with current HEP x 1 (met) 2) Pt. will verbalize 8/10 pain at worst (ongoing) 3) Pt. 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 will demonstrate independence with current HEP x 1 2) Pt. will verbalize 4/10 pain at worst to assist with ADL's 3) Pt will improve b/l shoulder flexion to 165 deg b/l without pain indicating improved scapular mechanics and ADL's. 4) PT to improve balance when standing up turning directions. CONT Equipment Patient Currently Has: -TENS unit, theracane Plan: Cont. PT 1X/2-3 wks. for up to 12 weeks; with tx consisting of posture education, scapular strengthening, ROM, stretching, and manual interventions. Will follow up PT Neal Gómez for vestibular evaluation /es/ COBY GÓMEZ PT, DPT, NCS Signed: 07/13/2023 15:22 COBY GÓMEZ [facility]
--- OUTSIDE RECORDS SUMMARY | 2024-06-17 16:06 | XMS_ITS | Encounter Summary ---
Author Name [facility] ([place]) Organization [facility] Address [address] [place] [address] Care Team Providers Care Color Checker Roving Or Yarn Name Role Phone THANH ZAZUETA Primary Care [...] [employer] VISIO N PLAN May 17, 2016 [id number] [phone] KADI MARTINEZ PATIENT EYEMED (WNR) VISION VISIO N May 17, 2019 [id number] KADI MARTINEZ PATIENT MEDICARE (WNR) MEDICARE (M) PART A Nov 14, 2022 PART A [id number] KADI MARTINEZ PATIENT MEDICARE (WNR) MEDICARE (M) PART B Nov 14, 2022 PART B [id number] [phone] MARTINEZKADI PATIENT Selected Encounter This section includes the information on record at DC for the Encounter. Date/Time Encounter Type Encounter Description Reason Pro vider Source Mar 10, 2024 05:02 PM Outpatient Encounter GENERAL INTERNAL MEDICINE IHE Encounter Template Text not used by [facility] Plan of Treatment: Future Appointments (+ 6 months) and Future Tests (+/- 45 days) The Plan of Treatment section includes future care activities for the patient from [facility] This section includes future appointments and future orders which are active, pending or scheduled. Future Appointments This section includes appointments that were scheduled to occur 6 months from the date of the Encounter, up to a maximum of 20 appointments. The data comes from all DC treatment [facility]. Appointment Date/Time Appointment Type Appointme nt Facility Name Mar 15, 2024 09:00 AM AMBULATORY - MEDICINE [facility] Mar 20, 2024 10:40 AM AMBULATORY - SURGERY [facility] Apr 06, 2024 11:00 AM AMBULATORY - NONE [facility] Apr 07, 2024 09:30 AM [facility] Apr 25, 2024 02:30 AM AMBULATORY - SURGERY [facility] Jun 28, 2024 07:30 AM AM[facility]AT[facility] - [facility] Jul 25, 2024 10:00 AM AMBULATORY - SURGERY [facility] Aug 22, 2024 10:45 AM AMBULATORY - SURGERY [facility] Active, Pending, and Scheduled Orders This section includes a listing of several types of active, pending, and scheduled orders, including clinic medications orders, diagnostic test orders, procedure orders and consult orders; where the start date of the order is 45 days before the date of the Encounter or 45 days after the date of theEncounter. The data comes from all [facility]. Test Date/Time Test Type Test Details Facility Name Mar 13, 2024 03:23 PM Consult Order COMMUNITY CARE-ST NEUROSURGERY Cons [facility] Lab Results: +/- 30 days of the encounter This section includes the Chemistry and Hematology Lab Results on record with DC for the patient. Radiology Reports and Pathology Reports are provided separately, in subsequent sections. Lab Results This section contains the Chemistry/Hematology Results that were resulted 30 days before or 30 daysafter the date of the Encounter. Date/Time Source Result Type Result - Unit Interpretation Reference Range Comment Mar 09, 2024 11:[address] [facility] HGA1C Specimen Type: BLOOD No comment entered. Ordering Provider: WARREN ZAZUETA Report Released Date/Time: Mar 09, 2024 10:49 AM Reporting Lab: [facility] [address] [facility] [phone] Performing Lab: [facility] [address] [place] [phone] HGA1C 5.6 4.0-6.0 Mar 09, 2024 11:[address] [facility] LIPID PANEL (STL) Specimen Type: PLASMA Comment: No hemolysis noted. Ordering Provider: WARREN ZAZUETA Report Released Date/Time: Mar 09, 2024 10:49 AM Reporting Lab: [facility] [address] [place] [phone] Performing Lab: [facility] [address] [place] [phone] CHOLESTEROL 160 mg/dL 0-200 TRIGLYCERIDE 46 mg/dL 0-150 CALCULATED LDL 95 mg/dL HDL(New) 56 mg/dL >40 Mar 09, 2024 11:[address] [facility] TSH W/ REFLEX FT4 (STL) Specimen Type: PLASMA No comment entered. Ordering Provider: WARREN ZAZUETA Report Released Date/Time: Mar 09, 2024 10:49 AM Reporting Lab: [facility] [address] [facility] [phone] Performing Lab: [facility] [address] [place] [phone] TSH 2.453 u[IU]/mL 0.47-5 Mar 09, 2024 11:[address] [facility] URINALYSIS (STL-PB) Specimen Type: URINE No comment entered. Ordering Provider: WARREN ZAZUETA Report Released Date/Time: Mar 09, 2024 10:49 AM Reporting Lab: [facility] [address] [facility] [phone] Performing Lab: [facility] [address] [place] [phone] URINE COLOR Colorless Yellow U.BILIRUBIN Negative mg/dL Negative U.PH 7.0 5.0-8.0 APPEARANCE Clear Clear U.NITRITE Negative mg/dL Negative URN.GLUCOSE Normal mg/dL Negative URN.PROTEIN Negative mg/dL URN.UROBILINOGEN Normal mg/dL Normal URN.BLOOD Negative mg/dL Negative-Tra ce URN.KETONES Negative mg/dL Negative-Tra ce URN.LEUK.EST. Negative mg/dL Negative-Tra ce URN.SPECIFIC GRAVITY 1.004 L Mar 09, 2024 11:[address] [facility] VITAMIN D, 25-HYDROXY Specimen Type: SERUM No comment entered. Ordering Provider: WARREN ZAZUETA Report Released Date/Time: Mar 09, 2024 10:49 AM Reporting Lab: [facility] [address] [place] [phone] Performing Lab: [facility] [address] [place] [phone] VITAMIN D, 25-HYDROXY 49.2 ng/mL 30-96 Mar 09, 2024 11:[address] [facility] LIPASE Specimen Type: PLASMA Comment: No hemolysis noted. Ordering Provider: WARREN ZAZUETA Report Released Date/Time: Mar 09, 2024 11:00 AM Reporting Lab: [facility] [address] [facility] [phone] Performing Lab: [facility] [address] [place] [phone] LIPASE 267 U/L H 8-78 Mar 09, 2024 11:[address] [facility] AMYLASE Specimen Type: PLASMA Comment: No hemolysis noted. Ordering Provider: WARREN ZAZUETA Report Released Date/Time: Mar 09, 2024 11:00 AM Reporting Lab: [facility] [address] [facility] [phone] Performing Lab: [facility] [address] [place] [phone] AMYLASE 155 U/L H 25-125 Mar 09, 2024 11:[address] [facility] COMPREHENSIVE METABOLIC PANEL Specimen Type: PLASMA Comment: No hemolysis noted. Ordering Provider: WARREN ZAZUETA Report Released Date/Time: Mar 09, 2024 10:49 AM Reporting Lab: [facility] [address] [place] [phone] Performing Lab: [address] [phone] CREATININE 0.96 mg/dL 0.6-1.1 UREA NITROGEN 16.6 [...] >60 Mar 09, 2024 11:[address] [facility] CBC Specimen Type: BLOOD No comment entered. Ordering Provider: WARREN ZAZUETA Report Released Date/Time: Mar 09, 2024 10:49 AM Reporting Lab: [facility] [address] [place] [phone] Performing Lab: [address] [phone] WBC 4.2 10*3/uL 3.6-11.2 RBC 3.56 10*6/uL [...] and tobacco- related health factors from the DC facility where the Encounter took place. Current Smoking Status This section includes the most current smoking, or tobacco-related health factor, from the DC facility where the Encounter took place. Date/Time Current Smoking Status Comment [place] Jan 15, 2016 10:21 AM LIFETIME NON-USER OF TOBACCO [facility] Tobacco Use History This section includes a history of the smoking, or tobacco-related health factors, that were collected on or before the date of the Encounter. The data comes from the DC facility where the Encounter took place. Date/Time Smoking Status/Tobacco Use Comment F acility Mar 04, 2015 08:10 AM LIFETIME NON-USER OF TOBACCO [facility] Aug 02, 2006 11:04 AM LIFETIME NON-USER OF TOBACCO [facility] Dec 22, 2005 03:00 PM LIFETIME NON-TOBACCO USER [facility] Feb 17, 2005 03:19 PM LIFETIME NON-TOBACCO USER [facility] Jul 17, 2004 02:13 PM LIFETIME NON-TOBACCO USER [facility] Jul 17, 2004 01:43 PM LIFETIME NON-TOBACCO USER [facility] Advance Directives: All historical and current Section Date Range: From patient's date of to the date document was created. This section includes ALL of a patient's completed or amended DC Advance and Rescinded Directives. The entries below indicate that a directive exists for the patient, but an actual copy is not included with this document. The data comes from all [facility]. Date Advance Directives Provider Source Feb 23, 2014 ADVANCE DIRECTIVE DISCUSSION ANGELITA AGUILA [facility] Radiology Reports: +/- 30 days of the [...] the Encounter. The data comes from all DC treatment facilities. Date/Time Radiology Report Provider Source Mar 15, 2024 08:52 AM US ABDOMEN LIMITED W/BLOOD FLOW DOPPLER: KADI MARTINEZ Phoebe [id number] -1955 F Exm Date: MAR 15, 2024@08:52 Req Phys: THANH ZAZUETA Pat Loc: FRAN-OLV PACT WH W2 PCP (Rebuddy'g L Img Loc: FRAN-ULTRASOUND FRAN Service: [facility], [facility] [address] [place] [address] (Case [id number] COMPLETE) US ABDOMEN LTD, SINGLE ORG OR GENARO(US Detailed) CPT:31327 Reason for Study: pain RUQ (Case [id number] COMPLETE) US BLOOD FLOW ABD/RENAL (LTD) (US Detailed) CPT:97415 Clinical History: Organ to Image: RUQ Reason for exam: pain after eating Report Status: Verified Date Reported: MAR 15, 2024 Date Verified: MAR 15, 2024 Boiler Service Technician E-Sig:/ES/SAMANTHA SETHI Report: DATE: 03/15/2024 8:52 AM EXAM: US ABDOMEN LTD, SINGLE ORG OR QUADRANT, US BLOOD FLOW ABD/RENAL (LTD) ACCESSION NUMBERS: [id number], [id number] HISTORY: pain RUQ Technique: Real-time ultrasound examination [...] disease, recommend clinical correlation. Ruperto Awad MD (Noc Technician) I, Samantha Sethi, have reviewed the images and report and concur with these findings. Primary Interpreting Staff: SAMANTHA SETHI MD (Boiler Service Technician) Primary Interpreting Resident: RUPERTO AWAD, Resident Physician /SAMANTHA GONZALEZ [facility] Mar 09, 2024 12:28 PM KNEE,RIGHT 3 VIEWS: KADI MARTINEZ [id number] -1955 F Exm Date: MAR 09, 2024@12:28 Req Phys: THANH ZAZUETA Pat Loc: -OLV PACT WH W2 PCP (Req'g L Img Loc: -MAIN RADIOLOGY SUITE Service: [facility], [facility] [address] [place] [address] (Case [id number] COMPLETE) KNEE,RIGHT 3 VIEWS (RAD Detailed) CPT:64059 Proc Modifiers : RIGHT Reason for Study: right knee pain after fall Clinical History: Report Status: Verified Date Reported: MAR 09, 2024 Date Verified: MAR 09, 2024 Boiler Service Technician E-Sig:/ES/AMARJIT TRACEY MD Report: Case #[id number]. Right [...] AMARJIT TRACEY MD, Staff Physician - Radiologist (Boiler Service Technician) /CHRISTI VELARDE [facility] Mar 09, 2024 12:28 PM FOOT,RIGHT,3 VIEWS OR MORE: KADI MARTINEZ [id number] -1955 F Exm Date: MAR 09, 2024@12:28 Req Phys: THANH ZAZUETA Pat Loc: FRAN-OLV PACT W2 PCP (Req[facility]g L [facility] Service: Unknown [facility] [address] [place] [address] (Case [id number] COMPLETE) FOOT,RIGHT,3 VIEWS OR MORE (RAD Detailed) CPT:81494 Proc Modifiers : RIGHT Reason for Study: foot pain Clinical History: Report Status: Verified Date Reported: MAR 09, 2024 Date Verified: MAR 09, 2024 Boiler Service Technician E-Sig:/ES/AMARJIT TRACEY MD Report: Case #[id number]. Right [...] AMARJIT TRACEY MD, Staff Physician - Radiologist (Boiler Service Technician) /CHRISTI VELARDE [facility] Mar 09, 2024 12:28 PM FOOT,LEFT 3 VIEWS OR MORE: KADI MARTINEZ Phoebe [id number] -1955 F Exm Date: MAR 09, 2024@12:28 Req Phys: THANH ZAZUETA Loc: FRAN-OLV PACT W2 PCP (Req'g L Img [facility] Service: Unknown [facility] [address] [place] [address] (Case [id number] COMPLETE) FOOT,LEFT 3 VIEWS OR MORE (RAD Detailed) CPT:73102 Proc Modifiers : LEFT Reason for Study: foot pain Clinical History: Report Status: Verified Date Reported: MAR 09, 2024 Date Verified: MAR 09, 2024 Boiler Service Technician E-Sig:/COLT/AMARJIT TRACEY MD Report: Case #[id number]. Left [...] AMARJIT TRACEY MD, Staff Physician - Radiologist (Boiler Service Technician) /CHRISTI VELARDE [facility] Mar 09, 2024 12:28 PM KNEE,LEFT, 3 VIEWS: KADI MARTINEZ [id number] -1955 F Exm Date: MAR 09, 2024@12:28 Req Phys: THANH ZAZUETA Pat Loc: -OLV PACT WH W2 PCP (Req'g L Img Loc: -MAIN RADIOLOGY SUITE Service: [address] [address] (Case [id number] COMPLETE) KNEE,LEFT, 3 VIEWS (RAD Detailed) CPT:54697 Proc Modifiers : LEFT Reason for Study: pain in knee Clinical History: Report Status: Verified Date Reported: MAR 09, 2024 Date Verified: MAR 09, 2024 Boiler Service Technician E-Sig:/COLT/AMARJIT TRACEY MD Report: Case #[id number]. Left [...] AMARJIT TRACEY MD, Staff Physician - Radiologist (Boiler Service Technician) /CHRISTI VELARDE [facility] Encounter Notes: All associated encounter notes This section contains the clinical notes associated to the Encounter. Date/Time Encounter Note(s) Provider Source Mar 16, 2024 08:10 AM ADDENDUM: LOCAL TITLE: Addendum STANDARD TITLE: ADDENDUM DATE OF NOTE: MAR 16, 2024@08:10:24 ENTRY DATE: MAR 16, 2024@08:10:24 AUTHOR: J[employer] EXP COSIGNER: URGENCY: STATUS: COMPLETED Provider called checking status of this referral. Appt is 11.4.24 @ 10:40am. Please advise if referral will be renewed or not. /colt/ JARED STEEL ADVANCED SHIRT BANDER Signed: 03/16/2024 08:11 Receipt Acknowledged By: 03/16/2024 12:58 /colt/ EONC PAVON Physician Broach Grinder, ENT === --- Original Document --- 03/10/24 COMMUNITY CARE-REQUEST FOR SERVICE NOTE STL: Request for Services (RFS) documentation has been sent for scanning to [facility] Care Consult: [facility] SURGERY Consult No: [id number] Date sent to scanning: Feb A Request for Service (RFS) form [id number] has been received which includes the following: Care Requested:ENT visits ICD-10 Dx code: none Date VA received request: Feb Date service required: TBD Requesting Community Provider Information: Name of Ordering Provider: Lissa Bruno Office:[facility] Address, [facility], [facility]: [address] [place] [address] [address] [place] [address] Fax: [phone] RFS,notes to scanner, providers for review. /colt/ WONG TAPIA RN REGISTERED NURSE Signed: 03/10/2024 17:11 Receipt Acknowledged By: 03/13/2024 15:21 /colt/ THANH ZAZUETA M.D. physician * AWAITING SIGNATURE * WONG CARREON 03/13/2024 ADDENDUM STATUS: COMPLETED [facility] received a call from Arielle at [facility]; 's name, last four of SSN, and date of were used to verify identity. REASON FOR CALL: RFS DECSION INQUIRY Caller states the is scheduled for Wednesday03/20/2024. General Scrap Worker communicated to the caller there is not yet a decision on this request. /es/ ANTOINETTE GIBSON ADVANCED SHIRT BANDER Signed: 03/13/2024 08:18 03/15/2024 ADDENDUM STATUS: COMPLETED Vet states she is scheduled for Wednesday03/20/2024 @ 1040. General Scrap Worker communicated to vet the consult is still pending. Vet stated that if she has to reschedule she will not be able to be seen until end of April 2025. Informed vet technical writer and editor will alert CC RN. Vet agreed and understood to check status of referral before attending appt. /es/ DAMARIS STRINGER ADVANCED SHIRT BANDER Signed: 03/15/2024 13:22 03/16/2024 ADDENDUM STATUS: COMPLETED Follow up from Dr. Emmanuel Pavon to Contact ENT office and see if they want 's yearly surveillance MRI done prior to 's f/u appt in [facility]? If so, will request MRI [facility] and once completed, pt can be seen at the DC by one of our Otologists. /colt/ JAERD STEEL ADVANCED SHIRT BANDER Signed: 03/16/2024 09:54 03/16/2024 ADDENDUM STATUS: COMPLETED Received communication to inquire if needs MRI before appt, called [facility] ENT, CC Provider will email Abilio Pavon /colt/ WONG CARREON BSN RN REGISTERED NURSE Signed: 03/16/2024 11:02 JARED STEEL [facility] Mar 10, 2024 05:05 PM NONVA NOTE: LOCAL TITLE: COMMUNITY CARE-REQUEST FOR SERVICE NOTE ST STANDARD TITLE: NONVA NOTE DATE OF NOTE: MAR 10, 2024@17:05 ENTRY DATE: MAR 10, 2024@17:05:59 AUTHOR: WONG CARREON EXP COSIGNER: URGENCY: STATUS: COMPLETED COMMUNITY CARE-REQUEST FOR SERVICE NOTE STL Has ADDENDA Request for Services (RFS) documentation has been sent for scanning to [facility] Consult: [facility] E[facility] SURGERY Consult No: [id number] Date sent to scanning: Feb A Request for Service (RFS) form [id number] has been received which includes the following: Care Requested:ENT visits ICD-10 Dx code: none Date VA received request: Feb Date service required: TBD Requesting Community Provider Information: Name of Ordering Provider: Lissa Bruno Office:[facility] Address, [facility], State: [address] [place] [address] [address] [place] [address] Fax: [phone] RFS,notes to scanner, providers for review. /es/ WONG HARRYN RN REGISTERED NURSE Signed: 03/10/2024 17:11 Receipt Acknowledged By: 03/13/2024 15:21 /colt/ THANH ZAZUETA M.D. physician * AWAITING SIGNATURE * WONG CARREON 03/13/2024 ADDENDUM STATUS: [facility]TED [facility]elle at [facility]; 's name, last four of SSN, and date of were used to verify identity. REASON FOR CALL: [facility] DECSION INQUIRY Caller states the is scheduled for Wednesday03/20/2024. General Scrap Worker communicated to the caller there is not yet a decision on this request. /es/ ANTOINETTE GIBSON ADVANCED SHIRT BANDER Signed: 03/13/2024 08:18 03/15/2024 ADDENDUM STATUS: COMPLETED Vet states she is scheduled for Wednesday03/20/2024 @ 1040. General Scrap Worker communicated to vet the consult is still pending. Vet stated that if she has to reschedule she will not be able to be seen until end of April 2025. Informed vet technical writer and editor will alert CC RN. Vet agreed and understood to check status of referral before attending appt. /es/ DAMARIS STRINGER ADVANCED SHIRT BANDER Signed: 03/15/2024 13:22 03/16/2024 ADDENDUM STATUS: COMPLETED Provider called checking status of this referral. Appt is 11.4.24 @ 10:40am. Please advise if referral will be renewed or not. /colt/ JARED [employer]EL ADVANCED SHIRT BANDER Signed: 03/16/2024 08:11 Receipt Acknowledged By: * AWAITING SIGNATURE * ENOC PAVON 03/16/2024 ADDENDUM STATUS: COMPLETED Follow up from Dr. Emmanuel Pavon to Contact ENT office and see if they want 's yearly surveillance MRI done prior to 's f/u appt in [facility]? If so, will request MRI [facility] and once completed, pt can be seen at the DC by one of our Otologists. /keyla STEEL ADVANCED SHIRT BANDER Signed: 03/16/2024 09:54 03/16/2024 ADDENDUM STATUS: COMPLETED Received communication to inquire if needs MRI before appt, called [facility] ENT, CC Provider will email Abilio Pavon /colt/ WONG CARREON BSN RN REGISTERED NURSE Signed: 03/16/2024 11:02 WONG CARREON [facility]
--- OUTSIDE RECORDS SUMMARY | 2024-06-17 16:06 | XMS_ITS | Encounter Summary ---
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 Date/Time Encounter Type Encounter Description Reason Provider Source Apr 07, 2024 09:30 AM OFF/OP CNSLTJ NEW/EST MOD 40 PODIATRY ICD-10-CM M79.672 Pain in left foot JENNY GARCIA IHPhoebe Encounter Template Text not used by [place] Assessments - Encounter Diagnoses This section includes the primary and secondary diagnoses documented for the Encounter. Date/Time Primary/Secondary Diagnosis Diagnosis Name Provider Source Apr 09, 2024 09:36 AM PRIMARY Pain in left foot JENNY GARCIA [facility] Apr 09, 2024 09:36 AM SECONDARY Neuralgia and neuritis, unspecified RADHA,JENNY Garcia [facility] Apr 09, 2024 09:36 AM SECONDARY Other acquired deformities of unspecified foot RADHAJENNY L [facility] Apr 09, 2024 09:36 AM SECONDARY Pain in unspecified ankle and joints of unspecified foot RADHA,EKWOK Jose [facility] Plan of Treatment: Future Appointments (+ 6 months) and Future Tests (+/- 45 days) The Plan of Treatment section includes future care activities for the patient [facility] This section includes future appointments and future orders which are active, pending or scheduled. Future Appointments This section includes appointments that were scheduled to occur 6 months from the date of the Encounter, up to a maximum of 20 appointments. The data comes from all [facility]. Appointment Date/Time Appointment Type Appointme nt Facility Name Apr 25, 2024 02:30 AM AMBULATORY - SURGERY . [facility] Jun 28, 2024 07:30 AM AMBULATORY - SURGERY . [facility] Jul 25, 2024 10:00 AM AMBULATORY - SURGERY [facility] Aug 22, 2024 10:45 AM AMBULATORY - SURGERY [facility] Active, Pending, and Scheduled Orders This section includes a listing of several types of active, pending, and scheduled orders, including clinic medications orders, diagnostic test orders, procedure orders and consult orders; where the start date of the order is 45 days before the date of the Encounter or 45 days after the date of theEncounter. The data comes from all [facility]. Test Date/Time Test Type Test Details Facility Name Mar 13, 2024 03:23 PM Consult Order [facility] NEUROSURGERY [employer] Project Manager's Choice [facility] Lab Results: +/- 30 days of the encounter This section includes the Chemistry and Hematology Lab Results [facility] with [facility] for the [facility]. Radiology Reports and Pathology Reports are provided separately, in subsequent sections. Lab Results This section contains the Chemistry/Hematology Results that were resulted 30 days before or 30 daysafter the date of the Encounter. Date/Time Source Result Type Result - Unit Interpretation Reference Range Comment Mar 09, 2024 11:30 AM [facility] HGA1C Specimen Type: BLOOD No comment entered. Ordering Provider: WARREN ZAZUETA Report Released Date/Time: Mar 09, 2024 10:49 AM Reporting Lab: [facility] [address] [place] [phone] Performing Lab: [facility] [address] [place] [phone] HGA1C 5.6 4.0-6.0 Mar 09, 2024 11:30 AM [facility] LIPID PANEL (L) Specimen Type: PLASMA Comment: No hemolysis noted. Ordering Provider: WARREN ZAZUETA Report Released Date/Time: Mar 09, 2024 10:49 AM Reporting Lab: [facility] [address] [facility] [address] Performing Lab: [facility] [address] [place] [phone] CHOLESTEROL 160 mg/dL 0-200 TRIGLYCERIDE 46 mg/dL 0-150 CALCULATED LDL 95 mg/dL HDL(New) 56 mg/dL >40 Mar 09, 2024 11:30 AM [facility] TSH W/ REFLEX FT4 ([facility]) Specimen Type: PLASMA No comment entered. Ordering Provider: WARREN ZAZUETA Report Released Date/Time: Mar 09, 2024 10:49 AM Reporting Lab: [facility] [address] [facility] [address] Performing Lab: [facility] [address] [place] [phone] TSH 2.453 u[IU]/mL 0.47-5 Mar 09, 2024 11:30 AM [facility] VITAMIN D, 25-HYDROXY Specimen Type: SERUM No comment entered. Ordering Provider: WARREN ZAZUETA Report Released Date/Time: Mar 09, 2024 10:49 AM Reporting Lab: [facility] [address] [facility] [address] Performing Lab: [facility] [address] [place] [phone] VITAMIN D, 25-HYDROXY 49.2 ng/mL 30-96 Mar 09, 2024 11:30 AM [facility] AMYLASE Specimen Type: PLASMA Comment: No hemolysis noted. Ordering Provider: WARREN ZAZUETA Report Released Date/Time: Mar 09, 2024 11:00 AM Reporting Lab: [facility] [address] [place] [phone] Performing Lab: [facility] [address] [place] [phone] AMYLASE 155 U/L H 25-125 Mar 09, 2024 11:30 AM [facility] URINALYSIS ([facility]) Specimen Type: URINE No comment entered. Ordering Provider: WARREN ZAZUETA Report Released Date/Time: Mar 09, 2024 10:49 AM Reporting Lab: [facility] [address] [place] [phone] Performing Lab: [facility] [address] [place] [phone] URINE COLOR Colorless Yellow U.BILIRUBIN Negative mg/dL Negative U.PH 7.0 5.0-8.0 APPEARANCE Clear Clear U.NITRITE Negative mg/dL Negative URN.GLUCOSE Normal mg/dL Negative URN.PROTEIN Negative mg/dL URN.UROBILINOGEN Normal mg/dL Normal URN.BLOOD Negative mg/dL Negative-Tra ce URN.KETONES Negative mg/dL Negative-Tra ce URN.LEUK.EST. Negative mg/dL Negative-Tra ce URN.SPECIFIC GRAVITY 1.004 L Mar 09, 2024 11:30 AM [facility] LIPASE Specimen Type: PLASMA Comment: No hemolysis noted. Ordering Provider: WARREN ZAZUETA Report Released Date/Time: Mar 09, 2024 11:00 AM Reporting Lab: [facility] [address] [facility] [address] Performing Lab: [facility] [address] [place] [phone] LIPASE 267 U/L H 8-78 Mar 09, 2024 11:30 AM [facility] COMPREHENSIVE METABOLIC PANEL Specimen Type: PLASMA Comment: No hemolysis noted. Ordering Provider: WARREN ZAZUETA Report Released Date/Time: Mar 09, 2024 10:49 AM Reporting Lab: [facility] [address] [facility] [address] Performing Lab: [address] [phone] CREATININE 0.96 mg/dL 0.6-1.1 UREA NITROGEN 16.6 [...] 65.3 >60 Mar 09, 2024 11:30 AM [facility] CBC Specimen Type: BLOOD No comment entered. Ordering Provider: WARREN ZAZUETA Report Released Date/Time: Mar 09, 2024 10:49 AM Reporting Lab: [facility] [address] [facility] [phone] Performing Lab: [address] [phone] WBC 4.2 10*3/uL 3.6-11.2 RBC 3.56 10*6/uL [...] and tobacco- related health factors from the [place] facility where the Encounter took place. Current Smoking Status This section includes the most current smoking, or tobacco-related health factor, from the [place] facility where the Encounter took place. Date/Time Current Smoking Status Comment Facil ity October 12, 2013 08:01 AM LIFETIME NON-USER OF TOBACCO [facility] Tobacco Use History This section includes a history of the smoking, or tobacco-related health factors, that were collected on or before the date of the Encounter. The data comes from the [place] facility where the Encounter took place. Date/Time Smoking Status/Tobacco Use Comment F acility Dec 13, 2012 08:02 AM LIFETIME NON-USER OF TOBACCO [facility] Advance Directives: All historical and current Section Date Range: From patient's date of to the date document was created. This section includes ALL of a patient's completed or amended [place] Advance and Rescinded Directives. The entries below indicate that a directive exists for the patient, but an actual copy is not included with this document. The data comes from all [place] facilities. Date Advance Directives Provider Source Feb 23, 2014 ADVANCE DIRECTIVE DISCUSSION ANGELITA AGUILA [facility] Radiology Reports: +/- 30 days of the [...] the Encounter. The data comes from all [place] treatment facilities. Date/Time Radiology Report Provider Source Mar 15, 2024 08:52 AM US ABDOMEN LIMITED W/BLOOD FLOW DOPPLER: KADI MARTINEZ Phoebe [id number] -1955 F Exm Date: MAR 15, 2024@08:52 Req Phys: THANH ZAZUETA Pat Loc: FRAN-OLV PACT WH W2 PCP (Luna'g L Img Loc: FRAN-ULTRASOUND FRAN Service: [address] [address] (Case [id number] COMPLETE) US ABDOMEN LTD, SINGLE ORG OR GENARO(US Detailed) CPT:86435 Reason for Study: pain RUQ (Case [id number] COMPLETE) US BLOOD FLOW ABD/RENAL (LTD) (US Detailed) CPT:70556 Clinical History: Organ to Image: RUQ Reason for exam: pain after eating Report Status: Verified Date Reported: MAR 15, 2024 Date Verified: MAR 15, 2024 Sanding Machine Tender E-Sig:/ES/SAMANTHA SETHI Report: DATE: 03/15/2024 8:52 AM EXAM: US ABDOMEN LTD, SINGLE ORG OR QUADRANT, US BLOOD FLOW ABD/RENAL (LTD) ACCESSION NUMBERS: [id number], [id number] HISTORY: pain RUQ Technique: Real-time ultrasound examination [...] disease, recommend clinical correlation. Ruperto Awad MD (Clinical Rehabilitation Aide) I, Samantha Sethi, have reviewed the images and report and concur with these findings. Primary Interpreting Staff: SAMANTHA SETHI MD (Sanding Machine Tender) Primary Interpreting Resident: RUPERTO AWAD, Resident Physician /SAMANTHA GONZALEZ [facility] Mar 09, 2024 12:28 PM KNEE,RIGHT 3 VIEWS: MARTINEZKADI E [id number] -1955 F Exm Date: MAR 09, 2024@12:28 Req Phys: THANH ZAZUETA Pat Loc: FRAN-OLV PACT WH W2 PCP (Req'g L Img Loc: -MAIN RADIOLOGY SUITE Service: [facility], [place], [facility], [facility] [address] [place] [address] (Case [id number] COMPLETE) KNEE,RIGHT 3 VIEWS (RAD Detailed) CPT:21169 Proc Modifiers : RIGHT Reason for Study: right knee pain after fall Clinical History: Report Status: Verified Date Reported: MAR 09, 2024 Date Verified: MAR 09, 2024 Sanding Machine Tender E-Sig:/ES/AMARJIT TRACEY MD Report: Case #[id number]. Right [...] AMARJIT TRACEY MD, Staff Physician - Radiologist (Sanding Machine Tender) /CHRISTI VELARDE [facility] Mar 09, 2024 12:28 PM FOOT,RIGHT,3 VIEWS OR MORE: KADI MARTINEZ [id number] -1955 F Exm Date: MAR 09, 2024@12:28 Req Phys: THANH ZAZUETA Loc: FRAN-OLV PACT W2 PCP (Req'g L Img Loc: [facility] RADIOLOGY SUITE Service: Unknown [address] [address] (Case [id number] COMPLETE) FOOT,RIGHT,3 VIEWS OR MORE (RAD Detailed) CPT:84341 Proc Modifiers : RIGHT Reason for Study: foot pain Clinical History: Report Status: Verified Date Reported: MAR 09, 2024 Date Verified: MAR 09, 2024 Sanding Machine Tender E-Sig:/ES/AMARJIT TRACEY MD Report: Case #[id number]. Right [...] AMARJIT TRACEY MD, Staff Physician - Radiologist (Sanding Machine Tender) /CHRISTI VELARDE [facility] Mar 09, 2024 12:28 PM KNEE,LEFT, 3 VIEWS: KADI MARTINEZ [id number] -1955 F Exm Date: MAR 09, 2024@12:28 Req Phys: THANH ZAZUETA Loc: FRAN-OLV PACT W2 PCP (Req'g L Img Loc: [facility] RADIOLOGY SUITE Service: Unknown [address] [address] (Case [id number] COMPLETE) KNEE,LEFT, 3 VIEWS (RAD Detailed) CPT:23240 Proc Modifiers : LEFT Reason for Study: pain in knee Clinical History: Report Status: Verified Date Reported: MAR 09, 2024 Date Verified: MAR 09, 2024 Sanding Machine Tender E-Sig:/COLT/AMARJIT TRACEY MD Report: Case #[id number]. Left [...] AMARJIT TRACEY MD, Staff Physician - Radiologist (Sanding Machine Tender) /CHRISTI VELARDE [facility] Mar 09, 2024 12:28 PM FOOT,LEFT 3 VIEWS OR MORE: MARTINEZKADI Phoebe [id number] -1955 F Exm Date: MAR 09, 2024@12:28 Req Phys: THANH ZAZUETA Pat Loc: -OL PACT WH W2 PCP (Req'g L Img Loc: -MAIN RADIOLOGY SUITE Service: [address] [address] (Case [id number] COMPLETE) FOOT,LEFT 3 VIEWS OR MORE (RAD Detailed) CPT:49150 Proc Modifiers : LEFT Reason for Study: foot pain Clinical History: Report Status: Verified Date Reported: MAR 09, 2024 Date Verified: MAR 09, 2024 Sanding Machine Tender E-Sig:/COLT/AMARJIT TRACEY MD Report: Case #[id number]. Left [...] AMARJIT TRACEY MD, Staff Physician - Radiologist (Sanding Machine Tender) /CHRISTI VELARDE [facility] Encounter Notes: All associated encounter notes This section contains the clinical notes associated to the Encounter. Date/Time Encounter Note(s) Provider Source Apr 07, 2024 09:15 AM PODIATRY CONSULT: LOCAL TITLE: PODIATRY CONSULT [facility] STANDARD TITLE: PODIATRY CONSULT DATE OF NOTE: APR 07, 2024@09:15 ENTRY DATE: APR 07, 2024@09:15:58 AUTHOR: JENNY AGRCIA COSIGNER: URGENCY: STATUS: COMPLETED HEARING LOSS Last clinic appt on Jun 12, 2021 SUBJECTIVE: This 68 year old female patient presents for followup for her orthosis and shoes.The patient is currently using [facility] issued orthosis, received on Jan 22, 2021 by Samantha Abrams and shoes and inserts on September 07, 2023 by Samantha abrams. The pt complains of left foot pain to the dorsum of the foot at the dorsal lateral midfoot region. The pain is very sharp when it occurs, intermittent. The pain is currently dull and aching today at a level of 2 on the pain scale. The pain occurs with weight bearing walking activity. The pain is intermittent daily and when it occurs, it stops the patient in her tracks . The pain will catch the pt off guard per the pt. The pain can last for 5-10 minutes but initial occurance is 8 out of 10 and will last for several minutes. This has been occurring for at least 1 and 1/2 years, with no history of trauma. The patient was treated by and nonVA Sales Hunter for 3 years for general feet care, and for the current pain for the past 1 and 1/2 years. The pt is not sure of the definitive diagnosis. The pt stated that treatment consisted of steriod injections 2x per year and the last in October of 2023. The pt depended on the current orthosis made in May 2021. The pt is using functional orthosis, Mild High Co. with new top covers. The initial injects helped, but not current injections. The pt stated the orthosis help with her general foot complaints but not the sharp 8/10 pain. The pt stated that it may be a nerve impingement as she thinks about it. The pain can occur both with and without shoes when walking, and on occasion during he night 1x per month will wake up with this horrible sharp pain. No history of injury. Left in the note: from the Jun 12, 2021 visit. The pt stated that she underwent extensive right foot surgery on Jan 24, 2021 by a foot doctor, who continues to monitor her post op surgery and feet in general. The pt gets foot pain at the surgical sites, per the pt, and in particular the plantar medial heel at the scar site. The pt stated the footwear do help her feet. The right foot surgery included a lapidus first ray correction, tarsal tunnel release and a plantar fascial release. 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 the pt stated she gets pain with weight bearing. Pt states numbness, tingling and/or burning sensation to the feet, right > left. Left in the note from Feb 01, 2020 clinic visit: The following were stressed by the pt: - pain is intermittentand worse with ambulation, ie plantarfasciitis. - alot of pain at night to sinus tarsi, and base of lateral column; electric shock nocturnal. - pt sees nonVA DPM for plantar fasciitis and gets injections and uses cam boot, and pt continues to see the DPM nonVA doctor. - pt dx by DPM with plantar fasciitis, b/l feet, with pain especially in the morning getting out of bed. - the third, fourth and fifth digits to the right foot go numb per pt during walking. - pt gets radiating pain, sharp in nature, to the lateral malleolar region to the left ankle Left in chart: Multiple joint pain; neck shoulders; lower back; left hip; left ankle; carpal tunnel release; and ball of foot; arches and digits. The plantar fasciitis is in the mid foot and not the heels. Fibromyalgia, ie cervical, hips, ankles and wrists. Pt denies rest pain or claudication. Pt denies any recent injuries to the feet. Pt denies any history of ulceration or slow helaing wounds. Pt relates no other foot complaints at this time. Pt relates no other foot complaints at this time. SOCIAL HISTORY: Pt states does not smoke. Patient drinks alcohol: denies Patient uses recreational drugs: denies Family history of diabetes: brother; grandmother and aunt on mother's side. 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 Indication: FOR CARDIOVASCULAR DISEASE 2) CITALOPRAM HYDROBROMIDE 10MG TAB TAKE ONE-HALF TABLET BY ACTIVE MOUTH EVERY MORNING FOR DEPRESSION 3) FLUTICASONE PROP 50MCG 120D NASAL INHL INSTILL 1 SPRAY IN ACTIVE NOSTRIL(S) ONCE A DAY FOR ALLERGIES (MUST BE USED DIRECTED FOR MINIMUM OF 21 DAYS TO PROVIDE ADEQUATE BENEFITS) 4) LORATADINE 10MG TAB TAKE ONE TABLET BY MOUTH ONCE A DAY ON ACTIVE EMPTY STOMACH Indication: FOR ALLERGIES 5) METHOCARBAMOL 500MG TAB TAKE 1 TABLET BY MOUTH AT BEDTIME ACTIVE NEEDED Indication: FOR MUSCLE SPASM 6) PRAVASTATIN NA 40MG TAB TAKE ONE TABLET BY MOUTH EVERY ACTIVE EVENING TO LOWER CHOLESTEROL (REPORT ANY MUSCLE PAIN OR WEAKNESS) 7) PREGABALIN 75MG ORAL CAP TAKE ONE CAPSULE BY MOUTH TWICE A ACTIVE DAY *MAY CAUSE DROWSINESS* Indication: FOR NERVE PAIN 8) PROPAFENONE HCL 150MG TAB TAKE ONE TABLET BY MOUTH TWICE A ACTIVE DAY FOR HEART. Active Outpatient Medications (including Supplies): Active Outpatient Medications Status 1) ASPIRIN 81MG EC TAB TAKE ONE TABLET BY MOUTH ONCE A DAY ACTIVE TAKE WITH FOOD. Indication: FOR CARDIOVASCULAR DISEASE 2) CITALOPRAM HYDROBROMIDE 10MG TAB TAKE ONE-HALF TABLET BY ACTIVE MOUTH EVERY MORNING FOR DEPRESSION 3) FLUTICASONE PROP 50MCG 120D NASAL INHL INSTILL 1 SPRAY IN ACTIVE NOSTRIL(S) ONCE A DAY FOR ALLERGIES (MUST BE USED DIRECTED FOR MINIMUM OF 21 DAYS TO PROVIDE ADEQUATE BENEFITS) 4) LORATADINE 10MG TAB TAKE ONE TABLET BY MOUTH ONCE A DAY ON ACTIVE EMPTY STOMACH Indication: FOR ALLERGIES 5) METHOCARBAMOL 500MG TAB TAKE 1 TABLET BY MOUTH AT BEDTIME ACTIVE NEEDED Indication: FOR MUSCLE SPASM 6) PRAVASTATIN NA 40MG TAB TAKE ONE TABLET BY MOUTH EVERY ACTIVE EVENING TO LOWER CHOLESTEROL (REPORT ANY MUSCLE PAIN OR WEAKNESS) 7) PREGABALIN 75MG ORAL CAP TAKE ONE CAPSULE BY MOUTH TWICE A ACTIVE DAY *MAY CAUSE DROWSINESS* Indication: FOR NERVE PAIN 8) PROPAFENONE HCL 150MG TAB TAKE ONE TABLET BY MOUTH TWICE A ACTIVE DAY FOR HEART. 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 STREP PNEU 18) Vaginitis 19) Sinusitis * (ICD-9-CM 473.9) 20) Low Back Pain * (ICD-9-CM 724.2) 21) Cervicalgia (SNOMED CT 38582611) 22) Hearing Loss, Sensorineural, Unspecified 23) Unresolved [...] (ICD-9-CM 719.41) 32) Vaginal discharge (SNOMED CT 169512156) 33) Neuroma (SNOMED CT 020309815) 34) Deficiency of other vitamins 35) Abnormal [...] 51) Acquired deformity of foot 52) Neuritis Objective: Pt. presents ambulating in leather everyday footwear without assistance and oriented x 3. Few changes to the following objective findings from the last clinic visit on Last clinic appt on Jun 12, 2021 Vasc: DP and PT pulses are palpable 1/4 b/l. CFT < 4 seconds b/l. Hair growth is present on the digits, b/l feet. There is mild ankle edema present, b/l extremities. Neuro: Protective sensation is normal at all sites tested with Korbel Lillian 5.07 Monofilament to both feet. tinel to the posterior tibial nerve, right foot Derm: neg varicosities dorsum of foot b/l. Nails are trimmed by patient. No evidence of infection, ie no erythema, no drainage, no edema, no cellulitis, no odor. Web spaces are clean and dry. There are no open lesions. No evidence of ulcerations or breaks in the skin. No evidence of infection, ie no erythema, no drainage, no edema, no cellulitis, no odor. Inflamed keratosis: 0 , right foot; and 0 , left foot. Apr 07, 2024 exam: plantar fibroma appearing lesion, left foot central band of the plantar fascia, 1cm x 1cm x .3cm, fixed, firm and non fluctuant. No evidence of skin changes or signs of infection. Ortho: 1st MPJ ROM within normal limits, left foot and < 20 degrees right foot There is no pain or crepitus noted to the joint. Inversion and Eversion ROM to the foot is within normal limits without pain or crepitus. Ankle joint ROM is diminished < 3 degrees, b/l. There is pain with deep massage to anatomical structures to the left foot with supination of the foot and STJ pain. Manual muscle testing in all biomechanical planes, ie supination, pronation, dorsiflexion, plantarfexion, abduction, and adduction, are normal, ie 5/5, b/l feet. pes cavus, b/l feet +++ hallux limitus, right foot ankle equinus, b/l feet mild hammer toes: 2-5, b/l feet bunion defomity with hallux abductovalgus formation, right foot stance/gait: with pronation plantar fibroma appearing lesion, left foot central band of the plantar fascia. Assessment: left and right foot pain left ankle djd and arthralgia plantar fasciitis, b/l neuralgia and neuritis left foot pes cavus, b/l feet hallux limitus, right foot ankle equinus, b/l feet mild hammer toes: 2-5, b/l feet bunion defomity with hallux abductovalgus formation, right foot stance/gait: with pronation tarsal tunnel syndrome, right plantar fibroma appearing lesion, left foot central band of the plantar fascia foot deformities,b/l Plan: Exam x-rays of the left foot and right foot taken on Mar 09, 2024 radiologist comments: refer to the film reports for details Discussed in detail -- footwear and orthosis extensively. Pt to continue with her post surgical care with nonVA foot surgeon. left in the note from the previous examination and applies at this current visit. Pt's pcp needs to address multiple joint pain as they may apply to rheumatologic disorders, etc. Pt continues to see her nonVA Sales Hunter for her feet. Not much more this [facility] manager field service can offer the pt at this time other than shoes. The pt's non VA doctor is treating her plantar fibroma left foot. The pt agreed with the plan, and voice understanding with the discussion and plan. Pt given clinic phone numbers. Prosthetics - none today Note: The patient left the clinic space with no adverse verbal statements with the care today, and had no verbal complaints with the podiatry staff. Pt vists PCP annually. (Emily). Pt to call in several months for update. Patient instructed to go to [facility], or contact their PCP with new pedal complaints, and if there are concerns or questions. Example includes infection. The pt voiced understanding of infectionsuch as red, hot, swollen, and streaking foot that may be accompanied with or without f/c/n/v/d/m/chest pain sob/leg pain. Time spent: 45 minutes chart review, interview, physical examination, x-ray receive, counseling/teaching, and documentation /colt/ JENNY GARCIA D.P.M. Staff Physician - Podiatry Signed: 05/20/2024 16:31 JENNY GARCIA [facility]
--- OUTSIDE RECORDS SUMMARY | 2024-06-17 16:06 | XMS_ITS | Encounter Summary ---
Author Name [facility] Organization [facility] Address [address] [place] [address] Care Team Providers Care Development Coordinator Name Role Phone THANH ZAZUETA Primary Care [...] [employer] VIS[employer] N PLAN May 17, 2016 [id number] [phone] KADI MARTINEZ PATIENT EYEMED (WNR) VISION VISIO N May 17, 2019 [id number] [phone] KADI MARTINEZ PATIENT MEDICARE (WNR) MEDICARE (M) PART B Nov 14, 2022 PART B [id number] KADI MARTINEZ PATIENT MEDICARE (WNR) MEDICARE (M) PART A Nov 14, 2022 PART A [id number] [phone] KADI MARTINEZ PATIENT Selected Encounter This section includes the information on record at [place] for the Encounter. Date/Time Encounter Type Encounter Description Reason Pro vider Source Mar 10, 2024 09:11 AM Outpatient Encounter GENERAL INTERNAL MEDICINE IHE Encounter Template Text not used by [facility] Plan of Treatment: Future Appointments (+ 6 months) and Future Tests (+/- 45 days) The Plan of Treatment section includes future care activities for the [facility] This section includes future appointments and future orders which are active, pending or scheduled. Future Appointments This section includes appointments that were scheduled to occur 6 months from the date of the Encounter, up to a maximum of 20 appointments. The data comes from all [place] treatment [facility]. Appointment Date/Time Appointment Type Appointme nt Facility Name Mar 15, 2024 09:00 AM AMBULATORY - MEDICINE [facility] Mar 20, 2024 10:40 AM AMBULATORY - SURGERY [facility] Apr 06, 2024 11:00 AM AMBULATORY - NONE [facility] Apr 07, 2024 09:30 AM AM[facility]ULATORY - [facility]ERY [facility] Apr 25, 2024 02:30 AM AMBULATORY - SUR[facility]ERY [facility] Jun 28, 2024 07:30 AM AMBULATORY - [facility]ERY [facility] Jul 25, 2024 10:00 AM AMBULATORY - SURGERY [facility] Aug 22, 2024 10:45 AM AMBULATORY - [facility]ERY [facility] Active, Pending, and Scheduled Orders This section includes a listing of several types of active, pending, and scheduled orders, including clinic medications orders, diagnostic test orders, procedure orders and consult orders; where the start date of the order is 45 days before the date of the Encounter or 45 days after the date of theEncounter. The data comes from all [facility]. Test Date/Time Test Type Test Details Facility Name Mar 13, 2024 03:23 PM Consult Order [facility] NEUROSURGERY Cons Learning And Development Director's [facility] Lab Results: +/- 30 days of the encounter This section includes the Chemistry and Hematology Lab Results on record with [place] for the patient. Radiology Reports and Pathology Reports are provided separately, in subsequent sections. Lab Results This section contains the Chemistry/Hematology Results that were resulted 30 days before or 30 daysafter the date of the Encounter. Date/Time Source Result Type Result - Unit Interpretation Reference Range Comment Mar 09, 2024 11:30 AM [facility] LIPID PANEL (STL) Specimen Type: PLASMA Comment: No hemolysis noted. Ordering Provider: WARREN ZAZUETA Report Released Date/Time: Mar 09, 2024 10:49 AM Reporting Lab: [facility] [address] [address] Performing Lab: [facility] [address] [place] [phone] CHOLESTEROL 160 mg/dL 0-200 TRIGLYCERIDE 46 mg/dL 0-150 CALCULATED LDL 95 mg/dL HDL(New) 56 mg/dL >40 Mar 09, 2024 11:30 AM [facility] HGA1C Specimen Type: BLOOD No comment entered. Ordering Provider: WARREN ZAZUETA Report Released Date/Time: Mar 09, 2024 10:49 AM Reporting Lab: [address] [address] Performing Lab: [facility] [address] [place] [phone] HGA1C 5.6 4.0-6.0 Mar 09, 2024 11:30 AM [facility] TSH W/ REFLEX FT4 (STL) Specimen Type: PLASMA No comment entered. Ordering Provider: WARREN ZAZUETA Report Released Date/Time: Mar 09, 2024 10:49 AM Reporting Lab: [facility] [address] [place] [phone] Performing Lab: [facility] [address] [place] [phone] TSH 2.453 u[IU]/mL 0.47-5 Mar 09, 2024 11:30 AM [facility] AMYLASE Specimen Type: PLASMA Comment: No hemolysis noted. Ordering Provider: WARREN ZAZUETA Report Released Date/Time: Mar 09, 2024 11:00 AM Reporting Lab: [facility] [address] [address] Performing Lab: [address] [address] AMYLASE 155 U/L H 25-125 Mar 09, 2024 11:30 AM [facility] VITAMIN D, 25-HYDROXY Specimen Type: SERUM No comment entered. Ordering Provider: WARREN ZAZUETA Report Released Date/Time: Mar 09, 2024 10:49 AM Reporting Lab: [facility] [address] [place] [phone] Performing Lab: [address] [address] VITAMIN D, 25-HYDROXY 49.2 ng/mL 30-96 Mar 09, 2024 11:30 AM [facility] URINALYSIS (STL-PB) Specimen Type: URINE No comment entered. Ordering Provider: WARREN ZAZUETA Report Released Date/Time: Mar 09, 2024 10:49 AM Reporting Lab: [facility] [address] [place] [phone] Performing Lab: [address] [address] URINE COLOR Colorless Yellow U.BILIRUBIN Negative mg/dL Negative U.PH 7.0 5.0-8.0 APPEARANCE Clear Clear U.NITRITE Negative mg/dL Negative URN.GLUCOSE Normal mg/dL Negative URN.PROTEIN Negative mg/dL URN.UROBILINOGEN Normal mg/dL Normal URN.BLOOD Negative mg/dL Negative-Tra ce URN.KETONES Negative mg/dL Negative-Tra ce URN.LEUK.EST. Negative mg/dL Negative-Tra ce URN.SPECIFIC GRAVITY 1.004 L Mar 09, 2024 11:30 AM [facility] LIPASE Specimen Type: PLASMA Comment: No hemolysis noted. Ordering Provider: WARREN ZAZUETA Report Released Date/Time: Mar 09, 2024 11:00 AM Reporting Lab: [facility] [address] [place] [phone] Performing Lab: [facility] [address] [place] [phone] LIPASE 267 U/L H 8-78 Mar 09, 2024 11:30 AM [facility] COMPREHENSIVE METABOLIC PANEL Specimen Type: PLASMA Comment: No hemolysis noted. Ordering Provider: WARREN ZAZUETA Report Released Date/Time: Mar 09, 2024 10:49 AM Reporting Lab: [facility] [address] [place] [phone] Performing Lab: [address] [address] CREATININE 0.96 mg/dL 0.6-1.1 UREA NITROGEN 16.6 [...] 65.3 >60 Mar 09, 2024 11:30 AM [facility] CBC Specimen Type: BLOOD No comment entered. Ordering Provider: WARREN ZAZUETA Report Released Date/Time: Mar 09, 2024 10:49 AM Reporting Lab: [facility] [address] [place] [phone] Performing Lab: [address] [address] WBC 4.2 10*3/uL 3.6-11.2 RBC 3.56 10*6/uL [...] and tobacco- related health factors from the [place] facility where the Encounter took place. Current Smoking Status This section includes the most current smoking, or tobacco-related health factor, from the [place] facility where the Encounter took place. Date/Time Current Smoking Status Comment [place] Jan 15, 2016 10:21 AM LIFETIME NON-USER OF TOBACCO [facility] Tobacco Use History This section includes a history of the smoking, or tobacco-related health factors, that were collected on or before the date of the Encounter. The data comes from the [place] facility where the Encounter took place. Date/Time Smoking Status/Tobacco Use Comment F acility Mar 04, 2015 08:10 AM LIFETIME NON-USER OF TOBACCO [facility] Aug 02, 2006 11:04 AM LIFETIME NON-USER OF TOBACCO [facility] Dec 22, 2005 03:00 PM LIFETIME NON-TOBACCO USER [facility] Feb 17, 2005 03:19 PM LIFETIME NON-TOBACCO USER [facility] Jul 17, 2004 02:13 PM LIFETIME NON-TOBACCO USER [facility] Jul 17, 2004 01:43 PM LIFETIME NON-TOBACCO USER [facility] Advance Directives: All historical and current Section Date Range: From patient's date of to the date document was created. This section includes ALL of a patient's completed or amended [place] Advance and Rescinded Directives. The entries below indicate that a directive exists for the patient, but an actual copy is not included with this document. The data comes from all [facility]. Date Advance Directives Provider Source Feb 23, 2014 ADVANCE DIRECTIVE DISCUSSION ANGELITA AGUILA [facility] Radiology Reports: +/- 30 days of [...] the Encounter. The data comes from all [place] treatment facilities. Date/Time Radiology Report Provider Source Mar 15, 2024 08:52 AM US ABDOMEN LIMITED W/BLOOD FLOW DOPPLER: KADI MARTINEZ Phoebe [id number] -1955 F Exm Date: MAR 15, 2024@08:52 Req Phys: THANH ZAZUETA Pat Loc: [facility]-OLV PACT WH W2 PCP (Rebuddy'g L Img Loc: [facility]ULTRASOUND [facility] Service: [facility], [facility] [address] [place] [address] (Case [id number] COMPLETE) US ABDOMEN LTD, SINGLE ORG OR GENARO(US Detailed) CPT:04735 Reason for Study: pain RUQ (Case [id number] COMPLETE) US BLOOD FLOW ABD/RENAL (LTD) (US Detailed) CPT:47687 Clinical History: Organ to Image: RUQ Reason for exam: pain after eating Report Status: Verified Date Reported: MAR 15, 2024 Date Verified: MAR 15, 2024 Amplifier Mechanic E-Sig:/ES/SAMANTHA ALEMAN Report: DATE: 03/15/2024 8:52 AM EXAM: US ABDOMEN LTD, SINGLE ORG OR QUADRANT, US BLOOD FLOW ABD/RENAL (LTD) ACCESSION NUMBERS: [id number], [id number] HISTORY: pain RUQ Technique: Real-time ultrasound examination [...] disease, recommend clinical correlation. Ruperto Awad MD (Battery Technician) I, Samantha Aleman, have reviewed the images and report and concur with these findings. Primary Interpreting Staff: SAMANTHA ALEMAN MD (Amplifier Mechanic) Primary Interpreting Resident: RUPERTO AWAD, Resident Physician /SAMANTHA GONZALEZ [facility] Mar 09, 2024 12:28 PM KNEE,RIGHT 3 VIEWS: KADI MARTINEZ [id number] -1955 F Exm Date: MAR 09, 2024@12:28 Req Phys: THANH ZAZUETA Pat Loc: -OLV PACT WH W2 PCP (Req'g L Img Loc: -MAIN RADIOLOGY SUITE Service: [facility], [facility] [address] [place] [address] (Case [id number] COMPLETE) KNEE,RIGHT 3 VIEWS (RAD Detailed) CPT:95077 Proc Modifiers : RIGHT Reason for Study: right knee pain after fall Clinical History: Report Status: Verified Date Reported: MAR 09, 2024 Date Verified: MAR 09, 2024 Amplifier Mechanic E-Sig:/ES/AMARJIT TRACEY MD Report: Case #[id number]. Right [...] AMARJIT TRACEY MD, Staff Physician - Radiologist (Amplifier Mechanic) /CHRISTI VELARDE [facility] Mar 09, 2024 12:28 PM FOOT,RIGHT,3 VIEWS OR MORE: KADI MARTINEZ [id number] -1955 F Exm Date: MAR 09, 2024@12:28 Req Phys: THANH ZAZUETA Pat Loc: [facility]-OLV PACT W2 PCP (Req'g L Img Loc: [facility] RADIOLOG[facility] SUITE Service: Unknown [address] [address] (Case [id number] COMPLETE) FOOT,RIGHT,3 VIEWS OR MORE (RAD Detailed) CPT:54966 Proc Modifiers : RIGHT Reason for Study: foot pain Clinical History: Report Status: Verified Date Reported: MAR 09, 2024 Date Verified: MAR 09, 2024 Amplifier Mechanic E-Sig:/ES/AMARJIT TRACEY MD Report: Case #[id number]. [...] AMARJIT TRACEY MD, Staff Physician - Radiologist (Amplifier Mechanic) /CHRISTI VELARDE [facility] Mar 09, 2024 12:28 PM KNEE,LEFT, 3 VIEWS: KADI MARTINEZ [id number] -1955 F Exm Date: MAR 09, 2024@12:28 Req Phys: THANH ZAZUETA Loc: [facility]OLV PACT W2 PCP (Req'g L Img Loc: [facility] RAD[facility] SUITE Service: Unknown [address] [address] (Case [id number] COMPLETE) KNEE,LEFT, 3 VIEWS (RAD Detailed) CPT:09391 Proc Modifiers : LEFT Reason for Study: pain in knee Clinical History: Report Status: Verified Date Reported: MAR 09, 2024 Date Verified: MAR 09, 2024 Amplifier Mechanic E-Sig:/COLT/AMARJIT TRACEY MD Report: Case #[id number]. Left [...] AMARJIT TRACEY MD, Staff Physician - Radiologist (Amplifier Mechanic) /CHRISTI VELARDE [facility] Mar 09, 2024 12:28 PM FOOT,LEFT 3 VIEWS OR MORE: MICHELLEKADI Phoebe [id number] -1955 F Exm Date: MAR 09, 2024@12:28 Req Phys: THANH ZZAUETA Pat Loc: -OLV PACT WH W2 PCP (Req'g L Img Loc: -MAIN RADIOLOGY SUITE Service: [address] [address] (Case [id number] COMPLETE) FOOT,LEFT 3 VIEWS OR MORE (RAD Detailed) CPT:96029 Proc Modifiers : LEFT Reason for Study: foot pain Clinical History: Report Status: Verified Date Reported: MAR 09, 2024 Date Verified: MAR 09, 2024 Amplifier Mechanic E-Sig:/COLT/AMARJIT TRACEY MD Report: Case #[id number]. Left [...] AMARJIT TRACEY MD, Staff Physician - Radiologist (Amplifier Mechanic) /CHRISTI VELARDE [facility] Encounter Notes: All associated encounter notes This section contains the clinical notes associated to the Encounter. Date/Time Encounter Note(s) Provider Source Mar 10, 2024 09:11 AM NONVA NOTE: LOCAL TITLE: COMMUNITY CARE-CARE COORDINATION PLAN NOTE [address] TITLE: NONVA NOTE DATE OF NOTE: MAR 10, 2024@09:11 ENTRY DATE: MAR 10, 2024@09:11:27 AUTHOR: BAKARI MARIE EXP COSIGNER: URGENCY: STATUS: COMPLETED Provider Arielle from [facility] contacted [facility] to see if we had received an RFS for the . Fire Behavior Analyst informed her it had not been received, typewriter assembler reached out to the team Brittany Canas to see if they had received the RFS. /colt/ BAKARI MARIE AUTOMOBILE DEALER Signed: 03/10/2024 09:13 BAKARI MARIE [facility]
--- OUTSIDE RECORDS SUMMARY | 2024-06-17 16:06 | XMS_ITS | Data Portability ---
Author Organization [facility], Main Office Address [address] [place] [address] Care Team Providers Care Excelsior Cutter Name Role Phone SIRISHA TERRY Primary Care Provider [phone] SIRISHA TERRY Referring Provider Assessment Encounter Date Assessment Date Assessment LastModified by Organization Details LastModified Time 09/08/2022 09/08/2022 66-year-old female 11 weeks status post 1st extensor compartment release and left ring trigger finger release on 06/24/2022. Patient has had significant improvement of her wrist pain and trigger finger. She continues to have some swelling and increased sensitivity around the healed incision of the 1st extensor compartment and was reassured that this should improve with time. Patient may follow-up as needed if her symptoms recur. [email or web address] Not available 09/08/2022 17:21:30 Plan of Treatment Reminders Order Date Submit Date Provider Last Modified By Organization Details Last Modified Time Details Appointments None record ed. Lab None record ed. Referral None record ed. Procedures None record ed. Surgeries None record ed. Imaging None record ed. Medication Orders None record ed. Patient TargetsNo targets recorded. Patient InstructionsNo instructions recorded. Reason for Referral None Reported. Problems Name Problem SNOMED Code Status Onset Date Resolution Date Notes Provider Name and Address Organization Details Recorded Time Extensor tenosynovit is of wrist 728435310 Active 2022 MIKE Ramey, [facility] 13:48:26 Acquired trigger finger of right ring finger 6551680431818 08 Active 2022 MIKE Ramey, [facility] 13:48:36 Problem Notes None recorded. Procedures Surgical History Date Name Laterality Status Provider Name and Address Organization Details Recorded Time 1 excision of bunion completed Not Available [facility] 07/15/2022 21:12:31 0 procedure on wrist completed Not Available [facility] 07/15/2022 21:12:31 0 Implant cochlear device completed Not Available [facility] 07/15/2022 21:12:31 1 Carpal tunnel surgery completed Not Available [facility] 07/15/2022 21:12:31 1 Carpal tunnel surgery completed Not Available [facility] 07/15/2022 21:12:31 6 Carpal tunnel surgery completed Not Available [facility] 07/15/2022 21:12:31 0 delivery completed Not Available [facility] 07/15/2022 21:12:31 3 delivery completed Not Available [facility] 07/15/2022 21:12:31 7 extraction of wisdom tooth completed Not Available [facility] 07/15/2022 21:12:31 delivery completed Not Available [facility] 07/15/2022 21:12:31 Eye Surgery completed Not Available [facility] 07/15/2022 21:12:31 Anterior cervical decompression/ fusiom completed Not Available [facility] 07/15/2022 21:12:31 Imaging Results None recorded. Procedure Notes None recorded. Medical Equipment None Reported. Allergies Allergen ID Allergen Name Allergen Category Reaction Reaction Severity Criticality Documentation Date Start Date Code Code System Note Provider Name and Address Organization Details Recorded Time 02784 iodine medicatio n Not available Not available Not available 07/15/2022 5933 RxNorm Not Available [facility] 21:14:13 26018 codeine medicatio n vomiting Not available Not available 07/15/2022 2670 RxNorm Not Available [facility] 21:14:13 53417 Betadine medicatio n Not available Not available Not available 07/15/2022 43001 0 RxNorm Not Available [facility] 21:14:13 Medications Name Sig Start Date Stop Date Status Note LastModified by Organization Details LastModified Time propafenone 150 mg tablet Take 1 tablet every 8 hours by oral route. active Not Available Not Available No t Available cetirizine 10 mg tablet Take 1 tablet every day by oral route. 06/03 completed Not Available Not Available Not Available pravastatin 40 mg tablet Take 1 tablet every day by oral route. 2022 active Not Available Not Available Not Avai lable tramadol 37.5 mg-acetamin ophen 325 mg tablet 05/27 completed Not Available Not Available Not Available citalopram 10 mg tablet Take 1.5 tablets every day by oral route. 06/03 completed Not Available Not Available Not Available sulfamethox azole 800 mg-trimetho prim 160 mg tablet TAKE 1 TABLET BY MOUTH EVERY 12 HOURS FOR 5 DAYS 06/03 completed Not Available Not Available Not Available aspirin 81 mg tablet,camille yed release Take 1 tablet every day by oral route. active Not Available Not Available No t Available cefadroxil 500 mg capsule TAKE 2 CAPSULES BY MOUTH EVERY 24 HOURS UNTIL ALL TAKEN 06/03 completed Not Available Not Available Not Available Kenalog 10 mg/mL suspension for injection In office injection administe red by the provider 06/03 completed [facility]: [phone]- [phone] Not Available Not Available Not Available benzonatate 100 mg capsule TAKE 1 CAPSULE BY MOUTH THREE TIMES DAILY NEEDED FOR COUGH active Not Available Not Available No t Available cephalexin 500 mg capsule TAKE 1 CAPSULE BY MOUTH EVERY 12 HOURS FOR 5 DAYS 06/03 completed Not Available Not Available Not Available gabapentin 300 mg capsule Take 2 capsules every day by oral route. 06/03 completed Not Available Not Available Not Available diclofenac sodium 75 mg tablet,camille yed release TAKE 1 TABLET BY MOUTH TWICE DAILY 05/27 completed Not Available Not Available Not Available dexamethaso ne sodium phosphate 4 mg/mL injection solution USE 1 TO 2 ML UTD 06/03 completed Not Available Not Available Not Available methylpredn isolone 4 mg tablets in a dose pack FOLLOW PACKAGE DIRECTION S 05/27 completed Not Available Not Available Not Available cefdinir 300 mg capsule TAKE 1 CAPSULE BY MOUTH EVERY 12 HOURS active Not Available Not Available No t Available fluticasone propionate 50 mcg/actuati on nasal spray,suspe nsion 06/03 completed Not Available Not Available Not Available doxycycline hyclate 100 mg tablet TAKE 1 TABLET BY MOUTH EVERY 12 HOURS active Not Available Not Available No t Available loratadine 10 mg tablet active Not Available Not Available Not Available clindamycin phosphate 1 % topical solution APPLY 2 DROPS DAILY TO PROCEDURE SITE 06/03 completed Not Available Not Available Not Available Lexapro 5 mg tablet Take 1 tablet every day by oral route. 2022 active Not Available Not Available Not Avai lable pregabalin 75 mg capsule 05/27 completed Not Available Not Available Not Available pregabalin 100 mg capsule Take 1 capsule 3 times a day by oral route. 06/03 completed Not Available Not Available Not Available lidocaine (PF) 10 mg/mL (1 %) injection solution In office injection administe red by the provider 06/03 completed [facility]: [phone]- [phone] Not Available Not Available Not Available diclofenac 1 % topical gel APPLY 2 GRAMS TO THE AFFECTED AREA(S) BY TOPICAL ROUTE 4 TIMES PER DAY 05/27 completed Not Available Not Available Not Available Vitamin D3 50 mcg (2,000 unit) tablet active Not Available Not Available Not Available metoprolol succ 50 mg-hydrochl orothiazide 12.5 mg tablet,ext. rel 24 hr Take 1.5 tablets twice a day by oral route. 06/03 completed Not Available Not Available Not Available cyclosporin e 0.05 % eye drops INSTILL 1 DROP INTO AFFECTED EYE(S) BY OPHTHALMI C ROUTE EVERY 12 HOURS 05/27 completed Not Available Not Available Not Available ID NOW COVID-19 Test Kit TEST DIRECTED TODAY 06/03 completed Not Available Not Available Not Available Vitals Date Recorded Body mass index (BMI) Body mass index (BMI) Body height Body height Body weight Body weight Provider Name and Address Organization Details Last Updated DateTime 07/15/2022 28.2 kg/m2 28.2 kg/m2 162.56 cm 162.56 cm 02078.1 5 g 04560.1 5 g Not Available [facility] 3 21:12:39 Date Recorded Body height Body mass index (BMI) Body weight Provider Name and Address Organization Details Last Updated DateTime 09/08/2022 162.56 cm 27.6 kg/m2 47675.37 g Gregory Romeo [employer] [facility] [employer] [facility] 09/08/2022 13:47:58 Social History Question Answer Notes LastModified by Organizat ion Details LastModified Time Tobacco Smoking Status Never Smoker Shea Russell null, [facility] 09/08/2022 13:45:59 What Is Your Level Of Alcohol Consumption? None [id number] Information not available 07/15/2022 What Was The Date Of Your Most Recent Tobacco Screening? 06/03/2022 [email or web address] Information not available 09/08/2022 Sex: Unknown Functional Status None recorded. Mental Status None recorded. Family History Relationship Description Onset Age of this Age Resolved Age Notes LastModified by Organization Details LastModified Time Mother Hypertensive disorder [id number] Not available 07/15/2022 21:12:32 Mother Kidney disease [id number] Not available 07/15/2022 21:12:32 Brother Diabetes mellitus [id number] Not available 07/15/2022 21:12:32 Sister Diabetes mellitus [id number] Not available 07/15/2022 21:12:32 Medical History Condition Response LUNG DISEASE/DISORDER Y HEART ARRHYTHMIA Y Gynecological HistoryNo gynecological history recorded. Obstetrics History GPAL:G 0 P 0 0 0 0 Past Encounters Encounter ID Performer Location Encounter Start Date Encounter Closed Date Diagnosis/Indication Diagnosis SNOMED-CT Code Diagnosis ICD10 Code Diagnosis Note [id number] [facility] [address] [place] [address] 06/03/2022 00:00:00 06/03/2022 16:01:17 [id number] [facility] [address] [place] [address] 07/07/2022 00:00:00 07/07/2022 17:32:10 [id number] JEFF Lobato [facility] [address] [place] [address] 09/08/2022 13:44:42 09/08/2022 14:14:20 Extensor tenosynovitis of wrist 846952190 M65.839 Acquired t wire rigger finger of right ring finger 2750595328 21753 M65.341 Health Concerns Section Related Observation LastModified by Organization Detai ls LastModified Time None Recorded Concern Status LastModified by Organization Details LastModified Time None Recorded Advance Directives Directive None Recorded Payers Encounter Date Sequence Insurance Name Policy Number Policy Hoffmann Covered Member ID Hoffmann Member ID Guarantor Name 09/08/2022 1 [facility] () Antonio Blake [id number] Charo Blake Notes Date Note Type Note Provider Name and Address Organization Details Recorded Time 09/08/2022 text/html 66-year-old fema le about 11 weeks status post right 1st extensor compartment release and right ring trigger finger release on 06/24/2022. Patient is doing well postoperatively and has not had any recurrence of her trigger finger locking. She continues to have some increased sensitivity around the incisions, which have healed nicely. She denies any pain in her wrist with ulnar deviation or lifting objects. JEFF Lobato [address] [place] [address], [facility] [address], [place], [address], [facility] 09/08/2022 17:21:53 OBGyn Episode No OBEpisode recorded.
--- OUTSIDE RECORDS SUMMARY | 2024-06-17 16:06 | XMS_ITS ---
Author Name [facility] Address [address] [place] [address] Care Team Providers Care Steel Post Installer Name Role Phone THANH ZAZUETA Primary Care [...] [employer] VISIO N PLAN May 17, 2016 [id number] [phone] KADI MARTINEZ PATIENT EYEMED (WNR) VISION VISIO N May 17, 2019 [id number] [phone] KADI MARTINEZ PATIENT MEDICARE (WNR) MEDICARE (M) PART A Nov 14, 2022 PART A [id number] KADI MARTINEZ PATIENT MEDICARE (WNR) MEDICARE (M) PART B Nov 14, 2022 PART B [id number] MARTINEZKADI PATIENT Selected Encounter This section includes the information on record at [place] for the Encounter. Date/Time Encounter Type Encounter Description Reason Provider Source Jun 24, 2023 10:30 AM MANUAL THERAPY 1/> [facility] ICD-10-CM M54.2 Cervicalgia WESTLYNN Lebron [facility] Encounter Template Text not used by [facility] Assessments - Encounter Diagnoses This section includes the primary and secondary diagnoses documented for the Encounter. Date/Time Primary/Secondary Diagnosis Diagnosis Name Provider Source Jun 24, 2023 12:17 PM PRIMARY Cervicalgia WESTLYNN Lebron [facility] Plan of Treatment: Future Appointments (+ 6 months) and Future Tests (+/- 45 days) The Plan of Treatment section includes future care activities for the patient from all [place] treatmentfacilities. This section includes future appointments and future orders which are active, pending or scheduled. Future Appointments This section includes appointments that were scheduled to occur 6 months from the date of the Encounter, up to a maximum of 20 appointments. The data comes from all [place] treatment facilities. Appointment Date/Time Appointment Type Appointme nt Facility Name Jul 06, 2023 10:30 AM AMBULATORY - MEDICINE [facility] Jul 13, 2023 10:00 AM AMBULATORY - REHAB [facility]ICIN [facility] Jul 15, 2023 09:00 AM AMBULATORY - REHAB MEDICIN E [facility] Jul 28, 2023 09:30 AM AMBULATORY - SURGERY [facility] Jul 28, 2023 02:00 PM AMBULATORY - MEDICINE [facility] Aug 02, 2023 01:00 PM AMBULATORY - MEDICINE [facility] Aug 05, 2023 10:00 AM AMBULATORY - REHAB MEDICIN E [facility] Aug 09, 2023 09:30 AM AMBULATORY - NONE [facility] Aug 17, 2023 10:30 AM AMBULATORY - REHAB MEDICIN E [facility] Sep 01, 2023 09:30 AM AMBULATORY - REHAB MEDICIN E [facility] Sep 02, 2023 05:00 PM AMBULATORY - MEDICINE [facility] Sep 07, 2023 08:00 AM AMBULATORY - NONE [facility] Sep 08, 2023 10:00 AM AMBULATORY - NONE [facility] Advance Directives: All historical and current [...] 23, 2014 ADVANCE DIRECTIVE DISCUSSION ANGELITA AGUILA [facility] Radiology Reports: +/- 30 days of [...] the Encounter. The data comes from all [place] treatment facilities. Date/Time Radiology Report Provider Source Jun 04, 2023 11:17 AM MRI SPINE CERVICAL W/O CONT: KADI MARTINEZ [id number] -1955 F Exm Date: JUN 04, 2023@11:17 Req Phys: ISAIAS MOY Pat Loc: V15 [facility] PAIN 01 F2F (Req'g Img Loc: [facility] Service: Unknown (Case [id number] COMPLETE) MRI SPINE CERVICAL W/O CONT (MRI Detailed) CPT:13632 Reason for Study: neck pain radiating into the right upper extremity Clinical History: Has this patient had a plain film x-ray of this associated spine within the past 6 months? Yes If the above answer is no, please order an x-ray of the associated spine along with the MRI. These studies will be performed during the same patient encounter. Date of plain film x-ray performed? Dec Does your patient have an implanted device or hardware? (Any prosthesis, implant, shrapnel or bullet fragments) Yes Does your patient have any of the following (Please check all that apply) [ ] Pacemaker [ ] AICD [ ] Neuro-stimulator [ ] Bone Growth Stimulator [ ] Pain Pump [ ] Insulin Pump [X] Cochlear Implant [ ] Ocular Implant [ ] Aneurysm Clip [ ] Vascular Clip Any other type of implant, please explain *C5-C6 disc fusion with plate, and right foot bunion correction with two screws. has had MRIs since all of the above Does your patient have a Coronary Stent: No Does your patient have a an artificial Heart Valve: No Were any of the following intravascular implanted devices inserted less than 6 weeks ago: Stent No IVC Filter No Embolization Coils No Is your patient's weight >350lbs or abdominal and shoulder width >60cm? No Does your patient have Renal Failure, Chronic or Acute Renal Disease? No If ordering a contrasted enhanced MRI, you will be required to complete the order for creatine eGFR which is located at the bottom of the MRI ordering screen. If your patient is 60 years or older, the patient will need a recent eGFR within 30 days prior to the exam. NOTE: Incorrectly answering these questions may result in a delay in the procedure. A patient with a device or implant does not automatically mean the patient cannot receive an MRI. If your patient will have difficulty with a confined space, the provider will be responsible for ordering a sedation prior to the procedure, or to order an alternative procedure. Report Status: Verified Date Reported: JUN 04, 2023 Date Verified: JUN 04, 2023 Medical Reception Specialist E-Sig:/ES/HAYES BOOKER Report: INDICATION: neck pain radiating into the right upper extremity COMPARISON: Radiographs 01/03/2023. MRI 12/31/2015. TECHNIQUE: MRI cervical spine without intravenous contrast FINDINGS: Straightening. There is mild anterolisthesis at C4-C5. There is susceptibly artifact arising from postsurgical changes of anterior discectomy and interbody fusion procedure at C5-C6. On radiographs, the right greater than left C7 cervical ribs. No suspicious marrow replacing lesion. Artifact limits evaluation of spinal cord signal. C2-C3: Caliber of the neuroforamina grossly unchanged. No significant central canal stenosis. Facet arthropathy asymmetric on the right. C3-C4: Mild left-sided neuroforaminal stenosis. Caliber of the central canal grossly unchanged. Facet arthropathy asymmetric on the right. C4-C5: Disc bulge with superimposed shallow central and left paracentral disc protrusion. Mild right-sided neuroforaminal stenosis. Mild central canal stenosis. C5-C6: Artifact limits evaluation. The thecal sac is patent. C6-C7: No significant no foraminal stenosis. Disc bulge with superimposed shallow left paracentral disc protrusion. Mild central canal stenosis. C7-T1: No significant neuroforaminal stenosis. No significant central canal stenosis. Minimal disc bulge. T1-T2: There is mildly increased right neuroforaminal stenosis. Impression: Postsurgical changes of discectomy and interbody fusion procedure at C5-C6. Degenerative disc disease has slightly progressed since December 2015. Primary Interpreting Staff: HAYES BOOKER, RADIOLOGIST (Medical Reception Specialist) /HAYES SHAHID [facility] Encounter Notes: All associated encounter notes This section contains the clinical notes associated to the Encounter. Date/Time Encounter Note(s) Provider Source Jun 24, 2023 10:42 AM PHYSICAL MEDICINE REHAB NOTE: LOCAL TITLE: PT DAILY [facility] STANDARD TITLE: PHYSICAL MEDICINE REHAB NOTE DATE OF NOTE: JUN 24, 2023@10:42 ENTRY DATE: JUN 24, 2023@10:43:06 AUTHOR: LYNN DODSON EXP COSIGNER: URGENCY: STATUS: COMPLETED Chart Review: Imaging Chart Review: PMH including: --- Referring provider: THANH ZAZUETA Start of Care: 04/27/2023 Reevaluation due:04/27/2024 POC through: 07/27/2023 Visits to date: 5 No shows/cancellations: 0 Diagnosis: Cervicalgia(ICD-10-CM M54.2) Treatment time: Total: 20 mins. Therapeutic exercise:10 mins. Manual Therapy:10 mins Self care-management: mins Mechanical traction: mins reassessment: mins neuro re ed : mins *checked in at 10:38* Todays subjective: Patient reports neck is doing OK, thinks walking while on vacation helps. EVAL Subjective: Pt reports neck pain and [...] Active Chintan. Shoulder Flexion: increased neck pain, Quadruped Rock Back: NT, hx of wrist pain Treatment: Therapeutic exercise: -lst rib mobilization with belt/theracane with movement. -standing flexion stretch using sink-increased low back pain. Pt was instructed in and demonstrated independence [...] reps -hooklying serratus anterior punch Manual Therapy: -strumming cervical PMV's -MWMT, 1st rib mobs with sidebending and rotation -right subclavius release neuro re-ed-added to HEP [] seated on Bangladeshi ball medial/lateral bounce slow down to a stop 5-10 sec x 3 reps [] seated on lebanese ball vertical bounce slow down to a stop 5-10 sec x 3 reps taping [] posterior superior tape to support R Rib at level T3-T4 / area of tenderness Patient education: -discussed sitting postures, looking down at phone, breaks with crotching -reviewed previous PT neck pain(neck stretches, ROM, chin tucks) -reviewed previous vestibular rehab (VOR, balance exercises) Mechanical traction: Assessment: Pt noted improved right cervical rotation with 1st rib mobilization and subclavius release. Instructed on 1st rib mobilzation with belt or theracane. Patient would benefit from PT to improve ROM, scapular mechanics and posture awareness. tx tolerance: minimal complaints of pain. utes spent on above code: Goals: Short term:(4 weeks) 1) Pt. will demonstrate independence with current HEP x 1 (met) 2) Pt. will verbalize 8/10 pain at worst (ongoing) 3) Pt. will demonstrate independence with sitting, standing, and sleeping postures.(ongoing) Correction: (12 weeks) 1) Pt. will demonstrate independence with current HEP x 1 2) Pt. will verbalize 4/10 pain at worst to assist with ADL's 3) Pt will improve b/l shoulder flexion to 165 deg b/l without pain indicating improved scapular mechanics and ADL's. --BARRIERS: [] NONE. [] Complexities/Conditions/Circ umstances that [...] instruction /es/ LYNN DODSON Physical Therapist Signed: 06/24/2023 12:17 LYNN DODSON [facility]
--- OUTSIDE RECORDS SUMMARY | 2024-06-17 16:06 | XMS_ITS | Clinical Summary ---
Author Organization [facility] Address [address] [place] [address]. [place], [place] [address] [place] [id number] Care Team Providers Care State Tested Nursing Assistant Name Role Phone Unavailable Primary Care Provider Unavailabl e Social History Tobacco Use Types Packs/Day Years Used Date Smoking Tobacco: Never Assessed Comments Unknown Sex and Gender Information Value Date Recorded Sex Assigned at Not on file Legal Sex Female 5:10 PM CDT Gender Identity Not on file Sexual Orientation Not on file Plan of Treatment Health Maintenance Due Date Last Done Comments Colorectal Cancer Screening Colonoscopy (10 Years) 1955 Hepatitis C 12/01/1975 DTaP, Tdap and Td Vaccines ( 1 - Tdap) 1976 Mammogram Screening 1997 Zoster Vaccines (1 of 2) 12/01/2007 Dexa Scan (General) 2022 Pneumococcal Vaccine: 65+ Ye ars (1 of 1 - PCV) 2022 COVID-19 Vaccine ( - 2023-2 5 season) 2024 Influenza Adult (#1) 2024 RSV Immunization or 60+ Years (1 - 1-dose 75+ series) 2032 Meningococcal B Vaccine Aged Out No l onger eligible based on patient's age to complete this topic Meningococcal Vaccine Aged Out No danny favio eligible based on patient's age to complete this topic RSV Immunizations Under 20 Months Aged Out No longer eligible based on patient's age to complete this topic
--- OUTSIDE RECORDS SUMMARY | 2024-06-17 16:07 | XMS_ITS | Encounter Summary ---
Author Name [place] Address [address] [place] [address] Care Team Providers Care Disability Aide Name Role Phone THANH ZAZUETA Primary Care [...] [employer] VISIO N PLAN May 17, 2016 [id number] [phone] KADI MARTINEZ PATIENT EYEMED (WNR) VISION VISIO N May 17, 2019 [id number] [phone] KADI MARTINEZ PATIENT MEDICARE (WNR) MEDICARE (M) PART B Nov 14, 2022 PART B [id number] KADI MARTINEZ PATIENT MEDICARE (WNR) MEDICARE (M) PART A Nov 14, 2022 PART A [id number] [phone] KADI MARTINEZ PATIENT Selected Encounter This section includes the information on record at [place] for the Encounter. Date/Time Encounter Type Encounter Description Reason Provider Source Sep 01, 2023 09:30 AM SELF CARE MNGMENT TRAINING PHYSICAL THERAPY ICD-10-CM M54.2 Cervicalgia KAROLINA DODSONIN [facility] Encounter Template Text not used by [facility] Assessments - Encounter Diagnoses This section includes the primary and secondary diagnoses documented for the Encounter. Date/Time Primary/Secondary Diagnosis Diagnosis Name Provider Source Sep 01, 2023 11:02 AM PRIMARY Cervicalgia LYNN DODSON [facility] Plan of Treatment: Future Appointments (+ 6 months) and Future Tests (+/- 45 days) The Plan of Treatment section includes future care activities for the patient from all [place] treatmentfacilities. This section includes future appointments and future orders which are active, pending or scheduled. Future Appointments This section includes appointments that were scheduled to occur 6 months from the date of the Encounter, up to a maximum of 20 appointments. The data comes from all [place] treatment facilities. Appointment Date/Time Appointment Type Appointme nt Facility Name Sep 02, 2023 05:00 PM AMBULATORY - MEDICINE [facility] Sep 07, 2023 08:00 AM AMBULATORY - NONE [facility] Sep 08, 2023 10:00 AM AMBULATORY - NONE [facility] Jan 19, 2024 01:00 PM AMBULATORY - NONE . [facility] Jan 26, 2024 09:30 AM AMBULATORY - SURGERY . [facility] Feb 29, 2024 01:30 PM AMBULATORY - MEDICINE [facility] Advance Directives: All historical and current Section Date Range: From patient's date of to the date document was created. This section includes ALL of a patient's completed or amended [place] Advance and Rescinded Directives. The entries below indicate that a directive exists for the patient, but an actual copy is not included with this document. The data comes from all [place] facilities. Date Advance Directives Provider Source Feb 23, 2014 ADVANCE DIRECTIVE DISCUSSION ANGEILTA AGUILA [facility] Encounter Notes: All associated encounter notes This section contains the clinical notes associated to the Encounter. Date/Time Encounter Note(s) Provider Source Sep 01, 2023 07:47 AM PHYSICAL THERAPY D ISCHARGE NOTE: LOCAL TITLE: PT DISCHARGE STL STANDARD TITLE: PHYSICAL THERAPY DISCHARGE NOTE DATE OF NOTE: SEP 01, 2023@07:47 ENTRY DATE: SEP 01, 2023@07:47:44 AUTHOR: LYNN DODSON EXP COSIGNER: URGENCY: STATUS: COMPLETED Chart Review: Imaging Chart Review: [facility] including: --- Referring provider: THANH ZAZUETA Start of Care: 04/27/2023 Reevaluation due:04/27/2024 POC through: 07/27/2023 Visits to date: 8 No shows/cancellations: 0 Diagnosis: Cervicalgia(ICD-10-CM M54.2) Treatment time: Total: 25 mins. Therapeutic exercise:15 mins. Manual Therapy:10 mins Self care-management: mins Mechanical traction: mins reassessment: mins neuro re ed : mins Todays subjective 08/31: Patient reports neck is stiff, rates pain at 3-/10. Patient reports she is doing well with HEP. EVAL Subjective: Pt reports neck pain and [...] Assistive Device: none Posture: Functional gait assessment </ suggestive of falls <20 suggestive of falls in the next 6 months 05/12/23: Palpation: increased tenderness over right cervical PVM's, UT, 1st rib Active Chintan. Shoulder Flexion: increased neck pain, AROM Cervical: (* = pain) right left -cervical rotation 51 deg* 55 deg (08/31) -cervical lateral flexion 18 deg* 18 deg* -cervical flexion -cervical extension AROM Shoulder: (* = pain) right left -standing flexion 165 deg 165 deg (no neck pain with b/l shoulder flexion) -standing abduction Treatment: Therapeutic exercise: -standing serratus anterior press using table, hold 5 breaths x 5 -reviewed HEP Pt was instructed in and demonstrated independence [...] 2 x 10; reps -hooklying serratus anterior punch, x 30 reps -D2 with yellow TB, 3 x 10 reps -standing unilateral shoulder extension with yellow Tb. Manual Therapy: -right subclavius release neuro re-ed-added to HEP [] seated on Mauritian ball medial/lateral bounce slow down to a stop 5-10 sec x 3 reps [] seated on slovak ball vertical bounce slow down to a [...] Mechanical traction: Assessment: Patient reports subjective pain improvements overall, demonstates improved shoulder and cervical ROM. Patient has good understanding of HEP. Patient has likely reached max benefit from outpatient PT at this time. Patient would benefit from PT to improve ROM, scapular mechanics and posture awareness. tx tolerance: minimal complaints of pain. utes spent on above code: Goals: Short term:(4 weeks) 1) Pt. will demonstrate independence with current HEP x 1 (met) 2) Pt. will verbalize 8/10 pain at worst (met) 3) Pt. will demonstrate independence with sitting, standing, and sleeping postures.(ongoing) Long-Term: (12 weeks) 1) Pt. will demonstrate independence [...] instruction /es/ LYNN DODSON Physical Therapist Signed: 09/01/2023 11:05 LYNN DODSON [facility]
--- OUTSIDE RECORDS SUMMARY | 2024-06-17 16:07 | XMS_ITS | Encounter Summary ---
Author Name [facility] [place] [facility] [place] [facility] [place] Address [address] [place] [address] Care Team Providers Care Senior Facilities Manager Name Role Phone THANH ZAZUETA Primary Care [...] [employer] VIS[employer] PLAN May 17, 2016 [id number] [phone] KADI MARTINEZ PATIENT EYEMED (WNR) VISION VISIO N May 17, 2019 [id number] [phone] KADI MARTINEZ PATIENT MEDICARE (WNR) MEDICARE (M) PART A Nov 14, 2022 PART A [id number] [phone] KADI MARTINEZ PATIENT MEDICARE (WNR) MEDICARE (M) PART B Nov 14, 2022 PART B [id number] MARTINEZKADI PATIENT Selected Encounter This section includes the information on record at [place] for the Encounter. Date/Time Encounter Type Encounter Description Reason Provider Source Sep 07, 2023 08:00 AM DIAB SHOE FOR DENSITY INSERT PROSTHETICS/ORTHO TICS ICD-10-CM Z46.89 Encounter for fitting and adjustment of oth devices SAMANTHA SHARMA Phoebe Encounter Template Text not used by [place] Assessments - Encounter Diagnoses This section includes the primary and secondary diagnoses documented for the Encounter. Date/Time Primary/Secondary Diagnosis Diagnosis Name Provider Source Sep 07, 2023 01:28 PM PRIMARY Encounter for fitting and adjustment of oth devices SAMANTHA SHARMA [facility] Plan of Treatment: Future Appointments (+ 6 months) and Future Tests (+/- 45 days) The Plan of Treatment section includes future care activities for the patient from [facility] [place] [facility] This section includes future appointments and future orders which are active, pending or scheduled. Future Appointments This section includes appointments that were scheduled to occur 6 months from the date of the Encounter, up to a maximum of 20 appointments. The data comes from all [place] treatment facilities. Appointment Date/Time Appointment Type Appointme nt Facility Name Sep 08, 2023 10:00 AM AMBULATORY - NONE . [facility] Jan 19, 2024 01:00 PM AMBULATORY - NONE . [facility] Jan 26, 2024 09:30 AM AMBULATORY - SURGERY . [facility] Feb 29, 2024 01:30 PM AMBULATORY - MEDICINE [facility] Social History: Smoking Status (Most current) and Tobacco Use (All prior to encounter date) This section includes the most current, and the historical, smoking and tobacco- related health factors from the [place] facility where the Encounter took place. Current Smoking Status This section includes the most current smoking, or tobacco-related health factor, from the [place] facility where the Encounter took place. Date/Time Current Smoking Status Comment Nehal ity October 12, 2013 08:01 AM LIFETIME NON-USER OF TOBACCO [facility] Tobacco Use History This section includes a history of the smoking, or tobacco-related health factors, that were collected on or before the date of the Encounter. The data comes from the [place] facility where the Encounter took place. Date/Time Smoking Status/Tobacco Use Comment F acility Dec 13, 2012 08:02 AM LIFETIME NON-USER OF TOBACCO [facility] Advance Directives: All historical and current Section Date Range: From patient's date of to the date document was created. This section includes ALL of a patient's completed or amended [place] Advance and Rescinded Directives. The entries below indicate that a directive exists for the patient, but an actual copy is not included with this document. The data comes from all [place] facilities. Date Advance Directives Provider Source Feb 23, 2014 ADVANCE DIRECTIVE DISCUSSION ANGELITA AGUILA [facility] Encounter Notes: All associated encounter notes This section contains the clinical notes associated to the Encounter. Date/Time Encounter Note(s) Provider Source Sep 07, 2023 01:18 PM ORTHOTICS PROSTHET ICS CONSULT: LOCAL TITLE: PROSTHETICS CONSULT STL STANDARD TITLE: ORTHOTICS PROSTHETICS CONSULT DATE OF NOTE: SEP 07, 2023@13:18 ENTRY DATE: SEP 07, 2023@13:18:45 AUTHOR: SAMANTHA SHARMA EXP COSIGNER: URGENCY: STATUS: COMPLETED the pt was fit and issued 2 pr ed shoes [facility]. the pt was trial fit with all items and they were wnl. the pt walked with the shoes and they were wnl. the pt walked with the items in place and stated he was pleased with all. the pt was instructed in the proper break in period for the items issued, the pt had no questions or complaints. the pt was issued contact information and instructed to follow prn. 30 min. /colt/ SAMANTHA SHARMA Orthotic/Platform Supervisor Signed: 09/07/2023 13:28 SAMANTHA SHARMA [facility]
--- OUTSIDE RECORDS SUMMARY | 2024-06-17 16:07 | XMS_ITS | Encounter Summary ---
Author Name [facility] [place] Address [address] [place] [address] Care Team Providers Care Senior Audit Manager Name Role Phone THANH ZZAUETA Primary Care Provider Unavailsameer chacon Insurance Providers: [...] [employer] VISIO N PLAN May 17, 2016 [id number] [phone] KADI MARTINEZ PATIENT EYEMED (WNR) VISION VISIO N May 17, 2019 [id number] [phone] KADI MARTINEZ PATIENT MEDICARE (WNR) MEDICARE (M) PART A Nov 14, 2022 PART A [id number] KADI MARTINEZ PATIENT MEDICARE (WNR) MEDICARE (M) PART B Nov 14, 2022 PART B [id number] MARTINEZKADI PATIENT Selected Encounter This section includes the information on record at [place] for the Encounter. Date/Time Encounter Type Encounter Description Reason Provider Source Aug 02, 2023 01:00 PM PT EDUCATION NOC INDIVID SLEEP MEDICINE ICD-10-CM G47.36 Sleep related hypoventilation in conditions classd TAMMIE Fishman Encounter Template Text not used by [place] Assessments - Encounter Diagnoses This section includes the primary and secondary diagnoses documented for the Encounter. Date/Time Primary/Secondary Diagnosis Diagnosis Name Provider Source Aug 04, 2023 09:03 AM PRIMARY Sleep related hypoventilation in conditions classd ARTEMIO Hunter [facility] Plan of Treatment: Future Appointments (+ 6 months) and Future Tests (+/- 45 days) The Plan of Treatment section includes future care activities for the patient from [facility] [place] [facility] This section includes future appointments and future orders which are active, pending or scheduled. Future Appointments This section includes appointments that were scheduled to occur 6 months from the date of the Encounter, up to a maximum of 20 appointments. The data comes from all [place] treatment facilities. Appointment Date/Time Appointment Type Appointme nt Facility Name Aug 05, 2023 10:00 AM AMBULATORY - REHAB [facility] Aug 09, 2023 09:30 AM AMBULATORY - NONE [facility] Aug 17, 2023 10:30 AM AMBULATORY - REHAB MEDICIN E [facility] Sep 01, 2023 09:30 AM AMBULATORY - REHAB MEDICIN E [facility] Sep 02, 2023 05:00 PM AMBULATORY - MEDICINE [facility] Sep 07, 2023 08:00 AM AMBULATORY - NONE [facility] Sep 08, 2023 10:00 AM AMBULATORY - NONE [facility] Jan 19, 2024 01:00 PM AMBULATORY - NONE [facility] Jan 26, 2024 09:30 AM AMBULATORY - SURGERY [facility] Social History: Smoking Status (Most current) and [...] AM LIFETIME NON-USER OF TOBACCO [facility] Tobacco Use History This section includes a history of the smoking, or tobacco-related health factors, that were collected on or before the date of the Encounter. The data comes from the [place] facility where the Encounter took place. Date/Time Smoking Status/Tobacco Use Comment Mehreen acgaldino Mar 04, 2015 08:10 AM LIFETIME NON-USER OF TOBACCO [facility] Aug 02, 2006 11:04 AM LIFETIME NON-USER OF TOBACCO [facility] Dec 22, 2005 03:00 PM LIFETIME NON-TOBACCO USER [facility] Feb 17, 2005 03:19 PM LIFETIME NON-TOBACCO USER [facility] Jul 17, 2004 02:13 PM LIFETIME NON-TOBACCO USER [facility] Jul 17, 2004 01:43 PM LIFETIME NON-TOBACCO USER [facility] Advance Directives: All historical and current Section [...] ADVANCE DIRECTIVE DISCUSSION ANGELITA AGUILA [facility] Encounter Notes: All associated encounter notes This section contains the clinical notes associated to the Encounter. Date/Time Encounter Note(s) Provider Source Aug 02, 2023 01:24 PM RESPIRATORY THERAP Y CONSULT: LOCAL TITLE: RESPIRATORY THERAPY CONSULT ST STANDARD TITLE: RESPIRATORY THERAPY CONSULT DATE OF NOTE: AUG 02, 2023@13:24 ENTRY DATE: AUG 02, 2023@13:25:03 AUTHOR: TAMMIE HORNE EXP COSIGNER: URGENCY: STATUS: COMPLETED Patient kept appointment. Patient education and Machine check=ok. New supplies ordered through [facility]. New DS1 modem installed. ricardo /colt/ TAMMIE HORNE DESIGN TECHNOLOGY TEACHER, SLEEP LABORATORY Signed: 08/02/2023 13:26 TAMMIE HORNE [facility]
--- OUTSIDE RECORDS SUMMARY | 2024-06-17 16:07 | XMS_ITS | Encounter Summary ---
Author Name [facility] [place] Address [address] [place] [address] Care Team Providers Care Schedule Maker Name Role Phone THANH ZAZUETA Primary Care [...] [employer] VIS[employer] N PLAN May 17, 2016 [id number] [phone] KADI MARTINEZ PATIENT EYEMED (WNR) VISION VISIO N May 17, 2019 [id number] [phone] KADI MARTINEZ PATIENT MEDICARE (WNR) MEDICARE (M) PART B Nov 14, 2022 PART B [id number] [phone] KADI MARTINEZ PATIENT MEDICARE (WNR) MEDICARE (M) PART A Nov 14, 2022 PART A [id number] [phone] MARTINEZKADI PATIENT Selected Encounter This section includes the information on record at [place] for the Encounter. Date/Time Encounter Type Encounter Description Reason Pro vider Source Apr 20, 2024 10:04 PM Outpatient Encounter GENERAL INTERNAL MEDICINE IHE Encounter Template Text not used by [place] Plan of Treatment: Future Appointments (+ 6 months) and Future Tests (+/- 45 days) The Plan of Treatment section includes future care activities for the patient from all [place] [facility]. This section includes future appointments and future orders which are active, pending or scheduled. Future Appointments This section includes appointments that were scheduled to occur 6 months from the date of the Encounter, up to a maximum of 20 appointments. The data comes from all [place] treatment facilities. Appointment Date/Time Appointment Type Appointme nt Facility Name Apr 25, 2024 02:30 AM AMBULATORY - SURGERY . [facility] Jun 28, 2024 07:30 AM AMBULATORY - SURGERY [facility] Jul 25, 2024 10:00 AM AMBULATORY - SURGERY [facility] Aug 22, 2024 10:45 AM AMBULATORY - SURGERY [facility] Active, Pending, and Scheduled Orders This section includes a listing of several types of active, pending, and scheduled orders, including clinic medications orders, diagnostic test orders, procedure orders and consult orders; where the start date of the order is 45 days before the date of the Encounter or 45 days after the date of theEncounter. The data comes from all [place] treatment facilities. Test Date/Time Test Type Test Details Facility Name Mar 13, 2024 03:23 PM Consult Order [facility] Cons Logging Worker's [facility] Social History: Smoking Status (Most current) and Tobacco Use (All prior to encounter date) This section includes the most current, and the historical, smoking and tobacco- related health factors from the [place] facility where the Encounter took place. Current Smoking Status This section includes the most current smoking, or tobacco-related health factor, from the [place] facility where the Encounter took place. Date/Time Current Smoking Status Comment Nehal pope Jan 15, 2016 10:21 AM LIFETIME NON-USER OF TOBACCO [facility] Tobacco Use History This section includes a history of the smoking, or tobacco-related health factors, that were collected on or before the date of the Encounter. The data comes from the [place] facility where the Encounter took place. Date/Time Smoking Status/Tobacco Use Comment Mehreen gabriel Mar 04, 2015 08:10 AM LIFETIME NON-USER OF TOBACCO [facility] Aug 02, 2006 11:04 AM LIFETIME NON-USER OF TOBACCO [facility] Dec 22, 2005 03:00 PM LIFETIME NON-TOBACCO USER [facility] Feb 17, 2005 03:19 PM LIFETIME NON-TOBACCO USER [facility] Jul 17, 2004 02:13 PM LIFETIME NON-TOBACCO USER [facility] Jul 17, 2004 01:43 PM LIFETIME NON-TOBACCO USER [facility] Advance Directives: All historical and current Section Date Range: From patient's date of to the date document was created. This section includes ALL of a patient's completed or amended [place] Advance and Rescinded Directives. The entries below indicate that a directive exists for the patient, but an actual copy is not included with this document. The data comes from all [place] facilities. Date Advance Directives Provider Source Feb 23, 2014 ADVANCE DIRECTIVE DISCUSSION ANGELITA AGUILA [facility] Encounter Notes: All associated encounter notes This section contains the clinical notes associated to the Encounter. Date/Time Encounter Note(s) Provider Source Apr 20, 2024 10:05 PM NONVA NOTE: LOCAL TITLE: COMMUNITY CARE-CARE COORDINATION PLAN NOTE 6[address] STANDARD TITLE: NONVA NOTE DATE OF NOTE: APR 20, 2024@22:05 ENTRY DATE: APR 20, 2024@22:05:54 AUTHOR: WONG CARREON EXP COSIGNER: URGENCY: STATUS: COMPLETED Received fax request for auth to be re-fax'd d/t no receipt. Alerting Roni Acuña /colt/ WONG CARREON BSN RN REGISTERED NURSE Signed: 04/20/2024 22:07 Receipt Acknowledged By: 04/24/2024 07:37 /colt/ RONI GONZALEZ ADVANCED DIRECTOR [employer] WONG CARREON [facility]
--- OUTSIDE RECORDS SUMMARY | 2024-06-17 16:07 | XMS_ITS | Encounter Summary ---
Author Name [facility] [place] Organization [facility] [place] Address [address] [place] [address] Care Team Providers Care Armed Custom Protection Officer Name Role Phone THANH ZAZUETA Primary Care [...] [employer] VISIO N PLAN May 17, 2016 [id number] [phone] KADI MARTINEZ PATIENT EYEMED (WNR) VISION VISIO N May 17, 2019 [id number] [phone] KADI MARTINEZ PATIENT MEDICARE (WNR) MEDICARE (M) PART B Nov 14, 2022 PART B [id number] KADI MARTINEZ PATIENT MEDICARE (WNR) MEDICARE (M) PART A Nov 14, 2022 PART A [id number] KADI MARTINEZ PATIENT Selected Encounter This section includes the information on record at [place] for the Encounter. 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 Date/Time Primary/Secondary Diagnosis Diagnosis Name Provider Source Jul 28, 2023 12:42 PM PRIMARY Low-tension glaucoma, bilateral, mild stage LEBRON,EZE [facility] Jul 28, 2023 12:42 PM SECONDARY Age-related nuclear cataract, bilateral LEBRON,EZE [facility] Jul 28, 2023 12:42 PM SECONDARY Unspecified strabismus [facility] Plan of Treatment: Future Appointments (+ 6 months) and Future Tests (+/- 45 days) The Plan of Treatment section includes future care activities for the patient from all [place] [facility]. This section includes future appointments and future orders which are active, pending or scheduled. Future Appointments This section includes appointments that were scheduled to occur 6 months from the date of the Encounter, up to a maximum of 20 appointments. The data comes from all [place] treatment facilities. Appointment Date/Time Appointment Type Appointme nt Facility Name Aug 02, 2023 01:00 PM AMBULATORY - MEDICINE [facility] Aug 05, 2023 10:00 AM AMBULATORY - REHAB MEDICOR E [facility] Aug 09, 2023 09:30 AM AMBULATORY - NONE [facility] Aug 17, 2023 10:30 AM AMBULATORY - REHAB MEDICIN E [facility] Sep 01, 2023 09:30 AM AMBULATORY - REHAB MEDICIN E [facility] Sep 02, 2023 05:00 PM AMBULATORY - MEDICINE [facility] Sep 07, 2023 08:00 AM AMBULATORY - NONE [facility] Sep 08, 2023 10:00 AM AMBULATORY - NONE [facility] Jan 19, 2024 01:00 PM AMBULATORY - NONE [facility] Jan 26, 2024 09:30 AM AMBULATORY - SURGERY [facility] Social History: Smoking Status (Most current) and Tobacco Use (All prior to encounter date) This section includes the most current, and the historical, smoking and tobacco- related health factors from the [place] facility where the Encounter took place. Current Smoking Status This section includes the most current smoking, or tobacco-related health factor, from the [place] facility where the Encounter took place. Date/Time Current Smoking Status Comment Nehal pope Jan 15, 2016 10:21 AM LIFETIME NON-USER OF TOBACCO [facility] Tobacco Use History This section includes a history of the smoking, or tobacco-related health factors, that were collected on or before the date of the Encounter. The data comes from the [place] facility where the Encounter took place. Date/Time Smoking Status/Tobacco Use Comment F nery Mar 04, 2015 08:10 AM LIFETIME NON-USER OF TOBACCO [facility] Aug 02, 2006 11:04 AM LIFETIME NON-USER OF TOBACCO [facility] Dec 22, 2005 03:00 PM LIFETIME NON-TOBACCO USER [facility] Feb 17, 2005 03:19 PM LIFETIME NON-TOBACCO USER [facility] Jul 17, 2004 02:13 PM LIFETIME NON-TOBACCO USER [facility] Jul 17, 2004 01:43 PM LIFETIME NON-TOBACCO USER [facility] Advance Directives: All historical and current Section Date Range: From patient's date of to the date document was created. This section includes ALL of a patient's completed or amended [place] Advance and Rescinded Directives. The entries below indicate that a directive exists for the patient, but an actual copy is not included with this document. The data comes from all [place] facilities. Date Advance Directives Provider Source Feb 23, 2014 ADVANCE DIRECTIVE DISCUSSION ANGELITA AGUILA [facility] Encounter Notes: All associated encounter notes This section contains the clinical notes associated to the Encounter. Date/Time Encounter Note(s) Provider Source Jul 28, 2023 09:33 AM OPHTHALMOLOGY CONS ULT: LOCAL TITLE: OPHTHALMOLOGY CONSULT [facility] STANDARD TITLE: OPHTHALMOLOGY CONSULT DATE OF NOTE: JUL 28, 2023@09:33 ENTRY DATE: JUL 28, 2023@09:33:26 AUTHOR: EZE LEBRON II EXP COSIGNER: URGENCY: [...] (03/02): Shallow inferior arcuates OU HVF 24-2 9/7/18 : stable HVF 24-2 03/31/19: Shallow inferior depressions OS>OD. fairly stable HVF 24-2 06/24/20: non-specific scatter OD, full OS, stable OU HVF 24-2 06/23/21: Shallow inferior rim depression OU - stable HVF 24-2 06/23/22: Shallow inferior depressions OU - slt worse but similar to '19 HVF 24-2 12/22/22: Shallow inferior depressions OS>OD-slt worse but similar to '16 ======Ocular Examination====== VA: 20/25 OU P No APD G(06/23/22): Grade III OU with 2+ pigment - Slight double hump Tap: 07/28/23 13 13 no drops 12/22/22 12 [...] CS, rare vacuoles OU - no PXF DFEx CDR: 0.7/0.65, tilted and PPA OU Mac: flat, no heme Vessels: wnl Periphery: flat, retina intact OCT (07/28/23): wnl OU === A/P: 67 year old with... # Mild NTG - Multiple risk factors (+) Chronic hypotension (+) Migraines (+) Sleep apnea (+) A fib vs MVP -No anemia, FHx -Angles open OU -tilted discs, increased C/D ratio OD>OS -OCT OD with possibly progressive inferior NFL and supronasal GCL thinning (although stable average NFL c/w 17) -OCT stable OS -HVF with variable inferior rim depression OU - variable -IOP stable without drops -Recheck IOP/HVF in 6 months - if worse, reconsider SLT (may reduce IOP fluctuations) - was seen in laser clinic in the past but SLT deferred due to good IOP # RE/P - Keep current PAL trans and PAL tint - For the PAL tinted sunglasses: polycarb, backside A/R, and polarized. # Mild cataract OU - not VS - follow # MGD/DAVID - Con't AT/WC/LS # H/O infantile ET with DVD OD - h/o multiple prior strab surgeries (see above) most recently with Calvin Walls at [facility]. Still has some visual confusion/diplopia. 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
--- OUTSIDE RECORDS SUMMARY | 2024-06-17 16:07 | XMS_ITS | Clinical Summary ---
Author [facility] [place] [facility] Address [address] [place] [address] Care Team Providers Care Pen Maker Name Role Phone Unavailable Primary Care Provider Unavailabl e Medications aspirin (Aspir-Low) 81 mg Tablet, Delayed Release (E.C.) every 24 hours. Acti ve cetirizine (ZyrTEC) 10 mg tablet every 24 hours. Acti ve citalopram (CeleXA) 10 mg tablet citalopram 10 mg tablet Active cycloSPORINE (RESTASIS) 0.05 % emulsion cyclosporine 0.05 % eye drops INSTILL 1 DROP INTO AFFECTED EYE(S) BY OPHTHALMIC ROUTE EVERY 12 HOURS Active diclofenac sodium (VOLTAREN) 75 mg Tablet, Delayed Release (E.C.) diclofenac sodium 75 mg tablet,delayed release Active Active Problems No known active problems Social History Tobacco Use Types Packs/Day Years Used Date Smoking Tobacco: Never Assessed Alcohol Use Standard Drinks/Week Comments Not Currently 0 (1 standard drink = 0.6 oz pur e alcohol) Comments Unknown Sex and Gender Information Value Date Recorded Sex Assigned at Not on file Legal Sex Female 3:11 AM PRODUCT SUPPORT TECHNICIAN Gender Identity Not on file Sexual Orientation Not on file Last Filed Vital Signs Vital Sign Reading Time Taken Comments Blood Pressure 115/69 04/23/2020 11:18 AM PRODUCT SUPPORT TECHNICIAN Pulse 69 04/23/2020 11:18 AM PRODUCT SUPPORT TECHNICIAN Temperature 36.1 ??C (97 ??F) 04/23/2020 11:18 AM PRODUCT SUPPORT TECHNICIAN Respiratory Rate 16 04/23/2020 11:18 AM PRODUCT SUPPORT TECHNICIAN Oxygen Saturation 99% 04/23/2020 11:18 AM PRODUCT SUPPORT TECHNICIAN Inhaled Oxygen Concentration - - Weight - - Height - - Body Mass Index - - Plan of Treatment Health Maintenance Due Date Last Done Comments DTAP/TDAP/TD VACCINES (1 - Tdap) 1976 BREAST CANCER SCREENING 1997 COLORECTAL SCREENING 2002 Colorectal Cancer Screening 2002 FIT-DNA Q 3 years 2002 FIT/FOBT Q 1 year 2002 Flex Sig/CT Colonography Q 5 years 2002 PNEUMOCOCCAL VACCINE 65+ YEARS (1 of 1 - PCV) 12/01/19 08 ZOSTER VACCINE (1 of 2) 12/01/2007 OSTEOPOROSIS SCREENING 2022 INFLUENZA VACCINE (#1) 2023 RSV VACCINE (60+ or ) (1 - 1-dose 75+ series) 2032 Insurance
--- OUTSIDE RECORDS SUMMARY | 2024-06-17 16:09 | XMS_ITS | Continuity of Care Document ---
Author Name [facility] Organization [facility] Care Team Providers Care Residential Supervisor Name Role Phone [facility] Unavailable Unavailable Problems Combined list of problems from Department of Defense and [facility] Affairs facilities. It does not include entries that were removed or entered in error. 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 Bettie Bruno, [facility] Abnormal cervical Papanicolaou smear Active Condition [facility] Acne (ICD-9-CM 706.1) Active Condition [facility] Acoustic schwannoma Active Condition Jan 12, 2020 Entered By: DEANA MARTINEZ Comment: MRI 12/2019- no statistical change, MRI every 2 years [facility] Acquired deformity of foot Active Condition [facility] Acute upper respiratory infections of unspecified site (ICD-9-CM 465.9) Active Condition [facility] Aftercare following organ transplant (ICD-9-CM V58.44) Active Condition [facility] Allergic rhinitis * (ICD-9-CM 477.9) Active Condition [facility] Atrial Fibrillation * (ICD-9-CM 427.31) Active Condition [facility] Breast Mass (ICD-9-CM 611.72) Active Condition [facility] Carpal Tunnel Syndrome Active Condition [facility] Cervicalgia (SNOMED CT 83907347) Active Condition [facility] Cervicitis * (ICD-9-CM 616.0) Active Condition [facility] 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 Condition [facility] Chest Pain * (ICD-9-CM 786.50) Active Condition [facility] Chronic kidney disease stage 2 Active Condition [facility] Chronic Kidney Disease, Unspecified (ICD-9-CM 585.9) Active Condition [facility] Chronic renal insufficiency Active Condition [facility] Deficiency of other vitamins Active Condition [facility] Depression * (ICD-9-CM 311./300.4) Active Condition [facility] Gynecologic Exam Active Condition [facility] Gynecological examination normal Active Condition [facility] Hearing loss Active Condition [facility] Hearing Loss, Sensorineural, Unspecified Active Condition [facility] Hip pain Active Condition [facility] Hip Pain (ICD-9-CM 719.45) Active Condition [facility] Hyperlipidemia Active Condition [facility] Kidney Failure * (ICD-9-CM 586.) Active Condition [facility] Localized swelling, mass and lump, trunk Active Condition [facility] Low back pain Active Condition [facility] Low Back Pain * (ICD-9-CM 724.2) Active Condition [facility] Major depressive disorder Active Condition [facility] Neck pain (SNOMED CT 98329341) Active Condition [facility] Neuritis Active Condition [facility] Neuroma (SNOMED CT 879943741) Active Condition [facility] Other Malaise and Fatigue (ICD-9-CM 780.79) Active Condition [facility] Pain in joint involving ankle and foot (ICD-9-CM 719.47) Active Condition [facility] Pain in joint involving shoulder region (ICD-9-CM 719.41) Active Condition [facility] Pain in right hand Active Condition [facility] Pain of left ankle joint Active Condition [facility] Palpitations (ICD-9-CM 785.1) Active Condition [facility] Postmenopausal atrophic vaginitis Active Condition [facility] PROPHY VACC. STREP PNEU Active Condition Jan 05, 2008 Entered By: THANH ZAZUETA Comment: Right Deltoid [facility] Routine gynecologic examination done Active Condition [facility] Sinusitis * (ICD-9-CM 473.9) Active Condition [facility] Unresolved Active Condition [facility] VACCIN FOR INFLUENZA Active Condition [facility] Vaginal discharge (SNOMED CT 348625699) Active Condition [facility] Vaginitis Active Condition [facility] Diagnosis: ICD-10-CM M79.672 Pain in left foot Active Diagnosis [facility] Diagnosis: ICD-10-CM Z00.01 Encounter for general adult medical exam w abnormal findings Active Diagnosis [facility] Diagnosis: ICD-10-CM I48.0 Paroxysmal atrial fibrillation Active Diagnosis [facility] Diagnosis: ICD-10-CM 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, bilateral, mild stage Active Diagnosis [facility] Diagnosis: ICD-10-CM G47.30 Sleep apnea, unspecified Active Diagnosis [facility] Diagnosis: ICD-10-CM M47.892 Other spondylosis, cervical region Active Diagnosis [facility] Diagnosis: ICD-10-CM Z46.89 Encounter for fitting and adjustment of oth devices Active Diagnosis [facility] Diagnosis: ICD-10-CM M54.2 Cervicalgia Active Diagnosis [facility] Diagnosis: ICD-10-CM G47.36 Sleep related hypoventilation in conditions classd elswhr Active Diagnosis [facility] Diagnosis: ICD-10-CM N18.2 Chronic kidney disease, stage 2 (mild) Active Diagnosis [facility] Diagnosis: ICD-10-CM 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, unspecified foot Active Diagnosis [facility] Diagnosis: ICD-10-CM R42 Dizziness and giddiness Active Diagnosis [facility] Diagnosis: ICD-10-CM H90.3 Sensorineural hearing loss, bilateral Active Diagnosis [facility] Diagnosis: ICD-10-CM G43.709 Chronic migraine w/o aura, not intractable, w/o stat migr Active Diagnosis [facility] Diagnosis: ICD-10-CM Z12.4 Encounter for screening for malignant neoplasm of cervix Active Diagnosis [facility] Medications Combined list of outpatient medications from Department of Defense and [facility] Affairs facilities.Medications provided include 1) outpatient medications [...] ACETAMIN OPHEN (APAP) FROM ALL MEDS. 03/10/2024 [id number] THANH ZAZUETA 2023 100 [facility] ACETAMINOPH EN 325MG TAB TAKE ONE TABLET BY MOUTH THREE TIMES A DAY NEEDED FOR PAIN CAUTION: DO NOT EXCEED 4000MG PER DAY ACETAMIN OPHEN (APAP) FROM ALL MEDS. ORAL DISCONT INUED 03/10/2024 [id number] 4 Brandi ZAZUETA 2022 100 [facility] ACETAMINOPH EN 325MG TAB TAKE ONE TABLET BY MOUTH THREE TIMES A DAY NEEDED FOR PAIN CAUTION: DO NOT EXCEED 4000MG PER DAY ACETAMIN OPHEN (APAP) FROM ALL MEDS. ORAL 03/10/2024 [id number] 4 Brandi ZAZUETA 2023 300 [facility] ASPIRIN 81MG TAB,EC TAKE ONE TABLET BY MOUTH ONCE A DAY FOR CARDIOVA SCULAR DISEASE TAKE WITH FOOD. ORAL ACTIVE 03/01/2025 [id number] 4 NIURKA GARCIA 2023 120 [facility] ASPIRIN 81MG TAB,EC TAKE ONE TABLET BY MOUTH ONCE A DAY FOR HEART OR CIRCULAT ION. TAKE WITH FOOD. ORAL DISCONT INUED BY ASHLEY R 10/28/2023 [id number] 4 Brandi ZAZUETA 2022 120 [facility] ASPIRIN EC (U/D) 81 MG ORAL TBEC TAKE ONE TABLET BY MOUTH ONCE A DAY FOR HEART OR CIRCULAT ION. TAKE WITH FOOD. 10/28/2023 [id number] 4 THANH ZAZUETA 2023 120 [facility] ASPIRIN EC (U/D) 81 MG ORAL TBEC TAKE ONE TABLET BY MOUTH ONCE A DAY FOR HEART OR CIRCULAT ION. TAKE WITH FOOD. 10/28/2023 [id number] 4 THANH ZAZUETA 2023 120 [facility] celeXA (BRAND) 10 MG ORAL TAB TAKE ONE-HALF TABLET BY MOUTH EVERY MORNING FOR DEPRESSI ON Active 10/01/2024 [id number] 4 THANH ZAZUETA 2023 45 [facility] celeXA (BRAND) 10 MG ORAL TAB TAKE ONE-HALF TABLET BY MOUTH EVERY MORNING FOR DEPRESSI ON Discont inued 10/28/2023 [id number] 4 THANH ZAZUETA 2023 45 [facility] celeXA (BRAND) 10 MG ORAL TAB TAKE ONE-HALF TABLET BY MOUTH EVERY MORNING FOR DEPRESSI ON 10/28/2023 [id number] 3 THANH ZAZUETA 2022 45 [facility] cholecalcif (VIT D3) 2,000 UNIT ORAL TAB TAKE ONE TABLET BY MOUTH ONCE A DAY FOR VITAMIN D DEFICIEN CY. 10/28/2023 [id number] 4 RYTHANH SANCHEZ Lien 2023 100 [facility] CHOLECALCIF MACARIO 50MCG (2,000UNIT) TAB TAKE ONE TABLET BY MOUTH ONCE A DAY FOR VITAMIN D DEFICIEN CY. ORAL 10/28/2023 [id number] 4 Brandi ZAZUETA 2022 100 [facility] CITALOPRAM HYDROBROMID E 10MG TAB TAKE ONE-HALF TABLET BY MOUTH EVERY MORNING FOR DEPRESSI ON ORAL ACTIVE 10/01/2024 [id number] 4 Brandi ZAZUETA 2023 45 [facility] CITALOPRAM HYDROBROMID E 10MG TAB TAKE ONE-HALF TABLET BY MOUTH EVERY MORNING FOR DEPRESSI ON ORAL DISCONT INUED 10/28/2023 [id number] 4 Brandi ZAZUETA 2022 45 [facility] FLONASE-OTC (BRAND) 50 MCG ANTOLIN SPSN [9.9] INSTILL 1 SPRAY IN NOSTRIL( S) ONCE A DAY FOR ALLERGIE S (MUST BE USED DIRECTED FOR MINIMUM OF 21 DAYS TO PROVIDE ADEQUATE BENEFITS ) 02/11/2024 [id number] 4 KADENDANIELTHANH 2023 1 [facility] FLUAD QUAD (influenza vaccine quadrivalen t 2022- (65 yr up)/MF59C.1 /PF), 60MCG/.5ML, SYR[employer] .5 ml SYRINGE Active [id number] 2023 0.5 Pharmac y Data Transac tion Service Facilit y FLUTICASONE PROPIONATE 50MCG/SPRAY SOLN,NASAL, 16GM INSTILL 1 SPRAY IN NOSTRIL( S) ONCE A DAY FOR ALLERGIE S (MUST BE USED DIRECTED FOR MINIMUM OF 21 DAYS TO PROVIDE ADEQUATE BENEFITS ) NASAL ACTIVE 03/10/2025 [id number] 4 Brandi ZAZUETA 2023 1 [facility] FLUTICASONE PROPIONATE 50MCG/SPRAY SOLN,NASAL, 16GM INSTILL 1 SPRAY IN NOSTRIL( S) ONCE A DAY FOR ALLERGIE S (MUST BE USED DIRECTED FOR MINIMUM OF 21 DAYS TO PROVIDE ADEQUATE BENEFITS ) NASAL DISCONT INUED 02/11/2024 [id number] 4 Brandi ZAZUETA 2022 1 [facility] Loratadine (Alavert ODT) Tablet 10 mg Oral TAKE ONE TABLET BY MOUTH ONCE A DAY FOR ALLERGIE S ON EMPTY STOMACH Active 08/02/2024 [id number] 4 THANH ZAZUETA 2023 90 [facility] Loratadine (Alavert ODT) Tablet 10 mg Oral TAKE ONE TABLET BY MOUTH ONCE A DAY FOR ALLERGIE S ON EMPTY STOMACH Active 08/02/2024 [id number] 4 THANH ZAZUETA 2023 90 [facility] Loratadine (Alavert ODT) Tablet 10 mg Oral TAKE ONE TABLET BY MOUTH ONCE A DAY FOR ALLERGIE S ON EMPTY STOMACH Discont inued 07/08/2023 [id number] THANH ZAZUETA 2023 90 [facility] LORATADINE 10MG TAB TAKE ONE TABLET BY MOUTH ONCE A DAY FOR ALLERGIE S ON EMPTY STOMACH ORAL ACTIVE 08/02/2024 [id number] 4 Brandi ZAZUETA [address] [place] [address] LORATADINE 10MG TAB TAKE ONE TABLET BY MOUTH ONCE A DAY FOR ALLERGIE S ON EMPTY STOMACH ORAL DISCONT INUED 07/08/2023 [id number] 3 Brandi ZAZUETA 2022 90 [facility] methocarbam ol (U/D) 500 MG ORAL TAB TAKE 1 TABLET BY MOUTH AT BEDTIME NEEDED 05/26/2024 [id number] ISAIAS MOY 2023 30 [facility] methocarbam ol (U/D) 500 MG ORAL TAB TAKE 1 TABLET BY MOUTH AT BEDTIME NEEDED 05/26/2024 [id number] ISAIAS MOY 2023 30 [facility] methocarbam ol (U/D) 500 MG ORAL TAB TAKE 1 TABLET BY MOUTH AT BEDTIME NEEDED Discont inued 06/17/2023 [id number] 4 ISAIAS MOY 2023 30 [facility] methocarbam ol (U/D) 500 MG ORAL TAB TAKE 1 TABLET BY MOUTH AT BEDTIME NEEDED Discont inued 05/27/2023 [id number] ISAIAS MOY 2023 30 [facility] METHOCARBAM OL 500MG TAB TAKE 1 TABLET BY MOUTH AT BEDTIME NEEDED ORAL DISCONT INUED 06/17/2023 [id number] 4 ISAIAS MOY 2023 30 [facility] METHOCARBAM OL 500MG TAB TAKE 1 TABLET BY MOUTH AT BEDTIME NEEDED ORAL DISCONT INUED 05/27/2023 [id number] 3 ISAIAS MOY 2022 30 [facility] METHOCARBAM OL 500MG TAB TAKE 1 TABLET BY MOUTH AT BEDTIME NEEDED ORAL 05/26/2024 [id number] 4 ISAIAS MOY 2023 30 [facility] PRAVASTATIN 40 MG ORAL TAB TAKE ONE TABLET BY MOUTH EVERY EVENING TO LOWER CHOLESTE ROL (REPORT ANY MUSCLE PAIN OR WEAKNESS ) Active 10/01/2024 [id number] 4 THANH ZAZUETA [address] [place] [address] Divisio n PRAVASTATIN 40 MG ORAL TAB TAKE ONE TABLET BY MOUTH EVERY EVENING TO LOWER CHOLESTE ROL (REPORT ANY MUSCLE PAIN OR WEAKNESS ) Discont inued 10/28/2023 [id number] 4 THANH ZAZUETA 2023 90 [facility] PRAVASTATIN 40 MG ORAL TAB TAKE ONE TABLET BY MOUTH EVERY EVENING TO LOWER CHOLESTE ROL (REPORT ANY MUSCLE PAIN OR WEAKNESS ) 10/28/2023 [id number] 4 THANH ZAZUETA 2022 90 [facility] PRAVASTATIN NA 40MG TAB TAKE ONE TABLET BY MOUTH EVERY EVENING TO LOWER CHOLESTE ROL (REPORT ANY MUSCLE PAIN OR WEAKNESS ) ORAL ACTIVE 10/01/2024 [id number] 4 Brandi ZAZUETA 2023 90 [facility] PRAVASTATIN NA 40MG TAB TAKE ONE TABLET BY MOUTH EVERY EVENING TO LOWER CHOLESTE ROL (REPORT ANY MUSCLE PAIN OR WEAKNESS ) ORAL DISCONT INUED 10/28/2023 [id number] 4 Brandi ZAZUETA 2022 90 [facility] PREGABALIN (U/D) 75 MG ORAL CAP TAKE ONE CAPSULE BY MOUTH TWICE A DAY FOR NERVE PAIN *MAY CAUSE DROWSINE SS* 12/11/2023 [id number] 4 THANH ZAZUETA 2023 60 [facility] PREGABALIN (U/D) 75 MG ORAL CAP TAKE ONE CAPSULE BY MOUTH TWICE A DAY FOR NERVE PAIN *MAY CAUSE DROWSINE SS* 12/11/2023 [id number] 4 THANH ZAZUETA 2023 60 [facility] PREGABALIN (U/D) 75 MG ORAL CAP TAKE ONE CAPSULE BY MOUTH TWICE A DAY FOR NERVE PAIN *MAY CAUSE DROWSINE SS* 06/13/2023 [id number] 4 THANH ZAZUETA 2023 60 [facility] PREGABALIN 75MG CAP,ORAL TAKE ONE CAPSULE BY MOUTH TWICE A DAY *MAY CAUSE DROWSINE SS* ORAL ACTIVE 09/09/2024 [id number] 5 Brandi ZAZUETA 2023 60 [facility] PREGABALIN 75MG CAP,ORAL TAKE ONE CAPSULE BY MOUTH TWICE A DAY *MAY CAUSE DROWSINE SS* ORAL DISCONT INUED 07/09/2024 [id number] 4 KYLE ODEN [address] [place] [address] PREGABALIN 75MG CAP,ORAL TAKE ONE CAPSULE BY MOUTH TWICE A DAY FOR NERVE PAIN *MAY CAUSE DROWSINE SS* ORAL DISCONT INUED 06/13/2023 [id number] 4 Brandi ZAZUETA [address] [place] [address] PREGABALIN 75MG CAP,ORAL TAKE ONE CAPSULE BY MOUTH TWICE A DAY FOR NERVE PAIN *MAY CAUSE DROWSINE SS* ORAL 12/11/2023 [id number] 4 Brandi ZAZUETA [address] [place] [address] PROPAFENONE 150 MG ORAL TAB TAKE ONE TABLET BY MOUTH TWICE A DAY FOR HEART. Active 10/01/2024 [id number] THANH ZAZUETA [address] [place] [address] Divisio n PROPAFENONE 150 MG ORAL TAB TAKE ONE TABLET BY MOUTH TWICE A DAY FOR HEART. Discont inued 10/28/2023 [id number] THANH ZAZUETA [address] [place] [address] Divisio n PROPAFENONE HCL 150MG TAB TAKE ONE TABLET BY MOUTH TWICE A DAY FOR HEART. ORAL ACTIVE 10/01/2024 [id number] 4 Brandi ZAZUETA [address] [place] [address] DIVISIO N PROPAFENONE HCL 150MG TAB TAKE ONE TABLET BY MOUTH TWICE A DAY FOR HEART. ORAL DISCONT INUED 10/28/2023 [id number] 4 Brandi ZAZUETA [address] [place] [address] Allergies, Adverse Reactions, Alerts Combined list of allergies from Department of Defense and Veterans Affairs facilities. It does not include entries that were removed or entered in error. Substance Category Reaction Severity Reaction type Status Date Reported Comments Source BETADINE Propensity to adverse reactions to drug (finding) Burning sensation active 5 [facility] Codeine Drug allergy (disorder) Seizures active 5 [facility] CODEINE Propensity to adverse reactions to drug (finding) Seizure active 5 [facility] IODINATED CONTRAST MEDIA Propensity to adverse reactions to drug (finding) Burning sensation active 7 [facility] Immunizations Combined list of available immunizations from the Department of Defense and Veterans Affairs facilities. Immunization Series Date Given Administered By Site Reaction Lot Number CVX Code Drug [employer] Mechanic Status Comments Source INFLUENZA, HIGH-DOSE, TRIVALENT, PF 2023 SIMONS,ADDI V LEFT DELTO ID [id number] 135 complet [facility] PNEUMOCOCCAL CONJUGATE PCV20, POLYSACCHARID E [id number] CONJUGATE, ADJUVANT, PF 2023 SIMONS,ADDI V LEFT DELTO ID [id number] 216 complet [facility] TDAP 2023 SIMONS,ADDI V LEFT DELTO ID [id number] 115 complet [facility] INFLUENZA, UNSPECIFIED FORMULATION 2023 88 complet ed [facility] ZOSTER RECOMBINANT 2 2021 187 complet [facility] ZOSTER RECOMBINANT 1 2021 187 complet [facility] COVID-19 (PFIZER), MRNA, LNP-S, PF, 30 MCG/0.3 ML DOSE 3 2020 208 complet ed PFR; [id number]; 2 [facility] INFLUENZA, INJECTABLE, QUADRIVALENT, PRESERVATIVE FREE 2020 150 complet ed [facility] COVID-19 ([employer]), MRNA, LNP-S, PF, 30 MCG/0.3 ML DOSE 2 2020 208 complet ed PFR; [id number]; 1 [facility] COVID-19 ([employer]), MRNA, LNP-S, PF, 30 MCG/0.3 ML DOSE 1 2020 208 complet ed PFR; [id number]; 1 [facility] INFLUENZA, INJECTABLE, QUADRIVALENT, PRESERVATIVE FREE 2019 150 complet [facility] N typhoid Vi capsular polysaccharid e vaccine 1 2018 Unknown, Provider [id number] [employer] P[employer] (PMC) complet ed typhoid Vi capsular polysacch aride vaccine DoD influenza virus vaccine, unspecified formulation 1 2017 Unknown, Provider 88 Transcribed (TRS) complet ed influenza virus vaccine, unspecifi ed formulati on DoD INFLUENZA, INJECTABLE, QUADRIVALENT, PRESERVATIVE FREE 2017 150 complet [facility] N tuberculin skin test; purified protein derivative solution, intradermal 1 2016 Unknown, Provider 96 Transcribed (TRS) complet ed tuberculi n skin test; purified protein derivativ e solution, intraderm al DoD INFLUENZA, INJECTABLE, QUADRIVALENT, PRESERVATIVE FREE 2016 150 complet [facility] N hepatitis B vaccine, adult dosage 1 2015 Unknown, Provider [id number] [place] (SKB) complet ed hepatitis B vaccine, adult dosage DoD Influenza, seasonal, injectable, preservative free 1 2015 Unknown, Provider [id number] [employer] (SEQ) complet ed Influenza , seasonal, injectabl e, preservat becky free DoD hepatitis B vaccine, adult dosage 1 2015 Unknown, Provider [id number] [employer] (SKB) complet ed hepatitis B vaccine, adult dosage DoD hepatitis A vaccine, adult dosage 1 2015 Unknown, Provider [id number] [employer] (SKB) complet ed hepatitis A vaccine, adult dosage DoD PNEUMOCOCCAL POLYSACCHARID E [id number] 2015 33 complet [facility] N pneumococcal polysaccharid e vaccine, 23 [...] CONJUGATE PCV 13 2014 133 complet ed [facility] pneumococcal conjugate vaccine, 13 valent 1 2014 Unknown, Provider 133 Transcribed (TRS) complet ed pneumococ deric conjugate vaccine, 13 valent DoD INFLUENZA, SEASONAL, INJECTABLE, PRESERVATIVE FREE 2014 140 complet ed [facility] N influenza virus vaccine, unspecified formulation 1 2014 Unknown, Provider 88 Transcribed (TRS) complet ed influenza virus vaccine, unspecifi ed formulati on DoD INFLUENZA, UNSPECIFIED FORMULATION 2013 88 complet [facility] DIV[facility] N INFLUENZA, UNSPECIFIED FORMULATION 2012 88 complet [facility] DIVIS[facility] N TDAP 2012 115 complet [facility] N tetanus toxoid, reduced diphtheria toxoid, and acellular pertu is vaccine, adsorbed 1 2012 Unknown, Provider 115 Transcribed (TRS) complet ed tetanus toxoid, reduced diphtheri a toxoid, and acellular pertussis vaccine, adsorbed DoD INFLUENZA, UNSPECIFIED FORMULATION 2010 88 complet [facility] N INFLUENZA, UNSPECIFIED FORMULATION 2009 88 complet [facility] N hepatitis A vaccine, adult dosage 1 2008 Unknown, Provider [id number] [address] (B) complet ed hepatitis A vaccine, adult dosage DoD typhoid Vi capsular polysaccharid e vaccine 1 2008 Unknown, Provider [id number] Sanofi Pasteur (PMC) complet ed typhoid Vi capsular polysacch aride vaccine DoD INFLUENZA, UNSPECIFIED FORMULATION 2008 88 complet [facility] N INFLUENZA, UNSPECIFIED FORMULATION 2007 88 complet [facility] DIVISIO N PNEUMOCOCCAL, UNSPECIFIED FORMULATION 2007 109 complet ed [facility] pneumococcal polysaccharid e vaccine, 23 valent 1 2007 Unknown, Provider 33 Transcribed (TRS) complet ed pneumococ deric polysacch aride vaccine, 23 valent DoD INFLUENZA, UNSPECIFIED FORMULATION 2005 [place] 88 comple t ed [facility] tetanus and diphtheria toxoids, [...] and 2 Lf of diphtheri a toxoid) [facility] vaccinia (smallpox) vaccine 1 1979 Unknown, Provider 75 () complet ed vaccinia (smallpox ) vaccine DoD typhoid vaccine, parenteral, acetone-kille d, dried (U.S. ) 1 1976 Unknown, Provider 53 () complet typhoid vaccine, parentera l, acetone-k illed, dried ([place].S. ) [facility] trivalent poliovirus vaccine, live, oral 1 1976 Unknown, Provider 02 () complet ed trivalent polioviru s vaccine, live, oral [facility] Results Combined list of recent chemistry, hematology and other laboratory results from Department of Defense and Veterans Affairs, ranging from 15 months to all on record, depending upon the facility. Order Name Results Value Reference Range Date Interpretation Specimen Comments Source AMYLASE AMYLASE [ENZYMATIC ACTIVITY/VO LUME] IN SERUM, PLASMA OR BLOOD 155 U/L 25 - 125 03/09 H Specimen Type: PLASMA Comment: No hemolysis noted. Ordering Provider: MIGULE ZAZUETA Report Released Date/Time: Mar 09, 2024 11:00 AM Reporting Lab: [facility] 5 [facility] [address] Performing Lab: [facility] [address] [place] [id number] [facility] CBC LEUKOCYTES [#/VOLUME] IN BLOOD BY AUTOMATED COUNT 4.2 10*3/uL 3.6 - 11.2 03/09 Specimen Type: BLOOD No comment entered. Ordering Provider: MIGUEL ZAZUETA Report Released Date/Time: Mar 09, 2024 10:49 AM Reporting Lab: [address] [address] Performing Lab: [place] [phone] CBC ERYTHROCYTE S [#/VOLUME] IN BLOOD BY AUTOMATED COUNT 3.56 10*6/uL 3.60 - 5.00 03/09 L Specimen Type: BLOOD No comment entered. Ordering Provider: MIGUEL ZAZUETA Report Released Date/Time: Mar 09, 2024 10:49 AM Reporting Lab: [address] [address] Performing Lab: [place] [phone] [place] [address] CBC HEMOGLOBIN [MASS/VOLUM E] IN BLOOD 11.3 g/dL 11.0 - 14.9 03/09 Specimen Type: BLOOD No comment entered. Ordering Provider: MIGUEL ZAZUETA Report Released Date/Time: Mar 09, 2024 10:49 AM Reporting Lab: [address] [address] Performing Lab: [address] [phone] [place] [address] CBC HEMATOCRIT [VOLUME FRACTION] OF BLOOD 33.0 32.6 - 43.4 03/09 Specimen Type: BLOOD No comment entered. Ordering Provider: MIGUEL ZAZUETA Report Released Date/Time: Mar 09, 2024 10:49 AM Reporting Lab: [address] [address] Performing Lab: [address] [phone] [place] [address] CBC MCV [ENTITIC VOLUME] BY AUTOMATED COUNT 92.7 fL 80.0 - 100.0 03/09 Specimen Type: BLOOD No comment entered. Ordering Provider: MIGUEL ZAZUETA Report Released Date/Time: Mar 09, 2024 10:49 AM Reporting Lab: [facility] [address] [place], [place] [id number] Performing Lab: [phone] CBC MCH [ENTITIC MASS] BY AUTOMATED COUNT 31.7 pg 27.0 - 34.0 03/09 Specimen Type: BLOOD No comment entered. Ordering Provider: MIGUEL ZAZEUTA Report Released Date/Time: Mar 09, 2024 10:49 AM Reporting Lab: [facility] [address] [place] [place] [address] Performing Lab: [address] CBC MCHC [MASS/VOLUM E] BY AUTOMATED COUNT 34.2 g/dL 33.0 - 36.0 03/09 Specimen Type: BLOOD No comment entered. Ordering Provider: MIGUEL ZAZUETA Report Released Date/Time: Mar 09, 2024 10:49 AM Reporting Lab: [facility] [address] [place] [address] Performing Lab: [facility] [address] [place] [phone] CBC PLATELETS [#/VOLUME] IN BLOOD BY AUTOMATED COUNT 211 10*3/uL 150 - 400 03/09 Specimen Type: BLOOD No comment entered. Ordering Provider: MIGUEL ZAZUETA Report Released Date/Time: Mar 09, 2024 10:49 AM Reporting Lab: [facility] [address] [place] [address] Performing Lab: [facility] [address] [place] [address] CBC PLATELET MEAN VOLUME [ENTITIC VOLUME] IN BLOOD BY AUTOMATED COUNT 10.7 fL 7.5 - 11.2 03/09 Specimen Type: BLOOD No comment entered. Ordering Provider: MIGUEL ZAZUETA Report Released Date/Time: Mar 09, 2024 10:49 AM Reporting Lab: [facility] [address] [facility] [address] Performing Lab: [facility] [address] [place] [phone] [place] [address] CBC ERYTHROCYTE DISTRIBUTIO N WIDTH [RATIO] BY AUTOMATED COUNT 11.7 11.8 - 15.1 03/09 L Specimen Type: BLOOD No comment entered. Ordering Provider: MIGUEL ZAZUETA Report Released Date/Time: Mar 09, 2024 10:49 AM Reporting Lab: [facility] [address] [place] [phone] Performing Lab: [address] [phone] [place] [address] CBC LYMPHOCYTES /100 LEUKOCYTES IN BLOOD BY AUTOMATED COUNT 28 03/09 Specimen Type: BLOOD No comment entered. Ordering Provider: MIGUEL ZAZUETA Report Released Date/Time: Mar 09, 2024 10:49 AM Reporting Lab: [facility] [address] [place] [phone] Performing Lab: [facility] [address] [place] [phone] [place] [address] CBC MONOCYTES/1 00 LEUKOCYTES IN BLOOD BY AUTOMATED COUNT 8 03/09 Specimen Type: BLOOD No comment entered. Ordering Provider: MIGUEL ZAZUETA Report Released Date/Time: Mar 09, 2024 10:49 AM Reporting Lab: [facility] [address] [place] [phone] Performing Lab: [facility] [address] [place] [phone] [place] [address] CBC NEUTROPHILS /100 LEUKOCYTES IN BLOOD BY AUTOMATED COUNT 61 03/09 Specimen Type: BLOOD No comment entered. Ordering Provider: MIGUEL ZAZUETA Report Released Date/Time: Mar 09, 2024 10:49 AM Reporting Lab: [facility] [address] [place] [phone] Performing Lab: [facility] [address] [facility] [phone] [facility] CBC EOSINOPHILS /100 LEUKOCYTES IN BLOOD BY AUTOMATED COUNT 1 03/09 Specimen Type: BLOOD No comment entered. Ordering Provider: MIGUEL ZAZUETA Report Released Date/Time: Mar 09, 2024 10:49 AM Reporting Lab: [address] [phone] Performing Lab: [address] [phone] [facility] CBC BASOPHILS/1 00 LEUKOCYTES IN BLOOD BY AUTOMATED COUNT 1 03/09 Specimen Type: BLOOD No comment entered. Ordering Provider: MIGUEL ZAZUETA Report Released Date/Time: Mar 09, 2024 10:49 AM Reporting Lab: [address] [phone] Performing Lab: [address] [phone] [facility] CBC LYMPHOCYTES [#/VOLUME] IN BLOOD BY AUTOMATED COUNT 1.16 10*3/uL 0.77 - 4.50 03/09 Specimen Type: BLOOD No comment entered. Ordering Provider: MIGUEL ZAZUETA Report Released Date/Time: Mar 09, 2024 10:49 AM Reporting Lab: [address] [phone] Performing Lab: [address] [phone] [facility] CBC MONOCYTES [#/VOLUME] IN BLOOD BY AUTOMATED COUNT 0.35 10*3/uL 0.19 - 0.80 03/09 Specimen Type: BLOOD No comment entered. Ordering Provider: MIGUEL ZAZUETA Report Released Date/Time: Mar 09, 2024 10:49 AM Reporting Lab: [facility] [address] [place] [phone] Performing Lab: [address] [address] [facility] CBC NEUTROPHILS [#/VOLUME] IN BLOOD BY AUTOMATED COUNT 2.55 10*3/uL 2.10 - 8.00 03/09 Specimen Type: BLOOD No comment entered. Ordering Provider: MIGUEL ZAZUETA Report Released Date/Time: Mar 09, 2024 10:49 AM Reporting Lab: [place] [address] Performing Lab: [address] CBC EOSINOPHILS [#/VOLUME] IN BLOOD BY AUTOMATED COUNT 0.06 10*3/uL 0.00 - 0.60 03/09 Specimen Type: BLOOD No comment entered. Ordering Provider: MIGUEL ZAZUETA Report Released Date/Time: Mar 09, 2024 10:49 AM Reporting Lab: [place] [address] Performing Lab: [address] CBC BASOPHILS [#/VOLUME] IN BLOOD BY AUTOMATED COUNT 0.03 10*3/uL 0.00 - 0.20 03/09 Specimen Type: BLOOD No comment entered. Ordering Provider: MIGUEL ZAZUETA Report Released Date/Time: Mar 09, 2024 10:49 AM Reporting Lab: [place] [address] Performing Lab: [address] COMPREHEN SIVE METABOLIC PANEL CREATININE [MASS/VOLUM E] IN SERUM OR PLASMA 0.96 mg/dL 0.6 - 1.1 03/09 Specimen Type: PLASMA Comment: No hemolysis noted. Ordering Provider: MIGUEL ZAZUETA Report Released Date/Time: Mar 09, 2024 10:49 AM Reporting Lab: [place] [address] Performing Lab: [address] COMPREHEN SIVE METABOLIC PANEL UREA NITROGEN [MASS/VOLUM E] IN SERUM OR PLASMA 16.6 mg/dL 9.0 - 25.0 03/09 Specimen Type: PLASMA Comment: No hemolysis noted. Ordering Provider: MIGUEL ZAZUETA Report Released Date/Time: Mar 09, 2024 10:49 AM Reporting Lab: [facility] [address] [place] [phone] Performing Lab: [facility] [address] [place] [phone] [facility] COMPREHEN SIVE METABOLIC PANEL GLUCOSE [MASS/VOLUM E] IN SERUM OR PLASMA 85 mg/dL 72 - 99 03/09 Specimen Type: PLASMA Comment: No hemolysis noted. Ordering Provider: MIGUEL ZAZUETA Report Released Date/Time: Mar 09, 2024 10:49 AM Reporting Lab: [address] [address] Performing Lab: [address] [phone] [place] [address] COMPREHEN SIVE METABOLIC PANEL SODIUM [MOLES/VOLU ME] IN SERUM OR PLASMA 141 meq/L 136 - 145 03/09 Specimen Type: PLASMA Comment: No hemolysis noted. Ordering Provider: MIGUEL ZAZUETA Report Released Date/Time: Mar 09, 2024 10:49 AM Reporting Lab: [address] [address] Performing Lab: [facility] [address] [place] [phone] [facility] COMPREHEN SIVE METABOLIC PANEL POTASSIUM [MOLES/VOLU ME] IN SERUM OR PLASMA 3.9 meq/L 3.5 - 5 03/09 Specimen Type: PLASMA Comment: No hemolysis noted. Ordering Provider: MIGUEL ZAZUETA Report Released Date/Time: Mar 09, 2024 10:49 AM Reporting Lab: [facility] [address] [place] [phone] Performing Lab: [address] [phone] [place] [address] COMPREHEN SIVE METABOLIC PANEL CHLORIDE [MOLES/VOLU ME] IN SERUM OR PLASMA 107 meq/L 98 - 107 03/09 Specimen Type: PLASMA Comment: No hemolysis noted. Ordering Provider: MIGUEL ZAZUETA Report Released Date/Time: Mar 09, 2024 10:49 AM Reporting Lab: [address] [address] Performing Lab: [address] [phone] [place] [address] COMPREHEN SIVE METABOLIC PANEL CARBON DIOXIDE, TOTAL [MOLES/VOLU ME] IN SERUM OR PLASMA 27 meq/L 22 - 31 03/09 Specimen Type: PLASMA Comment: No hemolysis noted. Ordering Provider: MIGUEL ZAZUETA Report Released Date/Time: Mar 09, 2024 10:49 AM Reporting Lab: [address] [address] Performing Lab: [facility] [address] [place] [address] [phone] [place] [address] COMPREHEN SIVE METABOLIC PANEL CALCIUM [MASS/VOLUM E] IN SERUM OR PLASMA 9.4 mg/dL 8.4 - 10.4 03/09 Specimen Type: PLASMA Comment: No hemolysis noted. Ordering Provider: MIGUEL ZAZUETA Report Released Date/Time: Mar 09, 2024 10:49 AM Reporting Lab: [address] [address] Performing Lab: [facility] [address] [place] [phone] [place] [address] COMPREHEN SIVE METABOLIC PANEL PROTEIN [MASS/VOLUM E] IN SERUM OR PLASMA 6.5 g/dL 6 - 8.6 03/09 Specimen Type: PLASMA Comment: No hemolysis noted. Ordering Provider: MIGUEL ZAZUETA Report Released Date/Time: Mar 09, 2024 10:49 AM Reporting Lab: [address] [address] Performing Lab: [phone] [place] [address] COMPREHEN SIVE METABOLIC PANEL ALBUMIN [MASS/VOLUM E] IN SERUM OR PLASMA 4.1 g/dL 3.4 - 5 03/09 Specimen Type: PLASMA Comment: No hemolysis noted. Ordering Provider: MIGUEL ZAZUETA Report Released Date/Time: Mar 09, 2024 10:49 AM Reporting Lab: [facility] [address] [place] [address] Performing Lab: [place] [address] [facility] [phone] [place] [address] COMPREHEN SIVE METABOLIC PANEL BILIRUBIN.T OTAL [MASS/VOLUM E] IN SERUM OR PLASMA 0.6 mg/dL 0.2 - 1.2 03/09 Specimen Type: PLASMA Comment: No hemolysis noted. Ordering Provider: MIGUEL ZAZUETA Report Released Date/Time: Mar 09, 2024 10:49 AM Reporting Lab: [place] [address] [place] [address] Performing Lab: [facility] [address] [facility] [phone] [place] [address] COMPREHEN SIVE METABOLIC PANEL ALKALINE PHOSPHATASE [ENZYMATIC ACTIVITY/VO LUME] IN SERUM OR PLASMA 73 U/L 40 - 150 03/09 Specimen Type: PLASMA Comment: No hemolysis noted. Ordering Provider: MIGUEL ZAZUETA Report Released Date/Time: Mar 09, 2024 10:49 AM Reporting Lab: [facility] [address] [facility] [address] Performing Lab: [facility] [address] [facility] [phone] [place] [address] COMPREHEN SIVE METABOLIC PANEL ASPARTATE AMINOTRANSF ERASE [ENZYMATIC ACTIVITY/VO LUME] IN SERUM OR PLASMA 32 U/L 5 - 34 03/09 Specimen Type: PLASMA Comment: No hemolysis noted. Ordering Provider: MIGUEL ZAZUETA Report Released Date/Time: Mar 09, 2024 10:49 AM Reporting Lab: [facility] [address] [place] [address] Performing Lab: [facility] [address] [facility] [phone] [place] [address] COMPREHEN SIVE METABOLIC PANEL ALANINE AMINOTRANSF ERASE [ENZYMATIC ACTIVITY/VO LUME] IN SERUM OR PLASMA 19 U/L 8 - 40 03/09 Specimen Type: PLASMA Comment: No hemolysis noted. Ordering Provider: MIGUEL ZAZUETA Report Released Date/Time: Mar 09, 2024 10:49 AM Reporting Lab: [facility] [address] [place], [place] [phone] Performing Lab: [address] [phone] [place] [address] COMPREHEN SIVE METABOLIC PANEL GLOMERULAR FILTRATION RATE/1.73 SQ M.PREDICTED [VOLUME RATE/AREA] IN SERUM, PLASMA OR BLOOD BY CREATININE- BASED FORMULA (CKD-EPI 2020) 65.3 60 03/09 Specimen Type: PLASMA Comment: No hemolysis noted. Ordering Provider: MIGUEL ZAZUETA Report Released Date/Time: Mar 09, 2024 10:49 AM Reporting Lab: [facility] [address] [place] [phone] Performing Lab: [place] [phone] [place] [address] HGA1C HEMOGLOBIN A1C/HEMOGLO BIN.TOTAL IN BLOOD 5.6 4.0 - 6.0 03/09 Specimen Type: BLOOD No comment entered. Ordering Provider: MIGUEL ZAZUETA Report Released Date/Time: Mar 09, 2024 10:49 AM Reporting Lab: [facility] [address] [facility] [address] Performing Lab: [facility] [address] [place] [address] [phone] [place] [address] LIPASE LIPASE [ENZYMATIC ACTIVITY/VO LUME] IN SERUM OR PLASMA 267 U/L 8 - 78 03/09 H Specimen Type: PLASMA Comment: No hemolysis noted. Ordering Provider: MIGUEL ZAZUETA Report Released Date/Time: Mar 09, 2024 11:00 AM Reporting Lab: [facility] [address] [facility] [phone] Performing Lab: [place] [address] [facility] [phone] [facility] LIPID PANEL (STL) CHOLESTEROL [MASS/VOLUM E] IN SERUM OR PLASMA 160 mg/dL 0 - 200 03/09 Specimen Type: PLASMA Comment: No hemolysis noted. Ordering Provider: MIGUEL ZAZUETA Report Released Date/Time: Mar 09, 2024 10:49 AM Reporting Lab: [address] [address] Performing Lab: [address] [phone] [facility] LIPID PANEL (STL) TRIGLYCERID E [MASS/VOLUM E] IN SERUM OR PLASMA 46 mg/dL 0 - 150 03/09 Specimen Type: PLASMA Comment: No hemolysis noted. Ordering Provider: MIGUEL ZAZUETA Report Released Date/Time: Mar 09, 2024 10:49 AM Reporting Lab: [address] [address] Performing Lab: [address] [address] [facility] LIPID PANEL (STL) CHOLESTEROL IN LDL [MASS/VOLUM E] IN SERUM OR PLASMA BY CALCULATION 95 mg/dL 03/09 Specimen Type: PLASMA Comment: No hemolysis noted. Ordering Provider: MIGUEL ZAZUETA Report Released Date/Time: Mar 09, 2024 10:49 AM Reporting Lab: [address] [address] Performing Lab: [address] [address] [facility] LIPID PANEL (STL) CHOLESTEROL IN HDL [MASS/VOLUM E] IN SERUM OR PLASMA 56 mg/dL 40 03/09 Specimen Type: PLASMA Comment: No hemolysis noted. Ordering Provider: MIGUEL ZAZUETA Report Released Date/Time: Mar 09, 2024 10:49 AM Reporting Lab: [address] [address] Performing Lab: [facility] [address] [facility] [phone] [place] [address] TSH W/ REFLEX FT4 (STL) THYROTROPIN [UNITS/VOLU ME] IN SERUM OR PLASMA 2.453 u[IU]/mL 0.47 - 5 03/09 Specimen Type: PLASMA No comment entered. Ordering Provider: MIGUEL ZAZUETA Report Released Date/Time: Mar 09, 2024 10:49 AM Reporting Lab: [facility] [address] [facility] [address] Performing Lab: [place] [address] URINALYSI S (STL-PB) COLOR OF URINE Colorles s 03/09 Specimen Type: URINE No comment entered. Ordering Provider: MIGUEL ZAZUETA Report Released Date/Time: Mar 09, 2024 10:49 AM Reporting Lab: [facility] [address] [facility] [address] Performing Lab: [place] [id number] [facility] [phone] [place] [address] URINALYSI S (STL-PB) BILIRUBIN.T OTAL [PRESENCE] IN URINE BY TEST STRIP Negative mg/dL 03/09 Specimen Type: URINE No comment entered. Ordering Provider: MIGUEL ZAZUETA Report Released Date/Time: Mar 09, 2024 10:49 AM Reporting Lab: [facility] [address] [facility] [address] Performing Lab: [facility] [address] [facility] [phone] [place] [address] URINALYSI S (STL-PB) PH OF URINE BY TEST STRIP 7.0 5.0 - 8.0 03/09 Specimen Type: URINE No comment entered. Ordering Provider: MIGUEL ZAZUETA Report Released Date/Time: Mar 09, 2024 10:49 AM Reporting Lab: [facility] [address] [facility] [address] Performing Lab: [facility] [address] [facility] [phone] [facility] URINALYSI S (STL-PB) APPEARANCE OF URINE Clear 03/09 Specimen Type: URINE No comment entered. Ordering Provider: MIGUEL ZAZUETA Report Released Date/Time: Mar 09, 2024 10:49 AM Reporting Lab: [address] [address] Performing Lab: [address] [phone] [place] [address] URINALYSI S (STL-PB) NITRITE [PRESENCE] IN URINE BY TEST STRIP Negative mg/dL 03/09 Specimen Type: URINE No comment entered. Ordering Provider: MIGUEL ZAZUETA Report Released Date/Time: Mar 09, 2024 10:49 AM Reporting Lab: [address] [address] Performing Lab: [address] [address] [facility] URINALYSI S (STL-PB) GLUCOSE [MASS/VOLUM E] IN URINE BY TEST STRIP Normalmg /dL 03/09 Specimen Type: URINE No comment entered. Ordering Provider: MIGUEL ZAZUETA Report Released Date/Time: Mar 09, 2024 10:49 AM Reporting Lab: [address] [address] Performing Lab: [facility] [address] [place] [phone] [facility] URINALYSI S (STL-PB) PROTEIN [MASS/VOLUM E] IN URINE BY TEST STRIP Negative mg/dL 03/09 Specimen Type: URINE No comment entered. Ordering Provider: MIGUEL ZAZUETA Report Released Date/Time: Mar 09, 2024 10:49 AM Reporting Lab: [address] [address] Performing Lab: [address] [place] [address] [facility] URINALYSI S (STL-PB) URN.UROBILI NOGEN Normalmg /dL 03/09 Specimen Type: URINE No comment entered. Ordering Provider: MIGUEL ZAZUETA Report Released Date/Time: Mar 09, 2024 10:49 AM Reporting Lab: [address] [address] Performing Lab: [address] [phone] [place] [address] URINALYSI S (STL-PB) HEMOGLOBIN [MASS/VOLUM E] IN URINE BY TEST STRIP Negative mg/dL 03/09 Specimen Type: URINE No comment entered. Ordering Provider: MIGUEL ZAZUETA Report Released Date/Time: Mar 09, 2024 10:49 AM Reporting Lab: [address] [address] Performing Lab: [address] [phone] [place] [address] URINALYSI S (STL-PB) KETONES [MASS/VOLUM E] IN URINE BY TEST STRIP Negative mg/dL 03/09 Specimen Type: URINE No comment entered. Ordering Provider: MIGUEL ZAZUETA Report Released Date/Time: Mar 09, 2024 10:49 AM Reporting Lab: [address] [address] Performing Lab: [address] [phone] [place] [address] URINALYSI S (STL-PB) URN.LEUK.ES T. Negative mg/dL 03/09 Specimen Type: URINE No comment entered. Ordering Provider: MIGUEL ZAZUETA Report Released Date/Time: Mar 09, 2024 10:49 AM Reporting Lab: [address] [address] Performing Lab: [address] [phone] [place] [address] URINALYSI S (STL-PB) SPECIFIC GRAVITY OF URINE 1.004 03/09 L Specimen Type: URINE No comment entered. Ordering Provider: MIGUEL ZAZUETA Report Released Date/Time: Mar 09, 2024 10:49 AM Reporting Lab: [address] [address] Performing Lab: [address] [phone] [place] [address] VITAMIN D, 25-HYDROX Y 25-HYDROXYV ITAMIN D3 [MASS/VOLUM E] IN SERUM OR PLASMA 49.2 ng/mL 30 - 96 03/09 Specimen Type: SERUM No comment entered. Ordering Provider: MIGUEL ZAZUETA Report Released Date/Time: Mar 09, 2024 10:49 AM Reporting Lab: [address] [address] Performing Lab: [address] [phone] [place] [address] CYSTATIN C EGFR PANELS (STL-PB-M A) CYSTATIN [...] Dec 11, 2022 02:35 PM Reporting Lab: [address] [address] Performing Lab: [address] [phone] [place] [address] CYSTATIN C EGFR PANELS ([facility]-PB-M A) CKD-EPI CYSTATIN C (2011) 80.5 60 03/08 Specimen Type: PLASMA Comment: Choice of which of the reported eGFR values to use depends on the clinical situation. For example, for patients with severe muscle wasting or reduced muscle mass, eGFR calculated using the 2012 cystatin equation may be preferred. Ordering Provider: MIGUEL ZAZUETA Report Released Date/Time: Dec 11, 2022 02:35 PM Reporting Lab: [address] [address] Performing Lab: [address] [phone] [place] [address] CYSTATIN C EGFR PANELS (STL-PB-M A) CKD-EPI [...] Dec 11, 2022 02:35 PM Reporting Lab: [address] [address] Performing Lab: [phone] [place] [address] CYSTATIN C EGFR PANELS (STL-PB-M A) CREATININE [...] Dec 11, 2022 02:35 PM Reporting Lab: [address] [address] Performing Lab: [address] [phone] Vital Signs Combined list of inpatient and outpatient Vital Signs from Department of Defense and Veterans Affairs, ranging from 12 months to all on record, depending upon the facility. Vital Sign Value Date Comments Source SYSTOLIC BLOOD PRESSURE 112 03/09/2024 10:04:00 [facility] DIASTOLIC BLOOD PRESSURE 57 03/09/2024 10:04:00 [facility] PULSE OXIMETRY 100 03/09/2024 10:04:00 [facility] WEIGHT 156 03/09/2024 10:04:00 [facility] BMI 27kg/m2 03/09/2024 10:04:00 [facility] PAIN 4 03/09/2024 10:04:00 [facility] HEIGHT 64 03/09/2024 10:04:00 [facility] TEMPERATURE 97.6 03/09/2024 10:04:00 [facility] PULSE 69 03/09/2024 10:04:00 [facility] RESPIRATION 18 03/09/2024 10:04:00 [facility] SYSTOLIC BLOOD PRESSURE 105 02/29/2024 13:36:23 [facility] DIASTOLIC BLOOD PRESSURE 66 02/29/2024 13:36:23 [facility] PULSE OXIMETRY 97 02/29/2024 13:36:23 [facility] WEIGHT 156.6 02/29/2024 13:36:23 [facility] BMI 27kg/m2 02/29/2024 13:36:23 [facility] PAIN 0 02/29/2024 13:36:23 [facility] TEMPERATURE 97.8 02/29/2024 13:36:23 [facility] PULSE 78 02/29/2024 13:36:23 [facility] RESPIRATION 16 02/29/2024 13:36:23 [facility] SYSTOLIC BLOOD PRESSURE 104 07/06/2023 10:30:05 [facility] DIASTOLIC BLOOD PRESSURE 64 07/06/2023 10:30:05 [facility] PULSE OXIMETRY 96 07/06/2023 10:30:05 [facility] WEIGHT 158 07/06/2023 10:30:05 [facility] BMI 27kg/m2 07/06/2023 10:30:05 [facility] PAIN 0 07/06/2023 10:30:05 [facility] HEIGHT 64 07/06/2023 10:30:05 [facility] TEMPERATURE 97.7 07/06/2023 10:30:05 [facility] PULSE 81 07/06/2023 10:30:05 [facility] RESPIRATION 16 07/06/2023 10:30:05 [facility] PAIN 0 06/30/2023 09:34:48 [facility] Encounters Combined list of: 1) Encounters from Department of [facility] Affairs facilities going back up to thelast 18 months. 2) Encounters from the Department of Defense facilities going back up to 280 months. 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, bilater al, mild stage<b r/> LEBRON,J DENTON B III 12/22 [facility] VISUAL FIELD EXAMINATIO N(S) [id number] Diagnos is: ICD-10- CM 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, bilater al, mild stage<b r/> ERICA MOLINA I M 12/22 [facility] OFF/OP CONSLTJ NEW/[place] HI 55 [id number] Diagnos is: ICD-10- CM M47.892 Other spondyl osis, cervica l region< br/> ISAIAS MOY A 01/05 [facility] Outpatient Encounter [id number] 01/12 [facility] OFFICE O/P EST LOW 20-29 MIN [id number] Diagnos is: ICD-10- CM G43.709 Chronic migrain e w/o aura, not intract able, w/o stat migr
CHUCK KAY 01/14 [facility] SUP/ACCESS /DEV [id number] Diagnos is: ICD-10- CM H90.3 Sensori neural hearing loss, bilater al
MALLOYENRIQUE K 02/16 [facility] OFFICE O/P EST MOD 30-39 MIN [id number] Diagnos is: ICD-10- CM I48.0 Paroxys mal atrial fibrill ation<b r/> SARAY GARCIA H 02/26 [facility] Outpatient Encounter [id number] MARCUS NUNEZ NTHIA A 03/01 [facility] Outpatient Encounter [id number] 03/[address] [facility] OFFICE O/P EST MOD 30-39 MIN [id number] Diagnos is: ICD-10- CM M54.2 Cervica lgia
LAUREN ZAZUETA M 03/10 [facility] [facility] Outpatient Encounter [id number] 03/12 [facility] Outpatient Encounter [id number] JO ANN HELLER YNDA R 03/15 [facility] Outpatient Encounter [id number] 03/17 [facility] Outpatient Encounter [id number] 03/29 [facility] Outpatient Encounter [id number] 04/01 [facility] Outpatient Encounter [id number] 04/13 [facility] OFFICE O/P EST MOD 30-39 MIN [id number] Diagnos is: ICD-10- CM M47.892 Other spondyl osis, cervica l region< br/> ISAIAS MOY 04/27 [facility] SELF CARE MNGMENT TRAINING [id number] Diagnos is: ICD-10- CM M54.2 Cervica lgia
PARVIN DODSON 04/27 [facility] Outpatient Encounter [id number] 04/28 [facility] Outpatient Encounter [id number] 04/29 [facility] Outpatient Encounter [id number] 1 05/03 [facility] MANUAL THERAPY 1/> REGIONS [id number] [id number] Diagnos is: ICD-10- CM M54.2 Cervica lgia
MAURICIO MAHMOOD 05/12 [facility] Outpatient Encounter [id number] WILY JACKSON A 05/[address] [facility] MANUAL THERAPY 1/> REGIONS [id number] Diagnos is: ICD-10- CM M54.2 Cervica lgia
PARVIN DODSON 05/20 [facility] Outpatient Encounter [id number] FEROZ AUSTIN T 05/20 [facility] Outpatient Encounter [id number] [id number] FEROZ AUSTIN T 05/24 [facility] Outpatient Encounter [id number] 05/26 [facility] OFFICE O/P EST MOD 30 MIN [id number] Diagnos is: ICD-10- CM M47.892 Other spondyl osis, cervica l region< br/> ISAIAS MOY 05/26 [facility] NEUROMUSCU LAR REEDUCATIO N [id number] Diagnos is: ICD-10- CM R42 Dizzine ss and giddine ss
LEILANI CARTWRIGHT J 06/[address] [facility] MANUAL THERAPY 1/> REGIONS [id number] Diagnos is: ICD-10- CM M54.2 Cervica lgia
PARVIN DODSON 06/08 [facility] Outpatient Encounter [id number] JO ANN HELLER R 06/09 [facility] Outpatient Encounter [id number] 06/[address] [facility] MANUAL THERAPY 1/> REG[place] [id number] Diagnos is: ICD-10- CM M54.2 Cervica lgia
PARVIN DODSON J 06/24 [facility] Outpatient Encounter [id number] WILY JACKSON 06/25 [facility] Outpatient Encounter [id number]. [id number] ADDI SIMONS V 06/[address] 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
LAUREN ZAZUETA 07/06 [facility] Outpatient Encounter [id number] 07/08 [facility] NEUROMUSCU LAR REEDUCATIO N [id number] [id number] Diagnos is: ICD-10- CM N18.2 Chronic kidney disease , stage 2 (mild)< br/> LEILANI CARTWRIGHT MIN J 07/13 [facility] Outpatient Encounter [id number] JO ANN HELLER R 07/[address] [facility] MANUAL THERAPY 1/> REGIONS [id number] Diagnos is: ICD-10- CM M54.2 Cervica lgia
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 Outpatient Encounter [id number] Diagnos is: ICD-10- CM G47.30 Sleep apnea, unspeci fied
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 MANUAL THERAPY 1/> REG[place] [id number] Diagnos is: ICD-10- CM M54.2 Cervica lgia
PARVIN DODSON 08/04 [facility] DVC REPAIR PER 15 MIN [id number] Diagnos is: ICD-10- CM Z46.89 Encount er for fitting and adjustm ent of oth devices
JORGE SHARMA ERT J 08/08 [facility] NEUROMUSCU LAR REEDUCATIO N [id number] [id number] Diagnos is: ICD-10- CM M54.2 Cervica lgia
LEILANI CARTWRIGHT J 08/16 [facility] Outpatient Encounter [id number] 08/22 [facility] Outpatient Encounter [id number] [id number] NOHELIA BRUNNER 08/29 [facility] SELF CARE MNGMENT TRAINING [id number] Diagnos is: ICD-10- CM M54.2 Cervica lgia
PARVIN DODSON 08/31 [facility] Outpatient Encounter [id number] [id number] 09/01 [facility] DIAB SHOE FOR DENSITY INSERT [id number] [id number] Diagnos is: ICD-10- CM Z46.89 Encount er for fitting and adjustm ent of oth devices
JORGE SHARMA J 09/06 [facility] OFFICE O/P EST MOD 30 MIN [id number] Diagnos is: ICD-10- CM M47.892 Other spondyl osis, cervica l region< br/> ISAIAS MOY A 09/07 [facility] Outpatient Encounter [id number] 09/20 [facility] Outpatient Encounter [id number] SCAR CLARK 09/28 [facility] Outpatient Encounter [id number] [id number] JO ANN HELLER 09/30 [facility] QNHP OL DIG ASSMT&MGMT 5-10 [id number] [id number] Diagnos is: ICD-10- CM G47.30 Sleep apnea, unspeci fied
Genaro VELA A 10/17 [facility] Outpatient Encounter [id number] 10/24 [facility] Outpatient Encounter [id number] 11/01 [facility] Outpatient Encounter [id number] 12/08 [facility] Outpatient Encounter [id number] [id number] JO ANN HELLER 01/06 [facility] CPTR OPHTH DX IMG POST SEGMT [id number] [id number] Diagnos is: ICD-10- CM 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, bilater al, mild stage<b r/> JESSEMALDONADO Monique M 01/25 [facility] INTRM OPH EXAM EST PATIENT [id number] Diagnos is: ICD-10- CM 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, bilater al, mild stage<b r/> Bernardino LEBRON DENTON B III 01/25 [facility] Outpatient Encounter [id number] JO ANN HELLER R 02/06 [facility] Outpatient Encounter [id number] Bernardino LEBRON DENTON B III 02/07 [facility] Outpatient Encounter [id number] Bernardino LEBRON DENTON B III 02/08 [facility] Outpatient Encounter [id number] ADDI SIMONS V 02/28 [facility] OFFICE O/P EST MOD 30 MIN [id number] Diagnos is: ICD-10- CM I48.0 Paroxys mal atrial fibrill ation<b r/> SARAY GARCIA H 02/28 [facility] Outpatient Encounter [id number] AJAY DARBY 02/28 [facility] OFFICE O/P EST MOD 30 MIN [id number] Diagnos is: ICD-10- CM Z00.01 Encount er for general adult medical exam w abnorma l finding s
LAUREN ZAZUETA 03/09 [facility] Outpatient Encounter [id number] 03/10 [facility] Outpatient Encounter [id number] [id number] 03/10 [facility] Outpatient Encounter [id number] JO ANN HELLER R 03/13 [facility] Outpatient Encounter [id number] [id number] 03/15 [facility] Outpatient Encounter [id number] 03/21 [facility] Outpatient Encounter [id number] JO ANN HELLER R 03/21 [facility] Outpatient Encounter [id number] 03/31 [facility] Outpatient Encounter [id number] [id number] 04/03 [facility] Outpatient Encounter [id number] 04/06 [facility] OFF/OP CNSLTJ NEW/EST MOD 40 [id number] Diagnos is: ICD-10- CM M79.672 Pain in left foot
RADHA,ST UART L 04/07 [facility] Outpatient Encounter [id number] 04/20 [facility] Outpatient Encounter [id number] ENRIQUE MALLOY 05/29 [facility] Outpatient Encounter [id number] 05/30 [facility] Procedures Combined list of: 1) Procedures from Department of Veterans Affairs facilities going back up to thelast 18 months, not all [place] non-surgical procedures are included; 2) All procedures from the Department of Defense facilities. Procedure Procedure Type Code Date Perfomer Comments Shira chacon SYNOVECTOMY OF WRIST 12/28/1995 [facility] RELEASE OF CARPAL TUNNEL 12/28/1995 [facility] OTHER BILATERAL DESTRUCTION OR OCCLUSION OF FALLOPIAN TUBES 06/13/1989 [facility] INJECTION OF ANTIBIOTIC 06/13/1989 [facility] MONITORING, NOT OTHERWISE SPECIFIED 06/13/1989 [facility] EKG (SCALP) 06/13/1989 [facility] LOW CERVICAL SECTION 06/13/1989 [facility] INJECTION OR INFUSION OF OTHER THERAPEUTIC OR PROPHYLACTIC SUBSTANCE 06/13/1989 [facility] MEDICAL INDUCTION OF LABOR 06/13/1989 [facility] INJECTION OR INFUSION OF OTHER THERAPEUTIC OR PROPHYLACTIC SUBSTANCE 06/02/1989 [facility] OTHER DIAGNOSTIC PROCEDURES ON FETUS AND AMNION 06/02/1989 [facility] INJECTION OR INFUSION OF OTHER THERAPEUTIC OR PROPHYLACTIC SUBSTANCE 07/23/1988 [facility] INJECTION OF ANTIBIOTIC 07/23/1988 [facility] DILATION AND CURETTAGE FOLLOWING DELIVERY OR 07/23/1988 [facility] Social History Combined list of available smoking, tobacco, and other social history from Department of Defense and Veterans Affairs facilities. Social History Type Response Date Comment Shira chacon Tobacco smoking status [facility] VA-TOBACCO NEVER USED 03/09/2024 [facility] History of tobacco use VA-TOBACCO NEVER USED 10/27/2022 [facility] History of tobacco use VA-TOBACCO NEVER USED 09/30/2021 [facility] History of tobacco use VA-TOBACCO NEVER USED 12/26/2019 [facility] History of tobacco use LIFETIME NON-USER OF TOBACCO 03/03/2017 [facility] History of tobacco use LIFETIME NON-USER OF TOBACCO 01/15/2016 [facility] History of tobacco use LIFETIME NON-USER OF TOBACCO 03/04/2015 [facility] History of tobacco use LIFETIME NON-USER OF TOBACCO 10/12/2013 [facility] History of tobacco use LIFETIME NON-USER OF TOBACCO 12/13/2012 [facility] History of tobacco use LIFETIME NON-USER OF TOBACCO 08/02/2006 [facility] History of tobacco use LIFETIME NON-TOBA [employer] 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 [facility] Plan of Care List of future care activities from Department [facility] facilities. Additional future care activities may be listed in the Assessment and Plan section. Date/Time Care Activity Care Activity Detail [place] [facility] 06/28/2024 AMBULATORY - SURGERY AMBULATORY - SURGERY [facility] 07/25/2024 AMBULATORY - SURGERY AMBULATORY - SURGERY [facility] 08/22/2024 AMBULATORY - SURGERY AMBULATORY - SURGERY [facility] Advance Directives List of completed, amended, or rescinded Advance Directives on record at [facility] facilities. An actual copy of the Directive is not included. Date Advance Directive Provider Source 02/23/2014 ADVANCE DIRECTIVE DISCUSSION ANGELITA AGUILA [facility]
--- NOTE | 2024-06-17 17:19 | ED_ITS ---
HPI - General Adult General Chief complaint: Upper Respiratory Infection Stated complaint: Cough/Fever/tight chest/light headed Time Seen by Provider: 06/17/24 17:19 Source: patient Mode of arrival: ambulatory Limitations: no limitations History of Present Illness HPI narrative: 68-year-old female patient presents to [facility] with complaints of lightheadedness, dizziness, chest pain, shortness of breath, low grade fever today and a cough. Patient states that she was ill last week and had some kind of virus but was starting to feel better and felt much better yesterday. Patient states today when she woke up she felt very lightheaded dizzy and now has developed chest pain and shortness of breath. Patient does have a history of AFib and a brain tumor that was removed about 3 years ago that was benign. Related Data Home Medications ?Medication ?Instructions ?Recorded ?Confirmed ?Last Taken ?Type aspirin 81 mg tablet,delayed 81 mg PO DAILY 03/31/19 01/25/24 01/24/21 History release cetirizine 10 mg capsule 10 mg PO DAILY 03/31/19 01/25/24 01/23/21 History cholecalciferol (vitamin D3) 25 1,000 unit PO DAILY 03/31/19 01/25/24 01/23/21 History mcg (1,000 unit) tablet citalopram 10 mg tablet 5 mg PO QAM 03/31/19 01/25/24 01/24/21 History njvvwtrd-wgst-ghsu 8 mg-folic 400 1 tablet PO DAILY 03/31/19 01/25/24 01/23/21 History mcg-K 50 mcg-lutein 300 mcg tablet (Centrum Silver Women) propafenone 150 mg tablet 150 mg PO BID 03/31/19 01/25/24 01/24/21 History pregabalin 75 mg capsule (Lyrica) 75 mg PO BID 12/25/19 01/25/24 01/24/21 History pravastatin 40 mg tablet 40 mg PO HS 01/16/21 01/25/24 01/23/21 History fluticasone propionate 50 2 spray intranasal DAILY 01/12/22 01/25/24 Unknown H istory mcg/actuation nasal spray,suspension Allergies Allergy/AdvReac Type Severity Reaction Status Date / Time iodine Allergy Unknown Unknown Verified 06/17/24 17:30 povidone Allergy Unknown Unknown Verified 06/17/24 17:30 codeine AdvReac Severe Nausea and Verified 06/17/24 17:30 Vomiting hydrocodone AdvReac Severe Nausea and Verified 06/17/24 17:30 Vomiting NKFA Allergy Unknown Unknown Uncoded 01/25/24 10:02 POVIDONE IODINE (Generic Allergy Unknown Uncoded 01/25/24 10:02 Allergy) PROPOXYPHENE/ACETAMINOPHEN Allergy Nausea and Uncoded 01/25/24 10:02 (Generic Allergy) Vomiting Review of Systems Review of Systems: CONSTITUTIONAL: Positive low-grade fever, denies chills, or sweats. EYES: Denies visual changes, redness, or discharge. ENT: Denies rhinorrhea, congestion, sore throat, or otalgia. CARDIOVASCULAR: positive midsternal chest pain, palpitations, or edema. RESPIRATORY: positive cough positive dyspnea. GASTROINTESTINAL: Denies abdominal pain, nausea, vomiting, or diarrhea. GENITOURINARY: Denies dysuria or hematuria. SKIN: Denies rash or itching. MUSCULOSKELETAL: Denies back pain, joint pain, or myalgia. NEUROLOGIC: Denies headache, numbness, positive weakness. positive lightheadedness and dizziness PSYCHIATRIC: Denies anxiety or depression. [facility] Past Medical History Medical History (Updated 06/17/24 @ 18:11 by PAYTON Carlton) Brain tumor ZEINA (obstructive sleep apnea) Idiopathic peripheral neuropathy Paroxysmal A-fib Pure hypercholesterolemia, unspecified CKD (chronic kidney disease) stage 3, GFR 30-59 ml/min Surgical History Surgical History History of bilateral carpal tunnel release History of cochlear implant Meningioma L w/ resulting deafness H/O foot surgery R bunionectomy, tarsal tunnel, plantar fascia release History of tubal ligation History of x3 History of tonsillectomy History of fusion of cervical spine C5-6 Family History Family History Sibling Diabetes mellitus Mother Hypertension Social History Social History Social History: Smoking status: Never smoker Second hand tobacco smoke exposure: No Alcohol intake: never Substance use: never Substance use type: does not use Do You Feel Safe in your Home?: Yes Lack of Transportation: No Lack of Food: Never True Current Housing: I Have Housing Concerned About Future Housing: No Difficulty Paying Gas/Electric Bills: No Difficulty Paying for Meds: No Currently Unemployed: YES Education: Don't Know Difficulty w/ Childcare or Family Care: No Living arrangements: with family Occupation/Education: retired Gender identity (if verbalized by the patient): Female Sexual Orientation (if Verbalized by the Patient): Straight or Heterosexual Spiritual care concerns: No Comments At the time of my signature I agree with nursing past medical history, surgical, social, and family history. There is no relevant family history pertinent to the presenting complaint. Exam Narrative: GENERAL: Well-appearing, well-nourished, and in no acute distress. HEAD: Normocephalic, atraumatic. EYES: PERRLA and EOMI. ENT: Nares clear, no rhinorrhea or epistaxis. Mucous membranes moist. posterior pharynx with no erythema, tonsillar enlargement, exudates or lesions present. NECK: Supple. No lymphadenopathy CHEST: Clear to auscultation. No respiratory distress. Patient able talk in clear complete sentences but does have labored breathing noted during exam. HEART: Regular rate and rhythm. No murmur heard. Normal peripheral pulses. ABDOMEN: Soft, nontender, nondistended, normal active bowel sounds. EXTREMITIES: Normal range of motion. No edema. SKIN: Warm, dry, no rash. NEURO: No focal deficits. Alert and oriented x3. Course Course Level of Care: Express Care Visit Vital Signs Vital signs: Vital Signs Temperature 36.5 C 06/17/24 17:27 Pulse Rate 74 06/17/24 17:27 Respiratory Rate 18 06/17/24 17:27 Blood Pressure 120/58 L 06/17/24 17:27 Pulse Oximetry 100 06/17/24 17:27 Oxygen Delivery Room Air 06/17/24 17:27 Temperature 36.5 C 06/17/24 17:27 Pulse Rate 74 06/17/24 17:27 Respiratory Rate 18 06/17/24 17:27 Blood Pressure 120/58 L 06/17/24 17:27 Pulse Oximetry 100 06/17/24 17:27 Oxygen Delivery Room Air 06/17/24 17:27 Vital signs reviewed. Transfer Transfered to: [place] Transportation: BLS and ALS Transfer rationale: Lightheadedness, dizziness, near syncopal episode with chest pain and shortness of breath Accepting physician: Herrera AGUILAR Medical Decision Making MDM Narrative Medical decision making narrative: During exam patient got very lightheaded and had to lay back had a near syncopal episode but never actually passed out. Patient started complaining of midsternal chest pain and shortness of breath with the lightheadedness and dizziness. We did get an EKG which showed sinus rhythm no active AFib at this time and possibly an old septal myocardial infarction. Discussed with patient that her COVID and influenza are both negative but I think that she needs to go to the ER for further evaluation of this lightheadedness. Discussed with her that the EKG only shows a small part of the heart of what is going on and given the fact that she has had a brain tumor in the past she would need further workup. Patient does agree and we are sending by EMS to [facility] ER. Differential Diagnosis Differential Diagnosis: Differential diagnosis: Allergic rhinitis, chronic sinusitis, tonsillitis, acute sinusitis, infectious mononucleosis, seasonal influenza, pertussis, diphtheria, meningococcal disease, viral syndrome, viral bronchitis, RSV, COVID- 19 Vital Signs Vital Signs: Vital Signs Temperature 36.5 C 06/17/24 17:27 Pulse Rate 74 06/17/24 17:27 Respiratory Rate 18 06/17/24 17:27 Blood Pressure 120/58 L 06/17/24 17:27 Pulse Oximetry 100 06/17/24 17:27 Oxygen Delivery Room Air 06/17/24 17:27 Temperature 36.5 C 06/17/24 17:27 Pulse Rate 74 06/17/24 17:27 Respiratory Rate 18 06/17/24 17:27 Blood Pressure 120/58 L 06/17/24 17:27 Pulse Oximetry 100 06/17/24 17:27 Oxygen Delivery Room Air 06/17/24 17:27 Lab Data Labs: Lab Results 06/17/24 Range/Units 17:55 POC Influenza A Ag Negative (Negative) POC Influenza B Ag Negative (Negative) POC SARS CoV-2 Ag Negative (Negative) ECG Data EKG #1: ECG completion date: 06/17/24 ECG completion time: 17:54 Interpretation: sinus rhythm. Septal myocardial infarction, probably old. Abnormal ECG. Unconfirmed report. Vent rate: 64 VT interval: 176 QRS duration: 178 QT/ QTC: 399/409 P-R- T axis: 40, 17, 39 Critical Care Time Critical Care Time Critical Care Time: No Discharge Plan Discharge Clinical Impression: Near syncope, Chest pain, midsternal, Acute dyspnea, Dizziness Patient Disposition: Acute Care Hospital Condition: Unstable Instructions: Antibiotic Form Patient Language: Tajik Prescriptions: No Action diclofenac sodium 75 mg tablet,delayed release (DR/EC) 75 mg PO BID Qty: 60 1RF cefdinir 300 mg capsule 300 mg PO Q12H Qty: 14 0RF pregabalin [Lyrica] 75 mg capsule 75 mg PO BID fluticasone propionate 50 mcg/actuation spray,suspension 2 spray intranasal DAILY Rx Instructions: administer into each nostril methocarbamol 500 mg tablet 500 mg PO QHS Qty: 30 0RF pravastatin 40 mg tablet 40 mg PO HS propafenone 150 mg tablet 150 mg PO BID cholecalciferol (vitamin D3) 25 mcg (1,000 unit) tablet 1,000 unit PO DAILY citalopram 10 mg tablet 5 mg PO QAM cetirizine 10 mg capsule 10 mg PO DAILY Centrum Silver Women 8 mg iron-400 mcg-300 mcg tablet 1 tablet PO DAILY aspirin 81 mg tablet,delayed release (DR/EC) 81 mg PO DAILY Follow-up/Referrals: Manuel Cook MD [Primary Care Provider] - Time of Disposition: 18:10
[2024-06-17 17:27] VITALS: BP 120/58; PULSE 74; RESP 18; TEMP 36.5; O2SAT 100
--- NOTE | 2024-06-17 17:46 | ECG_ITS ---
Test Date: 2024-06-17 17:53:51 Measurements Intervals [place] Rate: 67 P: 61 NM: 215 QRS: 22 QRSD: 75 T: 58 QT: 393 QTc: 416 Interpretive Statements SINUS RHYTHM WITH FIRST DEGREE AV BLOCK CANNOT R/O SEPTAL INFARCT, AGE INDETERMINATE BASELINE ARTIFACT- I, II, III, AVR, AVL, AVF, V1-V6 ABNORMAL ECG No previous ECG available for comparison Electronically Signed On 06-17-2024 18:12:23 [employer] by Roddy Gao D.O.
[2024-06-17 17:57] LABS: EDCOVIDSCREEN Negative (Negative); EDINFLUASCREEN Negative (Negative); EDINFLUBSCREEN Negative (Negative)
== END 2024-06-17 18:02 | disposition short-term general hospital (02) ==
PROVIDERS: Emergency Provider Nurse Practitioner Family; PCP Family Medicine
DX: R55 Syncope and collapse (principal); R07.89 Other chest pain; R06.00 Dyspnea, unspecified; R42 Dizziness and giddiness; Z20.822 Contact with and (suspected) exposure to COVID-19; R94.31 Abnormal electrocardiogram [ECG] [EKG]; N18.30 Chronic kidney disease, stage 3 unspecified; I48.0 Paroxysmal atrial fibrillation; G60.9 Hereditary and idiopathic neuropathy, unspecified; Z86.011 Personal history of benign neoplasm of the brain; Z96.21 Cochlear implant status; Z79.82 Long term (current) use of aspirin
CPT/HCPCS: 87426; 87804; 93005; 99215; G0463

== ENCOUNTER 2024-06-17 18:29 | Emergency (ER) | payer MEDICARE, OTHER, SELFPAY ==
--- NOTE | ~2024-06-17 | XR_ITS ---
EXAMINATION: XR chest 1V portable Exam Date/Time: 06/17/2024 18:40 [facility] HISTORY: COUGH DIZZY NEAR SYNCOPE Comparison: None. RESULT: Lines, tubes, and devices: Partially visualized ACDF hardware. Lungs and pleura: Clear. Cardiomediastinal silhouette: Unremarkable. Other: No acute osseous or upper abdominal finding. IMPRESSION: No acute cardiopulmonary process. Reviewed, dictated and finalized at location K. HER [facility]
--- NOTE | ~2024-06-17 | CT_ITS ---
EXAMINATION: CT brain wo con DATE: 06/17/2024 21:02 INDICATION: dizziness . TECHNIQUE: Computed tomography (CT) of the head was performed without intravenous contrast. The mA wa s adjusted according to patient size. Iterative reconstruction technique was employed. The dose-lengt h product was 605.33 mGy-cm. COMPARISON: None. FINDINGS: No acute intracranial hemorrhage or extra-axial fluid collection. No hydrocephalus, mass, or herniation. No acute ischemic infarct. Unremarkable dural venous sinus attenuation. No acute osseous abnormality. Bilateral maxillary and ethmoid mucosal thickening, the remaining aerated spaces are clear. Mild atrophy and chronic white matter change. Atherosclerotic intracranial calcification. Bilateral l ens replacements. Left cochlear implant which creates significant adjacent metal artifact. IMPRESSION: No acute intracranial process. Reviewed, dictated and finalized at location K. [facility] WICKER
--- NOTE | 2024-06-17 18:32 | ED_ITS ---
HPI - URI/Sore Throat General Chief Complaint: Upper Respiratory Infection <Arnold Valadez MD - Last Filed: 06/17/24 19:02> Stated Complaint: upper resp symptoms <Arnold Valadez MD - Last Filed: 06/17/24 19:02> Time Seen by Provider: 06/17/24 18:32 <Arnold Valadez MD - Last Filed: 06/17/24 19:02> Source: patient and family <Arnold Valadez MD - Last Filed: 06/17/24 19:02> Mode of arrival: ambulatory <Arnold Valadez MD - Last Filed: 06/17/24 19:02> Limitations: no limitations <Arnold Valadez MD - Last Filed: 06/17/24 19:02> History of Present Illness HPI Narrative: 68 YEARS OLD WHITE FEMALE CAME FROM URGENT CARE BY AMBULANCE COMPLAINING OF LIGHTHEADEDNESS, DIZZINESS, COUGHING, CHEST TIGHTNESS WITH COUGHING TODAY. PATIENT IS TELLING ME THAT SHE BEEN COUGHING FOR 1 WEEK WITH BODY ACHES, SHE DENIES ANY FEVER, CHILLS, NAUSEA, VOMITING. PATIENT REPORT 1 OF HER GRANDKIDS WAS HAVING FEVER AND RESPIRATORY SYMPTOMS 1 WEEK AGO. HISTORY OF AFIB ON BABY ASPIRIN ONCE A DAY PATIENT DOES NOT SMOKE OR DRINK OR USE DRUGS. <Arnold Valadez MD - Last Filed: 06/17/24 19:02> Related Data Home Medications: Home Medications ?Medication ?Instructions ?Recorded ?Confirmed ?Last Taken ?Type aspirin 81 mg tablet,delayed 81 mg PO DAILY 03/31/19 01/25/24 01/24/21 History release cetirizine 10 mg capsule 10 mg PO DAILY 03/31/19 01/25/24 01/23/21 History cholecalciferol (vitamin D3) 25 1,000 unit PO DAILY 03/31/19 01/25/24 01/23/21 History mcg (1,000 unit) tablet citalopram 10 mg tablet 5 mg PO QAM 03/31/19 01/25/24 01/24/21 History uugllprx-uhmi-pwtj 8 mg-folic 400 1 tablet PO DAILY 03/31/19 01/25/24 01/23/21 History mcg-K 50 mcg-lutein 300 mcg tablet (Centrum Silver Women) propafenone 150 mg tablet 150 mg PO BID 03/31/19 01/25/24 01/24/21 History pregabalin 75 mg capsule (Lyrica) 75 mg PO BID 12/25/19 01/25/24 01/24/21 History pravastatin 40 mg tablet 40 mg PO HS 01/16/21 01/25/24 01/23/21 History fluticasone propionate 50 2 spray intranasal DAILY 01/12/22 01/25/24 Unknown History mcg/actuation nasal spray,suspension <Arnold Valadez MD - Last Filed: 06/17/24 19:02> Allergies/Adverse Reactions: Allergies Allergy/AdvReac Type Severity Reaction Status Date / Time iodine Allergy Unknown Unknown Verified 06/17/24 18:43 povidone Allergy Unknown Unknown Verified 06/17/24 18:43 codeine AdvReac Severe Nausea and Verified 06/17/24 18:43 Vomiting hydrocodone AdvReac Severe Nausea and Verified 06/17/24 18:43 Vomiting POVIDONE IODINE (Generic Allergy Unknown Uncoded 06/17/24 18:43 Allergy) PROPOXYPHENE/ACETAMINOPHEN Allergy Nausea and Uncoded 06/17/24 18:43 (Generic Allergy) Vomiting <Arnold Valadez MD - Last Filed: 06/17/24 19:02> Review of Systems 2 Review of Systems: All systems reviewed & are unremarkable except as noted in HPI and below <Arnold Valadez MD - Last Filed: 06/17/24 19:02> FOR[facility]LY [facility] Past Medical History Medical History: Medical History Brain tumor ZEINA (obstructive sleep apnea) Idiopathic peripheral neuropathy Paroxysmal A-fib Pure hypercholesterolemia, unspecified CKD (chronic kidney disease) stage 3, GFR 30-59 ml/min <Arnold Valadez MD - Last Filed: 06/17/24 19:02> Surgical History Surgical History: Surgical History History of bilateral carpal tunnel release History of cochlear implant Meningioma L w/ resulting deafness H/O foot surgery R bunionectomy, tarsal tunnel, plantar fascia release History of tubal ligation History of x3 History of tonsillectomy History of fusion of cervical spine C5-6 <Arnold Valadez MD - Last Filed: 06/17/24 19:02> Family History Family History: Family History Sibling Diabetes mellitus Mother Hypertension <Arnold Valadez MD - Last Filed: 06/17/24 19:02> Social History Social History: Social History Social History: Smoking status: Never smoker Second hand tobacco smoke exposure: No Alcohol intake: never Substance use: never Substance use type: does not use Do You Feel Safe in your Home?: Yes Lack of Transportation: No Lack of Food: Never True Current Housing: I Have Housing Concerned About Future Housing: No Difficulty Paying Gas/Electric Bills: No Difficulty Paying for Meds: No Currently Unemployed: YES Education: Don't Know Difficulty w/ Childcare or Family Care: No Living arrangements: with family Occupation/Education: retired Gender identity (if verbalized by the patient): Female Sexual Orientation (if Verbalized by the Patient): Straight or Heterosexual Spiritual care concerns: No <Arnold Valadez MD - Last Filed: 06/17/24 19:02> Exam 2 Narrative: GENERAL APPEARANCE: WELL-DEVELOPED, WELL-NOURISHED WITH INTERMITTENT COUGHING SKIN: NORMAL COLOR HEAD: NORMOCEPHALIC, NONTRAUMATIC EYES: CLEAR CONJUNCTIVA ENT: OROPHARYNX NORMAL, EARS NORMAL, NOSE NORMAL NECK: SUPPLE, NONTENDER CHEST AND RESPIRATORY: AIRWAY PATENT, NO RESPIRATORY DISTRESS, NO ACCESSORY MUSCLE USE HEART: REGULAR RATE/RHYTHM ABDOMEN: SOFT, NONTENDER, NO ORGANOMEGALY, QUIET BOWEL SOUNDS MUSCULOSKELETAL: NORMAL RANGE OF MOTION, NONTENDER BACK NEUROLOGIC: ALERT AND ORIENTED ?3, LOW PRESSURE FIRER IS NORMAL TESTED, NO GROSS MOTOR DEFICIT <Arnold Valadez MD - Last Filed: 06/17/24 19:02> Course Consultations Consultation #1: DR WILLIS AT [facility] WAITING FOR LABS, DISPOSITION. <Arnold Valadez MD - Last Filed: 06/17/24 19:02> Date: 06/17/24 <Arnold Valadez MD - Last Filed: 06/17/24 19:02> Time: 19:01 <Arnold Valadez MD - Last Filed: 06/17/24 19:02> Vital Signs Vital signs: Vital Signs Temperature 36.6 C 06/17/24 18:35 Pulse Rate 66 06/17/24 18:35 Respiratory Rate 15 06/17/24 18:35 Blood Pressure 110/77 06/17/24 18:35 Pulse Oximetry 100 06/17/24 18:35 Oxygen Delivery Room Air 06/17/24 18:35 Temperature 36.6 C 06/17/24 18:35 Pulse Rate 67 06/17/24 22:30 Respiratory Rate 15 06/17/24 22:30 Blood Pressure 128/64 06/17/24 22:30 Pulse Oximetry 100 06/17/24 22:30 Oxygen Delivery Room Air 06/17/24 18:40 <Arnold Valadez MD - Last Filed: 06/17/24 19:02> Vital Signs Temperature 36.6 C 06/17/24 18:35 Pulse Rate 66 06/17/24 18:35 Respiratory Rate 15 06/17/24 18:35 Blood Pressure 110/77 06/17/24 18:35 Pulse Oximetry 100 06/17/24 18:35 Oxygen Delivery Room Air 06/17/24 18:35 Temperature 36.6 C 06/17/24 18:35 Pulse Rate 67 06/17/24 22:30 Respiratory Rate 15 06/17/24 22:30 Blood Pressure 128/64 06/17/24 22:30 Pulse Oximetry 100 06/17/24 22:30 Oxygen Delivery Room Air 06/17/24 18:40 <Sanchez Cope MD - Last Filed: 06/17/24 22:38> MDM - URI/Sore Throat MDM Narrative Medical decision making narrative: PATIENT CAME WITH UPPER RESPIRATORY VIRAL INFECTION LIKE SYMPTOMS VITAL SIGNS ARE STABLE PHYSICAL EXAMINATION SHOWING A PATIENT WITH INTERMITTENT COUGHING, HOLDING HER CHEST DURING COUGHING DIFFERENTIAL DIAGNOSIS INCLUDE VIRAL INFECTION, SECONDARY BACTERIAL INFECTION, BRONCHITIS, PNEUMONIA, LESS LIKELY CONGESTIVE HEART FAILURE OR CORONARY ARTERY DISEASE. BLOOD WORKUP TODAY INCLUDES CBC, CMP, TROPONIN, BNP SHOWED EKG ON ARRIVAL SHOWED NORMAL SINUS RHYTHM CHEST X-RAY SHOWED <Arnold Valadez MD - Last Filed: 06/17/24 19:02> PATIENT CAME WITH UPPER RESPIRATORY VIRAL INFECTION LIKE SYMPTOMS VITAL SIGNS ARE STABLE PHYSICAL EXAMINATION SHOWING A PATIENT WITH INTERMITTENT COUGHING, HOLDING HER CHEST DURING COUGHING DIFFERENTIAL DIAGNOSIS INCLUDE VIRAL INFECTION, SECONDARY BACTERIAL INFECTION, BRONCHITIS, PNEUMONIA, LESS LIKELY CONGESTIVE HEART FAILURE OR CORONARY ARTERY DISEASE. BLOOD WORKUP TODAY INCLUDES CBC, CMP, TROPONIN, BNP SHOWED EKG ON ARRIVAL SHOWED NORMAL SINUS RHYTHM CHEST X-RAY SHOWED Patient was signed out pending results of test which showed no significant abnormality. The patient was still having some unsteadiness CT head showed no evidence of acute abnormality the patient was given meclizine and is feeling much better. <Sanchez Cope MD - Last Filed: 06/17/24 22:38> Lab Data Result diagrams: 06/17/24 19:13 06/17/24 19:13 <Arnold Valadez MD - Last Filed: 06/17/24 19:02> Labs: Lab Results 06/17/24 06/17/24 Range/Units 18:40 19:13 WBC 4.8 (4.5-10.0) K/mm3 RBC 3.84 L (4.2-5.4) M/mm3 Hgb 12.0 (12.0-15.0) g/dL Hct 35.7 L (37.0-47.0) % MCV 93.0 (80-100) fl MCH 31.3 (26-34) pg MCHC 33.6 (32-36) g/dl RDW 11.5 (11.5-14.5) % Plt Count 181 (150-375) k/mm3 MPV 10.0 (7.4-10.4) fl Immature Gran % (Auto) 0.2 (0-0.5) % Neut % (Auto) 58.5 (45.5-73.1) % Lymph % (Auto) 30.8 (18.3-44.2) % [place] % (Auto) 8.9 H (2.6-8.5) % Eos % (Auto) 1.2 (0-4.4) % Baso % (Auto) 0.4 (0.2-1.2) % Lymph # (Auto) 1.49 (0.9-3.2) K/mm3 [place] # (Auto) 0.4 (0.1-0.6) K/mm3 Eos # (Auto) 0.1 (0-0.3) K/mm3 Baso # (Auto) 0.0 (0.0-0.1) K/mm3 Abs Immat Gran (auto) 0.01 (0.00-0.031) K/mm3 Absolute Neuts (auto) 2.8 (1.3-6.7) K/mm3 Absolute Nucleated RBC 0.000 (0.0-0.012) K/mm3 Nucleated RBC % 0.0 (0.0-0.2) % PT 12.5 (11.1-14.7) Seconds INR 0.9 APTT 33.5 (22.3-36.8) Seconds Sodium 139 (137-145) mmol/L Potassium 4.5 (3.4-5.0) mmol/L Chloride 102 (98-107) mmol/L Carbon Dioxide 26 (22-30) mmol/L Anion Gap 11 (4-12) mmol/L BUN 25 H (7-17) mg/dL Creatinine 0.73 (0.7-1.0) mg/dL Estim Creat Clear Calc 59 ml/min Estimated GFR > 60 (59 - ) Glucose 105 (65-110) mg/dL Calcium 9.0 (8.4-10.2) mg/dL Total Bilirubin 0.4 (0.2-1.3) mg/dL AST 36 (14-36) U/L ALT 39 H (6-35) U/L Alkaline Phosphatase 87 (38-126) U/L Troponin I < 0.012 (0.000-0.034) ng/mL NT-Pro-B Natriuret Pep 220 H (19.9-100) pg/mL Total Protein 7.0 (6.3-8.2) g/dL Albumin 3.9 (3.5-5.1) g/dL Influenza A (RT-PCR) Negative (Negative) Influenza B (RT-PCR) Negative (Negative) RSV (RT-PCR) Negative (Negative) SARS-CoV-2 RNA (RT-PCR) Negative (Negative) <Arnold Valadez MD - Last Filed: 06/17/24 19:02> Lab Results 06/17/24 06/17/24 Range/Units 18:40 19:13 WBC 4.8 (4.5-10.0) K/mm3 RBC 3.84 L (4.2-5.4) M/mm3 Hgb 12.0 (12.0-15.0) g/dL Hct 35.7 L (37.0-47.0) % MCV 93.0 (80-100) fl MCH 31.3 (26-34) pg MCHC 33.6 (32-36) g/dl RDW 11.5 (11.5-14.5) % Plt Count 181 (150-375) k/mm3 MPV 10.0 (7.4-10.4) fl Immature Gran % (Auto) 0.2 (0-0.5) % Neut % (Auto) 58.5 (45.5-73.1) % Lymph % (Auto) 30.8 (18.3-44.2) % [place] % (Auto) 8.9 H (2.6-8.5) % Eos % (Auto) 1.2 (0-4.4) % Baso % (Auto) 0.4 (0.2-1.2) % Lymph # (Auto) 1.49 (0.9-3.2) K/mm3 [place] # (Auto) 0.4 (0.1-0.6) K/mm3 Eos # (Auto) 0.1 (0-0.3) K/mm3 Baso # (Auto) 0.0 (0.0-0.1) K/mm3 Abs Immat Gran (auto) 0.01 (0.00-0.031) K/mm3 Absolute Neuts (auto) 2.8 (1.3-6.7) K/mm3 Absolute Nucleated RBC 0.000 (0.0-0.012) K/mm3 Nucleated RBC % 0.0 (0.0-0.2) % PT 12.5 (11.1-14.7) Seconds INR 0.9 APTT 33.5 (22.3-36.8) Seconds Sodium 139 (137-145) mmol/L Potassium 4.5 (3.4-5.0) mmol/L Chloride 102 (98-107) mmol/L Carbon Dioxide 26 (22-30) mmol/L Anion Gap 11 (4-12) mmol/L BUN 25 H (7-17) mg/dL Creatinine 0.73 (0.7-1.0) mg/dL Estim Creat Clear Calc 59 ml/min Estimated GFR > 60 (59 - ) Glucose 105 (65-110) mg/dL Calcium 9.0 (8.4-10.2) mg/dL Total Bilirubin 0.4 (0.2-1.3) mg/dL AST 36 (14-36) U/L ALT 39 H (6-35) U/L Alkaline Phosphatase 87 (38-126) U/L Troponin I < 0.012 (0.000-0.034) ng/mL NT-Pro-B Natriuret Pep 220 H (19.9-100) pg/mL Total Protein 7.0 (6.3-8.2) g/dL Albumin 3.9 (3.5-5.1) g/dL Influenza A (RT-PCR) Negative (Negative) Influenza B (RT-PCR) Negative (Negative) RSV (RT-PCR) Negative (Negative) SARS-CoV-2 RNA (RT-PCR) Negative (Negative) <Sanchez Cope MD - Last Filed: 06/17/24 22:38> ECG Data EKG #1: Attestation: I personally reviewed and interpreted this ECG as follows: <Arnold Valadez MD - Last Filed: 06/17/24 19:02> ECG completion date: 06/17/24 <Arnold Valadez MD - Last Filed: 06/17/24 19:02> Interpretation: NORMAL SINUS RHYTHM WITH FIRST-DEGREE HEART BLOCK AT 61 BEATS PER MINUTE, POOR R-WAVE PROGRESSION, SEPTAL MYOCARDIAL INFARCTION, PROBABLY OLD, COMPARED TO EKG EARLY TODAY NO SIGNIFICANT CHANGES <Arnold Valadez MD - Last Filed: 06/17/24 19:02> Discharge Plan Discharge Clinical Impression: Acute upper respiratory infection, Vertigo <Arnold Valadez MD - Last Filed: 06/17/24 19:02> Patient Disposition: Home, Self-Care <Arnold Valadez MD - Last Filed: 06/17/24 19:02> Condition: Stable <Arnold Valadez MD - Last Filed: 06/17/24 19:02> Instructions: Antibiotic Form, Vertigo (ED), Upper Respiratory Infection (ED) <Arnold Valadez MD - Last Filed: 06/17/24 19:02> Patient Language: Lithuanian <Arnold Valadez MD - Last Filed: 06/17/24 19:02> Prescriptions: New meclizine [Antivert] 50 mg tablet 50 mg PO BID PRN (Reason: dizziness) Qty: 20 0RF No Action diclofenac sodium 75 mg tablet,delayed release (DR/EC) 75 mg PO BID Qty: 60 1RF cefdinir 300 mg capsule 300 mg PO Q12H Qty: 14 0RF pregabalin [Lyrica] 75 mg capsule 75 mg PO BID fluticasone propionate 50 mcg/actuation spray,suspension 2 spray intranasal DAILY Rx Instructions: administer into each nostril methocarbamol 500 mg tablet 500 mg PO QHS Qty: 30 0RF pravastatin 40 mg tablet 40 mg PO HS propafenone 150 mg tablet 150 mg PO BID cholecalciferol (vitamin D3) 25 mcg (1,000 unit) tablet 1,000 unit PO DAILY citalopram 10 mg tablet 5 mg PO QAM cetirizine 10 mg capsule 10 mg PO DAILY Centrum Silver Women 8 mg iron-400 mcg-300 mcg tablet 1 tablet PO DAILY aspirin 81 mg tablet,delayed release (DR/EC) 81 mg PO DAILY <Arnold Valadez MD - Last Filed: 06/17/24 19:02> Follow-up/Referrals: Manuel Cook MD [Primary Care Provider] - <Arnold Valadez MD - Last Filed: 06/17/24 19:02> Time of Disposition: 22:37 <Arnold Valadez MD - Last Filed: 06/17/24 19:02> 22:37 <Sanchez Cope MD - Last Filed: 06/17/24 22:38>
[2024-06-17 18:35] VITALS: BP 110/77; PULSE 66; RESP 15; TEMP 36.6; O2SAT 100
--- NOTE | 2024-06-17 18:35 | ECG_ITS ---
Test Date: 2024-06-17 18:40:06 Measurements Intervals [place] Rate: 61 P: 50 [place]: 235 QRS: 9 QRSD: 80 T: 36 QT: 408 QTc: 412 Interpretive Statements SINUS RHYTHM WITH FIRST DEGREE AV BLOCK CANNOT R/O SEPTAL INFARCT, AGE INDETERMINATE BASELINE ARTIFACT- I, II, AVR, AVL, AVF, V1 ABNORMAL ECG Compared to ECG 06/17/2024 17:53:51 No significant changes Electronically Signed On 06-18-2024 08:23:07 DENTAL APPLIANCE REPAIRER by Roddy Gao D.O.
[2024-06-17 18:40] VITALS: O2SAT 100
--- OUTSIDE RECORDS SUMMARY | 2024-06-17 18:49 | XMS_ITS | Encounter Summary ---
Author Organization [facility] Address 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
--- OUTSIDE RECORDS SUMMARY | 2024-06-17 18:49 | XMS_ITS | Encounter Summary ---
Author Organization [facility] [facility] Address 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 Gender Identity Not on file Sexual Orientation Not on file documented as of this encounter Plan of Treatment Not on file documented as of this encounter Procedures Procedure Name Priority Date/Time Associated Diagnosis Comments HCG QUALITATIVE, URINE Routine 05/20/2004 8:53 AM HOURLY SALES STAFF documented in this encounter Results * HCG QUALITATIVE, URINE (05/20/2004 8:53 AM HOURLY SALES STAFF) HCG QUAL URINE Negative Negative INTER FACE SYSTEM SPECIFIC GRAVITY UA 1.020 1.001 - 1.035 INTERFACE SYSTEM 05/20/2004 8:53 AM HOURLY SALES STAFF Jonathan Mcdowell URINE ORDERABLES Final Result INTERFACE SYSTEM Refer to clinic/hospital department documented in this encounter Visit Diagnoses Diagnosis Cervical spondylosis without myelopathy- Primary documented in this encounter
--- OUTSIDE RECORDS SUMMARY | 2024-06-17 18:49 | XMS_ITS | Encounter Summary ---
Author Organization [employer] [facility] Address 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
--- OUTSIDE RECORDS SUMMARY | 2024-06-17 18:49 | XMS_ITS | Encounter Summary ---
Author Organization [facility] Address [address] [place] [address] Care Team Providers Care Siderographist Name Role Phone Unavailable Primary Care Provider Unavailabl e Encounter Details Date Type Department Care Team (Late st Contact Info) Description 05/14/2004 Outpatient Historical [facility] [address] 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
--- OUTSIDE RECORDS SUMMARY | 2024-06-17 18:50 | XMS_ITS | Clinical Summary ---
Author Organization [facility] Address [address] [place] [address]. [place], [place] [id number] [place] [id number] Care Team Providers Care Funeral Home Director Name Role Phone Unavailable Primary Care Provider [...]
--- OUTSIDE RECORDS SUMMARY | 2024-06-17 18:50 | XMS_ITS | Clinical Summary ---
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
--- OUTSIDE RECORDS SUMMARY | 2024-06-17 18:50 | XMS_ITS | Continuity of Care Document ---
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 It does not include entries that were removed or entered in error. 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 Bettie Bruno, [facility] Abnormal cervical Papanicolaou smear Active Condition [facility] Acne (ICD-9-CM 706.1) Active Condition [facility] Acoustic schwannoma Active Condition Jan 12, 2020 Entered By: DEANA MARTINEZ Comment: MRI 12/2019- no statistical change, MRI every 2 years [facility] Acquired deformity of foot Active Condition [facility] Acute upper respiratory infections of unspecified site (ICD-9-CM 465.9) Active Condition [facility] Aftercare following organ transplant (ICD-9-CM V58.44) Active Condition [facility] Allergic rhinitis * (ICD-9-CM 477.9) Active Condition [facility] Atrial Fibrillation * (ICD-9-CM 427.31) Active Condition [facility] Breast Mass (ICD-9-CM 611.72) Active Condition [facility] Carpal Tunnel Syndrome Active Condition [facility] Cervicalgia (SNOMED CT 71854132) Active Condition [facility] Cervicitis * (ICD-9-CM 616.0) Active Condition [facility] 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 Chest Pain * (ICD-9-CM 786.50) Active Condition [facility] Chronic kidney disease stage 2 Active Condition [facility] Chronic Kidney Disease, Unspecified (ICD-9-CM 585.9) Active Condition [facility] Chronic renal insufficiency Active Condition [facility] Deficiency of other vitamins Active Condition [facility] Depression * (ICD-9-CM 311./300.4) Active Condition [facility] Gynecologic Exam Active Condition [facility] Gynecological examination normal Active Condition [facility] Hearing loss Active Condition [facility] Hearing Loss, Sensorineural, Unspecified Active Condition [facility] Hip pain Active Condition [facility] Hip Pain (ICD-9-CM 719.45) Active Condition [facility] Hyperlipidemia Active Condition [facility] Kidney Failure * (ICD-9-CM 586.) Active Condition [facility] Localized swelling, mass and lump, trunk Active Condition [facility] Low back pain Active Condition [facility] Low Back Pain * (ICD-9-CM 724.2) Active Condition [facility] Major depressive disorder Active Condition [facility] Neck pain (SNOMED CT 21970806) Active Condition [facility] Neuritis Active Condition [facility] Neuroma (SNOMED CT 222921449) Active Condition [facility] Other Malaise and Fatigue (ICD-9-CM 780.79) Active Condition [facility] Pain in joint involving ankle and foot (ICD-9-CM 719.47) Active Condition [facility] Pain in joint involving shoulder region (ICD-9-CM 719.41) Active Condition [facility] Pain in right hand Active Condition [facility] Pain of left ankle joint Active Condition [facility] Palpitations (ICD-9-CM 785.1) Active Condition [facility] Postmenopausal atrophic vaginitis Active Condition [facility] PROPHY VACC. STREP PNEU Active Condition Jan 05, 2008 Entered By: THANH ZAZUETA Comment: Right Deltoid [facility] Routine gynecologic examination done Active Condition [facility] Sinusitis * (ICD-9-CM 473.9) Active Condition [facility] Unresolved Active Condition [facility] VACCIN FOR INFLUENZA Active Condition [facility] Vaginal discharge (SNOMED CT 756583139) Active Condition [facility] Vaginitis Active Condition [facility] Diagnosis: ICD-10-CM M79.672 Pain in left foot Active Diagnosis [facility] Diagnosis: ICD-10-CM Z00.01 Encounter for general adult medical exam w abnormal findings Active Diagnosis [facility] Diagnosis: ICD-10-CM I48.0 Paroxysmal atrial fibrillation Active Diagnosis [facility] Diagnosis: ICD-10-CM 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, bilateral, mild stage Active Diagnosis [facility] Diagnosis: ICD-10-CM G47.30 Sleep apnea, unspecified Active Diagnosis [facility] Diagnosis: ICD-10-CM M47.892 Other spondylosis, cervical region Active Diagnosis [facility] Diagnosis: ICD-10-CM Z46.89 Encounter for fitting and adjustment of oth devices Active Diagnosis [facility] Diagnosis: ICD-10-CM M54.2 Cervicalgia Active Diagnosis [facility] Diagnosis: ICD-10-CM G47.36 Sleep related hypoventilation in conditions classd elswhr Active Diagnosis [facility] Diagnosis: ICD-10-CM N18.2 Chronic kidney disease, stage 2 (mild) Active Diagnosis [facility] Diagnosis: ICD-10-CM 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, unspecified foot Active Diagnosis [facility] Diagnosis: ICD-10-CM R42 Dizziness and giddiness Active Diagnosis [facility] Diagnosis: ICD-10-CM H90.3 Sensorineural hearing loss, bilateral Active Diagnosis [facility] Diagnosis: ICD-10-CM G43.709 Chronic migraine w/o aura, not intractable, w/o stat migr Active Diagnosis [facility] Diagnosis: ICD-10-CM Z12.4 Encounter for screening for malignant neoplasm of cervix Active Diagnosis [facility] Medications Combined list of outpatient medications from Department of Defense and [facility] Affairs facilities.Medications provided include 1) outpatient medications [...] ACETAMIN OPHEN (APAP) FROM ALL MEDS. 03/10/2024 [id number] THANH ZAZUETA 2023 100 [facility] ACETAMINOPH EN 325MG TAB TAKE ONE TABLET BY MOUTH THREE TIMES A DAY NEEDED FOR PAIN CAUTION: DO NOT EXCEED 4000MG PER DAY ACETAMIN OPHEN (APAP) FROM ALL MEDS. ORAL DISCONT INUED 03/10/2024 [id number] 4 Brandi ZAZUETA 2022 100 [facility] ACETAMINOPH EN 325MG TAB TAKE ONE TABLET BY MOUTH THREE TIMES A DAY NEEDED FOR PAIN CAUTION: DO NOT EXCEED 4000MG PER DAY ACETAMIN OPHEN (APAP) FROM ALL MEDS. ORAL 03/10/2024 [id number] 4 Brandi ZAZUETA 2023 300 [facility] ASPIRIN 81MG TAB,EC TAKE ONE TABLET BY MOUTH ONCE A DAY FOR CARDIOVA SCULAR DISEASE TAKE WITH FOOD. ORAL ACTIVE 03/01/2025 [id number] 4 NIURKA GARCIA 2023 120 [facility] ASPIRIN 81MG TAB,EC TAKE ONE TABLET BY MOUTH ONCE A DAY FOR HEART OR CIRCULAT ION. TAKE WITH FOOD. ORAL DISCONT INUED BY ASHLEY R 10/28/2023 [id number] 4 Brandi ZAZUETA 2022 120 [facility] ASPIRIN EC (U/D) 81 MG ORAL TBEC TAKE ONE TABLET BY MOUTH ONCE A DAY FOR HEART OR CIRCULAT ION. TAKE WITH FOOD. 10/28/2023 [id number] 4 THANH ZAZUETA 2023 120 [facility] ASPIRIN EC (U/D) 81 MG ORAL TBEC TAKE ONE TABLET BY MOUTH ONCE A DAY FOR HEART OR CIRCULAT ION. TAKE WITH FOOD. 10/28/2023 [id number] 4 THANH ZAZUETA 2023 120 [facility] celeXA (BRAND) 10 MG ORAL TAB TAKE ONE-HALF TABLET BY MOUTH EVERY MORNING FOR DEPRESSI ON Active 10/01/2024 [id number] 4 THANH ZAZUETA 2023 45 [facility] celeXA (BRAND) 10 MG ORAL TAB TAKE ONE-HALF TABLET BY MOUTH EVERY MORNING FOR DEPRESSI ON Discont inued 10/28/2023 [id number] 4 THANH ZAZUETA 2023 45 [facility] celeXA (BRAND) 10 MG ORAL TAB TAKE ONE-HALF TABLET BY MOUTH EVERY MORNING FOR DEPRESSI ON 10/28/2023 [id number] 3 THANH ZAZUETA 2022 45 [facility] cholecalcif (VIT D3) 2,000 UNIT ORAL TAB TAKE ONE TABLET BY MOUTH ONCE A DAY FOR VITAMIN D DEFICIEN CY. 10/28/2023 [id number] 4 RYTHANH SANCHEZ Lien 2023 100 [facility] CHOLECALCIF MACARIO 50MCG (2,000UNIT) TAB TAKE ONE TABLET BY MOUTH ONCE A DAY FOR VITAMIN D DEFICIEN CY. ORAL 10/28/2023 [id number] 4 Brandi ZAZUETA 2022 100 [facility] CITALOPRAM HYDROBROMID E 10MG TAB TAKE ONE-HALF TABLET BY MOUTH EVERY MORNING FOR DEPRESSI ON ORAL ACTIVE 10/01/2024 [id number] 4 Brandi ZAZUETA 2023 45 [facility] CITALOPRAM HYDROBROMID E 10MG TAB TAKE ONE-HALF TABLET BY MOUTH EVERY MORNING FOR DEPRESSI ON ORAL DISCONT INUED 10/28/2023 [id number] 4 Brandi ZAZUETA 2022 45 [facility] FLONASE-OTC (BRAND) 50 MCG ANTOLIN SPSN [9.9] INSTILL 1 SPRAY IN NOSTRIL( S) ONCE A DAY FOR ALLERGIE S (MUST BE USED DIRECTED FOR MINIMUM OF 21 DAYS TO PROVIDE ADEQUATE BENEFITS ) 02/11/2024 [id number] KADENDANIELTHANH 2023 1 [facility] FLUAD QUAD (influenza vaccine quadrivalen t 2022- (65 yr up)/MF59C.1 /PF), 60MCG/.5ML, SYRINGE, [employer] .5 ml SYRINGE Active [id number] 2023 0.5 Pharmac y Data Transac tion Service Facilit y FLUTICASONE PROPIONATE 50MCG/SPRAY SOLN,NASAL, 16GM INSTILL 1 SPRAY IN NOSTRIL( S) ONCE A DAY FOR ALLERGIE S (MUST BE USED DIRECTED FOR MINIMUM OF 21 DAYS TO PROVIDE ADEQUATE BENEFITS ) NASAL ACTIVE 03/10/2025 [id number] 4 Brandi ZAZUETA 2023 1 [facility] FLUTICASONE PROPIONATE 50MCG/SPRAY SOLN,NASAL, 16GM INSTILL 1 SPRAY IN NOSTRIL( S) ONCE A DAY FOR ALLERGIE S (MUST BE USED DIRECTED FOR MINIMUM OF 21 DAYS TO PROVIDE ADEQUATE BENEFITS ) NASAL DISCONT INUED 02/11/2024 [id number] 4 Brandi ZAZUETA 2022 1 [facility] Loratadine (Alavert ODT) Tablet 10 mg Oral TAKE ONE TABLET BY MOUTH ONCE A DAY FOR ALLERGIE S ON EMPTY STOMACH Active 08/02/2024 [id number] THANH ZAZUETA 2023 90 [facility] Loratadine (Alavert ODT) Tablet 10 mg Oral TAKE ONE TABLET BY MOUTH ONCE A DAY FOR ALLERGIE S ON EMPTY STOMACH Active 08/02/2024 [id number] 4 THANH ZAZUETA 2023 90 [facility] Loratadine (Alavert ODT) Tablet 10 mg Oral TAKE ONE TABLET BY MOUTH ONCE A DAY FOR ALLERGIE S ON EMPTY STOMACH Discont inued 07/08/2023 [id number] THANH ZAZUETA 2023 90 [facility] LORATADINE 10MG TAB TAKE ONE TABLET BY MOUTH ONCE A DAY FOR ALLERGIE S ON EMPTY STOMACH ORAL ACTIVE 08/02/2024 [id number] 4 Brandi ZAZUETA [address] [place] [address] LORATADINE 10MG TAB TAKE ONE TABLET BY MOUTH ONCE A DAY FOR ALLERGIE S ON EMPTY STOMACH ORAL DISCONT INUED 07/08/2023 [id number] 3 Brandi ZAZUETA 2022 90 [facility] N methocarbam ol (U/D) 500 MG ORAL TAB TAKE 1 TABLET BY MOUTH AT BEDTIME NEEDED 05/26/2024 [id number] ISAIAS MOY 2023 30 [facility] methocarbam ol (U/D) 500 MG ORAL TAB TAKE 1 TABLET BY MOUTH AT BEDTIME NEEDED 05/26/2024 [id number] 4 ISAIAS MOY 2023 30 [facility] methocarbam ol (U/D) 500 MG ORAL TAB TAKE 1 TABLET BY MOUTH AT BEDTIME NEEDED Discont inued 06/17/2023 [id number] ISAIAS MOY 2023 30 [facility] methocarbam ol (U/D) 500 MG ORAL TAB TAKE 1 TABLET BY MOUTH AT BEDTIME NEEDED Discont inued 05/27/2023 [id number] ISAIAS MOY 2023 30 [facility] METHOCARBAM OL 500MG TAB TAKE 1 TABLET BY MOUTH AT BEDTIME NEEDED ORAL DISCONT INUED 06/17/2023 [id number] ISAIAS MOY 2023 30 [facility] N METHOCARBAM OL 500MG TAB TAKE 1 TABLET BY MOUTH AT BEDTIME NEEDED ORAL DISCONT INUED 05/27/2023 [id number] ISAIAS MOY 2022 30 [facility] DIV[facility] N METHOCARBAM OL 500MG TAB TAKE 1 TABLET BY MOUTH AT BEDTIME NEEDED ORAL 05/26/2024 [id number] ISAIAS MOY 2023 30 [facility] N PRAVASTATIN 40 MG ORAL TAB TAKE ONE TABLET BY MOUTH EVERY EVENING TO LOWER CHOLESTE ROL (REPORT ANY MUSCLE PAIN OR WEAKNESS ) Active 10/01/2024 [id number] 4 THANH ZAZUETA [address] [place] [address] Divisio n PRAVASTATIN 40 MG ORAL TAB TAKE ONE TABLET BY MOUTH EVERY EVENING TO LOWER CHOLESTE ROL (REPORT ANY MUSCLE PAIN OR WEAKNESS ) Discont inued 10/28/2023 [id number] THANH ZAZUETA 2023 90 [facility] PRAVASTATIN 40 MG ORAL TAB TAKE ONE TABLET BY MOUTH EVERY EVENING TO LOWER CHOLESTE ROL (REPORT ANY MUSCLE PAIN OR WEAKNESS ) 10/28/2023 [id number] 4 THANH ZAZUETA 2022 90 [facility] PRAVASTATIN NA 40MG TAB TAKE ONE TABLET BY MOUTH EVERY EVENING TO LOWER CHOLESTE ROL (REPORT ANY MUSCLE PAIN OR WEAKNESS ) ORAL ACTIVE 10/01/2024 [id number] 4 Brandi ZAZUETA 2023 90 [facility] N PRAVASTATIN NA 40MG TAB TAKE ONE TABLET BY MOUTH EVERY EVENING TO LOWER CHOLESTE ROL (REPORT ANY MUSCLE PAIN OR WEAKNESS ) ORAL DISCONT INUED 10/28/2023 [id number] 4 Brandi ZAZUETA 2022 90 [facility] PREGABALIN (U/D) 75 MG ORAL CAP TAKE ONE CAPSULE BY MOUTH TWICE A DAY FOR NERVE PAIN *MAY CAUSE DROWSINE SS* 12/11/2023 [id number] THANH ZAZUETA 2023 60 [facility] PREGABALIN (U/D) 75 MG ORAL CAP TAKE ONE CAPSULE BY MOUTH TWICE A DAY FOR NERVE PAIN *MAY CAUSE DROWSINE SS* 12/11/2023 [id number] 4 THANH ZAZUETA 2023 60 [facility] PREGABALIN (U/D) 75 MG ORAL CAP TAKE ONE CAPSULE BY MOUTH TWICE A DAY FOR NERVE PAIN *MAY CAUSE DROWSINE SS* 06/13/2023 [id number] 4 THANH ZAZUETA 2023 60 [facility] PREGABALIN 75MG CAP,ORAL TAKE ONE CAPSULE BY MOUTH TWICE A DAY *MAY CAUSE DROWSINE SS* ORAL ACTIVE 09/09/2024 [id number] 5 Brandi ZAZUETA 2023 60 [facility] PREGABALIN 75MG CAP,ORAL TAKE ONE CAPSULE BY MOUTH TWICE A DAY *MAY CAUSE DROWSINE SS* ORAL DISCONT INUED 07/09/2024 [id number] KYLE ODEN [address] [place] [address] PREGABALIN 75MG CAP,ORAL TAKE ONE CAPSULE BY MOUTH TWICE A DAY FOR NERVE PAIN *MAY CAUSE DROWSINE SS* ORAL DISCONT INUED 06/13/2023 [id number] 4 Brandi ZAZUETA [address] [place] [address] PREGABALIN 75MG CAP,ORAL TAKE ONE CAPSULE BY MOUTH TWICE A DAY FOR NERVE PAIN *MAY CAUSE DROWSINE SS* ORAL 12/11/2023 [id number] 4 Brandi ZAZUETA [address] [place] [address] PROPAFENONE 150 MG ORAL TAB TAKE ONE TABLET BY MOUTH TWICE A DAY FOR HEART. Active 10/01/2024 [id number] 4 THANH ZAZUETA [address] [place] [address] Divisio n PROPAFENONE 150 MG ORAL TAB TAKE ONE TABLET BY MOUTH TWICE A DAY FOR HEART. Discont inued 10/28/2023 [id number] THANH ZAZUETA [address] [place] [address] Divisio n PROPAFENONE HCL 150MG TAB TAKE ONE TABLET BY MOUTH TWICE A DAY FOR HEART. ORAL ACTIVE 10/01/2024 [id number] 4 Brandi ZAZUETA [address] [place] [address] DIVISIO N PROPAFENONE HCL 150MG TAB TAKE ONE TABLET BY MOUTH TWICE A DAY FOR HEART. ORAL DISCONT INUED 10/28/2023 [id number] 4 Brandi ZAZUETA [address] [place] [address] Allergies, Adverse Reactions, Alerts Combined list of allergies from Department of Defense and Veterans Affairs facilities. It does not include entries that were removed or entered in error. Substance Category Reaction Severity Reaction type Status Date Reported Comments Source BETADINE Propensity to adverse reactions to drug (finding) Burning sensation active 5 [facility] Codeine Drug allergy (disorder) Seizures active 5 [facility] CODEINE Propensity to adverse reactions to drug (finding) Seizure active 5 [facility] IODINATED CONTRAST MEDIA Propensity to adverse reactions to drug (finding) Burning sensation active 7 [facility] Immunizations Combined list of available immunizations from the Department of Defense and Veterans Affairs facilities. 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 Status Comments Source INFLUENZA, HIGH-DOSE, TRIVALENT, PF 2023 SIMONS,ADDI V LEFT DELTO ID [id number] A 135 complet [facility] PNEUMOCOCCAL CONJUGATE PCV20, POLYSACCHARID E [id number] CONJUGATE, ADJUVANT, PF 2023 SIMONS,ADDI V LEFT DELTO ID [id number] 216 complet [facility] TDAP 2023 SIMONS,ADDI V LEFT DELTO ID [id number] 115 complet [facility] INFLUENZA, UNSPECIFIED FORMULATION 2023 88 complet ed [facility] ZOSTER RECOMBINANT 2 2021 187 complet [facility] ZOSTER RECOMBINANT 1 2021 187 complet [facility] COVID-19 (PFIZER), MRNA, LNP-S, PF, 30 MCG/0.3 ML DOSE 3 2020 208 complet ed PFR; [id number]; 2 [facility] INFLUENZA, INJECTABLE, QUADRIVALENT, PRESERVATIVE FREE 2020 150 complet ed [facility] COVID-19 ([facility]), MRNA, LNP-S, PF, 30 MCG/0.3 ML DOSE 2 2020 208 complet ed PFR; [id number]; 1 [facility] COVID-19 ([facility]), MRNA, LNP-S, PF, 30 MCG/0.3 ML DOSE 1 2020 208 complet ed PFR; [id number]; 1 [facility] INFLUENZA, INJECTABLE, QUADRIVALENT, PRESERVATIVE FREE 2019 150 complet [facility] DIVISIO N typhoid Vi capsular polysaccharid e vaccine 1 2018 Unknown, Provider [id number] [employer] P[employer] (PMC) complet ed typhoid Vi capsular polysacch aride vaccine DoD influenza virus vaccine, unspecified formulation 1 2017 Unknown, Provider 88 Transcribed (TRS) complet ed influenza virus vaccine, unspecifi ed formulati on DoD INFLUENZA, INJECTABLE, QUADRIVALENT, PRESERVATIVE FREE 2017 150 complet [facility] DIVIS[facility] N tuberculin skin test; purified protein derivative solution, intradermal 1 2016 Unknown, Provider 96 Transcribed (TRS) complet ed tuberculi n skin test; purified protein derivativ e solution, intraderm al DoD INFLUENZA, INJECTABLE, QUADRIVALENT, PRESERVATIVE FREE 2016 150 complet [facility] DIVISIO N hepatitis B vaccine, adult dosage 1 2015 Unknown, Provider [id number] [place] (SKB) complet ed hepatitis B vaccine, adult dosage DoD Influenza, seasonal, injectable, preservative free 1 2015 Unknown, Provider [id number] [employer] (SEQ) complet ed Influenza , seasonal, injectabl e, preservat becky free DoD hepatitis B vaccine, adult dosage 1 2015 Unknown, Provider [id number] [employer] (SKB) complet ed hepatitis B vaccine, adult dosage DoD hepatitis A vaccine, adult dosage 1 2015 Unknown, Provider [id number] 52 [employer] (SKB) complet ed hepatitis A vaccine, adult dosage DoD PNEUMOCOCCAL POLYSACCHARID E [id number] 2015 33 complet [facility] DIV[facility]IO N pneumococcal polysaccharid e vaccine, [...] CONJUGATE PCV 13 2014 133 complet ed [facility] pneumococcal conjugate vaccine, 13 valent 1 2014 Unknown, Provider 133 Transcribed (TRS) complet ed pneumococ deric conjugate vaccine, 13 valent DoD INFLUENZA, SEASONAL, INJECTABLE, PRESERVATIVE FREE 2014 140 complet ed [facility] N influenza virus vaccine, unspecified formulation 1 2014 Unknown, Provider 88 Transcribed (TRS) complet ed influenza virus vaccine, unspecifi ed formulati on DoD INFLUENZA, UNSPECIFIED FORMULATION 2013 88 complet [facility] DIVISIO N INFLUENZA, UNSPECIFIED FORMULATION 2012 88 complet [facility] DIVISIO N TDAP 2012 115 complet [facility] DIVISIO N tetanus toxoid, reduced diphtheria toxoid, and acellular pertu is vaccine, adsorbed 1 2012 Unknown, Provider 115 Transcribed (TRS) complet ed tetanus toxoid, reduced diphtheri a toxoid, and acellular pertussis vaccine, adsorbed DoD INFLUENZA, UNSPECIFIED FORMULATION 2010 88 complet [facility] DIVISIO N INFLUENZA, UNSPECIFIED FORMULATION 2009 88 complet [facility] DIVISIO N hepatitis A vaccine, adult dosage 1 2008 Unknown, Provider [id number] [address] (B) complet ed hepatitis A vaccine, adult dosage DoD typhoid Vi capsular polysaccharid e vaccine 1 2008 Unknown, Provider [id number] San[employer]i Paste[employer] (PMC) complet ed typhoid Vi capsular polysacch aride vaccine DoD INFLUENZA, UNSPECIFIED FORMULATION 2008 88 complet [facility] DIVISIO N INFLUENZA, UNSPECIFIED FORMULATION 2007 88 complet [facility] DIVISIO N PNEUMOCOCCAL, UNSPECIFIED FORMULATION 2007 109 complet ed [facility] N pneumococcal polysaccharid e vaccine, 23 valent 1 2007 Unknown, Provider 33 Transcribed (TRS) complet ed pneumococ deric polysacch aride vaccine, 23 valent DoD INFLUENZA, UNSPECIFIED FORMULATION 2005 [place] 88 comple t ed [facility] N tetanus and diphtheria toxoids, [...] and 2 Lf of diphtheri a toxoid) [facility] vaccinia (smallpox) vaccine 1 1979 Unknown, Provider 75 () complet ed vaccinia (smallpox ) vaccine DoD typhoid vaccine, parenteral, acetone-kille d, dried (U.S. ) 1 1976 Unknown, Provider 53 () complet typhoid vaccine, parentera l, acetone-k illed, dried (U.S. ) [facility] trivalent poliovirus vaccine, live, oral 1 1976 Unknown, Provider 02 () complet ed trivalent polioviru s vaccine, live, oral [facility] Results Combined list of recent [...] Mar 09, 2024 11:00 AM Reporting Lab: [facility] [address] [facility] [address] Performing Lab: [facility] [address] [place] [phone] [facility] CBC LEUKOCYTES [#/VOLUME] IN BLOOD BY AUTOMATED COUNT 4.2 10*3/uL 3.6 - 11.2 03/09 Specimen Type: BLOOD No comment entered. Ordering Provider: MIGUEL ZAZUETA Report Released Date/Time: Mar 09, 2024 10:49 AM Reporting Lab: [address] [phone] Performing Lab: [place] [id number] CBC ERYTHROCYTE S [#/VOLUME] IN BLOOD BY AUTOMATED COUNT 3.56 10*6/uL 3.60 - 5.00 03/09 L Specimen Type: BLOOD No comment entered. Ordering Provider: MIGUEL ZAZUETA Report Released Date/Time: Mar 09, 2024 10:49 AM Reporting Lab: [address] [phone] Performing Lab: [place] [id number] [place] [address] CBC HEMOGLOBIN [MASS/VOLUM E] IN BLOOD 11.3 g/dL 11.0 - 14.9 03/09 Specimen Type: BLOOD No comment entered. Ordering Provider: MIGUEL ZAZUETA Report Released Date/Time: Mar 09, 2024 10:49 AM Reporting Lab: [address] [address] Performing Lab: [address] [phone] [place] [address] CBC HEMATOCRIT [VOLUME FRACTION] OF BLOOD 33.0 32.6 - 43.4 03/09 Specimen Type: BLOOD No comment entered. Ordering Provider: MIGUEL ZAZUETA Report Released Date/Time: Mar 09, 2024 10:49 AM Reporting Lab: [address] [address] Performing Lab: [phone] [place] [address] CBC MCV [ENTITIC VOLUME] BY AUTOMATED COUNT 92.7 fL 80.0 - 100.0 03/09 Specimen Type: BLOOD No comment entered. Ordering Provider: MIGUEL ZAZUETA Report Released Date/Time: Mar 09, 2024 10:49 AM Reporting Lab: [facility] [address] [place], [place] [phone] Performing Lab: [address] [phone] CBC MCH [ENTITIC MASS] BY AUTOMATED COUNT 31.7 pg 27.0 - 34.0 03/09 Specimen Type: BLOOD No comment entered. Ordering Provider: MIGUEL ZAZUETA Report Released Date/Time: Mar 09, 2024 10:49 AM Reporting Lab: [facility] [address] [place] [address] Performing Lab: [address] CBC MCHC [MASS/VOLUM E] BY AUTOMATED COUNT 34.2 g/dL 33.0 - 36.0 03/09 Specimen Type: BLOOD No comment entered. Ordering Provider: MIGUEL ZAZUETA Report Released Date/Time: Mar 09, 2024 10:49 AM Reporting Lab: [facility] [address] [place] [address] Performing Lab: [facility] [address] [place] [phone] CBC PLATELETS [#/VOLUME] IN BLOOD BY AUTOMATED COUNT 211 10*3/uL 150 - 400 03/09 Specimen Type: BLOOD No comment entered. Ordering Provider: MIGUEL ZAZUETA Report Released Date/Time: Mar 09, 2024 10:49 AM Reporting Lab: [facility] [address] [place] [address] Performing Lab: [facility] [address] [place] [address] CBC PLATELET MEAN VOLUME [ENTITIC VOLUME] IN BLOOD BY AUTOMATED COUNT 10.7 fL 7.5 - 11.2 03/09 Specimen Type: BLOOD No comment entered. Ordering Provider: MIGUEL ZAZUETA Report Released Date/Time: Mar 09, 2024 10:49 AM Reporting Lab: [facility] [address] [facility] [address] Performing Lab: [facility] [address] [place] [phone] [place] [address] CBC ERYTHROCYTE DISTRIBUTIO N WIDTH [RATIO] BY AUTOMATED COUNT 11.7 11.8 - 15.1 03/09 L Specimen Type: BLOOD No comment entered. Ordering Provider: MIGUEL ZAZUETA Report Released Date/Time: Mar 09, 2024 10:49 AM Reporting Lab: [facility] [address] [place] [phone] Performing Lab: [address] [phone] [place] [address] CBC LYMPHOCYTES /100 LEUKOCYTES IN BLOOD BY AUTOMATED COUNT 28 03/09 Specimen Type: BLOOD No comment entered. Ordering Provider: MIGUEL ZAZUETA Report Released Date/Time: Mar 09, 2024 10:49 AM Reporting Lab: [facility] [address] [place] [phone] Performing Lab: [facility] [address] [place] [phone] [place] [address] CBC MONOCYTES/1 00 LEUKOCYTES IN BLOOD BY AUTOMATED COUNT 8 03/09 Specimen Type: BLOOD No comment entered. Ordering Provider: MIGUEL ZAZUETA Report Released Date/Time: Mar 09, 2024 10:49 AM Reporting Lab: [facility] [address] [place] [phone] Performing Lab: [facility] [address] [place] [phone] [place] [address] CBC NEUTROPHILS /100 LEUKOCYTES IN BLOOD BY AUTOMATED COUNT 61 03/09 Specimen Type: BLOOD No comment entered. Ordering Provider: MIGUEL ZAZUETA Report Released Date/Time: Mar 09, 2024 10:49 AM Reporting Lab: [facility] [address] [place] [phone] Performing Lab: [facility] [address] [facility] [address] [facility] CBC EOSINOPHILS /100 LEUKOCYTES IN BLOOD BY AUTOMATED COUNT 1 03/09 Specimen Type: BLOOD No comment entered. Ordering Provider: MIGUEL ZAZUETA Report Released Date/Time: Mar 09, 2024 10:49 AM Reporting Lab: [address] [address] Performing Lab: [address] [address] [facility] CBC BASOPHILS/1 00 LEUKOCYTES IN BLOOD BY AUTOMATED COUNT 1 03/09 Specimen Type: BLOOD No comment entered. Ordering Provider: MIGUEL ZAZUETA Report Released Date/Time: Mar 09, 2024 10:49 AM Reporting Lab: [address] [address] Performing Lab: [address] [address] [facility] CBC LYMPHOCYTES [#/VOLUME] IN BLOOD BY AUTOMATED COUNT 1.16 10*3/uL 0.77 - 4.50 03/09 Specimen Type: BLOOD No comment entered. Ordering Provider: MIGUEL ZAZUETA Report Released Date/Time: Mar 09, 2024 10:49 AM Reporting Lab: [address] [address] Performing Lab: [address] [address] [facility] CBC MONOCYTES [#/VOLUME] IN BLOOD BY AUTOMATED COUNT 0.35 10*3/uL 0.19 - 0.80 03/09 Specimen Type: BLOOD No comment entered. Ordering Provider: MIGUEL ZAZUETA Report Released Date/Time: Mar 09, 2024 10:49 AM Reporting Lab: [facility] [address] [place] [phone] Performing Lab: [address] [address] [facility] CBC NEUTROPHILS [#/VOLUME] IN BLOOD BY AUTOMATED COUNT 2.55 10*3/uL 2.10 - 8.00 03/09 Specimen Type: BLOOD No comment entered. Ordering Provider: MIGUEL ZAZUETA Report Released Date/Time: Mar 09, 2024 10:49 AM Reporting Lab: [place] [address] Performing Lab: [address] CBC EOSINOPHILS [#/VOLUME] IN BLOOD BY AUTOMATED COUNT 0.06 10*3/uL 0.00 - 0.60 03/09 Specimen Type: BLOOD No comment entered. Ordering Provider: MIGUEL ZAZUETA Report Released Date/Time: Mar 09, 2024 10:49 AM Reporting Lab: [place] [address] Performing Lab: [address] CBC BASOPHILS [#/VOLUME] IN BLOOD BY AUTOMATED COUNT 0.03 10*3/uL 0.00 - 0.20 03/09 Specimen Type: BLOOD No comment entered. Ordering Provider: MIGUEL ZAZUETA Report Released Date/Time: Mar 09, 2024 10:49 AM Reporting Lab: [place] [address] Performing Lab: [address] COMPREHEN SIVE METABOLIC PANEL CREATININE [MASS/VOLUM E] IN SERUM OR PLASMA 0.96 mg/dL 0.6 - 1.1 03/09 Specimen Type: PLASMA Comment: No hemolysis noted. Ordering Provider: MIGUEL ZAZUETA Report Released Date/Time: Mar 09, 2024 10:49 AM Reporting Lab: [place] [address] Performing Lab: [address] COMPREHEN SIVE METABOLIC PANEL UREA NITROGEN [MASS/VOLUM E] IN SERUM OR PLASMA 16.6 mg/dL 9.0 - 25.0 03/09 Specimen Type: PLASMA Comment: No hemolysis noted. Ordering Provider: MIGUEL ZAZUETA Report Released Date/Time: Mar 09, 2024 10:49 AM Reporting Lab: [facility] [address] [place] [phone] Performing Lab: [facility] [address] [place] [phone] [facility] COMPREHEN SIVE METABOLIC PANEL GLUCOSE [MASS/VOLUM E] IN SERUM OR PLASMA 85 mg/dL 72 - 99 03/09 Specimen Type: PLASMA Comment: No hemolysis noted. Ordering Provider: MIGUEL ZAZUETA Report Released Date/Time: Mar 09, 2024 10:49 AM Reporting Lab: [address] [address] Performing Lab: [address] [phone] [place] [address] COMPREHEN SIVE METABOLIC PANEL SODIUM [MOLES/VOLU ME] IN SERUM OR PLASMA 141 meq/L 136 - 145 03/09 Specimen Type: PLASMA Comment: No hemolysis noted. Ordering Provider: MIGUEL ZAZUETA Report Released Date/Time: Mar 09, 2024 10:49 AM Reporting Lab: [address] [address] Performing Lab: [facility] [address] [place] [phone] [facility] COMPREHEN SIVE METABOLIC PANEL POTASSIUM [MOLES/VOLU ME] IN SERUM OR PLASMA 3.9 meq/L 3.5 - 5 03/09 Specimen Type: PLASMA Comment: No hemolysis noted. Ordering Provider: MIGUEL ZAZUETA Report Released Date/Time: Mar 09, 2024 10:49 AM Reporting Lab: [facility] [address] [place] [phone] Performing Lab: [address] [phone] [place] [address] COMPREHEN SIVE METABOLIC PANEL CHLORIDE [MOLES/VOLU ME] IN SERUM OR PLASMA 107 meq/L 98 - 107 03/09 Specimen Type: PLASMA Comment: No hemolysis noted. Ordering Provider: MIGUEL ZAZUETA Report Released Date/Time: Mar 09, 2024 10:49 AM Reporting Lab: [address] [address] Performing Lab: [address] [phone] [place] [address] COMPREHEN SIVE METABOLIC PANEL CARBON DIOXIDE, TOTAL [MOLES/VOLU ME] IN SERUM OR PLASMA 27 meq/L 22 - 31 03/09 Specimen Type: PLASMA Comment: No hemolysis noted. Ordering Provider: MIGUEL ZAZUETA Report Released Date/Time: Mar 09, 2024 10:49 AM Reporting Lab: [address] [address] Performing Lab: [facility] [address] [place] [phone] [place] [address] COMPREHEN SIVE METABOLIC PANEL CALCIUM [MASS/VOLUM E] IN SERUM OR PLASMA 9.4 mg/dL 8.4 - 10.4 03/09 Specimen Type: PLASMA Comment: No hemolysis noted. Ordering Provider: MIGUEL ZAZUETA Report Released Date/Time: Mar 09, 2024 10:49 AM Reporting Lab: [address] [address] Performing Lab: [facility] [address] [place] [phone] [place] [address] COMPREHEN SIVE METABOLIC PANEL PROTEIN [MASS/VOLUM E] IN SERUM OR PLASMA 6.5 g/dL 6 - 8.6 03/09 Specimen Type: PLASMA Comment: No hemolysis noted. Ordering Provider: MIGUEL ZAZUETA Report Released Date/Time: Mar 09, 2024 10:49 AM Reporting Lab: [address] [address] Performing Lab: [address] [phone] [place] [address] COMPREHEN SIVE METABOLIC PANEL ALBUMIN [MASS/VOLUM E] IN SERUM OR PLASMA 4.1 g/dL 3.4 - 5 03/09 Specimen Type: PLASMA Comment: No hemolysis noted. Ordering Provider: MIGUEL ZAZUETA Report Released Date/Time: Mar 09, 2024 10:49 AM Reporting Lab: [facility] [address] [place] [address] Performing Lab: [place] [address] [facility] [phone] [place] [address] COMPREHEN SIVE METABOLIC PANEL BILIRUBIN.T OTAL [MASS/VOLUM E] IN SERUM OR PLASMA 0.6 mg/dL 0.2 - 1.2 03/09 Specimen Type: PLASMA Comment: No hemolysis noted. Ordering Provider: MIGUEL ZAZUETA Report Released Date/Time: Mar 09, 2024 10:49 AM Reporting Lab: [place] [address] [place] [address] Performing Lab: [facility] [address] [facility] [phone] [place] [address] COMPREHEN SIVE METABOLIC PANEL ALKALINE PHOSPHATASE [ENZYMATIC ACTIVITY/VO LUME] IN SERUM OR PLASMA 73 U/L 40 - 150 03/09 Specimen Type: PLASMA Comment: No hemolysis noted. Ordering Provider: MIGUEL ZAZUETA Report Released Date/Time: Mar 09, 2024 10:49 AM Reporting Lab: [facility] [address] [facility] [address] Performing Lab: [facility] [address] [facility] [phone] [place] [address] COMPREHEN SIVE METABOLIC PANEL ASPARTATE AMINOTRANSF ERASE [ENZYMATIC ACTIVITY/VO LUME] IN SERUM OR PLASMA 32 U/L 5 - 34 03/09 Specimen Type: PLASMA Comment: No hemolysis noted. Ordering Provider: MIGUEL ZAZUETA Report Released Date/Time: Mar 09, 2024 10:49 AM Reporting Lab: [facility] [address] [place] [address] Performing Lab: [facility] [address] [facility] [phone] [place] [address] COMPREHEN SIVE METABOLIC PANEL ALANINE AMINOTRANSF ERASE [ENZYMATIC ACTIVITY/VO LUME] IN SERUM OR PLASMA 19 U/L 8 - 40 03/09 Specimen Type: PLASMA Comment: No hemolysis noted. Ordering Provider: MIGUEL ZAZUETA Report Released Date/Time: Mar 09, 2024 10:49 AM Reporting Lab: [facility] [address] [place], [place] [phone] Performing Lab: [address] [phone] [place] [address] COMPREHEN SIVE METABOLIC PANEL GLOMERULAR FILTRATION RATE/1.73 SQ M.PREDICTED [VOLUME RATE/AREA] IN SERUM, PLASMA OR BLOOD BY CREATININE- BASED FORMULA (CKD-EPI 2020) 65.3 60 03/09 Specimen Type: PLASMA Comment: No hemolysis noted. Ordering Provider: MIGUEL ZAZUETA Report Released Date/Time: Mar 09, 2024 10:49 AM Reporting Lab: [facility] [address] [place] [phone] Performing Lab: [place] [address] [place] [address] HGA1C HEMOGLOBIN A1C/HEMOGLO BIN.TOTAL IN BLOOD 5.6 4.0 - 6.0 03/09 Specimen Type: BLOOD No comment entered. Ordering Provider: MIGUEL ZAZUETA Report Released Date/Time: Mar 09, 2024 10:49 AM Reporting Lab: [facility] [address] [facility] [address] Performing Lab: [facility] [address] [place] [phone] [place] [address] LIPASE LIPASE [ENZYMATIC ACTIVITY/VO LUME] IN SERUM OR PLASMA 267 U/L 8 - 78 03/09 H Specimen Type: PLASMA Comment: No hemolysis noted. Ordering Provider: MIGUEL ZAZUETA Report Released Date/Time: Mar 09, 2024 11:00 AM Reporting Lab: [facility] [address] [facility] [address] Performing Lab: [place] [address] [facility] [address] [facility] LIPID PANEL (STL) CHOLESTEROL [MASS/VOLUM E] IN SERUM OR PLASMA 160 mg/dL 0 - 200 03/09 Specimen Type: PLASMA Comment: No hemolysis noted. Ordering Provider: MIGUEL ZAZUETA Report Released Date/Time: Mar 09, 2024 10:49 AM Reporting Lab: [address] [address] Performing Lab: [address] [address] [facility] LIPID PANEL (STL) TRIGLYCERID E [MASS/VOLUM E] IN SERUM OR PLASMA 46 mg/dL 0 - 150 03/09 Specimen Type: PLASMA Comment: No hemolysis noted. Ordering Provider: MIGUEL ZAZUETA Report Released Date/Time: Mar 09, 2024 10:49 AM Reporting Lab: [address] [address] Performing Lab: [address] [address] [facility] LIPID PANEL (STL) CHOLESTEROL IN LDL [MASS/VOLUM E] IN SERUM OR PLASMA BY CALCULATION 95 mg/dL 03/09 Specimen Type: PLASMA Comment: No hemolysis noted. Ordering Provider: MIGUEL ZAZUETA Report Released Date/Time: Mar 09, 2024 10:49 AM Reporting Lab: [address] [address] Performing Lab: [address] [address] [facility] LIPID PANEL (STL) CHOLESTEROL IN HDL [MASS/VOLUM E] IN SERUM OR PLASMA 56 mg/dL 40 03/09 Specimen Type: PLASMA Comment: No hemolysis noted. Ordering Provider: MIGUEL ZAZUETA Report Released Date/Time: Mar 09, 2024 10:49 AM Reporting Lab: [address] [address] Performing Lab: [facility] [address] [facility] [phone] [place] [address] TSH W/ REFLEX FT4 (STL) THYROTROPIN [UNITS/VOLU ME] IN SERUM OR PLASMA 2.453 u[IU]/mL 0.47 - 5 03/09 Specimen Type: PLASMA No comment entered. Ordering Provider: MIGUEL ZAZUETA Report Released Date/Time: Mar 09, 2024 10:49 AM Reporting Lab: [facility] [address] [facility] [address] Performing Lab: [place] [address] URINALYSI S (STL-PB) COLOR OF URINE Colorles s 03/09 Specimen Type: URINE No comment entered. Ordering Provider: MIGUEL ZAZUETA Report Released Date/Time: Mar 09, 2024 10:49 AM Reporting Lab: [facility] [address] [facility] [address] Performing Lab: [place] [id number] [facility] [phone] [place] [address] URINALYSI S (STL-PB) BILIRUBIN.T OTAL [PRESENCE] IN URINE BY TEST STRIP Negative mg/dL 03/09 Specimen Type: URINE No comment entered. Ordering Provider: MIGUEL ZAZUETA Report Released Date/Time: Mar 09, 2024 10:49 AM Reporting Lab: [facility] [address] [facility] [address] Performing Lab: [facility] [address] [facility] [phone] [place] [address] URINALYSI S (STL-PB) PH OF URINE BY TEST STRIP 7.0 5.0 - 8.0 03/09 Specimen Type: URINE No comment entered. Ordering Provider: MIGUEL ZAZUETA Report Released Date/Time: Mar 09, 2024 10:49 AM Reporting Lab: [facility] [address] [facility] [address] Performing Lab: [facility] [address] [facility] [address] [facility] URINALYSI S (STL-PB) APPEARANCE OF URINE Clear 03/09 Specimen Type: URINE No comment entered. Ordering Provider: MIGUEL ZAZUETA Report Released Date/Time: Mar 09, 2024 10:49 AM Reporting Lab: [address] [address] Performing Lab: [address] [phone] [place] [address] URINALYSI S (STL-PB) NITRITE [PRESENCE] IN URINE BY TEST STRIP Negative mg/dL 03/09 Specimen Type: URINE No comment entered. Ordering Provider: MIGUEL ZAZUETA Report Released Date/Time: Mar 09, 2024 10:49 AM Reporting Lab: [address] [address] Performing Lab: [address] [address] [facility] URINALYSI S (STL-PB) GLUCOSE [MASS/VOLUM E] IN URINE BY TEST STRIP Normalmg /dL 03/09 Specimen Type: URINE No comment entered. Ordering Provider: MIGUEL ZAZUETA Report Released Date/Time: Mar 09, 2024 10:49 AM Reporting Lab: [address] [address] Performing Lab: [facility] [address] [place] [phone] [facility] URINALYSI S (STL-PB) PROTEIN [MASS/VOLUM E] IN URINE BY TEST STRIP Negative mg/dL 03/09 Specimen Type: URINE No comment entered. Ordering Provider: MIGUEL ZAZUETA Report Released Date/Time: Mar 09, 2024 10:49 AM Reporting Lab: [address] [address] Performing Lab: [address] [place] [address] [facility] URINALYSI S (STL-PB) URN.UROBILI NOGEN Normalmg /dL 03/09 Specimen Type: URINE No comment entered. Ordering Provider: MIGUEL ZAZUETA Report Released Date/Time: Mar 09, 2024 10:49 AM Reporting Lab: [address] [address] Performing Lab: [address] [phone] [place] [address] URINALYSI S (STL-PB) HEMOGLOBIN [MASS/VOLUM E] IN URINE BY TEST STRIP Negative mg/dL 03/09 Specimen Type: URINE No comment entered. Ordering Provider: MIGUEL ZAZUETA Report Released Date/Time: Mar 09, 2024 10:49 AM Reporting Lab: [address] [address] Performing Lab: [address] [phone] [place] [address] URINALYSI S (STL-PB) KETONES [MASS/VOLUM E] IN URINE BY TEST STRIP Negative mg/dL 03/09 Specimen Type: URINE No comment entered. Ordering Provider: MIGUEL ZAZUETA Report Released Date/Time: Mar 09, 2024 10:49 AM Reporting Lab: [address] [address] Performing Lab: [address] [phone] [place] [address] URINALYSI S (STL-PB) URN.LEUK.ES T. Negative mg/dL 03/09 Specimen Type: URINE No comment entered. Ordering Provider: MIGUEL ZAZUETA Report Released Date/Time: Mar 09, 2024 10:49 AM Reporting Lab: [address] [address] Performing Lab: [address] [phone] [place] [address] URINALYSI S (STL-PB) SPECIFIC GRAVITY OF URINE 1.004 03/09 L Specimen Type: URINE No comment entered. Ordering Provider: MIGUEL ZAZUETA Report Released Date/Time: Mar 09, 2024 10:49 AM Reporting Lab: [address] [address] Performing Lab: [address] [phone] [place] [address] VITAMIN D, 25-HYDROX Y 25-HYDROXYV ITAMIN D3 [MASS/VOLUM E] IN SERUM OR PLASMA 49.2 ng/mL 30 - 96 03/09 Specimen Type: SERUM No comment entered. Ordering Provider: MIGUEL ZAZUETA Report Released Date/Time: Mar 09, 2024 10:49 AM Reporting Lab: [address] [address] Performing Lab: [phone] [place] [address] CYSTATIN C EGFR PANELS (STL-PB-M A) CYSTATIN [...] Dec 11, 2022 02:35 PM Reporting Lab: [address] [address] Performing Lab: [address] [phone] [place] [address] CYSTATIN C EGFR PANELS ([facility]-PB-M A) CKD-EPI CYSTATIN C (2011) 80.5 60 03/08 Specimen Type: PLASMA Comment: Choice of which of the reported eGFR values to use depends on the clinical situation. For example, for patients with severe muscle wasting or reduced muscle mass, eGFR calculated using the 2012 cystatin equation may be preferred. Ordering Provider: MIGUEL ZAZUETA Report Released Date/Time: Dec 11, 2022 02:35 PM Reporting Lab: [address] [address] Performing Lab: [address] [phone] [place] [address] CYSTATIN C EGFR PANELS (STL-PB-M A) CKD-EPI [...] Dec 11, 2022 02:35 PM Reporting Lab: [address] [address] Performing Lab: [address] [phone] [place] [address] CYSTATIN C EGFR PANELS (STL-PB-M A) CREATININE [...] Dec 11, 2022 02:35 PM Reporting Lab: [address] [address] Performing Lab: [address] [phone] Vital Signs Combined list of inpatient and outpatient Vital Signs from Department of Defense and Veterans Affairs, ranging from 12 months to all on record, depending upon the facility. Vital Sign Value Date Comments Source SYSTOLIC BLOOD PRESSURE 112 03/09/2024 10:04:00 [facility] DIASTOLIC BLOOD PRESSURE 57 03/09/2024 10:04:00 [facility] PULSE OXIMETRY 100 03/09/2024 10:04:00 [facility] WEIGHT 156 03/09/2024 10:04:00 [facility] BMI 27kg/m2 03/09/2024 10:04:00 [facility] PAIN 4 03/09/2024 10:04:00 [facility] HEIGHT 64 03/09/2024 10:04:00 [facility] TEMPERATURE 97.6 03/09/2024 10:04:00 [facility] PULSE 69 03/09/2024 10:04:00 [facility] RESPIRATION 18 03/09/2024 10:04:00 [facility] SYSTOLIC BLOOD PRESSURE 105 02/29/2024 13:36:23 [facility] DIASTOLIC BLOOD PRESSURE 66 02/29/2024 13:36:23 [facility] PULSE OXIMETRY 97 02/29/2024 13:36:23 [facility] WEIGHT 156.6 02/29/2024 13:36:23 [facility] BMI 27kg/m2 02/29/2024 13:36:23 [facility] PAIN 0 02/29/2024 13:36:23 [facility] TEMPERATURE 97.8 02/29/2024 13:36:23 [facility] PULSE 78 02/29/2024 13:36:23 [facility] RESPIRATION 16 02/29/2024 13:36:23 [facility] SYSTOLIC BLOOD PRESSURE 104 07/06/2023 10:30:05 [facility] DIASTOLIC BLOOD PRESSURE 64 07/06/2023 10:30:05 [facility] PULSE OXIMETRY 96 07/06/2023 10:30:05 O [facility] WEIGHT 158 07/06/2023 10:30:05 [facility] BMI 27kg/m2 07/06/2023 10:30:05 [facility] PAIN 0 07/06/2023 10:30:05 [facility] HEIGHT 64 07/06/2023 10:30:05 [facility] TEMPERATURE 97.7 07/06/2023 10:30:05 [facility] PULSE 81 07/06/2023 10:30:05 [facility] RESPIRATION 16 07/06/2023 10:30:05 [facility] PAIN 0 06/30/2023 09:34:48 [facility] Encounters Combined list of: 1) Encounters from Department of [facility] facilities going back up to thelast 18 months. 2) Encounters from the Department of Defense facilities going back up to 280 months. 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, bilater al, mild stage<b r/> LEBRON,J DENTON B III 12/22 [facility] VISUAL FIELD EXAMINATIO N(S) [id number] Diagnos is: ICD-10- CM 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, bilater al, mild stage<b r/> ERICA MOLINA I M 12/22 [facility] OFF/OP CONSLTJ NEW/[place] 55 [id number] Diagnos is: ICD-10- CM M47.892 Other spondyl osis, cervica l region< br/> ISAIAS MOY A 01/05 [facility] Outpatient Encounter [id number] 01/12 [facility] OFFICE O/P EST LOW 20-29 MIN [id number] Diagnos is: ICD-10- CM G43.709 Chronic migrain e w/o aura, not intract able, w/o stat migr
CHUCK KAY 01/14 [facility] HEARING AID SUP/ACCESS /DEV [id number] Diagnos is: ICD-10- CM H90.3 Sensori neural hearing loss, bilater al
MALLOYENRIQUE K 02/16 [facility] OFFICE O/P EST MOD 30-39 MIN [id number] Diagnos is: ICD-10- CM I48.0 Paroxys mal atrial fibrill ation<b r/> SARAY GARCIA H 02/26 [facility] Outpatient Encounter [id number] MARCUS NUNEZ NTHIA A 03/01 [facility] Outpatient Encounter [id number] 03/01 [facility] OFFICE O/P EST MOD 30-39 MIN [id number] [id number] Diagnos is: ICD-10- CM M54.2 Cervica lgia
LAUREN ZAZUETA M 03/10 [facility] Outpatient Encounter [id number] 03/12 [facility] Outpatient Encounter [id number] [id number] JO ANN HELLER YNDA R 03/15 [facility] Outpatient Encounter 86626-3.65 [id number] 03/17 [facility] Outpatient Encounter [id number] [id number] 03/29 [facility] Outpatient Encounter [id number] [id number] 04/01 [facility] Outpatient Encounter 51332-3.65 [id number] 04/13 [facility] OFFICE O/P EST MOD 30-39 MIN 77416-8.65 [id number] Diagnos is: ICD-10- CM M47.892 Other spondyl osis, cervica l region< br/> ISAIAS MOY 04/27 [facility] MNGMENT TRAINING [id number] Diagnos is: ICD-10- CM M54.2 Cervica lgia
PARVIN DODSON 04/27 [facility] Outpatient Encounter [id number] [id number] 1 04/28 [facility] Outpatient Encounter 53421-2.65 [id number] 2 04/29 [facility] Outpatient Encounter 56174-6.65 [id number] 1 05/03 [facility] MANUAL THERAPY 1/> REGIONS [id number] [id number] Diagnos is: ICD-10- CM M54.2 Cervica lgia
MAURICIO MAHMOOD 05/12 [facility] Outpatient Encounter [id number] [id number] WILY JACKSON A 05/14 [facility] MANUAL THERAPY 1/> REGIONS [id number] [id number] Diagnos is: ICD-10- CM M54.2 Cervica lgia
PARVIN DODSON 05/20 [facility] Outpatient Encounter [id number] [id number] FEROZ AUSTIN T 05/20 [facility] Outpatient Encounter 29894-7.65 [id number] 1 FEROZ AUSTIN T 05/24 [facility] Outpatient Encounter 93944-2.65 [id number] 1 05/26 [facility] OFFICE O/P EST MOD 30 MIN 78527-3.65 [id number] Diagnos is: ICD-10- CM M47.892 Other spondyl osis, cervica l region< br/> ISAIAS MOY 05/26 [facility] NEUROMUSCU LAR REEDUCATIO N 42903-4.65 [id number] Diagnos is: ICD-10- CM R42 Dizzine ss and giddine ss
LEILANI CARTWRIGHT J 06/01 [facility] MANUAL THERAPY 1/> REGIONS [id number] [id number] Diagnos is: ICD-10- CM M54.2 Cervica lgia
PARVIN DODSON 06/08 [facility] Outpatient Encounter [id number] [id number] JO ANN HELLER R 06/09 [facility] Outpatient Encounter [id number] [id number] 1 06/16 [facility] MANUAL THERAPY 1/> REGIONS [id number] [id number] Diagnos is: ICD-10- CM M54.2 Cervica lgia
PARVIN DODSON J 06/24 [facility] Outpatient Encounter 23859-6.65 [id number] WILY JACKSON 06/25 [facility] Outpatient Encounter [id number]. 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
LAUREN ZAZUETA 07/06 [facility] Outpatient Encounter [id number] [id number] 07/08 [facility] NEUROMUSCU LAR REEDUCATIO N 56140-1.65 [id number] 7 Diagnos is: ICD-10- CM N18.2 Chronic kidney disease , stage 2 (mild)< br/> LEILANI CARTWRIGHT MIN J 07/13 [facility] Outpatient Encounter [id number] [id number] JO ANN HELLER R 07/13 [facility] MANUAL THERAPY 1/> REGIONS [id number] [id number] Diagnos is: ICD-10- CM M54.2 Cervica lgia
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
PARVIN DODSON 08/04 [facility] ORTHO DVC REPAIR PER 15 MIN 28050-2.65 [id number] Diagnos is: ICD-10- CM Z46.89 Encount er for fitting and adjustm ent of oth devices
JORGE SHARMA ERT J 08/08 [facility] NEUROMUSCU LAR REEDUCATIO N 53141-2.65 [id number] Diagnos is: ICD-10- CM M54.2 Cervica lgia
LEILANI CARTWRIGHT J 08/16 [facility] Outpatient Encounter [id number] [id number] 08/22 [facility] Outpatient Encounter 45761-2.65 [id number] NOHELIA BRUNNER 08/29 [facility] MNGMENT TRAINING 17655-3.65 [id number] Diagnos is: ICD-10- CM M54.2 Cervica lgia
PARVIN DODSON 08/31 [facility] Outpatient Encounter [id number] [id number] 09/01 [facility] DIAB SHOE FOR DENSITY INSERT [id number] [id number] Diagnos is: ICD-10- CM Z46.89 Encount er for fitting and adjustm ent of oth devices
JORGE SHARMA J 09/06 [facility] OFFICE O/P EST MOD 30 MIN 75379-7.65 [id number] Diagnos is: ICD-10- CM M47.892 Other spondyl osis, cervica l region< br/> ISAIAS MOY A 09/07 [facility] Outpatient Encounter [id number] [id number] 3 09/20 [facility] Outpatient Encounter [id number] [id number] SCAR CLARK 09/28 [facility] Outpatient Encounter [id number] [id number] JO ANN HELLER 09/30 [facility] QNHP OL DIG ASSMT&MGMT 5-10 48065-4.65 [id number] Diagnos is: ICD-10- CM G47.30 Sleep apnea, unspeci fied
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, bilater al, mild stage<b r/> JESSEMALDONADO Monique M 01/25 [facility] INTRM OPH EXAM EST PATIENT [id number] [id number] Diagnos is: ICD-10- CM 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, bilater al, mild stage<b r/> Bernardino LEBRON DENTON B III 01/25 [facility] Outpatient Encounter [id number] [id number] JO ANN HELLER R 02/06 [facility] Outpatient Encounter [id number] [id number] Bernardino LEBRON DENTON B III 02/07 [facility] Outpatient Encounter 67540-2.65 [id number] Bernardino LEBRON DENTON B III 02/08 [facility] Outpatient Encounter 49895-2.65 [id number] ADDI SIMONS V 02/28 [facility] OFFICE O/P EST MOD 30 MIN [id number] [id number] Diagnos is: ICD-10- CM I48.0 Paroxys mal atrial fibrill ation<b r/> SARAY GARCIA H 02/28 [facility] Outpatient Encounter [id number] [id number] AJAY DARBY 02/28 [facility] OFFICE O/P EST MOD 30 MIN 65941-5.65 [id number] Diagnos is: ICD-10- CM Z00.01 Encount er for general adult medical exam w abnorma l finding s
LAUREN ZAZUETA 03/09 [facility] Outpatient Encounter [id number] [id number] 03/10 [facility] Outpatient Encounter [id number] [id number] 1 03/10 [facility] Outpatient Encounter 90554-3.65 [id number] JO ANN HELLER R 03/13 [facility] Outpatient Encounter 19025-6.65 [id number] 03/15 [facility] Outpatient Encounter [id number] [id number] 03/21 [facility] Outpatient Encounter 51822-9.65 [id number] JO ANN HELLER R 03/21 [facility] Outpatient Encounter 60462-7.65 [id number] 03/31 [facility] Outpatient Encounter 56330-8.65 [id number] 04/03 [facility] Outpatient Encounter [id number] [id number] 04/06 [facility] OFF/OP CNSLTJ NEW/EST MOD 40 [id number] [id number] Diagnos is: ICD-10- CM M79.672 Pain in left foot
RADHA,ST UART L 04/07 [facility] Outpatient Encounter [id number] [id number] 04/20 [facility] Outpatient Encounter [id number] [id number] ENRIQUE MALLOY 05/29 [facility] Outpatient Encounter 81946-2.65 [id number] 2 05/30 [facility] Procedures Combined list of: 1) Procedures from Department of Veterans Affairs facilities going back up to thelast 18 months, not all [place] non-surgical procedures are included; 2) All procedures from the Department of Defense facilities. Procedure Procedure Type Code Date Perfomer Comments Shira chacno SYNOVECTOMY OF WRIST 12/28/1995 [facility] RELEASE OF CARPAL TUNNEL 12/28/1995 [facility] OTHER BILATERAL DESTRUCTION OR OCCLUSION OF FALLOPIAN TUBES 06/13/1989 [facility] INJECTION OF ANTIBIOTIC 06/13/1989 [facility] MONITORING, NOT OTHERWISE SPECIFIED 06/13/1989 [facility] EKG (SCALP) 06/13/1989 [facility] LOW CERVICAL SECTION 06/13/1989 [facility] INJECTION OR INFUSION OF OTHER THERAPEUTIC OR PROPHYLACTIC SUBSTANCE 06/13/1989 [facility] MEDICAL INDUCTION OF LABOR 06/13/1989 [facility] INJECTION OR INFUSION OF OTHER THERAPEUTIC OR PROPHYLACTIC SUBSTANCE 06/02/1989 [facility] OTHER DIAGNOSTIC PROCEDURES ON FETUS AND AMNION 06/02/1989 [facility] INJECTION OR INFUSION OF OTHER THERAPEUTIC OR PROPHYLACTIC SUBSTANCE 07/23/1988 [facility] INJECTION OF ANTIBIOTIC 07/23/1988 [facility] DILATION AND CURETTAGE FOLLOWING DELIVERY OR 07/23/1988 [facility] Social History Combined list of available smoking, tobacco, and other social history from Department of Defense and Veterans Affairs facilities. Social History Type Response Date Comment Shira chacon Tobacco smoking status [facility] VA-TOBACCO NEVER USED 03/09/2024 [facility] History of tobacco use VA-TOBACCO NEVER USED 10/27/2022 [facility] History of tobacco use VA-TOBACCO NEVER USED 09/30/2021 [facility] History of tobacco use VA-TOBACCO NEVER USED 12/26/2019 [facility] History of tobacco use LIFETIME NON-USER OF TOBACCO 03/03/2017 [facility] History of tobacco use LIFETIME NON-USER OF TOBACCO 01/15/2016 [facility] History of tobacco use LIFETIME NON-USER OF TOBACCO 03/04/2015 [facility] History of tobacco use LIFETIME NON-USER OF TOBACCO 10/12/2013 [facility] History of tobacco use LIFETIME NON-USER OF TOBACCO 12/13/2012 [facility] History of tobacco use LIFETIME NON-USER OF TOBACCO 08/02/2006 [facility] History of tobacco use 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 [facility] Plan of Care List of future care activities from Department [facility] facilities. Additional future care activities may be listed in the Assessment and Plan section. Date/Time Care Activity Care Activity Detail [place] ty 06/28/2024 AMBULATORY - SURGERY AMBULATORY - SURGERY [facility] 07/25/2024 AMBULATORY - SURGERY AMBULATORY - SURGERY [facility] 08/22/2024 AMBULATORY - SURGERY AMBULATORY - SURGERY [facility] Advance Directives List of completed, amended, or rescinded Advance Directives on record at [facility] facilities. An actual copy of the Directive is not included. Date Advance Directive Provider Source 02/23/2014 ADVANCE DIRECTIVE DISCUSSION ANGELITA AGUILA [facility]
[2024-06-17 19:19] LABS: Basophils Percent Auto 0.4 % (0.2-1.2); Eosinophils Absolute Auto 0.1 K/mm3 (0-0.3); Eosinophils Percent Auto 1.2 % (0-4.4); Hematocrit 35.7 % (37.0-47.0); Immature Granulocyte Absolute 0.01 K/mm3 (0.00-0.031); Immature Granulocyte Percent A 0.2 % (0-0.5); Lymphocytes Absolute Auto 1.49 K/mm3 (0.9-3.2); Lymphocytes Percent Auto 30.8 % (18.3-44.2); Mean Corpuscular HGB Conc 33.6 g/dl (32-36); Mean Corpuscular Hemoglobin 31.3 pg (26-34); Monocytes Absolute Auto 0.4 K/mm3 (0.1-0.6); Monocytes Percent Auto 8.9 % (2.6-8.5); Neutrophils Absolute Auto 2.8 K/mm3 (1.3-6.7); Neutrophils Percent Auto 58.5 % (45.5-73.1); Platelet Count Result 181 k/mm3 (150-375); Red Blood Count 3.84 M/mm3 (4.2-5.4); Red Cell Distribution Width 11.5 % (11.5-14.5); White Blood Count 4.8 K/mm3 (4.5-10.0)
[2024-06-17 19:20] LABS: Influenza A QL RT-PCR Negative (Negative); Influenza B QL RT-PCR Negative (Negative); RSV RNA, RT-PCR Negative (Negative); SARS-CoV-2 RNA PCR Negative (Negative)
[2024-06-17 19:29] LABS: Alanine Aminotransferase 39 U/L (6-35); Albumin Level 3.9 g/dL (3.5-5.1); Alkaline Phosphatase 87 U/L (38-126); Anion Gap 11 mmol/L (4-12); Aspartate Amino Transferase 36 U/L (14-36); Bilirubin,Total 0.4 mg/dL (0.2-1.3); Blood Urea Nitrogen 25 mg/dL (7-17); Carbon Dioxide 26 mmol/L (22-30); Chloride 102 mmol/L (98-107); Estimated CRCL calculation 59 ml/min; Estimated Glomerular Filt Rate > 60; Glucose 105 mg/dL (65-110); INR 0.9; Potassium 4.5 mmol/L (3.4-5.0); Prothrombin Time 12.5 Seconds (11.1-14.7); Sodium 139 mmol/L (137-145)
[2024-06-17 19:30] LABS: Partial Thromboplastin Time 33.5 Seconds (22.3-36.8)
[2024-06-17 19:41] LABS: NT Pro B Type Natriuretic Pept 220 pg/mL (19.9-100); Troponin I < 0.012 ng/mL (0.000-0.034)
[2024-06-17 20:49] VITALS: BP 124/68; PULSE 88; RESP 15; O2SAT 100
[2024-06-17] MEDS: MECLIZINE HCL 25 MG TABLET PO (20:49)
[2024-06-17 22:30] VITALS: BP 128/64; PULSE 67; RESP 15; O2SAT 100
[2024-06-17 22:56] VITALS: BP 142/88; PULSE 71; RESP 16; O2SAT 100
== END 2024-06-17 22:57 | disposition home or self-care (01) ==
PROVIDERS: Emergency Provider Emergency Medicine; PCP Family Medicine
DX: J06.9 Acute upper respiratory infection, unspecified (principal); Z79.82 Long term (current) use of aspirin; N18.30 Chronic kidney disease, stage 3 unspecified; I48.0 Paroxysmal atrial fibrillation; G47.33 Obstructive sleep apnea (adult) (pediatric); E78.00 Pure hypercholesterolemia, unspecified; Z20.822 Contact with and (suspected) exposure to COVID-19
CPT/HCPCS: 36415; 70450; 71045; 80053; 83880; 84484; 85025; 85610; 85730; 87637; 93005; 99284; A9270

== ENCOUNTER 2024-08-07 09:08 | Outpatient (CLI) | payer MEDICARE, OTHER, SELFPAY ==
--- NOTE | ~2024-08-07 | DEXA_ITS ---
Bone Density Report Name: KADI MARTINEZ Age: 68 Sex: Female Ethnicity: White Date of : 1955 Indication: postmenopausal; screening for osteoporosis; Referring Provider: Manuel Cook Study: Bone densitometry was performed. Exam Date: August 07, 2024 Accession number: [id number] Bone Density: Region BMD T-score Z-score Classification AP Spine(L1-L4) 0.955 -0.8 1.0 Normal Femoral Neck (Left) 0.840 -0.1 1.5 Normal Total Hip (Left) 1.071 1.1 2.4 Normal Femoral Neck (Right) 0.858 0.1 1.7 Normal Total Hip (Right) 1.095 1.3 2.6 Normal Femoral Neck Mean 0.849 0.0 1.6 Normal Total Hip Mean 1.083 1.2 2.5 Normal World Health Organization criteria for BMD impression classify patients as: Normal (T-score at or above -1.0), Osteopenia (T-score between -1.0 and -2.5), or Osteoporosis (T-score at or below -2.5). 10-year Fracture Risk: FRAX not reported because: All T-scores for Spine Total, Hip Total, Femoral Neck at or above -1.0 Clinical Information Provided by Patient: Has used the following medications: Vitamin D Patient maximum height was 64 Menopause Age: 62 No regular weight bearing exercise Drinks caffeinated beverages Onset of menses at age 17 Impression: The patient has normal bone mass. Discussion: BONE DENSITY IS ABOVE THE MINIMUM DESIRABLE LEVEL AT ALL SKELETAL SITES TESTED. This patient?s bone mineral density is above the minimum desirable level (T-score -1.0 or better) at all sites measured. The patient should follow a healthful lifestyle (good nutrition with adequate calcium and vitamin D, and appropriate weight-bearing exercise). Follow-Up: Consider repeating this study in 5 years or sooner if there is some new clinical indication. Reported by: LAURE on 08/07/2024 9:27:00 AM. Reviewed, dictated and finalized at location A.
--- OUTSIDE RECORDS SUMMARY | 2024-08-07 10:02 | XMS_ITS | Continuity of Care Document ---
Author Name [facility] Organization [facility] Care Team Providers Care Water Hauler Name Role Phone [facility] Unavailable Unavailable Problems Combined list of problems from Department of Defense and [facility] Affairs facilities. It does not include entries that were removed or entered in error. 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 Bettie Bruno, 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) Active Condition [facility] Allergic rhinitis * (ICD-9-CM 477.9) Active Condition [facility] Atrial Fibrillation * (ICD-9-CM 427.31) Active Condition [facility] Breast Mass (ICD-9-CM 611.72) Active Condition [facility] Carpal Tunnel Syndrome Active Condition [facility] Cervicalgia (SNOMED CT 47422878) Active Condition [facility] Cervicitis * (ICD-9-CM 616.0) Active Condition [facility] 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 Condition [facility] Chest Pain * (ICD-9-CM 786.50) Active Condition [facility] Chronic kidney disease stage 2 Active Condition [facility] Chronic Kidney Disease, Unspecified (ICD-9-CM 585.9) Active Condition [facility] Chronic renal insufficiency Active Condition [facility] Deficiency of other vitamins Active Condition [facility] Depression * (ICD-9-CM 311./300.4) Active Condition [facility] Gynecologic Exam Active Condition [facility] Gynecological examination normal Active Condition [facility] Hearing loss Active Condition [facility] Hearing Loss, Sensorineural, Unspecified Active Condition [facility] Hip pain Active Condition [facility] Hip Pain (ICD-9-CM 719.45) Active Condition [facility] Hyperlipidemia Active Condition [facility] Kidney Failure * (ICD-9-CM 586.) Active Condition [facility] Localized swelling, mass and lump, trunk Active Condition [facility] Low back pain Active Condition [facility] Low Back Pain * (ICD-9-CM 724.2) Active Condition [facility] Major depressive disorder Active Condition [facility] Neck pain (SNOMED CT 79625674) Active Condition [facility] Neuritis Active Condition [facility] Neuroma (SNOMED CT 961965607) Active Condition [facility] Other Malaise and Fatigue (ICD-9-CM 780.79) Active Condition [facility] Pain in joint involving ankle and foot (ICD-9-CM 719.47) Active Condition [facility] Pain in joint involving shoulder region (ICD-9-CM 719.41) Active Condition [facility] Pain in right hand Active Condition [facility] Pain of left ankle joint Active Condition [facility] Palpitations (ICD-9-CM 785.1) Active Condition [facility] Postmenopausal atrophic vaginitis Active Condition [facility] PROPHY VACC. STREP PNEU Active Condition Jan 05, 2008 Entered By: THANH ZAZUETA Comment: Right Deltoid [facility] Routine gynecologic examination done Active Condition [facility] Sinusitis * (ICD-9-CM 473.9) Active Condition [facility] Unresolved Active Condition [facility] VACCIN FOR INFLUENZA Active Condition [facility] Vaginal discharge (SNOMED CT 038290861) Active Condition [facility] Vaginitis Active Condition [facility] Diagnosis: ICD-10-CM M25.872 Other specified joint disorders, left ankle and foot Active Diagnosis [facility] Diagnosis: ICD-10-CM 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, bilateral, mild stage Active Diagnosis [facility] Diagnosis: ICD-10-CM G89.29 Other chronic pain Active Diagnosis [facility] Diagnosis: ICD-10-CM M79.672 Pain in left foot Active Diagnosis [facility] Diagnosis: ICD-10-CM Z00.01 Encounter for general adult medical exam w abnormal findings Active Diagnosis [facility] Diagnosis: ICD-10-CM I48.0 Paroxysmal atrial fibrillation Active Diagnosis [facility] Diagnosis: ICD-10-CM G47.30 Sleep apnea, unspecified Active Diagnosis [facility] Diagnosis: ICD-10-CM M47.892 Other spondylosis, cervical region Active Diagnosis [facility] Diagnosis: ICD-10-CM Z46.89 Encounter for fitting and adjustment of oth devices Active Diagnosis 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 Medication Details Route Status Patient Instructions Prescription Expires Prescription Number Last Dispense Date Ordering Provider Order Date Order Qty Source ACETAMINOPH EN 325MG TAB TAKE ONE TABLET BY MOUTH THREE TIMES A DAY NEEDED FOR PAIN CAUTION: DO NOT EXCEED 4000MG PER DAY ACETAMIN OPHEN (APAP) FROM ALL MEDS. ORAL DISCONT INUED 03/10/2024 [id number] 4 Brandi ZAZUETA 2022 100 [facility] ACETAMINOPH EN 325MG TAB TAKE ONE TABLET BY MOUTH THREE TIMES A DAY NEEDED FOR PAIN CAUTION: DO NOT EXCEED 4000MG PER DAY ACETAMIN OPHEN (APAP) FROM ALL MEDS. ORAL 03/10/2024 [id number] 4 Brandi ZAZUETA 2023 300 [facility] ASPIRIN 81MG TAB,EC TAKE ONE TABLET BY MOUTH ONCE A DAY FOR CARDIOVA SCULAR DISEASE TAKE WITH FOOD. ORAL ACTIVE 03/01/2025 [id number] 5 NIURKA GARCIA [address] [facility] ASPIRIN 81MG TAB,EC TAKE ONE TABLET BY MOUTH ONCE A DAY FOR HEART OR CIRCULAT ION. TAKE WITH FOOD. ORAL DISCONT INUED BY PROVIDE R 10/28/2023 [id number] 4 Brandi ZAZUETA 2022 120 [facility] CHOLECALCIF MACARIO 50MCG (2,000UNIT) TAB TAKE ONE TABLET BY MOUTH ONCE A DAY FOR VITAMIN D DEFICIEN CY. ORAL 10/28/2023 [id number] 4 Brandi ZAZUETA KHANHROXANNA M 2022 100 [facility] CITALOPRAM HYDROBROMID E 10MG TAB TAKE ONE-HALF TABLET BY MOUTH EVERY MORNING FOR DEPRESSI ON ORAL SUSPEND ED 10/01/2024 [id number] 5 Brandi ZAZUETA KHANHROXANNA M 2023 45 [facility] CITALOPRAM HYDROBROMID E 10MG TAB TAKE ONE-HALF TABLET BY MOUTH EVERY MORNING FOR DEPRESSI ON ORAL DISCONT INUED 10/28/2023 [id number] 4 CARLITABrandi KHANHROXANNA M 2022 45 [facility] FLUTICASONE PROPIONATE 50MCG/SPRAY SOLN,NASAL, 16GM INSTILL 1 SPRAY IN NOSTRIL( S) ONCE A DAY FOR ALLERGIE S (MUST BE USED DIRECTED FOR MINIMUM OF 21 DAYS TO PROVIDE ADEQUATE BENEFITS ) NASAL ACTIVE 10/24/2024 [id number] KADENDANIELBrandi QUINTANILLA M 2024 2 [facility] FLUTICASONE PROPIONATE 50MCG/SPRAY SOLN,NASAL, 16GM INSTILL 1 SPRAY IN NOSTRIL( S) ONCE A DAY FOR ALLERGIE S (MUST BE USED DIRECTED FOR MINIMUM OF 21 DAYS TO PROVIDE ADEQUATE BENEFITS ) NASAL DISCONT INUED 03/10/2025 [id number] 4 Brandi ZAZUETA KHANHROXANNA M 2023 1 [facility] FLUTICASONE PROPIONATE 50MCG/SPRAY SOLN,NASAL, 16GM INSTILL 1 SPRAY IN NOSTRIL( S) ONCE A DAY FOR ALLERGIE S (MUST BE USED DIRECTED FOR MINIMUM OF 21 DAYS TO PROVIDE ADEQUATE BENEFITS ) NASAL DISCONT INUED 02/11/2024 [id number] 4 Brandi ZAZUETA M 2022 1 [facility] LORATADINE 10MG TAB TAKE ONE TABLET BY MOUTH ONCE A DAY FOR ALLERGIE S ON EMPTY STOMACH ORAL SUSPEND ED 06/28/2025 [id number] 5 Brandi ZAZUETA [address] [place] [address] LORATADINE 10MG TAB TAKE ONE TABLET BY MOUTH ONCE A DAY FOR ALLERGIE S ON EMPTY STOMACH ORAL DISCONT INUED 08/02/2024 [id number] 4 Brandi ZAZUETA [address] [place] [address] METHOCARBAM OL 500MG TAB TAKE 1 TABLET BY MOUTH AT BEDTIME NEEDED ORAL DISCONT INUED 06/17/2023 [id number] 4 ISAIAS MOY [address] [facility] METHOCARBAM OL 500MG TAB TAKE 1 TABLET BY MOUTH AT BEDTIME NEEDED ORAL 05/26/2024 [id number] 4 ISAIAS MOY 2023 30 [facility] PRAVASTATIN NA 40MG TAB TAKE ONE TABLET BY MOUTH EVERY EVENING TO LOWER CHOLESTE ROL (REPORT ANY MUSCLE PAIN OR WEAKNESS ) ORAL ACTIVE 10/01/2024 [id number] 5 Brandi ZAZUETA [address] [place] [address] DIVISIO N PRAVASTATIN NA 40MG TAB TAKE ONE TABLET BY MOUTH EVERY EVENING TO LOWER CHOLESTE ROL (REPORT ANY MUSCLE PAIN OR WEAKNESS ) ORAL DISCONT INUED 10/28/2023 [id number] 4 Brandi ZAZUETA [address] [place] [address] PREGABALIN 75MG CAP,ORAL TAKE ONE CAPSULE BY MOUTH TWICE A DAY *MAY CAUSE DROWSINE SS* ORAL ACTIVE 01/24/2025 [id number] 5 Brandi ZAZUETA 2024 60 [facility] PREGABALIN 75MG CAP,ORAL TAKE ONE CAPSULE BY MOUTH TWICE A DAY *MAY CAUSE DROWSINE SS* ORAL DISCONT INUED 09/09/2024 [id number] 5 Brandi ZAZUETA [address] [facility] PREGABALIN 75MG CAP,ORAL TAKE ONE CAPSULE BY MOUTH TWICE A DAY *MAY CAUSE DROWSINE SS* ORAL DISCONT INUED 07/09/2024 [id number] 4 KYLE ODEN [address] [place] [address] PREGABALIN 75MG CAP,ORAL TAKE ONE CAPSULE BY MOUTH TWICE A DAY FOR NERVE PAIN *MAY CAUSE DROWSINE SS* ORAL DISCONT INUED 06/13/2023 [id number] 4 Brandi ZAZUETA [address] [place] [address] PREGABALIN 75MG CAP,ORAL TAKE ONE CAPSULE BY MOUTH TWICE A DAY FOR NERVE PAIN *MAY CAUSE DROWSINE SS* ORAL 12/11/2023 [id number] 4 Brandi ZAZUETA [address] [place] [address] PROPAFENONE HCL 150MG TAB TAKE ONE TABLET BY MOUTH TWICE A DAY FOR HEART. ORAL ACTIVE 10/01/2024 [id number] 5 Brandi ZAZUETA [address] [place] [address] DIVISIO N PROPAFENONE HCL 150MG TAB TAKE ONE TABLET BY MOUTH TWICE A DAY FOR HEART. ORAL DISCONT INUED 10/28/2023 [id number] 4 Brandi ZAZUETA [address] [place] [address] Allergies, Adverse Reactions, Alerts Combined list of allergies from Department of Defense and Veterans Affairs facilities. It does not include entries that were removed or entered in error. Substance Category Reaction Severity Reaction type Status Date Reported Comments Source BETADINE Propensity to adverse reactions to drug (finding) Burning sensation active [address] [facility] CODEINE Propensity to adverse reactions to drug (finding) Seizure active [address] [facility] IODINATED CONTRAST MEDIA Propensity to adverse reactions to drug (finding) Burning sensation active [address] [facility] Immunizations Combined list of available immunizations from the Department of Defense and Veterans Affairs facilities. Immunization Series Date Given Administered By Site Reaction Lot Number CVX Code Drug Dairy Nutrition Specialist Status Comments Source INFLUENZA, HIGH-DOSE, TRIVALENT, PF 2023 ADDI SIMONS V LEFT DELTO ID [id number] A 135 complet [facility] PNEUMOCOCCAL CONJUGATE PCV20, POLYSACCHARID E [id number] CONJUGATE, ADJUVANT, PF 2023 ADDI SIMONS V LEFT DELTO ID [id number] 216 complet [facility] TDAP 2023 ADDI SIMONS V LEFT DELTO ID [id number] 115 complet [facility] INFLUENZA, UNSPECIFIED FORMULATION 2023 88 complet ed [facility] ZOSTER RECOMBINANT 2 2021 187 complet [facility] ZOSTER RECOMBINANT 1 2021 187 complet [facility] COVID-19 (PFIZER), MRNA, LNP-S, PF, 30 MCG/0.3 ML DOSE 3 2020 208 complet ed PFR; [id number]; 2 [facility] INFLUENZA, INJECTABLE, QUADRIVALENT, PRESERVATIVE FREE 2020 150 complet ed [facility] COVID-19 (PFIZER), MRNA, LNP-S, PF, 30 MCG/0.3 ML DOSE 2 2020 208 complet ed PFR; [id number]; [address] [facility] COVID-19 (PFIZER), MRNA, LNP-S, PF, 30 MCG/0.3 ML DOSE 1 2020 208 complet ed PFR; [id number]; [address] [facility] INFLUENZA, INJECTABLE, QUADRIVALENT, PRESERVATIVE FREE 2019 150 complet [address] [facility] INFLUENZA, INJECTABLE, QUADRIVALENT, PRESERVATIVE FREE 2017 150 complet [address] [facility] INFLUENZA, INJECTABLE, QUADRIVALENT, PRESERVATIVE FREE 2016 150 complet [address] [facility] PNEUMOCOCCAL POLYSACCHARID E [id number] 2015 [facility] PCV [address] [facility] INFLUENZA, SEASONAL, INJECTABLE, PRESERVATIVE FREE 2014 140 complet ed [facility] INFLUENZA, UNSPECIFIED FORMULATION 2013 88 complet ed [facility] INFLUENZA, UNSPECIFIED FORMULATION 2012 88 complet ed [facility] TDAP 2012 115 complet ed [facility] INFLUENZA, UNSPECIFIED FORMULATION 2010 88 complet ed [facility] INFLUENZA, UNSPECIFIED FORMULATION 2009 88 complet ed [facility] INFLUENZA, UNSPECIFIED FORMULATION 2008 88 complet [address] [facility] INFLUENZA, UNSPECIFIED FORMULATION 2007 88 [address] [facility] PNEUMOCOCCAL, UNSPECIFIED FORMULATION 2007 109 complet ed [facility] INFLUENZA, UNSPECIFIED FORMULATION 2005 KEITH MARTINO 88 comple t ed [facility] Results Combined list of recent chemistry, hematology and other laboratory results from Department of Defense and Veterans Affairs, ranging from 15 months to all on record, depending upon the facility. Order Name Results Value Reference Range Date Interpretation Specimen Comments Source LIPID PANEL (STL) CHOLESTEROL [MASS/VOLUM E] IN SERUM OR PLASMA 160 mg/dL 0 - 200 03/09 Specimen Type: PLASMA Comment: No hemolysis noted. Ordering Provider: MIGUEL ZAZUETA Report Released Date/Time: Mar 09, 2024 10:49 AM Reporting Lab: [facility] [address] [facility] [address] Performing Lab: [facility] [address] [place] [phone] [facility] LIPID PANEL (STL) TRIGLYCERID E [MASS/VOLUM E] IN SERUM OR PLASMA 46 mg/dL 0 - 150 03/09 Specimen Type: PLASMA Comment: No hemolysis noted. Ordering Provider: MIGUEL ZAZUETA Report Released Date/Time: Mar 09, 2024 10:49 AM Reporting Lab: [facility] [address] [facility] [address] Performing Lab: [facility] [address] [place] [phone] [place] [address] LIPID PANEL (STL) CHOLESTEROL IN LDL [MASS/VOLUM E] IN SERUM OR PLASMA BY CALCULATION 95 mg/dL 03/09 Specimen Type: PLASMA Comment: No hemolysis noted. Ordering Provider: MIGUEL ZAZUETA Report Released Date/Time: Mar 09, 2024 10:49 AM Reporting Lab: [facility] [address] [facility] [address] Performing Lab: [address] LIPID PANEL (STL) CHOLESTEROL IN HDL [MASS/VOLUM E] IN SERUM OR PLASMA 56 mg/dL 40 03/09 Specimen Type: PLASMA Comment: No hemolysis noted. Ordering Provider: MIGUEL ZAZUETA Report Released Date/Time: Mar 09, 2024 10:49 AM Reporting Lab: [facility] [address] [place] [phone] Performing Lab: [address] [phone] [place] [address] HGA1C HEMOGLOBIN A1C/HEMOGLO BIN.TOTAL IN BLOOD 5.6 4.0 - 6.0 03/09 Specimen Type: BLOOD No comment entered. Ordering Provider: MIGUEL ZAZUETA Report Released Date/Time: Mar 09, 2024 10:49 AM Reporting Lab: [facility] [address] [place] [phone] Performing Lab: [address] [phone] TSH W/ REFLEX FT4 (STL) THYROTROPIN [UNITS/VOLU ME] IN SERUM OR PLASMA 2.453 u[IU]/mL 0.47 - 5 03/09 Specimen Type: PLASMA No comment entered. Ordering Provider: MIGUEL ZAZUETA Report Released Date/Time: Mar 09, 2024 10:49 AM Reporting Lab: [facility] [address] [facility] [address] Performing Lab: [address] [phone] [facility] URINALYSI S (STL-PB) COLOR OF URINE Colorles s 03/09 Specimen Type: URINE No comment entered. Ordering Provider: MIGUEL ZAZUETA Report Released Date/Time: Mar 09, 2024 10:49 AM Reporting Lab: [place] [address] [facility] [address] Performing Lab: [address] [phone] [place] [address] URINALYSI S (STL-PB) BILIRUBIN.T OTAL [PRESENCE] IN URINE BY TEST STRIP Negative mg/dL 03/09 Specimen Type: URINE No comment entered. Ordering Provider: MIGUEL ZAZUETA Report Released Date/Time: Mar 09, 2024 10:49 AM Reporting Lab: [place] [address] [facility] [address] Performing Lab: [place] [address] [facility] [phone] [place] [address] URINALYSI S (STL-PB) PH OF URINE BY TEST STRIP 7.0 5.0 - 8.0 03/09 Specimen Type: URINE No comment entered. Ordering Provider: MIGUEL ZAZUETA Report Released Date/Time: Mar 09, 2024 10:49 AM Reporting Lab: [place] [address] [facility] [address] Performing Lab: [phone] [place] [address] URINALYSI S (STL-PB) APPEARANCE OF URINE Clear 03/09 Specimen Type: URINE No comment entered. Ordering Provider: MIGUEL ZAZUETA Report Released Date/Time: Mar 09, 2024 10:49 AM Reporting Lab: [place] [address] [facility] [address] Performing Lab: [facility] [address] [facility] [address] [facility] URINALYSI S (STL-PB) NITRITE [PRESENCE] IN URINE BY TEST STRIP Negative mg/dL 03/09 Specimen Type: URINE No comment entered. Ordering Provider: MIGUEL ZAZUETA Report Released Date/Time: Mar 09, 2024 10:49 AM Reporting Lab: [address] [phone] Performing Lab: [address] [phone] [facility] URINALYSI S (STL-PB) GLUCOSE [MASS/VOLUM E] IN URINE BY TEST STRIP Normalmg /dL 03/09 Specimen Type: URINE No comment entered. Ordering Provider: MIGUEL ZAZUETA Report Released Date/Time: Mar 09, 2024 10:49 AM Reporting Lab: [address] [phone] Performing Lab: [address] [phone] [facility] URINALYSI S (STL-PB) PROTEIN [MASS/VOLUM E] IN URINE BY TEST STRIP Negative mg/dL 03/09 Specimen Type: URINE No comment entered. Ordering Provider: MIGUEL ZAZUETA Report Released Date/Time: Mar 09, 2024 10:49 AM Reporting Lab: [address] [phone] Performing Lab: [facility] [address] [place] [phone] [facility] URINALYSI S (STL-PB) URN.UROBILI NOGEN Normalmg /dL 03/09 Specimen Type: URINE No comment entered. Ordering Provider: MIGUEL ZAZUETA Report Released Date/Time: Mar 09, 2024 10:49 AM Reporting Lab: [address] [phone] Performing Lab: [place] [address] [facility] [phone] [facility] URINALYSI S (STL-PB) HEMOGLOBIN [MASS/VOLUM E] IN URINE BY TEST STRIP Negative mg/dL 03/09 Specimen Type: URINE No comment entered. Ordering Provider: MIGUEL ZAZUETA Report Released Date/Time: Mar 09, 2024 10:49 AM Reporting Lab: [address] [phone] Performing Lab: [address] [phone] [place] [address] URINALYSI S (STL-PB) KETONES [MASS/VOLUM E] IN URINE BY TEST STRIP Negative mg/dL 03/09 Specimen Type: URINE No comment entered. Ordering Provider: MIGUEL ZAZUETA Report Released Date/Time: Mar 09, 2024 10:49 AM Reporting Lab: [address] [phone] Performing Lab: [address] [phone] [place] [address] URINALYSI S (STL-PB) URN.LEUK.ES T. Negative mg/dL 03/09 Specimen Type: URINE No comment entered. Ordering Provider: MIGUEL ZAZUETA Report Released Date/Time: Mar 09, 2024 10:49 AM Reporting Lab: [address] [phone] Performing Lab: [address] [phone] [facility] URINALYSI S (STL-PB) SPECIFIC GRAVITY OF URINE 1.004 03/09 L Specimen Type: URINE No comment entered. Ordering Provider: MIGUEL ZAZUETA Report Released Date/Time: Mar 09, 2024 10:49 AM Reporting Lab: [address] [address] Performing Lab: [address] [phone] [place] [address] [facility] AMYLASE AMYLASE [ENZYMATIC ACTIVITY/VO LUME] IN SERUM, PLASMA OR BLOOD 155 U/L 25 - 125 03/09 H Specimen Type: PLASMA Comment: No hemolysis noted. Ordering Provider: MIGUEL ZAZUETA Report Released Date/Time: Mar 09, 2024 11:00 AM Reporting Lab: [place] [phone] Performing Lab: [place] [phone] [place] [address] VITAMIN D, 25-HYDROX Y 25-HYDROXYV ITAMIN D3 [MASS/VOLUM E] IN SERUM OR PLASMA 49.2 ng/mL 30 - 96 03/09 Specimen Type: SERUM No comment entered. Ordering Provider: MIGUEL ZAZUETA Report Released Date/Time: Mar 09, 2024 10:49 AM Reporting Lab: [place] [phone] Performing Lab: [place] [phone] [place] [address] LIPASE LIPASE [ENZYMATIC ACTIVITY/VO LUME] IN SERUM OR PLASMA 267 U/L 8 - 78 03/09 H Specimen Type: PLASMA Comment: No hemolysis noted. Ordering Provider: MIGUEL ZAZUETA Report Released Date/Time: Mar 09, 2024 11:00 AM Reporting Lab: [place] [phone] Performing Lab: [address] [phone] [place] [address] COMPREHEN SIVE METABOLIC PANEL CREATININE [MASS/VOLUM E] IN SERUM OR PLASMA 0.96 mg/dL 0.6 - 1.1 03/09 Specimen Type: PLASMA Comment: No hemolysis noted. Ordering Provider: MIGUEL ZAZUETA Report Released Date/Time: Mar 09, 2024 10:49 AM Reporting Lab: [place] [phone] Performing Lab: [address] [phone] [place] [address] COMPREHEN SIVE METABOLIC PANEL UREA NITROGEN [MASS/VOLUM E] IN SERUM OR PLASMA 16.6 mg/dL 9.0 - 25.0 03/09 Specimen Type: PLASMA Comment: No hemolysis noted. Ordering Provider: MIGUEL ZAZUETA Report Released Date/Time: Mar 09, 2024 10:49 AM Reporting Lab: [facility] [address] [facility] [address] Performing Lab: [facility] [address] [facility] [phone] [place] [address] COMPREHEN SIVE METABOLIC PANEL GLUCOSE [MASS/VOLUM E] IN SERUM OR PLASMA 85 mg/dL 72 - 99 03/09 Specimen Type: PLASMA Comment: No hemolysis noted. Ordering Provider: MIGUEL ZAZUETA Report Released Date/Time: Mar 09, 2024 10:49 AM Reporting Lab: [facility] [address] [facility] [address] Performing Lab: [facility] [address] [facility] [phone] [place] [address] COMPREHEN SIVE METABOLIC PANEL SODIUM [MOLES/VOLU ME] IN SERUM OR PLASMA 141 meq/L 136 - 145 03/09 Specimen Type: PLASMA Comment: No hemolysis noted. Ordering Provider: MIGUEL ZAZUETA Report Released Date/Time: Mar 09, 2024 10:49 AM Reporting Lab: [facility] [address] [facility] [address] Performing Lab: [facility] [address] [facility] [phone] [place] [address] COMPREHEN SIVE METABOLIC PANEL POTASSIUM [MOLES/VOLU ME] IN SERUM OR PLASMA 3.9 meq/L 3.5 - 5 03/09 Specimen Type: PLASMA Comment: No hemolysis noted. Ordering Provider: MIGUEL ZAZUETA Report Released Date/Time: Mar 09, 2024 10:49 AM Reporting Lab: [facility] [address] [facility] [address] Performing Lab: [facility] [address] [place] [phone] [facility] COMPREHEN SIVE METABOLIC PANEL CHLORIDE [MOLES/VOLU ME] IN SERUM OR PLASMA 107 meq/L 98 - 107 03/09 Specimen Type: PLASMA Comment: No hemolysis noted. Ordering Provider: MIGUEL ZAZUETA Report Released Date/Time: Mar 09, 2024 10:49 AM Reporting Lab: [place] [phone] Performing Lab: [address] [phone] [place] [address] COMPREHEN SIVE METABOLIC PANEL CARBON DIOXIDE, TOTAL [MOLES/VOLU ME] IN SERUM OR PLASMA 27 meq/L 22 - 31 03/09 Specimen Type: PLASMA Comment: No hemolysis noted. Ordering Provider: MIGUEL ZAZUETA Report Released Date/Time: Mar 09, 2024 10:49 AM Reporting Lab: [address] [phone] Performing Lab: [address] [phone] [place] [address] COMPREHEN SIVE METABOLIC PANEL CALCIUM [MASS/VOLUM E] IN SERUM OR PLASMA 9.4 mg/dL 8.4 - 10.4 03/09 Specimen Type: PLASMA Comment: No hemolysis noted. Ordering Provider: MIGUEL ZAZUETA Report Released Date/Time: Mar 09, 2024 10:49 AM Reporting Lab: [address] [phone] Performing Lab: [facility] [address] [place] [phone] [facility] COMPREHEN SIVE METABOLIC PANEL PROTEIN [MASS/VOLUM E] IN SERUM OR PLASMA 6.5 g/dL 6 - 8.6 03/09 Specimen Type: PLASMA Comment: No hemolysis noted. Ordering Provider: MIGUEL ZAZUETA Report Released Date/Time: Mar 09, 2024 10:49 AM Reporting Lab: [address] [phone] Performing Lab: [facility] [address] [facility] [address] [facility] COMPREHEN SIVE METABOLIC PANEL ALBUMIN [MASS/VOLUM E] IN SERUM OR PLASMA 4.1 g/dL 3.4 - 5 03/09 Specimen Type: PLASMA Comment: No hemolysis noted. Ordering Provider: MIGUEL ZAZUETA Report Released Date/Time: Mar 09, 2024 10:49 AM Reporting Lab: [facility] [address] [place], [place] [phone] Performing Lab: [facility] [address] [place] [phone] [place] [address] COMPREHEN SIVE METABOLIC PANEL BILIRUBIN.T OTAL [MASS/VOLUM E] IN SERUM OR PLASMA 0.6 mg/dL 0.2 - 1.2 03/09 Specimen Type: PLASMA Comment: No hemolysis noted. Ordering Provider: MIGUEL ZAZUETA Report Released Date/Time: Mar 09, 2024 10:49 AM Reporting Lab: [facility] [address] [place] [phone] Performing Lab: [address] [phone] [facility] COMPREHEN SIVE METABOLIC PANEL ALKALINE PHOSPHATASE [ENZYMATIC ACTIVITY/VO LUME] IN SERUM OR PLASMA 73 U/L 40 - 150 03/09 Specimen Type: PLASMA Comment: No hemolysis noted. Ordering Provider: MIGUEL ZAZUETA Report Released Date/Time: Mar 09, 2024 10:49 AM Reporting Lab: [facility] [address] [place] [phone] Performing Lab: [facility] [address] [place] [phone] [facility] COMPREHEN SIVE METABOLIC PANEL ASPARTATE AMINOTRANSF ERASE [ENZYMATIC ACTIVITY/VO LUME] IN SERUM OR PLASMA 32 U/L 5 - 34 03/09 Specimen Type: PLASMA Comment: No hemolysis noted. Ordering Provider: MIGUEL ZAZUETA Report Released Date/Time: Mar 09, 2024 10:49 AM Reporting Lab: [facility] [address] [place], [place] [phone] Performing Lab: [place] [phone] COMPREHEN SIVE METABOLIC PANEL ALANINE AMINOTRANSF ERASE [ENZYMATIC ACTIVITY/VO LUME] IN SERUM OR PLASMA 19 U/L 8 - 40 03/09 Specimen Type: PLASMA Comment: No hemolysis noted. Ordering Provider: MIGUEL ZAZUETA Report Released Date/Time: Mar 09, 2024 10:49 AM Reporting Lab: [facility] [address] [place] [address] Performing Lab: [address] COMPREHEN SIVE METABOLIC PANEL GLOMERULAR FILTRATION RATE/1.73 SQ M.PREDICTED [VOLUME RATE/AREA] IN SERUM, PLASMA OR BLOOD BY CREATININE- BASED FORMULA (CKD-EPI 2020) 65.3 60 03/09 Specimen Type: PLASMA Comment: No hemolysis noted. Ordering Provider: MIGUEL ZAZUETA Report Released Date/Time: Mar 09, 2024 10:49 AM Reporting Lab: [facility] [address] [place] [address] Performing Lab: [address] CBC LEUKOCYTES [#/VOLUME] IN BLOOD BY AUTOMATED COUNT 4.2 10*3/uL 3.6 - 11.2 03/09 Specimen Type: BLOOD No comment entered. Ordering Provider: MIGUEL ZAZUETA Report Released Date/Time: Mar 09, 2024 10:49 AM Reporting Lab: [facility] [address] [place] [address] Performing Lab: [address] CBC ERYTHROCYTE S [#/VOLUME] IN BLOOD BY AUTOMATED COUNT 3.56 10*6/uL 3.60 - 5.00 03/09 L Specimen Type: BLOOD No comment entered. Ordering Provider: MIGUEL ZAZUETA Report Released Date/Time: Mar 09, 2024 10:49 AM Reporting Lab: [facility] [address] [place] [phone] Performing Lab: [address] [phone] [place] [address] CBC HEMOGLOBIN [MASS/VOLUM E] IN BLOOD 11.3 g/dL 11.0 - 14.9 03/09 Specimen Type: BLOOD No comment entered. Ordering Provider: MIGUEL ZAZUETA Report Released Date/Time: Mar 09, 2024 10:49 AM Reporting Lab: [address] [address] Performing Lab: [address] CBC HEMATOCRIT [VOLUME FRACTION] OF BLOOD 33.0 32.6 - 43.4 03/09 Specimen Type: BLOOD No comment entered. Ordering Provider: MIGUEL ZAZUETA Report Released Date/Time: Mar 09, 2024 10:49 AM Reporting Lab: [facility] [address] [place] [phone] Performing Lab: [address] [phone] [place] [address] CBC MCV [ENTITIC VOLUME] BY AUTOMATED COUNT 92.7 fL 80.0 - 100.0 03/09 Specimen Type: BLOOD No comment entered. Ordering Provider: MIGUEL ZAZUETA Report Released Date/Time: Mar 09, 2024 10:49 AM Reporting Lab: [facility] [address] [place] [phone] Performing Lab: [address] [phone] [place] [address] CBC MCH [ENTITIC MASS] BY AUTOMATED COUNT 31.7 pg 27.0 - 34.0 03/09 Specimen Type: BLOOD No comment entered. Ordering Provider: MIGUEL ZAZUETA Report Released Date/Time: Mar 09, 2024 10:49 AM Reporting Lab: [facility] [address] [place] [phone] Performing Lab: [facility] [address] [facility] [address] [facility] CBC MCHC [MASS/VOLUM E] BY AUTOMATED COUNT 34.2 g/dL 33.0 - 36.0 03/09 Specimen Type: BLOOD No comment entered. Ordering Provider: MIGUEL ZAZUETA Report Released Date/Time: Mar 09, 2024 10:49 AM Reporting Lab: [facility] [address] [facility] [address] Performing Lab: [place] [address] [facility] [address] [place] [address] CBC PLATELETS [#/VOLUME] IN BLOOD BY AUTOMATED COUNT 211 10*3/uL 150 - 400 03/09 Specimen Type: BLOOD No comment entered. Ordering Provider: MIGUEL ZAZUETA Report Released Date/Time: Mar 09, 2024 10:49 AM Reporting Lab: [facility] [address] Performing Lab: [facility] [phone] [place] [address] CBC PLATELET MEAN VOLUME [ENTITIC VOLUME] IN BLOOD BY AUTOMATED COUNT 10.7 fL 7.5 - 11.2 03/09 Specimen Type: BLOOD No comment entered. Ordering Provider: MIGUEL ZAZUETA Report Released Date/Time: Mar 09, 2024 10:49 AM Reporting Lab: [facility] [address] Performing Lab: [facility] [address] [place] [phone] [facility] CBC ERYTHROCYTE DISTRIBUTIO N WIDTH [RATIO] BY AUTOMATED COUNT 11.7 11.8 - 15.1 03/09 L Specimen Type: BLOOD No comment entered. Ordering Provider: MIGUEL ZAZUETA Report Released Date/Time: Mar 09, 2024 10:49 AM Reporting Lab: [facility] [address] [place] [phone] Performing Lab: [facility] [address] [facility] [address] [facility] CBC LYMPHOCYTES /100 LEUKOCYTES IN BLOOD BY AUTOMATED COUNT 28 03/09 Specimen Type: BLOOD No comment entered. Ordering Provider: MIGUEL ZAZUETA Report Released Date/Time: Mar 09, 2024 10:49 AM Reporting Lab: [facility] [address] [facility] [address] Performing Lab: [facility] [address] [facility] [address] [facility] CBC MONOCYTES/1 00 LEUKOCYTES IN BLOOD BY AUTOMATED COUNT 8 03/09 Specimen Type: BLOOD No comment entered. Ordering Provider: MIGUEL ZAZUETA Report Released Date/Time: Mar 09, 2024 10:49 AM Reporting Lab: [facility] [address] [place] [phone] Performing Lab: [facility] [address] [place] [phone] [place] [address] CBC NEUTROPHILS /100 LEUKOCYTES IN BLOOD BY AUTOMATED COUNT 61 03/09 Specimen Type: BLOOD No comment entered. Ordering Provider: MIGUEL ZAZUETA Report Released Date/Time: Mar 09, 2024 10:49 AM Reporting Lab: [facility] [address] [facility] [address] Performing Lab: [facility] [address] [place] [phone] [facility] CBC EOSINOPHILS /100 LEUKOCYTES IN BLOOD BY AUTOMATED COUNT 1 03/09 Specimen Type: BLOOD No comment entered. Ordering Provider: MIGUEL ZAZUETA Report Released Date/Time: Mar 09, 2024 10:49 AM Reporting Lab: [facility] [address] [place] [phone] Performing Lab: [facility] [address] [place] [phone] [place] [address] CBC BASOPHILS/1 00 LEUKOCYTES IN BLOOD BY AUTOMATED COUNT 1 03/09 Specimen Type: BLOOD No comment entered. Ordering Provider: MIGUEL ZAZUETA Report Released Date/Time: Mar 09, 2024 10:49 AM Reporting Lab: [facility] [address] [place] [phone] Performing Lab: [facility] [address] [place], [place] [phone] [place] [address] CBC LYMPHOCYTES [#/VOLUME] IN BLOOD BY AUTOMATED COUNT 1.16 10*3/uL 0.77 - 4.50 03/09 Specimen Type: BLOOD No comment entered. Ordering Provider: MIGUEL ZAZUETA Report Released Date/Time: Mar 09, 2024 10:49 AM Reporting Lab: [facility] [address] [place], [place] [phone] Performing Lab: [address] CBC MONOCYTES [#/VOLUME] IN BLOOD BY AUTOMATED COUNT 0.35 10*3/uL 0.19 - 0.80 03/09 Specimen Type: BLOOD No comment entered. Ordering Provider: MIGUEL ZAZUETA Report Released Date/Time: Mar 09, 2024 10:49 AM Reporting Lab: [facility] [address] [place] [phone] Performing Lab: [facility] [address] [place] [address] CBC NEUTROPHILS [#/VOLUME] IN BLOOD BY AUTOMATED COUNT 2.55 10*3/uL 2.10 - 8.00 03/09 Specimen Type: BLOOD No comment entered. Ordering Provider: MIGUEL ZAZUETA Report Released Date/Time: Mar 09, 2024 10:49 AM Reporting Lab: [facility] [address] [place] [phone] Performing Lab: [facility] [address] [place], [place] [phone] [address] CBC EOSINOPHILS [#/VOLUME] IN BLOOD BY AUTOMATED COUNT 0.06 10*3/uL 0.00 - 0.60 03/09 Specimen Type: BLOOD No comment entered. Ordering Provider: MIGUEL ZAZUETA Report Released Date/Time: Mar 09, 2024 10:49 AM Reporting Lab: [address] [address] Performing Lab: [address] CBC BASOPHILS [#/VOLUME] IN BLOOD BY AUTOMATED COUNT 0.03 10*3/uL 0.00 - 0.20 03/09 Specimen Type: BLOOD No comment entered. Ordering Provider: MIGUEL ZAZUETA Report Released Date/Time: Mar 09, 2024 10:49 AM Reporting Lab: [address] [phone] Performing Lab: [address] CYSTATIN C EGFR PANELS ([facility]-PB-M A) [...] Dec 11, 2022 02:35 PM Reporting Lab: [address] [address] Performing Lab: [address] CYSTATIN C EGFR PANELS ([facility]-PB-M A) CKD-EPI CYSTATIN C (2012) 80.5 60 03/08 Specimen Type: PLASMA Comment: Choice of which of the reported eGFR values to use depends on the clinical situation. For example, for patients with severe muscle wasting or reduced muscle mass, eGFR calculated using the 2012 cystatin equation may be preferred. Ordering Provider: MIGUEL ZAZUETA Report Released Date/Time: Dec 11, 2022 02:35 PM Reporting Lab: [address] [address] Performing Lab: [address] [place] [address] [facility] CYSTATIN C EGFR PANELS ([facility]-PB-M A) CKD-EPI CREAT-CYSC (2020) 77.3 60 03/08 Specimen Type: PLASMA Comment: Choice of which of the reported eGFR values to use depends on the clinical situation. For example, for patients with severe muscle wasting or reduced muscle mass, eGFR calculated using the 2012 cystatin equation may be preferred. Ordering Provider: MIGUEL ZAZUETA Report Released Date/Time: Dec 11, 2022 02:35 PM Reporting Lab: [facility] [address] [place] [phone] Performing Lab: [address] [phone] [facility] CYSTATIN C EGFR PANELS ([facility]-PB-M A) CREATININE [MASS/VOLUM E] IN SERUM OR [...] Dec 11, 2022 02:35 PM Reporting Lab: [facility] [address] [facility] [address] Performing Lab: [address] [phone] [facility] Vital Signs Combined list of inpatient and outpatient Vital Signs from Department of Defense and Veterans Affairs, ranging from 12 months to all on record, depending upon the facility. Vital Sign Value Date Comments Source SYSTOLIC BLOOD PRESSURE 112 03/09/2024 10:04:00 [facility] DIASTOLIC BLOOD PRESSURE 57 03/09/2024 10:04:00 [facility] PULSE OXIMETRY 100 03/09/2024 10:04:00 [facility] WEIGHT 156 03/09/2024 10:04:00 [facility] BMI 27 kg/m2 03/09/2024 10:04:00 [facility] PAIN 4 03/09/2024 10:04:00 [facility] HEIGHT 64 03/09/2024 10:04:00 [facility] TEMPERATURE 97.6 03/09/2024 10:04:00 [facility] PULSE 69 03/09/2024 10:04:00 [facility] RESPIRATION 18 03/09/2024 10:04:00 [facility] SYSTOLIC BLOOD PRESSURE 105 02/29/2024 13:36:23 [facility] DIASTOLIC BLOOD PRESSURE 66 02/29/2024 13:36:23 [facility] PULSE OXIMETRY 97 02/29/2024 13:36:23 [facility] WEIGHT 156.6 02/29/2024 13:36:23 [facility] BMI 27 kg/m2 02/29/2024 13:36:23 [facility] PAIN 0 02/29/2024 13:36:23 [facility] TEMPERATURE 97.8 02/29/2024 13:36:23 [facility] PULSE 78 02/29/2024 13:36:23 [facility] RESPIRATION 16 02/29/2024 13:36:23 [facility] Encounters Combined list of: 1) Encounters from Department of [facility] Affairs facilities going backup to the last 18 months, not all [place] inpatient encounters are included; 2) Encounters from the Department of [facility] facilities going backup to 280 months. Location Location Details Encounter Type Encounter Number Reason For Visit Attending Provider ADM Date DC Date Status Disposition Source [facility] HEARING AID SUP/ACCESS /DEV [id number] Diagnos is: ICD-10- CM H90.3 Sensori neural hearing loss, ENRIQUE Isabel 02/[address] [facility] OFFICE O/P EST MOD 30-39 MIN [id number] Diagnos is: ICD-10- CM I48.0 Paroxys mal atrial fibrill atSARAY Durbin 02/26 [facility] Outpatient Encounter [id number] MARCUS NUNEZ A 03/01 [facility] Outpatient Encounter [id number] 03/01 [facility] OFFICE O/P EST MOD 30-39 MIN [id number] Diagnos is: ICD-10- CM M54.2 Cervica lgia LAUREN ZAZUETA 03/10 [facility] Outpatient Encounter [id number] 03/12 [facility] Outpatient Encounter [id number] HELLER,JO ANN RIGGS R 03/15 [facility] Outpatient Encounter [id number] 03/17 [facility] Outpatient Encounter [id number] 03/29 [facility] Outpatient Encounter [id number] 04/01 [facility] Outpatient Encounter [id number] 04/13 [facility] OFFICE O/P EST MOD 30-39 MIN [id number] Diagnos is: ICD-10- CM M47.892 Other spondyl osis, cervica l ISAIAS Ramirez 04/27 [facility] MNGMENT TRAINING [id number] Diagnos is: ICD-10- CM M54.2 Cervica PARVIN Ward J 04/27 [facility] Outpatient Encounter [id number] 04/28 [facility] Outpatient Encounter [id number] 04/29 [facility] Outpatient Encounter [id number] 05/03 [facility] MANUAL THERAPY 1/> [facility] [id number] Diagnos is: ICD-10- CM M54.2 Cervica zulayia MAURICIO MAHMOOD 05/12 [facility] Outpatient Encounter [id number] WILY JACKSON 05/14 [facility] MANUAL THERAPY 1/> [facility] [id number] Diagnos is: ICD-10- CM M54.2 Cervica PARVIN Ward MANDY J 05/20 [facility] Outpatient Encounter [id number] FEROZ AUSTIN T 05/20 [facility] Outpatient Encounter [id number] FEROZ AUSTIN T 05/24 [facility] Outpatient Encounter [id number] 05/[address] [facility] OFFICE O/P EST MOD 30 MIN [id number] Diagnos is: ICD-10- CM M47.892 Other spondyl osis, cervica l region ISAIAS MOY A 05/26 [facility] NEUROMUSCU LAR REEDUCATIO N [id number] Diagnos is: ICD-10- CM R42 Dizzine ss and giddine ss CHAYLEILANI MIN J 06/01 [facility] MANUAL THERAPY 1/> [facility] [id number] Diagnos is: ICD-10- CM M54.2 Cervica zulayia TESSYCESAR,DUS TIN J 06/08 [facility] Outpatient Encounter [id number] HELLER,JO ANN RIGGS R 06/09 [facility] Outpatient Encounter [id number] 06/16 [facility] MANUAL THERAPY 1/> [facility] [id number] Diagnos is: ICD-10- CM M54.2 Cervica nghia DODSON,DUS TIN J 06/24 [facility] Outpatient Encounter [id number] WILY JACKSON A 06/[address] 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 Outpatient Encounter [id number] 07/08 [facility] NEUROMUSCU LAR REEDUCATIO N [id number] Diagnos is: ICD-10- CM N18.2 Chronic kidney disease , stage 2 (mild) CHAYLEILANI MIN J 07/13 [facility] Outpatient Encounter [id number] JO ANN HELLER 07/13 [facility] MANUAL THERAPY 1/> [facility] [id number] Diagnos is: ICD-10- CM M54.2 Cervica zulayia PARVIN DODSON J [facility] COMPRE OPH EXAM EST PT 1/ [id number] Diagnos is: ICD-10- CM 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, bilater al, mild stage LEBRON,J DENTON B III 07/27 [facility] CMPTR OPHTH IMG OPTIC NERVE [id number] Diagnos is: ICD-10- CM 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, bilater al, mild stage ERICA MOLINA I M 07/27 [facility] Outpatient Encounter [id number] Diagnos is: ICD-10- CM G47.30 Sleep apnea, unspeci fied LAUREN ZAZUETA M 07/27 [facility] PT EDUCATION NOC INDIVID [id number] [id number] Diagnos is: ICD-10- CM G47.36 Sleep related hypoven tilatio n in conditi ons classd elswhYVONNE Claire LLDavide G 08/01 [facility] Outpatient Encounter [id number] [id number] HELLERJO ANN YYANG R 08/01 [facility] MANUAL THERAPY REGIONS [id number] [id number] Diagnos is: ICD-10- CM M54.2 Cervica PARVIN Ward 08/04 [facility]TH[facility] DVC REPAIR PER 15 MIN 61502-3.65 [id number] Diagnos is: ICD-10- CM Z46.89 Encount er for fitting and adjustm ent of oth devices JORGE SHARMA J 08/08 [facility] NEUROMUSCU LAR REEDUCATIO N [id number] [id number] Diagnos is: ICD-10- CM M54.2 Cervica lgia CHAYLEILANI MIN J 08/16 [facility] Outpatient Encounter [id number] [id number] 08/22 [facility] Outpatient Encounter [id number] [id number] NOHELIA BRUNNER 08/29 [facility] MNGMENT TRAINING 08219-1.65 [id number] Diagnos is: ICD-10- CM M54.2 Cervica PARVIN Ward 08/31 [facility] Outpatient Encounter [id number] [id number] 09/01 [facility] DIAB SHOE FOR DENSITY INSERT 75590-9.65 [id number] Diagnos is: ICD-10- CM Z46.89 Encount er for fitting and adjustm ent of oth devices JORGE SHARMA CONCHITA J 09/06 [facility] O/P EST MOD 30 MIN 35073-8.65 [id number] Diagnos is: ICD-10- CM M47.892 Other spondyl osis, cervica l region ISAIAS MOY A 09/07 [facility] Outpatient Encounter [id number] [id number] 09/20 [facility] Outpatient Encounter [id number] [id number] SCAR CLARK 09/28 [facility] Outpatient Encounter [id number] [id number] JO ANN HELLER 09/30 [facility] QNHP OL DIG ASSMT&MGMT 5-10 [id number] [id number] Diagnos is: ICD-10- CM G47.30 Sleep apnea, unspeci fied Genaro VELA A 10/17 [facility] Outpatient Encounter [id number] [id number] 10/24 [facility] Outpatient Encounter [id number] 11/01 [facility] Outpatient Encounter [id number] 12/08 [facility] Outpatient Encounter [id number] JO ANN HELLER KEELY R 01/06 [facility] CPTR OPHTH DX IMG POST SEGMT [id number] Diagnos is: ICD-10- CM 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, bilater al, mild stage ERICA MOLINA I M 01/25 [facility] INTRM OPH EXAM EST PATIENT [id number] Diagnos is: ICD-10- CM 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, bilater al, mild stage Bernardino LEBRON DENTON B III 01/25 [facility] Outpatient Encounter [id number] JO ANN HELLER KEELY R 02/06 [facility] Outpatient Encounter [id number] Bernardino LEBRON DENTON B III 02/07 [facility] Outpatient Encounter [id number] Bernardino LEBRON DENTON B III 02/08 [facility] Outpatient Encounter [id number] ADDI SIMONS V 02[facility] EST MOD 30 MIN [id number] Diagnos is: ICD-10- CM I48.0 Paroxys mal atrial fibrill SARAY Boykin 02/28 [facility] Outpatient Encounter [id number] WILNERAJAY M 02/28 [facility] OFFICE O/P EST MOD 30 MIN [id number] Diagnos is: ICD-10- CM Z00.01 Encount er for general adult medical exam w LAUREN Ornelas 03/09 [facility] Outpatient Encounter [id number] 03/10 [facility] Outpatient Encounter [id number] 03/10 [facility] Outpatient Encounter [id number] JO ANN HELLER 03/13 [facility] Outpatient Encounter [id number] 03/15 [facility] Outpatient Encounter [id number] 03/21 [facility] Outpatient Encounter [id number] JO ANN HELLER R 03/21 [facility] Outpatient Encounter [id number] 03/31 [facility] Outpatient Encounter [id number] 04/03 [facility] Outpatient Encounter [id number] 04/06 [facility] OFF/OP CNSLTJ NEW/EST MOD 40 [id number] Diagnos is: ICD-10- CM M79.672 Pain in left foot [facility] DEEPAK GARCIA L 04/07 [facility] Outpatient Encounter [id number] 04/20 [facility] Outpatient Encounter [id number] ENRIQUE MALLOY 05/29 [facility] Outpatient Encounter [id number] 05/30 [facility] Outpatient Encounter [id number] LAUREN ZAZUETA 06/17 [facility] EDU&TRN PT SELF-MGMT NQHP 1 [id number] Diagnos is: ICD-10- CM G89.29 Other chronic pain RADINSKAYA ,MICHELE V 07/18 [facility] [place]TRZD [place] [id number] Diagnos is: ICD-10- CM 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 OFF/OP CNSLTJ NEW/EST LOW 30 [id number] Diagnos is: ICD-10- CM M25.872 Other specifi ed joint disorde rs, left ankle and foot ST RADHA UART L 08/02 [facility] Outpatient Encounter [id number] 08/05 [facility] N Social History Combined list of available smoking, tobacco, and other social history from Department of Defense and Veterans Affairs facilities. Social History Type Response Date Comment [facility] e Tobacco smoking status NHIS [place]-TOBACCO NEVER USED 03/09/2024 [facility] History of tobacco use VA-TOBACCO NEVER USED 10/27/2022 [facility] History of tobacco use VA-TOBACCO NEVER USED 09/30/2021 [facility] History of tobacco use TX-TOBACCO NEVER USED 12/26/2019 [facility] History of tobacco use LIFETIME NON-USER OF TOBACCO 03/03/2017 [facility] History of tobacco use LIFETIME NON-USER OF TOBACCO 01/15/[address] [facility] History of tobacco use LIFETIME NON-USER OF TOBACCO 03/04/[address] [facility] History of tobacco use LIFETIME NON-USER OF TOBACCO 10/12/2013 [facility] History of tobacco use LIFETIME NON-USER OF TOBACCO 12/13/2012 [facility] History of tobacco use LIFETIME NON-USER OF TOBACCO 08/02/[address] 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 Additional future care activities may be listed in the Assessment and Plan section. Date/Time Care Activity Care Activity Detail Facili ty 08/22/2024 AMBULATORY - SURGERY AMBULATORY - SURGERY [facility] Advance Directives List of completed, amended, or rescinded Advance Directives on record at [facility] facilities. An actual copy of the Directive is not included. Date Advance Directive Provider Source 02/23/2014 ADVANCE DIRECTIVE DISCUSSION ANGELITA AGUILA [facility]
--- OUTSIDE RECORDS SUMMARY | 2024-08-07 10:02 | XMS_ITS | Encounter Summary ---
Author Name [facility] Organization [facility] [facility] [place] Address [address] [place] [address] Care Team Providers Care Manager Ui Name Role Phone THANH ZAZUETA Primary Care Provider Mora chacon Insurance Providers: All historical and current [...] [employer] VISIO N PLAN May 17, 2016 [id number] [phone] KADI MARTINEZ PATIENT EYEMED (WNR) VISION VISIO N May 17, 2019 [id number] [phone] KADI MARTINEZ PATIENT MEDICARE (WNR) MEDICARE (M) PART A Nov 14, 2022 PART A [id number] KADI MARTINEZ PATIENT MEDICARE (WNR) MEDICARE (M) PART B Nov 14, 2022 PART B [id number] KADI MARTINEZ PATIENT Selected Encounter This section includes the information on record at DC for the Encounter. Date/Time Encounter Type Encounter Description Reason Provider Source Aug 30, 2023 04:42 PM Outpatient Encounter ADMIN PAT ACTIVTIES (MASNONCT) BRUNNER,MYLESEvie LARA IHPhoebe Encounter Template Text not used by DC Plan of Treatment: Future Appointments (+ 6 months) and Future Tests (+/- 45 days) The Plan of Treatment section includes future care activities for the patient from all [place] treatmentfacilities. This section includes future appointments and future orders which are active, pending or scheduled. Future Appointments This section includes appointments that were scheduled to occur 6 months from the date of the Encounter, up to a maximum of 20 appointments. The data comes from all [place] treatment facilities. Appointment Date/Time Appointment Type Appointme nt Facility Name Sep 01, 2023 09:30 AM AMBULATORY - REHAB MEDICIN E [facility] Sep 02, 2023 05:00 PM AMBULATORY - MEDICINE [facility] Sep 07, 2023 08:00 AM AMBULATORY - NONE [facility] Sep 08, 2023 10:00 AM AMBULATORY - NONE [facility] Jan 19, 2024 01:00 PM AMBULATORY - NONE . [facility] Jan 26, 2024 09:30 AM AMBULATORY - SURGERY . [facility] Feb 29, 2024 01:30 PM AMBULATORY - MEDICINE [facility] Social History: Smoking Status (Most current) [...] 2013 08:01 AM LIFETIME NON-USER OF TOBACCO [facility] Tobacco Use History This section includes a history of the smoking, or tobacco-related health factors, that were collected on or before the date of the Encounter. The data comes from the [place] facility where the Encounter took place. Date/Time Smoking Status/Tobacco Use Comment F acility Dec 13, 2012 08:02 AM LIFETIME NON-USER OF TOBACCO [facility] Advance Directives: All historical and current Section Date Range: From patient's date of to the date document was created. This section includes ALL of a patient's completed or amended DC Advance and Rescinded Directives. The entries below indicate that a directive exists for the patient, but an actual copy is not included with this document. The data comes from all [place] facilities. Date Advance Directives Provider Source Feb 23, 2014 ADVANCE DIRECTIVE DISCUSSION ANGELITA AGUILA [facility] Encounter Notes: All associated [...] DATE: AUG 30, 2023@16:42:54 AUTHOR: MYLES BRUNNER [facility] EXP COSIGNER: URGENCY: STATUS: COMPLETED Pharmacy service received prescription(s) via: Inbound ERx ELIGIBILITY: [facility] ([facility]) eligibility has been verified and/or is documented. PRESCRIPTION INFORMATION: Provider Information:Robbie Shaw, fax: [phone]) Nasacort Allergy 24HR 55 MCG/ACT Aerosol, 2 sprays in each nostril Nasally Once a day 30 days #1, 3 refills DISPOSITION: The medication(s) prescribed is/are non-formulary. A fax was sent to the prescriber including the formulary alternatives, a non-formulary request form, and VA Criteria for Use (if applicable). Contacted patient's provider regarding: Prescription is for a non-formulary medication/supply or has criteria for use and further information and evaluation is required. Recommendation to convert to a formulary or [place] preferred product /es/ MYLES BRUNNER PharmD [facility] Pharmacist, Pharmacy Signed: 08/30/2023 16:44 MYLES BRUNNER [facility]
--- OUTSIDE RECORDS SUMMARY | 2024-08-07 10:02 | XMS_ITS | Encounter Summary ---
Author Name [facility] [place] Organization [place] Address [address] [place] [address] Care Team Providers Care Protection Agent Name Role Phone THANH ZAZUETA Primary Care Provider Unavailsameer e Insurance [...] [employer] VISIO N PLAN May 17, 2016 [id number] [phone] KADI MARTINEZ PATIENT EYEMED (WNR) VISION VISIO N May 17, 2019 [id number] [phone] KADI MARTINEZ PATIENT MEDICARE (WNR) MEDICARE (M) PART A Nov 14, 2022 PART A [id number] [phone] KADI MARTINEZ PATIENT MEDICARE (WNR) MEDICARE (M) PART B Nov 14, 2022 PART B [id number] [phone] KADI MARTINEZ PATIENT Selected Encounter This section includes the information on record at [place] for the Encounter. Date/Time Encounter Type Encounter Description Reason Pro vider Source Mar 15, 2024 08:16 AM Outpatient Encounter GENERAL INTERNAL MEDICINE [facility] Encounter Template Text not used by [place] Plan of Treatment: Future Appointments (+ 6 months) and Future Tests (+/- 45 days) The Plan of Treatment section includes future care activities for the patient from all [place] treatmentfacilities. This section includes future appointments and [...] AMBULATORY - SURGERY [facility] Apr 06, 2024 11:00 AM AMBULATORY - NONE [facility] Apr 07, 2024 09:30 AM AMBULATORY - SURGERY [facility] Apr 25, 2024 02:30 AM AMBULATORY - SURGERY [facility] Jul 25, 2024 10:00 AM AMBULATORY - SURGERY [facility] Aug 02, 2024 07:30 AM AMBULATORY [facility]ERY [facility] Aug 22, 2024 10:45 AM AMBULATORY - SURGERY [facility] Active, Pending, and Scheduled Orders This section includes a listing of several types of active, pending, and scheduled orders, including clinic medications orders, diagnostic test orders, procedure orders and consult orders; where the start date of the order is 45 days before the date of the Encounter or 45 days after the date of theEncounter. The data comes from all [place] treatment facilities. Test Date/Time Test Type Test Details Facility Name Mar 13, 2024 03:23 PM Consult Order [facility] Cons Blood Donor Recruiter Supervisor's [facility] Lab Results: +/- 30 days of the encounter This section includes the Chemistry and Hematology Lab Results on record with [place] for the patient. Radiology Reports and Pathology Reports are provided separately, in subsequent sections. Lab Results This section contains the Chemistry/Hematology Results that were resulted 30 days before or 30 daysafter the date of the Encounter. Date/Time Source Result Type Result - Unit Interpretation Reference Range Comment Mar 09, 2024 11:30 AM [facility] LIPID PANEL (STL) Specimen Type: PLASMA Comment: No hemolysis noted. Ordering Provider: WARREN ZAZUETA Report Released Date/Time: Mar 09, 2024 10:49 AM Reporting Lab: [facility] [address] [place] [phone] Performing Lab: [facility] [address] [place] [phone] CHOLESTEROL 160 mg/dL 0-200 TRIGLYCERIDE 46 mg/dL 0-150 CALCULATED LDL 95 mg/dL HDL(New) 56 mg/dL >40 Mar 09, 2024 11:30 AM [facility] HGA1C Specimen Type: BLOOD No comment entered. Ordering Provider: WARREN ZAZUETA Report Released Date/Time: Mar 09, 2024 10:49 AM Reporting Lab: [address] [phone] Performing Lab: [facility] [address] [place] [phone] HGA1C 5.6 4.0-6.0 Mar 09, 2024 11:30 AM [facility] TSH W/ REFLEX FT4 (STL) Specimen Type: PLASMA No comment entered. Ordering Provider: WARREN ZAZUETA Report Released Date/Time: Mar 09, 2024 10:49 AM Reporting Lab: [facility] [address] [place] [phone] Performing Lab: [facility] [address] [place] [phone] TSH 2.453 u[IU]/mL 0.47-5 Mar 09, 2024 11:30 AM [facility] URINALYSIS (STL-PB) Specimen Type: URINE No comment entered. Ordering Provider: WARREN ZAZUETA Report Released Date/Time: Mar 09, 2024 10:49 AM Reporting Lab: [facility] [address] [place] [phone] Performing Lab: [facility] [address] [place] [phone] URINE COLOR Colorless Yellow U.BILIRUBIN Negative mg/dL Negative U.PH 7.0 5.0-8.0 APPEARANCE Clear Clear U.NITRITE Negative mg/dL Negative URN.GLUCOSE Normal mg/dL Negative URN.PROTEIN Negative mg/dL URN.UROBILINOGEN Normal mg/dL Normal URN.BLOOD Negative mg/dL Negative-Tra ce URN.KETONES Negative mg/dL Negative-Tra ce URN.LEUK.EST. Negative mg/dL Negative-Tra ce URN.SPECIFIC GRAVITY 1.004 L Mar 09, 2024 11:30 AM [facility] VITAMIN D, 25-HYDROXY Specimen Type: SERUM No comment entered. Ordering Provider: WARREN ZAZUETA Report Released Date/Time: Mar 09, 2024 10:49 AM Reporting Lab: [facility] [address] [facility] [phone] Performing Lab: [facility] [address] [place] [phone] VITAMIN D, 25-HYDROXY 49.2 ng/mL 30-96 Mar 09, 2024 11:30 AM [facility] AMYLASE Specimen Type: PLASMA Comment: No hemolysis noted. Ordering Provider: WARREN ZAZUETA Report Released Date/Time: Mar 09, 2024 11:00 AM Reporting Lab: [facility] [address] [facility] [phone] Performing Lab: [facility] [address] [place] [phone] AMYLASE 155 U/L H 25-125 Mar 09, 2024 11:30 AM [facility] LIPASE Specimen Type: PLASMA Comment: No hemolysis noted. Ordering Provider: WARREN ZAZUETA Report Released Date/Time: Mar 09, 2024 11:00 AM Reporting Lab: [facility] [address] [facility] [phone] Performing Lab: [facility] [address] [place] [phone] LIPASE 267 U/L H 8-78 Mar 09, 2024 11:30 AM [facility] COMPREHENSIVE METABOLIC PANEL Specimen Type: PLASMA Comment: No hemolysis noted. Ordering Provider: WARREN ZAZUETA Report Released Date/Time: Mar 09, 2024 10:49 AM Reporting Lab: [facility] [address] [place] [phone] Performing Lab: [address] [phone] CREATININE 0.96 mg/dL 0.6-1.1 UREA NITROGEN 16.6 [...] 65.3 >60 Mar 09, 2024 11:30 AM [facility] CBC Specimen Type: BLOOD No comment entered. Ordering Provider: WARREN ZAZUETA Report Released Date/Time: Mar 09, 2024 10:49 AM Reporting Lab: [facility] [address] [place] [phone] Performing Lab: [address] [phone] WBC 4.2 10*3/uL 3.6-11.2 RBC 3.56 10*6/uL [...] and tobacco- related health factors from the [place] facility where the Encounter took place. Current Smoking Status This section includes the most current smoking, or tobacco-related health factor, from the [place] facility where the Encounter took place. Date/Time Current Smoking Status Comment [place] Jan 15, 2016 10:21 AM LIFETIME NON-USER OF TOBACCO [facility] Tobacco Use History This section includes a history of the smoking, or tobacco-related health factors, that were collected on or before the date of the Encounter. The data comes from the [place] facility where the Encounter took place. Date/Time Smoking Status/Tobacco Use Comment F acility Mar 04, 2015 08:10 AM LIFETIME NON-USER OF TOBACCO [facility] Aug 02, 2006 11:04 AM LIFETIME NON-USER OF TOBACCO [facility] Dec 22, 2005 03:00 PM LIFETIME NON-TOBACCO USER [facility] Feb 17, 2005 03:19 PM LIFETIME NON-TOBACCO USER [facility] Jul 17, 2004 02:13 PM LIFETIME NON-TOBACCO USER [facility] Jul 17, 2004 01:43 PM LIFETIME NON-TOBACCO USER [facility] Advance Directives: All historical and current Section Date Range: From patient's date of to the date document was created. This section includes ALL of a patient's completed or amended [place] Advance and Rescinded Directives. The entries below indicate that a directive exists for the patient, but an actual copy is not included with this document. The data comes from all [place] facilities. Date Advance Directives Provider Source Feb 23, 2014 ADVANCE DIRECTIVE DISCUSSION ANGELITA AGUILA [facility] Radiology Reports: +/- 30 days of [...] the Encounter. The data comes from all [place] treatment facilities. Date/Time Radiology Report Provider Source Mar 15, 2024 08:52 AM US ABDOMEN LIMITED W/BLOOD FLOW DOPPLER: KADI MARTINEZ Phoebe [id number] -1955 F Exm Date: MAR 15, 2024@08:52 Req Phys: THANH ZAZUETA Loc: [facility]AN-OLV PACT WH W2 PCP (Req'g L Img Loc: [facility]-ULTRASOUND FRAN Service: [address] [address] (Case [id number] COMPLETE) US ABDOMEN LTD, SINGLE ORG OR GENARO(US Detailed) CPT:80837 Reason for Study: pain RUQ (Case [id number] COMPLETE) US BLOOD FLOW ABD/RENAL (LTD) (US Detailed) CPT:28183 Clinical History: Organ to Image: RUQ Reason for exam: pain after eating Report Status: Verified Date Reported: MAR 15, 2024 Date Verified: MAR 15, 2024 Research Manufacturing Operator E-Sig:/ES/SAMANTHA ALEMAN Report: DATE: 03/15/2024 8:52 AM EXAM: US ABDOMEN LTD, SINGLE ORG OR QUADRANT, US BLOOD FLOW ABD/RENAL (LTD) ACCESSION NUMBERS: [id number], [id number] HISTORY: pain RUQ Technique: Real-time ultrasound examination [...] recommend clinical correlation. Ruperto Awad MD (College President) I, Samantha Aleman, have reviewed the images and report and concur with these findings. Primary Interpreting Staff: SAMANTHA ALEMAN MD (Research Manufacturing Operator) Primary Interpreting Resident: RUPERTO AWAD, Resident Physician /SAMANTHA GONZALEZ [facility] Mar 09, 2024 12:28 PM KNEE,RIGHT 3 VIEWS: MICHELLEKADI E [id number] -1955 F Exm Date: MAR 09, 2024@12:28 Req Phys: THANH ZAZUETA Pat Loc: -OLV PACT WH W2 PCP (Req'g L Img Loc: -MAIN RADIOLOGY SUITE Service: [facility] [address] [place] [address] (Case [id number] COMPLETE) KNEE,RIGHT 3 VIEWS (RAD Detailed) CPT:89849 Proc Modifiers : RIGHT Reason for Study: right knee pain after fall Clinical History: Report Status: Verified Date Reported: MAR 09, 2024 Date Verified: MAR 09, 2024 Research Manufacturing Operator E-Sig:/ES/AMARJIT TRACEY MD Report: Case #[id number]. Right [...] AMARJIT TRACEY MD, Staff Physician - Radiologist (Research Manufacturing Operator) /CHRISTI VELARDE [facility] Mar 09, 2024 12:28 PM KNEE,LEFT, 3 VIEWS: KADI MARTINEZ [id number] -1955 F Exm Date: MAR 09, 2024@12:28 Req Phys: THANH ZAZUETA Loc: -[facility] PACT W2 PCP (Req'g L Img Loc: [facility] RADIOLOG[facility] SUITE Service: Unknown [facility] [address] [place] [address] (Case [id number] COMPLETE) KNEE,LEFT, 3 VIEWS (RAD Detailed) CPT:47483 Proc Modifiers : LEFT Reason for Study: pain in knee Clinical History: Report Status: Verified Date Reported: MAR 09, 2024 Date Verified: MAR 09, 2024 Research Manufacturing Operator E-Sig:/ES/AMARJIT TRACEY MD Report: Case #[id number]. Left [...] AMARJIT TRACEY MD, Staff Physician - Radiologist (Research Manufacturing Operator) /CHRISTI VELARDE [facility] Mar 09, 2024 12:28 PM FOOT,LEFT 3 VIEWS OR MORE: KADI MARTINEZ [id number] -1955 F Exm Date: MAR 09, 2024@12:28 Req Phys: THANH ZAZUETA Loc: [facility]-OLV PACT W2 PCP (Req'g L Img Loc: [facility] RADIOLOG[facility] SUITE Service: Unknown [facility] [address] [place] [address] (Case [id number] COMPLETE) FOOT,LEFT 3 VIEWS OR MORE (RAD Detailed) CPT:50942 Proc Modifiers : LEFT Reason for Study: foot pain Clinical History: Report Status: Verified Date Reported: MAR 09, 2024 Date Verified: MAR 09, 2024 Research Manufacturing Operator E-Sig:/COLT/AMARJIT TRACEY MD Report: Case #[id number]. Left [...] AMARJIT TRACEY MD, Staff Physician - Radiologist (Research Manufacturing Operator) /CHRISTI VELARDE [facility] Mar 09, 2024 12:28 PM FOOT,RIGHT,3 VIEWS OR MORE: KADI MARTINEZ [id number] -1955 F Exm Date: MAR 09, 2024@12:28 Req Phys: THANH ZAZUETA Pat Loc: [facility]-OLV PACT WH W2 PCP (Req'g L Img Loc: [facility]-MAIN RADIOLOGY SUITE Service: [address] [address] (Case [id number] COMPLETE) FOOT,RIGHT,3 VIEWS OR MORE (RAD Detailed) CPT:88496 Proc Modifiers : RIGHT Reason for Study: foot pain Clinical History: Report Status: Verified Date Reported: MAR 09, 2024 Date Verified: MAR 09, 2024 Research Manufacturing Operator E-Sig:/COLT/AMARJIT TRACEY MD Report: Case #[id number]. Right foot [...] AMARJIT TRACEY MD, Staff Physician - Radiologist (Research Manufacturing Operator) /CHRISTI VELARDE [facility] Encounter Notes: All [...] AINSLEY VEGA EXP COSIGNER: URGENCY: STATUS[facility]rien([facility]); 's name, last four of SSN, address and date of were used to verify identity. REASON FOR CALL: ENT Consult Request/Advised RFS was C++ Quant Developer communicated to the caller this does not have an ENT on file, but the RFS has not yet been decided upon decision on. /colt/ AINSLEY VEGA [employer] MANAGER Signed: 03/15/2024 08:22 AINSLEY VEGA [facility]
--- OUTSIDE RECORDS SUMMARY | 2024-08-07 10:02 | XMS_ITS | Encounter Summary ---
Author Organization [employer] Address 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
--- OUTSIDE RECORDS SUMMARY | 2024-08-07 10:02 | XMS_ITS | Encounter Summary ---
Author Organization [employer] Address [address] [place] [address] Care Team Providers Care Firer Powerhouse Name Role Phone Unavailable Primary Care Provider Unavailabl e Encounter Details Date Type Department Care Team (Late st Contact Info) Description 05/14/2004 Outpatient Historical [facility] [place] [address] 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
--- OUTSIDE RECORDS SUMMARY | 2024-08-07 10:02 | XMS_ITS | Encounter Summary ---
Author Organization [employer] Address 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
--- OUTSIDE RECORDS SUMMARY | 2024-08-07 10:02 | XMS_ITS | Encounter Summary ---
Author Name [facility] [place] [facility] [place] [facility] [place] Address [address] [place] [address] Care Team Providers Care Firebrick Layer Helper Name Role Phone THANH ZAZUETA Primary Care [...] [employer] VISIO N PLAN May 17, 2016 [id number] [phone] KADI MARTINEZ PATIENT EYEMED (WNR) VISION VISIO N May 17, 2019 [id number] [phone] KADI MARTINEZ PATIENT MEDICARE (WNR) MEDICARE (M) PART A Nov 14, 2022 PART A [id number] [phone] KADI MARTINEZ PATIENT MEDICARE (WNR) MEDICARE (M) PART B Nov 14, 2022 PART B [id number] KADI MARTINEZ PATIENT Selected Encounter This section includes the information on record at [place] for the Encounter. Date/Time Encounter Type Encounter Description Reason Provider Source Aug 17, 2023 10:30 AM NEUROMUSCULAR REEDUCATION PHYSICAL THERAPY ICD-10-CM M54.2 Cervicalgia COBY CARTWRIGHT [facility] Encounter Template Text not used by [place] Assessments - Encounter Diagnoses This section includes the primary and secondary diagnoses documented for the Encounter. Date/Time Primary/Secondary Diagnosis Diagnosis Name Provider Source Aug 17, 2023 01:50 PM PRIMARY Cervicalgia COBY CARTWRIGHT [facility] Aug 17, 2023 01:50 PM SECONDARY Dizziness and giddiness COBY CARTWRIGHT [facility] Plan of Treatment: Future Appointments (+ 6 months) and Future Tests (+/- 45 days) The Plan of Treatment section includes future care activities for the patient from all [place] treatmentfacilities. This section includes future appointments and future orders which are active, pending or scheduled. Future Appointments This section includes appointments that were scheduled to occur 6 months from the date of the Encounter, up to a maximum of 20 appointments. The data comes from all [place] treatment facilities. Appointment Date/Time Appointment Type Appointme nt Facility Name Sep 01, 2023 09:30 AM AMBULATORY - RE[facility]AB MED[facility] Sep 02, 2023 05:00 PM AMBULATORY - MEDICINE [facility] Sep 07, 2023 08:00 AM AMBULATORY - NONE [facility] Sep 08, 2023 10:00 AM AMBULATORY - NONE [facility] Jan 19, 2024 01:00 PM AMBULATORY - NONE [facility] Jan 26, 2024 09:30 AM AMBULATORY - SURGERY [facility] Social History: Smoking Status (Most current) and Tobacco Use (All prior to encounter date) This section includes the most current, and the historical, smoking and tobacco- related health factors from the [place] facility where the Encounter took place. Current Smoking Status This section includes the most current smoking, or tobacco-related health factor, from the [place] facility where the Encounter took place. Date/Time Current Smoking Status Elly pope Jan 15, 2016 10:21 AM LIFETIME NON-USER OF TOBACCO [facility] Tobacco Use History This section includes a history of the smoking, or tobacco-related health factors, that were collected on or before the date of the Encounter. The data comes from the [place] facility where the Encounter took place. Date/Time Smoking Status/Tobacco Use Comment Mehreen gabriel Mar 04, 2015 08:10 AM LIFETIME NON-USER OF TOBACCO [facility] Aug 02, 2006 11:04 AM LIFETIME NON-USER OF TOBACCO [facility] Dec 22, 2005 03:00 PM LIFETIME NON-TOBACCO USER [facility] Feb 17, 2005 03:19 PM LIFETIME NON-TOBACCO USER [facility] Jul 17, 2004 02:13 PM LIFETIME NON-TOBACCO USER [facility] Jul 17, 2004 01:43 PM LIFETIME NON-TOBACCO USER [facility] Advance Directives: All historical and current Section Date Range: From patient's date of to the date document was created. This section includes ALL of a patient's completed or amended [place] Advance and Rescinded Directives. The entries below indicate that a directive exists for the patient, but an actual copy is not included with this document. The data comes from all [place] facilities. 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, enjoys [place] Prior function: same current, ind with gait [...] Functional Activity Limitations: Functional gait assessment 07/13/23 (IMPROVED) 05/12/23: <22/30 suggestive of falls <20 [...] x 1 Vestibular home program Access Code: [email or web address] URL: [email or web address] Date: 06/01/2023 Prepared by: Rico Exercises - Seated Gaze Stabilization with Head Rotation - 4 x daily - 7 x weekly - 2 x 1 minute per session - Seated Gaze Stabilization with Head Nod - 4 x daily - 7 x weekly - 2 x 1 minute per session - Seated Lateral Pelvic Tilt on [place] Ball - 1 x daily - 7 [...] She will cont therapy with [facility] at [facility]. Goals: Short term:(4 weeks) 1) Pt. will demonstrate independence with current HEP x 1 (met) 2) Pt. will verbalize 8/10 pain at worst (ongoing) 3) Pt. will demonstrate independence with sitting, standing, and sleeping postures.(ongoing) Gravel Inspector: (12 weeks) 1) Pt. will demonstrate independence [...] scapular strengthening, ROM, stretching, and manual interventions. /es/ COBY CARTWRIGHT PT, DPT, NCS Signed: 08/17/2023 13:51 COBY CARTWRIGHT [facility]
--- OUTSIDE RECORDS SUMMARY | 2024-08-07 10:02 | XMS_ITS | Referral Summary ---
Author Organization [facility] Address [address] [place] [address] Care Team Providers Care Air Chipper Name Role Phone Patricia Diaz MD Primary Care Provider + Allergies Active Allergy Reactions Criticality Noted Date Comments Allerg Xt,D.Farinae-D.Pteronys Headache,Rhinorrhea,Sneez ing Low 05/26/2021 per [facility] Cinnamon Bark Blisters High 03/07/2021 Codeine Seizures,Vomiting High 07/05/2020 Meperidine Seizures,Nausea & Vomiting High 03/07/2021 House Dust Headache,Rhinorrhea, Sneez ing Low 07/31/2020 Iodinated Contrast Media Other (See comments) Low 1 Iodine Rash,Blisters High 07/05/2020 Poloxamer 188-Sorbitol Soln Diarrhea Low 03/07/20 21 Povidone-Iodine Rash,Blisters High 07/05/2020 Sorbitol Diarrhea Low 05/26/2021 per [facility] Medications aspirin 81 mg enteric coated tabletIndicatio ns:A-fib Take 1 tablet (81 mg total) by mouth every morning Active gfpjiorx-ikb-gr ev-FO-qfawit (Centrum Silver Women) 8 mg iron-400 mcg-300 [...] loss) 05/2020 Vestibular schwannoma (CMS/HCC) 07/31/2020 Immunizations Immunization Administration Dates Next Due [email or web address] SARS-CoV-2 Monovalent Vaccination (12+ Yrs) PURPLE 08/13/2020,07/23/2020 [...] on file Legal Sex Female 2:56 PM COMMUNICATIONS SYSTEMS ENGINEER Gender Identity Female 07/05/2020 12:08 PM COMMUNICATIONS SYSTEMS ENGINEER Sexual Orientation Straight 07/05/2020 12 :08 PM COMMUNICATIONS SYSTEMS ENGINEER Last Filed Vital Signs Vital Sign Reading Time Taken Comments Blood Pressure 111/58 04/25/2024 2:07 PM COMMUNICATIONS SYSTEMS ENGINEER Pulse 84 04/25/2024 2:07 PM COMMUNICATIONS SYSTEMS ENGINEER Temperature 37 C (98.6 F) 04/25/2024 2:07 PM COMMUNICATIONS SYSTEMS ENGINEER Respiratory Rate 17 04/25/2024 2:07 PM COMMUNICATIONS SYSTEMS ENGINEER Oxygen Saturation 98% 04/25/2024 2:07 PM COMMUNICATIONS SYSTEMS ENGINEER Inhaled Oxygen Concentration - - Weight 70.8 kg (156 lb) 04/25/2024 2:07 PM COMMUNICATIONS SYSTEMS ENGINEER Height 162.6 cm (5' 4 ) 04/25/2024 2:07 PM COMMUNICATIONS SYSTEMS ENGINEER Body Mass Index 26.78 04/25/2024 2:07 PM COMMUNICATIONS SYSTEMS ENGINEER Plan of Treatment Not on file Medical Devices Implanted Type Area Regional Retail Sales Manager Device Identifier Shelf Expiration Date Model / Serial / Lot [id number] Synchrony 2- Flex 28 - Coclear Implant Implanted:Qty: 1 on 03/20/2021 by Bettie Bruno MD at [facility] Other - see comments Left: Ear Med El 10/16/2023 [id number] / [id number] / Description:Cochlear Implant - Patient enrolled in [facility] ANTS study. No charge to patient. * Jolene Delgado Replaced with clinical trial item [id number] [facility]- SYNCHRONY IMPLANT SYSTEM Cervical Spine Fusion Instrumentation Spine Cervical Integra Undertoneciences Immanuel [id number] Duragen Plus 7.5x7.5cm Patch Resorbable Suturable Cranial Dura Graft - [id number] Implanted:Qty: 1 on 03/20/2021 by Bettie Bruno MD at [facility] Left: Ear Integra Lifesciences Immanuel [id number] 10/15/2023 [id number] / / Montrell Craniomaxillofac ial [id number] Mtm 76x50x.85mm Embed Sheet Craniomaxillofac ial Mesh Cranial Latex Free - [id number] Implanted:Qty: 1 on 03/20/2021 by Bettie Bruno MD at [facility] Left: Ear Montrell Craniomaxillofacia l [id number] 11/13/2028 [id number] / / [id number] Sandy Craniomaxillofac ial [id number] [place] Neuro 3 1.5mm 4mm Self Drill Axial Stability Screw Bone Latex Free - [id number] Implanted:Qty: 4 on 03/20/2021 by Bettie Bruno MD at [facility] Head Montrell Craniomaxillofacia l [id number] / / Insurance Ca [place] [phone] [facility] MEDICARE [facility] CARE [facility] MEDICARE Advance Directives For more information, please contact: [phone] Documents on File Type Date Recorded Patient Roof Slater Expl anation ADVANCE DIRECTIVE 03/20/2021 6:34 AM Pream ble: Advanced Medical Directive ADVANCE DIRECTIVE 03/20/2021 6:33 AM Power of Set Key Driver-Medical ADVANCE DIRECTIVE 03/20/2021 6:31 AM Appoi ntment of Agent to Control Disposition of Remains * Full Code (Latest Code Status on File) Date Activated Date Inactivated Comments 03/20/2021 4:47 PM 03/28/2021 10:55 PM Care Teams Air Chipper Relationship Specialty Start Date End Date Patricia Diaz MD [address] [place] [address] PCP - General Internal Medicine 06/27/20
--- OUTSIDE RECORDS SUMMARY | 2024-08-07 10:02 | XMS_ITS | Encounter Summary ---
Author Name [facility] [place] [facility] [place] Address [address] [place] [address] Care Team Providers Care Cosmetics Presser Name Role Phone THANH ZAZUETA Primary Care [...] [employer] VISIO N PLAN May 17, 2016 [id number] [phone] CHARO MARTINEZ PATIENT EYEMED (WNR) VISION VISIO N May 17, 2019 [id number] [phone] CHARO MARTINEZ PATIENT MEDICARE (WNR) MEDICARE (M) PART A Nov 14, 2022 PART A [id number] [phone] CHARO MARTINEZ PATIENT MEDICARE (WNR) MEDICARE (M) PART B Nov 14, 2022 PART B [id number] CHARO MARTINEZ PATIENT Selected Encounter This section includes the information on record at [place] for the Encounter. Date/Time Encounter Type Encounter Description Reason Provider Source Sep 08, 2023 10:00 AM OFFICE O/P EST MOD 30 MIN PAIN CLINIC ICD-10-CM M47.892 Other spondylosis, cervical region ISAIAS MOY IHPhoebe Encounter Template Text not used by [place] Assessments - Encounter Diagnoses This section includes the primary and secondary diagnoses documented for the Encounter. Date/Time Primary/Secondary Diagnosis Diagnosis Name Provider Source Sep 08, 2023 10:26 AM PRIMARY Other spondylosis, cervical region ISAIAS MOY [facility] Sep 08, 2023 10:26 AM SECONDARY Other chronic pain ISAIAS MOY [facility] Plan of Treatment: Future Appointments (+ 6 months) and Future Tests (+/- 45 days) The Plan of Treatment section includes future care activities for the patient from all [place] treatmentfacilities. This section includes future appointments and future orders which are active, pending or scheduled. Future Appointments This section includes appointments that were scheduled to occur 6 months from the date of the Encounter, up to a maximum of 20 appointments. The data comes from all [place] treatment facilities. Appointment Date/Time Appointment Type Appointme nt Facility Name Jan 19, 2024 01:00 PM AMBULATORY - NONE . [facility] Jan 26, 2024 09:30 AM AMBULATORY - SURGERY . [facility] Feb 29, 2024 01:30 PM AMBULATORY - MEDICINE [facility] Mar 09, 2024 10:30 AM AMBULATORY - MEDICINE [facility] Social History: Smoking Status (Most current) and Tobacco Use (All prior to encounter date) This section includes the most current, and the historical, smoking and tobacco- related health factors from the [place] facility where the Encounter took place. Current Smoking Status This section includes the most current smoking, or tobacco-related health factor, from the [place] facility where the Encounter took place. Date/Time Current Smoking Status Comment Facil ity October 12, 2013 08:01 AM LIFETIME NON-USER OF TOBACCO [facility] Tobacco Use History This section includes a history of the smoking, or tobacco-related health factors, that were collected on or before the date of the Encounter. The data comes from the [place] facility where the Encounter took place. Date/Time Smoking Status/Tobacco Use Comment F acility Dec 13, 2012 08:02 AM LIFETIME NON-USER OF TOBACCO [facility] Advance Directives: All historical and current Section Date Range: From patient's date of to the date document was created. This section includes ALL of a patient's completed or amended [place] Advance and Rescinded Directives. The entries below indicate that a directive exists for the patient, but an actual copy is not included with this document. The data comes from all [place] facilities. Date Advance Directives Provider Source Feb 23, 2014 ADVANCE DIRECTIVE DISCUSSION ANGELITA AGUILA [facility] Encounter Notes: All associated encounter notes This section contains the clinical notes associated to the Encounter. Date/Time Encounter Note(s) Provider Source Sep 08, 2023 10:04 AM PAIN NOTE: LOCAL TITLE: PAIN REHAB CTR CLINIC F/U [facility] STANDARD TITLE: PAIN NOTE DATE OF NOTE: SEP 08, 2023@10:04 ENTRY DATE: SEP 08, 2023@10:04:28 AUTHOR: ISAIAS MOY EXP COSIGNER: URGENCY: STATUS: COMPLETED Pain follow up [...] did not help [ ]physical therapy [X ]neonatal intensive care nurse- helps as long as she can participate. [...] to her cruise in October 2. Medications: Adjuvants: continue pregabalin 75mg BID 3. Imaging: none at this time 4. Referral: referral to yoga 5. Follow-up: Time documentation and that the information was discussed and agreed upon with the : I Spent 35 min total in preparing services for this patient, before, during and after the F visit today in evaluation, chart review and care planning with/for pt. /colt/ ISAIAS MOY Physician Signed: 09/08/2023 10:27 ISAIAS MOY [facility]
--- OUTSIDE RECORDS SUMMARY | 2024-08-07 10:02 | XMS_ITS | Encounter Summary ---
Author Organization [employer] Address [address] [place] [address] Care Team Providers Care Clerk Of Works Name Role Phone Unavailable Primary Care Provider [...] on file Legal Sex Female 3:11 AM CONFIGURATION RELEASE MANAGER Gender Identity Not on file Sexual Orientation Not on file documented as of this encounter Plan of Treatment Not on file documented as of this encounter Procedures Procedure Name Priority Date/Time Associated Diagnosis Comments HCG QUALITATIVE, URINE Routine 05/20/2004 8:53 AM CONFIGURATION RELEASE MANAGER documented in this encounter Results * HCG QUALITATIVE, URINE (05/20/2004 8:53 AM CONFIGURATION RELEASE MANAGER) HCG QUAL URINE Negative Negative INTER FACE SYSTEM SPECIFIC GRAVITY UA 1.020 1.001 - 1.035 INTERFACE SYSTEM 05/20/2004 8:53 AM CONFIGURATION RELEASE MANAGER Jonathan Mcdowell URINE ORDERABLES Final Result INTERFACE SYSTEM Refer to clinic/hospital department documented in this encounter Visit Diagnoses Diagnosis Cervical spondylosis without myelopathy- Primary documented in this encounter
--- OUTSIDE RECORDS SUMMARY | 2024-08-07 10:03 | XMS_ITS | Clinical Summary ---
Author Organization [facility] Address [address] [place] [address] Care Team Providers Care Equine Intern Name Role Phone Patricia Diaz MD Primary Care Provider + Allergies Active Allergy Reactions Criticality Noted Date Comments Allerg Xt,D.Farinae-D.Pteronys Headache,Rhinorrhea,Sneez ing Low 05/26/2021 per [facility] Cinnamon Bark Blisters High 03/07/2021 Codeine Seizures,Vomiting High 07/05/2020 Meperidine Seizures,Nausea & Vomiting High 03/07/2021 House Dust Headache,Rhinorrhea, Sneez ing Low 07/31/2020 Iodinated Contrast Media Other (See comments) Low 1 Iodine Rash,Blisters High 07/05/2020 Poloxamer 188-Sorbitol Soln Diarrhea Low 03/07/20 21 Povidone-Iodine Rash,Blisters High 07/05/2020 Sorbitol Diarrhea Low 05/26/2021 per [facility] Medications aspirin 81 mg enteric coated tabletIndicatio ns:A-fib Take 1 tablet (81 mg total) by mouth every morning Active brrsaqug-dzw-el mk-MI-twzibg (Centrum Silver Women) 8 mg iron-400 mcg-300 [...] 07/31/2020 Immunizations Immunization Administration Dates Next Due Pfizer SARS-CoV-2 Monovalent [...] stage 2, GFR 60-89 ml/min Atrial fibrillation (HCC) Delayed emergence from general anesthesia patient states that she has been told that she is slow to wake up Motion sickness PONV (postoperative nausea and vomiting) patient states not immediately after she wakes up usually greg with medications like Codeine Allergic rhinitis 1979 HL (hearing loss) 1997 Family History Medical History Relation Name Comments Diabetes Brother Don Diabetes Maternal Grandmother Julia Hypertension Mother Jeanine Diabetes Mother's Brother Al [...] on file Legal Sex Female 2:56 PM NUTRITION EDUCATOR Gender Identity Female 07/05/2020 12:08 PM NUTRITION EDUCATOR Sexual Orientation Straight 07/05/2020 12 :08 PM NUTRITION EDUCATOR Obstetrics History Last Filed Vital Signs Vital Sign Reading Time Taken Comments Blood Pressure 111/58 04/25/2024 2:07 PM NUTRITION EDUCATOR Pulse 84 04/25/2024 2:07 PM NUTRITION EDUCATOR Temperature 37 C (98.6 F) 04/25/2024 2:07 PM NUTRITION EDUCATOR Respiratory Rate 17 04/25/2024 2:07 PM NUTRITION EDUCATOR Oxygen Saturation 98% 04/25/2024 2:07 PM NUTRITION EDUCATOR Inhaled Oxygen Concentration - - Weight 70.8 kg (156 lb) 04/25/2024 2:07 PM NUTRITION EDUCATOR Height 162.6 cm (5' 4 ) 04/25/2024 2:07 PM NUTRITION EDUCATOR Body Mass Index 26.78 04/25/2024 2:07 PM NUTRITION EDUCATOR Plan of Treatment Health Maintenance Due Date Last Done Comments Breast Cancer Screening-Mammogram 1955 Colon Cancer Screening-Colonoscopy 1955 Depression Screening 1955 Hepatitis C Screening 1955 Osteoporosis Screening-Bone Density Scan 1955 Fall Risk Assessment 03/28/2022 03/28/2021 Well Visit 65+ 2022 Covid-19 Vaccine (4 - 4-2 5 season) 2024 05/15/2021, 08/13/2020, 07/23/2020 DTaP/Tdap/Td Vaccine (3 - Td or Tdap) 07/06/2033 07/06/2023, 01/04/2013, 02/14/2004, Additional history exists Hepatitis B Screening Completed 02/07/2016 , 09/06/2015, 07/12/2015 Zoster Vaccine Completed 09/30/2021, 06/17/2021 Pneumococcal vaccine 65+ Completed 024, 09/05/2015, 03/04/2015, Additional history exists Influenza Vaccine Completed 03/09/2024, , 03/26/2022, Additional history exists Medical Devices Implanted Type [employer] Principal Device Identifier Shelf Expiration Date Model / Serial / Lot [id number] Synchrony 2- Flex 28 - Coclear Implant Implanted:Qty: 1 on 03/20/2021 by Bettie Bruno MD at [facility] Other - see comments Left: Ear Med El 10/16/2023 [id number] / [id number] / Description:Cochlear Implant - Patient enrolled in [facility] ANTS study. No charge to patient. * Jolene Delgado Replaced with clinical trial item [id number] MED-EL SYNCHRONY IMPLANT SYSTEM Cervical Spine Fusion Instrumentation Spine Cervical Integra Lifesciences Imamnuel [id number] Duragen Plus 7.5x7.5cm Patch Resorbable Suturable Cranial Dura Graft - [id number] Implanted:Qty: 1 on 03/20/2021 by Bettie Bruno MD at [facility] Left: Ear Integra Lifesciences Immanuel [id number] 10/15/2023 [id number] / / Montrell Craniomaxillofac ial [id number] Mtm 76x50x.85mm Embed Sheet Craniomaxillofac ial Mesh Cranial Latex Free - [id number] Implanted:Qty: 1 on 03/20/2021 by Bettie Bruno MD at [facility] Left: Ear Champion Craniomaxillofacia l [id number] 11/13/2028 [id number] / / [id number] Champion Craniomaxillofac ial [id number] [place] Neuro 3 1.5mm 4mm Self Drill Axial Stability Screw Bone Latex Free - [id number] Implanted:Qty: 4 on 03/20/2021 by Bettie Bruno MD at [facility] Head Montrell Craniomaxillofacia l [id number] / / Insurance [facility] MEDICARE [facility] * Guarantor: Charo Blake Account Type Relation to Patient Date of Phone Billing Address Personal/Family Self 1955 ([place]) [address] [place] [address] [facility] Dreamscape Blue [facility] MEDICARE Advance Directives For more information, please contact: [phone] Documents on File Type Date Recorded Patient Personal Development Mentor Expl anation ADVANCE DIRECTIVE 03/20/2021 6:34 AM Pream ble: Advanced Medical Directive ADVANCE DIRECTIVE 03/20/2021 6:33 AM Power of Director Of Academic Support-Medical ADVANCE DIRECTIVE 03/20/2021 6:31 AM Appoi ntment of Agent to Control Disposition of Remains * Full Code (Latest Code Status on File) Date Activated Date Inactivated Comments 03/20/2021 4:47 PM 03/28/2021 10:55 PM Care Teams Equine Intern Relationship Specialty Start Date End Date Patricia Diaz MD [address] [id number] PCP - General Internal Medicine 06/27/20
--- OUTSIDE RECORDS SUMMARY | 2024-08-07 10:03 | XMS_ITS | Encounter Summary ---
Author Name [facility] [place] [facility] [place] Address [address] [place] [address] Care Team Providers Care Cyber Instructor Name Role Phone THANH ZAZUETA Primary Care [...] [employer] VISIO N PLAN May 17, 2016 [id number] [phone] KADI MARTINEZ PATIENT EYEMED (WNR) VISION VISIO N May 17, 2019 [id number] [phone] KADI MARTINEZ PATIENT MEDICARE (WNR) MEDICARE (M) PART A Nov 14, 2022 PART A [id number] KADI MARTINEZ PATIENT MEDICARE (WNR) MEDICARE (M) PART B Nov 14, 2022 PART B [id number] KADI MARTINEZ PATIENT Selected Encounter This section includes the information on record at [place] for the Encounter. Date/Time Encounter Type Encounter Description Reason Pro vider Source Mar 10, 2024 09:11 AM Outpatient Encounter GENERAL INTERNAL MEDICINE I[facility] Encounter Template Text not used by [place] Plan of Treatment: Future Appointments (+ 6 months) and Future Tests (+/- 45 days) The Plan of Treatment section includes future care activities for the patient from all [place] treatmentfacilities. This section includes future appointments and future orders which are active, pending or scheduled. Future Appointments This section includes appointments that were scheduled to occur 6 months from the date of the Encounter, up to a maximum of 20 appointments. The data comes from all [place] treatment facilities. Appointment Date/Time Appointment Type Appointme nt Facility Name Mar 15, 2024 09:00 AM AMBULATORY - MEDICINE [facility] Mar 20, 2024 10:40 AM AMBULATORY - SURGERY [facility] Apr 06, 2024 11:00 AM AMBULATORY - NONE [facility] Apr 07, 2024 09:30 AM AMBULATORY - SUR[facility]ERY [facility] Apr 25, 2024 02:30 AM [facility]ULATORY - [facility]ERY [facility] Jul 25, 2024 10:00 AM AMBULATORY - SUR[facility]ERY [facility] Aug 02, 2024 07:30 AM AMBULATORY - [facility]ERY [facility] Aug 22, 2024 10:45 AM AMBULATORY - SURGERY [facility] Active, Pending, and Scheduled Orders This section includes a listing of several types of active, pending, and scheduled orders, including clinic medications orders, diagnostic test orders, procedure orders and consult orders; where the start date of the order is 45 days before the date of the Encounter or 45 days after the date of theEncounter. The data comes from all [place] treatment facilities. Test Date/Time Test Type Test Details Facility Name Mar 13, 2024 03:23 PM Consult Order [facility] NE[facility]OSURGERY Cons Pulpit [facility] Lab Results: +/- 30 days of the encounter This section includes the Chemistry and Hematology Lab Results on record with [place] for the patient. Radiology Reports and Pathology Reports are provided separately, in subsequent sections. Lab Results This section contains the Chemistry/Hematology Results that were resulted 30 days before or 30 daysafter the date of the Encounter. Date/Time Source Result Type Result - Unit Interpretation Reference Range Comment Mar 09, 2024 11:30 AM [facility] LIPID PANEL (STL) Specimen Type: PLASMA Comment: No hemolysis noted. Ordering Provider: WARREN ZAZUETA Report Released Date/Time: Mar 09, 2024 10:49 AM Reporting Lab: [facility] [address] [place] [phone] Performing Lab: [address] [address] CHOLESTEROL 160 mg/dL 0-200 TRIGLYCERIDE 46 mg/dL 0-150 CALCULATED LDL 95 mg/dL HDL(New) 56 mg/dL >40 Mar 09, 2024 11:30 AM [facility] HGA1C Specimen Type: BLOOD No comment entered. Ordering Provider: WARREN ZAZUETA Report Released Date/Time: Mar 09, 2024 10:49 AM Reporting Lab: [facility] [address] [address] Performing Lab: [facility] [address] [place] [phone] HGA1C 5.6 4.0-6.0 Mar 09, 2024 11:30 AM [facility] TSH W/ REFLEX FT4 (STL) Specimen Type: PLASMA No comment entered. Ordering Provider: WARREN ZAZUETA Report Released Date/Time: Mar 09, 2024 10:49 AM Reporting Lab: [facility] [address] [address] Performing Lab: [facility] [address] [address] TSH 2.453 u[IU]/mL 0.47-5 Mar 09, 2024 11:30 AM [facility] URINALYSIS (L-PB) Specimen Type: URINE No comment entered. Ordering Provider: WARREN ZAZUETA Report Released Date/Time: Mar 09, 2024 10:49 AM Reporting Lab: [facility] [address] [address] Performing Lab: [facility] [address] [place] [phone] URINE COLOR Colorless Yellow U.BILIRUBIN Negative mg/dL Negative U.PH 7.0 5.0-8.0 APPEARANCE Clear Clear U.NITRITE Negative mg/dL Negative URN.GLUCOSE Normal mg/dL Negative URN.PROTEIN Negative mg/dL URN.UROBILINOGEN Normal mg/dL Normal URN.BLOOD Negative mg/dL Negative-Tra ce URN.KETONES Negative mg/dL Negative-Tra ce URN.LEUK.EST. Negative mg/dL Negative-Tra ce URN.SPECIFIC GRAVITY 1.004 L Mar 09, 2024 11:30 AM [facility] VITAMIN D, 25-HYDROXY Specimen Type: SERUM No comment entered. Ordering Provider: WARREN ZAZUETA Report Released Date/Time: Mar 09, 2024 10:49 AM Reporting Lab: [address] [address] Performing Lab: [address] [address] VITAMIN D, 25-HYDROXY 49.2 ng/mL 30-96 Mar 09, 2024 11:30 AM [facility] AMYLASE Specimen Type: PLASMA Comment: No hemolysis noted. Ordering Provider: WARREN ZAZUETA Report Released Date/Time: Mar 09, 2024 11:00 AM Reporting Lab: [address] [address] Performing Lab: [address] [address] AMYLASE 155 U/L H 25-125 Mar 09, 2024 11:30 AM [facility] LIPASE Specimen Type: PLASMA Comment: No hemolysis noted. Ordering Provider: WARREN ZAZUETA Report Released Date/Time: Mar 09, 2024 11:00 AM Reporting Lab: [address] [phone] Performing Lab: [address] [address] LIPASE 267 U/L H 8-78 Mar 09, 2024 11:30 AM [facility] COMPREHENSIVE METABOLIC PANEL Specimen Type: PLASMA Comment: No hemolysis noted. Ordering Provider: WARREN ZAZUETA Report Released Date/Time: Mar 09, 2024 10:49 AM Reporting Lab: [facility] [address] [place] [phone] Performing Lab: [address] [address] CREATININE 0.96 mg/dL 0.6-1.1 UREA NITROGEN 16.6 [...] 65.3 >60 Mar 09, 2024 11:30 AM [facility] CBC Specimen Type: BLOOD No comment entered. Ordering Provider: WARREN ZAZUETA Report Released Date/Time: Mar 09, 2024 10:49 AM Reporting Lab: [facility] [address] [place] [phone] Performing Lab: [address] [address] WBC 4.2 10*3/uL 3.6-11.2 RBC 3.56 10*6/uL [...] and tobacco- related health factors from the [place] facility where the Encounter took place. Current Smoking Status This section includes the most current smoking, or tobacco-related health factor, from the [place] facility where the Encounter took place. Date/Time Current Smoking Status Comment Nehal pope Jan 15, 2016 10:21 AM LIFETIME NON-USER OF TOBACCO [facility] Tobacco Use History This section includes a history of the smoking, or tobacco-related health factors, that were collected on or before the date of the Encounter. The data comes from the [place] facility where the Encounter took place. Date/Time Smoking Status/Tobacco Use Comment F acility Mar 04, 2015 08:10 AM LIFETIME NON-USER OF TOBACCO [facility] Aug 02, 2006 11:04 AM LIFETIME NON-USER OF TOBACCO [facility] Dec 22, 2005 03:00 PM LIFETIME NON-TOBACCO USER [facility] Feb 17, 2005 03:19 PM LIFETIME NON-TOBACCO USER [facility] Jul 17, 2004 02:13 PM LIFETIME NON-TOBACCO USER [facility] Jul 17, 2004 01:43 PM LIFETIME NON-TOBACCO USER [facility] Advance Directives: All historical and current Section Date Range: From patient's date of to the date document was created. This section includes ALL of a patient's completed or amended [place] Advance and Rescinded Directives. The entries below indicate that a directive exists for the patient, but an actual copy is not included with this document. The data comes from all [place] facilities. Date Advance Directives Provider Source Feb 23, 2014 ADVANCE DIRECTIVE DISCUSSION ANGELITA AGUILA [facility] Radiology Reports: +/- 30 days of [...] the Encounter. The data comes from all [place] treatment facilities. Date/Time Radiology Report Provider Source Mar 15, 2024 08:52 AM US ABDOMEN LIMITED W/BLOOD FLOW DOPPLER: KADI MARTINEZ [id number] -1955 F Exm Date: MAR 15, 2024@08:52 Req Phys: THANH ZAZUETA Loc: [facility]AN-OLV PACT WH W2 PCP (Req'g L Img Loc: [facility]-ULTRASOUND FRAN Service: [address] [address] (Case [id number] COMPLETE) US ABDOMEN LTD, SINGLE ORG OR GENARO(US Detailed) CPT:21598 Reason for Study: pain RUQ (Case [id number] COMPLETE) US BLOOD FLOW ABD/RENAL (LTD) (US Detailed) CPT:19977 Clinical History: Organ to Image: RUQ Reason for exam: pain after eating Report Status: Verified Date Reported: MAR 15, 2024 Date Verified: MAR 15, 2024 Front Desk Worker E-Sig:/ES/SAMANTHA ALEMAN Report: DATE: 03/15/2024 8:52 AM EXAM: US ABDOMEN LTD, SINGLE ORG OR QUADRANT, US BLOOD FLOW ABD/RENAL (LTD) ACCESSION NUMBERS: [id number], [id number] HISTORY: pain RUQ Technique: Real-time ultrasound examination [...] disease, recommend clinical correlation. Ruperto Awad MD (Credit Report Checker) I, Samantha lAeman, have reviewed the images and report and concur with these findings. Primary Interpreting Staff: SAMANTHA ALEMAN MD (Front Desk Worker) Primary Interpreting Resident: RUPERTO AWAD, Resident Physician /SAMANTHA GONZALEZ [facility] Mar 09, 2024 12:28 PM KNEE,RIGHT 3 VIEWS: MICHELLEKADI E [id number] -1955 F Exm Date: MAR 09, 2024@12:28 Req Phys: THANH ZAZUETA Loc: -OLV PACT WH W2 PCP (Req'g L Img Loc: [facility]-MAIN RADIOLOGY SUITE Service: [facility], [facility] [address] [place] [address] (Case [id number] COMPLETE) KNEE,RIGHT 3 VIEWS (RAD Detailed) CPT:98498 Proc Modifiers : RIGHT Reason for Study: right knee pain after fall Clinical History: Report Status: Verified Date Reported: MAR 09, 2024 Date Verified: MAR 09, 2024 Front Desk Worker E-Sig:/ES/AMARJIT TRACEY MD Report: Case #[id number]. Right [...] AMARJIT TRACEY MD, Staff Physician - Radiologist (Front Desk Worker) /CHRISTI VELARDE [facility] Mar 09, 2024 12:28 PM KNEE,LEFT, 3 VIEWS: KADI MARTINEZ E [id number] -1955 F Exm Date: MAR 09, 2024@12:28 Req Phys: THANH ZAZUETA Loc: -[facility] PACT W2 PCP (Req'g L Img Loc: [facility] RADIOLOGY SUITE Service: Unknown [facility] [address] [place] [address] (Case [id number] COMPLETE) KNEE,LEFT, 3 VIEWS (RAD Detailed) CPT:77026 Proc Modifiers : LEFT Reason for Study: pain in knee Clinical History: Report Status: Verified Date Reported: MAR 09, 2024 Date Verified: MAR 09, 2024 Front Desk Worker E-Sig:/ES/AMARJIT TRACEY MD Report: Case #[id number]. Left [...] AMARJIT TRACEY MD, Staff Physician - Radiologist (Front Desk Worker) /CHRISTI VELARDE [facility] Mar 09, 2024 12:28 PM FOOT,LEFT 3 VIEWS OR MORE: KADI MARTINEZ [id number] -1955 F Exm Date: MAR 09, 2024@12:28 Req Phys: THANH ZAZUETA Loc: [facility]-OLV PACT W2 PCP (Req'g L Img Loc: [facility] RADIOLOGY SUITE Service: Unknown [facility] [address] [place] [address] (Case [id number] COMPLETE) FOOT,LEFT 3 VIEWS OR MORE (RAD Detailed) CPT:07201 Proc Modifiers : LEFT Reason for Study: foot pain Clinical History: Report Status: Verified Date Reported: MAR 09, 2024 Date Verified: MAR 09, 2024 Front Desk Worker E-Sig:/COLT/AMARJIT TRACEY MD Report: Case #[id number]. Left [...] AMARJIT TRACEY MD, Staff Physician - Radiologist (Front Desk Worker) /CHRISTI VELARDE [facility] Mar 09, 2024 12:28 PM FOOT,RIGHT,3 VIEWS OR MORE: MARTINEZKADI Phoebe [id number] -1955 F Exm Date: MAR 09, 2024@12:28 Req Phys: THANH ZAZUETA Pat Loc: [facility]-OLV PACT WH W2 PCP (Req'g L Img Loc: -MAIN RADIOLOGY SUITE Service: [address] [address] (Case [id number] COMPLETE) FOOT,RIGHT,3 VIEWS OR MORE (RAD Detailed) CPT:78542 Proc Modifiers : RIGHT Reason for Study: foot pain Clinical History: Report Status: Verified Date Reported: MAR 09, 2024 Date Verified: MAR 09, 2024 Front Desk Worker E-Sig:/COLT/AMARJIT TRACEY MD Report: Case #[id number]. Right [...] AMARJIT TRACEY MD, Staff Physician - Radiologist (Front Desk Worker) /CHRISTI VELARDE [facility] Encounter Notes: All associated encounter [...] STATUS: COMPLETED Provider Arielle from [employer] contacted [facility] to see if we had received an RFS for the . [employer] Sales Representative informed her it had not been received, mortgage or loan underwriter reached out to the team Brittany Canas to see if they had received the RFS. /colt/ BAKARI MARIE LOCAL TELEPHONE OPERATOR Signed: 03/10/2024 09:13 BAKARI MARIE [facility]
--- OUTSIDE RECORDS SUMMARY | 2024-08-07 10:03 | XMS_ITS | Encounter Summary ---
Author Name [facility] [place] [facility] [place] Address [address] [place] [address] Care Team Providers Care Vacuum Furnace Operator Name Role Phone THANH DIAZ Primary Care [...] [employer] VISIO N PLAN May 17, 2016 [id number] [phone] KADI MARTINEZ PATIENT EYEMED (WNR) VISION VISIO N May 17, 2019 [id number] [phone] KADI MARTINEZ PATIENT MEDICARE (WNR) MEDICARE (M) PART A Nov 14, 2022 PART A [id number] [phone] KADI MARTINEZ PATIENT MEDICARE (WNR) MEDICARE (M) PART B Nov 14, 2022 PART B [id number] KADI MARTINEZ PATIENT Selected Encounter This section includes the information on record at [place] for the Encounter. Date/Time Encounter Type Encounter Description Reason Provider Source Mar 09, 2024 10:30 AM OFFICE O/P EST MOD 30 MIN COMP WMS HLTH GNDR DIVERSE PC ICD-10-CM Z00.01 Encounter for general adult medical exam w abnormal findings THANH DIAZ E Encounter Template Text not used by [place] Assessments - Encounter Diagnoses This section includes the primary and secondary diagnoses documented for the Encounter. Date/Time Primary/Secondary Diagnosis Diagnosis Name Provider Source Mar 09, 2024 11:06 AM PRIMARY Encounter for general adult medical exam w abnormal findings [facility] Mar 09, 2024 11:06 AM SECONDARY Encounter for [facility] Mar 09, 2024 11:06 AM SECONDARY Hyperlipidemia, unspecified [facility] Mar 09, 2024 11:06 AM SECONDARY Pain in left foot [facility] Mar 09, 2024 11:06 AM SECONDARY Pain in right knee [facility] Plan of Treatment: Future Appointments (+ 6 months) and Future Tests (+/- 45 days) The Plan of Treatment section includes future care activities for the patient from all [place] [facility]. This section includes future appointments and future [...] 09:00 AM AMBULATORY - MEDICINE [facility] Mar 20, 2024 10:40 AM AMBULATORY - SURGERY [facility] Apr 06, 2024 11:00 AM AMBULATORY - NONE [facility] Apr 07, 2024 09:30 AM AMBULATORY - SURGERY [facility] Apr 25, 2024 02:30 AM AMBULATORY - SUR[facility]ERY [facility] Jul 25, 2024 10:00 AM AMBULATORY - SUR[facility]ERY [facility] Aug 02, 2024 07:30 AM AMBULATORY - SURGERY [facility] Aug 22, 2024 10:45 AM [facility] Active, Pending, and Scheduled Orders This section includes a listing of several types of active, pending, and scheduled orders, including clinic medications orders, diagnostic test orders, procedure orders and consult orders; where the start date of the order is 45 days before the date of the Encounter or 45 days after the date of theEncounter. The data comes from all [place] treatment facilities. Test Date/Time Test Type Test Details Facility Name Mar 13, 2024 03:23 PM Consult Order [facility] Cons Supervisor [employer] [facility] Lab Results: +/- 30 days of the encounter This section includes the Chemistry and Hematology Lab Results on record with [place] for the patient. Radiology Reports and Pathology Reports are provided separately, in subsequent sections. Lab Results This section contains the Chemistry/Hematology Results that were resulted 30 days before or 30 daysafter the date of the Encounter. Date/Time Source Result Type Result - Unit Interpretation Reference Range Comment Mar 09, 2024 11:30 AM [facility] LIPID PANEL (STL) Specimen Type: PLASMA Comment: No hemolysis noted. Ordering Provider: WARREN DIAZ Report Released Date/Time: Mar 09, 2024 10:49 AM Reporting Lab: [facility] [address] [place] [phone] Performing Lab: [facility] [address] [place] [phone] CHOLESTEROL 160 mg/dL 0-200 TRIGLYCERIDE 46 mg/dL 0-150 CALCULATED LDL 95 mg/dL HDL(New) 56 mg/dL >40 Mar 09, 2024 11:30 AM [facility] HGA1C Specimen Type: BLOOD No comment entered. Ordering Provider: WARREN DIAZ Report Released Date/Time: Mar 09, 2024 10:49 AM Reporting Lab: [facility] [address] [place] [phone] Performing Lab: [facility] [address] [place] [phone] HGA1C 5.6 4.0-6.0 Mar 09, 2024 11:30 AM [facility] TSH W/ REFLEX FT4 (STL) Specimen Type: PLASMA No comment entered. Ordering Provider: WARREN DIAZ Report Released Date/Time: Mar 09, 2024 10:49 AM Reporting Lab: [facility] [address] [place] [phone] Performing Lab: [facility] [address] [place] [phone] TSH 2.453 u[IU]/mL 0.47-5 Mar 09, 2024 11:30 AM [facility] URINALYSIS (STL-PB) Specimen Type: URINE No comment entered. Ordering Provider: WARREN DIAZ Report Released Date/Time: Mar 09, 2024 10:49 AM Reporting Lab: [facility] [address] [place] [phone] Performing Lab: [facility] [address] [place] [phone] URINE COLOR Colorless Yellow U.BILIRUBIN Negative mg/dL Negative U.PH 7.0 5.0-8.0 APPEARANCE Clear Clear U.NITRITE Negative mg/dL Negative URN.GLUCOSE Normal mg/dL Negative URN.PROTEIN Negative mg/dL URN.UROBILINOGEN Normal mg/dL Normal URN.BLOOD Negative mg/dL Negative-Tra ce URN.KETONES Negative mg/dL Negative-Tra ce URN.LEUK.EST. Negative mg/dL Negative-Tra ce URN.SPECIFIC GRAVITY 1.004 L Mar 09, 2024 11:30 AM [facility] VITAMIN D, 25-HYDROXY Specimen Type: SERUM No comment entered. Ordering Provider: WARREN DIAZ Report Released Date/Time: Mar 09, 2024 10:49 AM Reporting Lab: [facility] [address] [place] [phone] Performing Lab: [facility] [address] [place] [phone] VITAMIN D, 25-HYDROXY 49.2 ng/mL 30-96 Mar 09, 2024 11:30 AM [facility] AMYLASE Specimen Type: PLASMA Comment: No hemolysis noted. Ordering Provider: WARREN DIAZ Report Released Date/Time: Mar 09, 2024 11:00 AM Reporting Lab: [facility] [address] [facility] [phone] Performing Lab: [facility] [address] [phone] AMYLASE 155 U/L H 25-125 Mar 09, 2024 11:30 AM [facility] LIPASE Specimen Type: PLASMA Comment: No hemolysis noted. Ordering Provider: WARREN DIAZ Report Released Date/Time: Mar 09, 2024 11:00 AM Reporting Lab: [facility] [address] [facility] [phone] Performing Lab: [place] [address] [phone] LIPASE 267 U/L H 8-78 Mar 09, 2024 11:30 AM [facility] COMPREHENSIVE METABOLIC PANEL Specimen Type: PLASMA Comment: No hemolysis noted. Ordering Provider: WARREN DIAZ Report Released Date/Time: Mar 09, 2024 10:49 AM Reporting Lab: [facility] [address] [facility] [phone] Performing Lab: [facility] [address] [facility] [phone] CREATININE 0.96 mg/dL 0.6-1.1 UREA NITROGEN 16.6 [...] 65.3 >60 Mar 09, 2024 11:30 AM [facility] CBC Specimen Type: BLOOD No comment entered. Ordering Provider: WARREN DIAZ Report Released Date/Time: Mar 09, 2024 10:49 AM Reporting Lab: [facility] [address] [facility] [phone] Performing Lab: [facility] [address] [facility] [phone] WBC 4.2 10*3/uL 3.6-11.2 RBC 3.56 10*6/uL [...] 112/57 18 100 4 64 156 27 [facility] Immunizations: All administered on the encounter date This section contains immunizations associated to the Encounter. Immunization Series Date Issued Reaction Comments INFLUENZA, HIGH-DOSE, TRIVALENT, PF Mar 09 Social History: Smoking Status (Most current) and Tobacco Use (All prior to encounter date) This section includes the most current, and the historical, smoking and tobacco- related health factors from the [place] facility where the Encounter took place. Current Smoking Status This section includes the most current smoking, or tobacco-related health factor, from the [place] facility where the Encounter took place. Date/Time Current Smoking Status Comment Nehal pope Mar 09, 2024 10:30 AM VA-TOBACCO NEVER USED [facility] Tobacco Use History This section includes a history of the smoking, or tobacco-related health factors, that were collected on or before the date of the Encounter. The data comes from the [place] facility where the Encounter took place. Date/Time Smoking Status/Tobacco Use Comment F acility Oct 27, 2022 03:00 PM VA-TOBACCO NEVER USED [address] [facility] September 30, 2021 01:30 PM VA-TOBACCO NEVER USED [address] [facility] Dec 26, 2019 03:02 PM VA-TOBACCO NEVER USED [address] [facility] Mar 03, 2017 08:52 AM LIFETIME NON-USER OF TOBACCO [facility] Advance Directives: All historical and current Section [...] 2014 ADVANCE DIRECTIVE DISCUSSION ANGELITA AGUILA [facility] Radiology Reports: +/- 30 days of [...] the Encounter. The data comes from all [place] treatment facilities. Date/Time Radiology Report Provider Source Mar 15, 2024 08:52 AM US ABDOMEN LIMITED W/BLOOD FLOW DOPPLER: KADI MARTINEZ [id number] -1955 F Exm Date: MAR 15, 2024@08:52 Req Phys: THANH DIAZ Loc: [facility]OLV PACT WH W2 PCP (Luna'g L Img Loc: [facility]ULTRASOUND [facility] Service: Unknown [facility], [address] [place] [address] (Case [id number] COMPLETE) US ABDOMEN LTD, SINGLE ORG OR GENARO(US Detailed) CPT:12206 Reason for Study: pain RUQ (Case [id number] COMPLETE) US BLOOD FLOW ABD/RENAL (LTD) (US Detailed) CPT:21110 Clinical History: Organ to Image: RUQ Reason for exam: pain after eating Report Status: Verified Date Reported: MAR 15, 2024 Date Verified: MAR 15, 2024 Automobile Mechanic E-Sig:/ES/SAMANTHA SETHI Report: DATE: 03/15/2024 8:52 AM EXAM: US ABDOMEN LTD, SINGLE ORG OR QUADRANT, US BLOOD FLOW ABD/RENAL (LTD) ACCESSION NUMBERS: [id number], [id number] HISTORY: pain RUQ Technique: Real-time ultrasound examination [...] disease, recommend clinical correlation. Ruperto Awad MD (Sulfate Drier Machine Operator) I, Samantha Sethi, have reviewed the images and report and concur with these findings. Primary Interpreting Staff: SAMANTHA SETHI MD (Automobile Mechanic) Primary Interpreting Resident: RUPERTO AWAD, Resident Physician /SAMANTHA GONZALEZ [facility] Mar 09, 2024 12:28 PM KNEE,RIGHT 3 VIEWS: KADI MARTINEZ [id number] -1955 F Exm Date: MAR 09, 2024@12:28 Req Phys: THANH DIAZ Loc: [facility] W2 PCP (Req'g L Img Loc: [facility] RADIOLOGY SUITE Service: Unknown [address] [address] (Case [id number] COMPLETE) KNEE,RIGHT 3 VIEWS (RAD Detailed) CPT:20109 Proc Modifiers : RIGHT Reason for Study: right knee pain after fall Clinical History: Report Status: Verified Date Reported: MAR 09, 2024 Date Verified: MAR 09, 2024 Automobile Mechanic E-Sig:/ES/AMARJIT TRACEY MD Report: Case #[id number]. [...] AMARJIT TRACEY MD, Staff Physician - Radiologist (Automobile Mechanic) /CHRISTI VELARDE [facility] Mar 09, 2024 12:28 PM KNEE,LEFT, 3 VIEWS: KADI MARTINEZ [id number] -1955 F Exm Date: MAR 09, 2024@12:28 Req Phys: THANH DIAZ Loc: [facility] W2 PCP (Req'g L Img Loc: [facility] RADIOLOGY SUITE Service: Unknown [address] [address] (Case [id number] COMPLETE) KNEE,LEFT, 3 VIEWS (RAD Detailed) CPT:68233 Proc Modifiers : LEFT Reason for Study: pain in knee Clinical History: Report Status: Verified Date Reported: MAR 09, 2024 Date Verified: MAR 09, 2024 Automobile Mechanic E-Sig:/ES/AMARJIT TRACEY MD Report: Case #[id number]. [...] AMARJIT TRACEY MD, Staff Physician - Radiologist (Automobile Mechanic) /CHRISTI VELARDE [facility] Mar 09, 2024 12:28 PM FOOT,LEFT 3 VIEWS OR MORE: KADI MARTINEZ [id number] -1955 F Exm Date: MAR 09, 2024@12:28 Req Phys: THANH DIAZ Loc: [facility] PACT W2 PCP (Req'g L Img Loc: [facility] RADIOLOGY SUITE Service: [address] [address] (Case [id number] COMPLETE) FOOT,LEFT 3 VIEWS OR MORE (RAD Detailed) CPT:34394 Proc Modifiers : LEFT Reason for Study: foot pain Clinical History: Report Status: Verified Date Reported: MAR 09, 2024 Date Verified: MAR 09, 2024 Automobile Mechanic E-Sig:/ES/AMARJIT TRACEY MD Report: Case #[id number]. [...] AMARJIT TRACEY MD, Staff Physician - Radiologist (Automobile Mechanic) /CHRISTI VELARDE [facility] Mar 09, 2024 12:28 PM FOOT,RIGHT,3 VIEWS OR MORE: KADI MARTINEZ [id number] -1955 F Exm Date: MAR 09, 2024@12:28 Req Phys: THANH DIAZ Loc: [facility] PACT W2 PCP (Req'g L Img Loc: [facility] RADIOLOG[facility] SUITE Service: Unknown [facility], [address] [place] [address] (Case [id number] COMPLETE) FOOT,RIGHT,3 VIEWS OR MORE (RAD Detailed) CPT:53893 Proc Modifiers : RIGHT Reason for Study: foot pain Clinical History: Report Status: Verified Date Reported: MAR 09, 2024 Date Verified: MAR 09, 2024 Automobile Mechanic E-Sig:/ES/AMARJIT TRACEY MD Report: Case #[id number]. [...] AMARJIT TRACEY MD, Staff Physician - Radiologist (Automobile Mechanic) /CHRISTI VELARDE [facility] Encounter Notes: All associated encounter notes This section contains the clinical notes associated to the Encounter. 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 physician KADI MARTINEZ,THANH Emmanuel [facility] Mar 09, 2024 11:13 AM ACCOUNTING OF DISC LOSURES NOTE: LOCAL TITLE: STATE PRESCRIPTION DRUG MONITORING PROGRAM STANDARD TITLE: ACCOUNTING OF DISCLOSURES NOTE DATE OF NOTE: MAR 09, 2024@11:13:28 ENTRY DATE: MAR 09, 2024@11:13:28 AUTHOR: THANH DIAZ EXP COSIGNER: URGENCY: STATUS: COMPLETED This PDMP query was submitted by Thanh Diaz MD. The clinical justification for this PDMP query is to review controlled substances prescribed outside of the [place], and any additional information that may become available, as an important component of standard clinical care, and in accordance with [facility] policy. Patient information was shared with the PDMP Appriss [place]. No prescription(s) for controlled substances outside the [place] were found in the last 90 days. /colt/ THANH DIAZ M.D. physician Signed: 03/09/2024 11:13 THANH DIAZ [facility] Mar 09, 2024 11:09 AM NURSING NOTE: [...] INVENTORY - MAP: 08/21/2020 Personal Health Plan [place], [place], Purpose (MAP) Want to be more active, play with my grandkids ane keep up with traveling. What matters most to you in your life right now? - [place] Response: [id number] Would you like to discuss any personal problem, family problem, alcohol use, drug use, or a mental or emotional illness? No My [facility] ([facility]), please select appointment type: Face to face: Yes- Done Contact provided Primary Care phone number and encouraged to call if any questions or concerns. Review that after hours nurse line ext.[phone] and emergency room are available 07/12 for patient use. Contact verbalized good understanding. Influenza Immunization - L,N,P,PH,U: Influenza, High-Dose, Trivalent, Preservative Free (Fluzone-Syringe) Administered: INFLUENZA, HIGH-DOSE, TRIVALENT, PF Date Administered: Mar 09, 2024 10:30 Series: Complete Human Resources Operations Specialist: SANOFI PASTEUR Lot: [id number] Exp Date: Nov 13, 2024 NDC: [id number] Admin Route/Site: INTRAMUSCULAR/LEFT DELTOID Dosage: 0.5mL Vaccine Information Statement(s): INFLUENZA(FLU) VACC(INACTIVATED OR RECOMBINANT)VIS Dec 20, 2020 ([place]) Order By: Policy Administered By: Matilda Simons [...] the COVID-19 group Date Documented: 03/09/24 11:57 /keyla SIMONS LPN LICENSED PRACTICAL NURSE Signed: 03/09/2024 12:00 03/09/2024 ADDENDUM STATUS: COMPLETED What matters most to you in life right now. Patient response: Volunteering, traveling, time with family and friends /keyla SIMONS LPN LICENSED PRACTICAL NURSE Signed: 03/09/2024 12:30 MATILDA SIMONS V [facility] Mar 09, 2024 10:50 AM PRIMARY CARE NOTE: LOCAL TITLE: PRIMARY CARE PROVIDER ESTABLISHED VISIT [facility] STANDARD TITLE: PRIMARY CARE NOTE DATE OF NOTE: MAR 09, 2024@10:50 ENTRY DATE: MAR 09, 2024@10:50:12 AUTHOR: THANH DIAZ COSIGNER: URGENCY: STATUS: COMPLETED PRIMARY CARE PROVIDER ESTABLISHED VISIT ST Has ADDENDA ESTABLISHED PATIENT NVCA-IM-XPWQ: REASON FOR VISIT/CHIEF COMPLAINT: Ms. Martinez is 68 y/o female established patient comes in for her annual/preventive and follow up chronic medical conditions. Patient reports recent fall injuring her knees. She has a new puppy and was climbing over the fence and fell. She also reports ongoing left foot pain. Patient is requesting to see podiatry. 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 She also reports pain in right upper quadrant after eating. 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 STREP PNEU 18) Vaginitis 19) Sinusitis * (ICD-9-CM 473.9) 20) Low Back Pain * (ICD-9-CM 724.2) 21) Cervicalgia (SNOMED CT 70410719) 22) Hearing Loss, Sensorineural, Unspecified 23) Unresolved [...] (ICD-9-CM 719.41) 32) Vaginal discharge (SNOMED CT 268333086) 33) Neuroma (SNOMED CT 275179194) 34) Deficiency of other vitamins 35) Abnormal [...] medication list with the patient and/or his/her care-certified caregiver. Handwritten corrections, additions and/or deletions were made [...] ABD/GI: Normal Musculoskeletal/Extremities: Abnormal Pain, Stiffness/reduced ROM /EDGE BURNISHER UPPERS: Normal Hematology & Lymph: Normal Endocrine: Normal [...] to keep all scheduled appointments and contact bpm analyst for any additional problems. PREVENTION & SCREENING: [...] down, depressed, or hopeless Not at all /keyla DIAZ M.D. physician Signed: 03/09/2024 11:07 03/10/2024 ADDENDUM STATUS: COMPLETED Called patient and discuss lab test results. Elevated Lipase. Patient is scheduled for abdominal ultrasound next week. /colt/ THANH DIAZ M.D. physician Signed: 03/10/2024 14:01 THANH DIAZ [facility]
--- OUTSIDE RECORDS SUMMARY | 2024-08-07 10:03 | XMS_ITS ---
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 Date/Time Encounter Type Encounter Description Reason Pro vider Source Mar 10, 2024 05:02 PM Outpatient Encounter GENERAL INTERNAL MEDICINE IHE Encounter Template Text not used by ND Plan of Treatment: Future Appointments (+ 6 months) and Future Tests (+/- 45 days) The Plan of Treatment section includes future care activities for the patient from all [place] treatmentfacilities. This section includes future appointments and future orders which are active, pending or scheduled. Future Appointments This section includes appointments that were scheduled to occur 6 months from the date of the Encounter, up to a maximum of 20 appointments. The data comes from all [place] treatment facilities. Appointment Date/Time Appointment Type Appointme nt Facility Name Mar 15, 2024 09:00 AM AMBULATORY - MEDICINE [facility] Mar 20, 2024 10:40 AM AMBULATORY - SURGERY [facility] Apr 06, 2024 11:00 AM AMBULATORY - NONE [facility] Apr 07, 2024 09:30 AM AMBULATORY - SURGERY [facility] Apr 25, 2024 02:30 AM [facility]ULATORY - SUR[facility]ERY [facility] Jul 25, 2024 10:00 AM AM[facility]ULATORY - SUR[facility]ERY [facility] Aug 02, 2024 07:30 AM AM[facility]ULATORY - SUR[facility]ERY [facility] Aug 22, 2024 10:45 AM [...] of theEncounter. The data comes from all [place] treatment facilities. 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 Radiology Reports and Pathology Reports are provided separately, in subsequent sections. Lab Results This section contains the Chemistry/Hematology Results that were resulted 30 days before or 30 daysafter the date of the Encounter. Date/Time Source Result Type Result - Unit Interpretation Reference Range Comment Mar 09, 2024 11:30 AM [facility] LIPID PANEL (STL) Specimen Type: PLASMA Comment: No hemolysis noted. Ordering Provider: WARREN ZAZUETA Report Released Date/Time: Mar 09, 2024 10:49 AM Reporting Lab: [facility] [address] [place] [phone] Performing Lab: [address] [address] CHOLESTEROL 160 mg/dL 0-200 TRIGLYCERIDE 46 mg/dL 0-150 CALCULATED LDL 95 mg/dL HDL(New) 56 mg/dL >40 Mar 09, 2024 11:30 AM [facility] HGA1C Specimen Type: BLOOD No comment entered. Ordering Provider: WARREN ZAZUETA Report Released Date/Time: Mar 09, 2024 10:49 AM Reporting Lab: [facility] [address] [facility] [address] Performing Lab: [facility] [address] [place] [phone] HGA1C 5.6 4.0-6.0 Mar 09, 2024 11:30 AM [facility] TSH W/ REFLEX FT4 (STL) Specimen Type: PLASMA No comment entered. Ordering Provider: WARREN ZAZUETA Report Released Date/Time: Mar 09, 2024 10:49 AM Reporting Lab: [facility] [address] [facility] [address] Performing Lab: [facility] [address] [facility] [address] TSH 2.453 u[IU]/mL 0.47-5 Mar 09, 2024 11:30 AM [facility] URINALYSIS (L-PB) Specimen Type: URINE No comment entered. Ordering Provider: WARREN ZAZUETA Report Released Date/Time: Mar 09, 2024 10:49 AM Reporting Lab: [facility] [address] [facility] [address] Performing Lab: [facility] [address] [place] [phone] URINE COLOR Colorless Yellow U.BILIRUBIN Negative mg/dL Negative U.PH 7.0 5.0-8.0 APPEARANCE Clear Clear U.NITRITE Negative mg/dL Negative URN.GLUCOSE Normal mg/dL Negative URN.PROTEIN Negative mg/dL URN.UROBILINOGEN Normal mg/dL Normal URN.BLOOD Negative mg/dL Negative-Tra ce URN.KETONES Negative mg/dL Negative-Tra ce URN.LEUK.EST. Negative mg/dL Negative-Tra ce URN.SPECIFIC GRAVITY 1.004 L Mar 09, 2024 11:30 AM [facility] VITAMIN D, 25-HYDROXY Specimen Type: SERUM No comment entered. Ordering Provider: WARREN ZAZUETA Report Released Date/Time: Mar 09, 2024 10:49 AM Reporting Lab: [address] [address] Performing Lab: [address] [address] VITAMIN D, 25-HYDROXY 49.2 ng/mL 30-96 Mar 09, 2024 11:30 AM [facility] AMYLASE Specimen Type: PLASMA Comment: No hemolysis noted. Ordering Provider: WARREN ZAZUETA Report Released Date/Time: Mar 09, 2024 11:00 AM Reporting Lab: [address] [address] Performing Lab: [address] [address] AMYLASE 155 U/L H 25-125 Mar 09, 2024 11:30 AM [facility] LIPASE Specimen Type: PLASMA Comment: No hemolysis noted. Ordering Provider: WARREN ZAZUETA Report Released Date/Time: Mar 09, 2024 11:00 AM Reporting Lab: [address] [address] Performing Lab: [address] [address] LIPASE 267 U/L H 8-78 Mar 09, 2024 11:30 AM [facility] COMPREHENSIVE METABOLIC PANEL Specimen Type: PLASMA Comment: No hemolysis noted. Ordering Provider: WARREN ZAZUETA Report Released Date/Time: Mar 09, 2024 10:49 AM Reporting Lab: [facility] [address] [place] [phone] Performing Lab: [address] [address] CREATININE 0.96 mg/dL 0.6-1.1 UREA NITROGEN 16.6 [...] 65.3 >60 Mar 09, 2024 11:30 AM [facility] CBC Specimen Type: BLOOD No comment entered. Ordering Provider: WARREN ZAZUETA Report Released Date/Time: Mar 09, 2024 10:49 AM Reporting Lab: [facility] [address] [place] [phone] Performing Lab: [address] [address] WBC 4.2 10*3/uL 3.6-11.2 RBC 3.56 10*6/uL [...] and tobacco- related health factors from the [place] facility where the Encounter took place. Current Smoking Status This section includes the most current smoking, or tobacco-related health factor, from the [place] facility where the Encounter took place. Date/Time Current Smoking Status Comment Nehal pope Jan 15, 2016 10:21 AM LIFETIME NON-USER OF TOBACCO [facility] Tobacco Use History This section includes a history of the smoking, or tobacco-related health factors, that were collected on or before the date of the Encounter. The data comes from the [place] facility where the Encounter took place. Date/Time Smoking Status/Tobacco Use Comment F acility Mar 04, 2015 08:10 AM LIFETIME NON-USER OF TOBACCO [facility] Aug 02, 2006 11:04 AM LIFETIME NON-USER OF TOBACCO [facility] Dec 22, 2005 03:00 PM LIFETIME NON-TOBACCO USER [facility] Feb 17, 2005 03:19 PM LIFETIME NON-TOBACCO USER [facility] Jul 17, 2004 02:13 PM LIFETIME NON-TOBACCO USER [facility] Jul 17, 2004 01:43 PM LIFETIME NON-TOBACCO USER [facility] Advance Directives: All historical and current Section Date Range: From patient's date of to the date document was created. This section includes ALL of a patient's completed or amended [place] Advance and Rescinded Directives. The entries below indicate that a directive exists for the patient, but an actual copy is not included with this document. The data comes from all [place] facilities. Date Advance Directives Provider Source Feb 23, 2014 ADVANCE DIRECTIVE DISCUSSION ANGELITA AGUILA [facility] Radiology Reports: +/- 30 days [...] the Encounter. The data comes from all [place] treatment facilities. Date/Time Radiology Report Provider Source Mar 15, 2024 08:52 AM US ABDOMEN LIMITED W/BLOOD FLOW DOPPLER: KADI MARTINEZ [id number] -1955 F Exm Date: MAR 15, 2024@08:52 Req Phys: THANH ZAZUETA Loc: FRAN-OLV PACT WH W2 PCP (Req'g L Img Loc: FRAN-ULTRASOUND FRAN Service: [address] [address] (Case [id number] COMPLETE) US ABDOMEN LTD, SINGLE ORG OR GENARO(US Detailed) CPT:99516 Reason for Study: pain RUQ (Case [id number] COMPLETE) US BLOOD FLOW ABD/RENAL (LTD) (US Detailed) CPT:86250 Clinical History: Organ to Image: RUQ Reason for exam: pain after eating Report Status: Verified Date Reported: MAR 15, 2024 Date Verified: MAR 15, 2024 Managing Consultant E-Sig:/ES/SAMANTHA SETHI Report: DATE: 03/15/2024 8:52 AM EXAM: US ABDOMEN LTD, SINGLE ORG OR QUADRANT, US BLOOD FLOW ABD/RENAL (LTD) ACCESSION NUMBERS: [id number], [id number] HISTORY: pain RUQ Technique: Real-time ultrasound examination [...] disease, recommend clinical correlation. Ruperto Awad MD (Customer Service Dispatcher) I, Samantha Sethi, have reviewed the images and report and concur with these findings. Primary Interpreting Staff: SAMANTHA SETHI MD (Managing Consultant) Primary Interpreting Resident: RUPERTO AWAD, Resident Physician /SAMANTHA GONZALEZ [facility] Mar 09, 2024 12:28 PM KNEE,RIGHT 3 VIEWS: MICHELLEKADI E [id number] -1955 F Exm Date: MAR 09, 2024@12:28 Req Phys: THANH ZAZUETA Loc: -OLV PACT WH W2 PCP (Req'g L Img Loc: [facility]-MAIN RADIOLOGY SUITE Service: [facility], [facility] [address] [place] [address] (Case [id number] COMPLETE) KNEE,RIGHT 3 VIEWS (RAD Detailed) CPT:90903 Proc Modifiers : RIGHT Reason for Study: right knee pain after fall Clinical History: Report Status: Verified Date Reported: MAR 09, 2024 Date Verified: MAR 09, 2024 Managing Consultant E-Sig:/ES/AMARJIT TRACEY MD Report: Case #[id number]. Right [...] AMARJIT TRACEY MD, Staff Physician - Radiologist (Managing Consultant) /CHRISTI VELARDE [facility] Mar 09, 2024 12:28 PM KNEE,LEFT, 3 VIEWS: KADI MARTINEZ E [id number] -1955 F Exm Date: MAR 09, 2024@12:28 Req Phys: THANH ZAZUETA Loc: -[facility] PACT W2 PCP (Req'g L Img Loc: [facility] RADIOLOGY SUITE Service: Unknown [facility] [address] [place] [address] (Case [id number] COMPLETE) KNEE,LEFT, 3 VIEWS (RAD Detailed) CPT:03326 Proc Modifiers : LEFT Reason for Study: pain in knee Clinical History: Report Status: Verified Date Reported: MAR 09, 2024 Date Verified: MAR 09, 2024 Managing Consultant E-Sig:/ES/AMARJIT TRACEY MD Report: Case #[id number]. Left [...] AMARJIT TRACEY MD, Staff Physician - Radiologist (Managing Consultant) /CHRISTI VELARDE [facility] Mar 09, 2024 12:28 PM FOOT,LEFT 3 VIEWS OR MORE: KADI MARTINEZ [id number] -1955 F Exm Date: MAR 09, 2024@12:28 Req Phys: THANH ZAZUETA Loc: FRAN-OLV PACT W2 PCP (Req'g L Img Loc: [facility] RADIOLOGY SUITE Service: Unknown [facility] [address] [place] [address] (Case [id number] COMPLETE) FOOT,LEFT 3 VIEWS OR MORE (RAD Detailed) CPT:70962 Proc Modifiers : LEFT Reason for Study: foot pain Clinical History: Report Status: Verified Date Reported: MAR 09, 2024 Date Verified: MAR 09, 2024 Managing Consultant E-Sig:/COLT/AMARJIT TRACEY MD Report: Case #[id number]. Left [...] AMARJIT TRACEY MD, Staff Physician - Radiologist (Managing Consultant) /CHRISTI VELARDE [facility] Mar 09, 2024 12:28 PM FOOT,RIGHT,3 VIEWS OR MORE: MARTINEZKADI Phoebe [id number] -1955 F Exm Date: MAR 09, 2024@12:28 Req Phys: THANH ZAZUETA Pat Loc: FRAN-OLV PACT WH W2 PCP (Req'g L Img Loc: -MAIN RADIOLOGY SUITE Service: [address] [address] (Case [id number] COMPLETE) FOOT,RIGHT,3 VIEWS OR MORE (RAD Detailed) CPT:82087 Proc Modifiers : RIGHT Reason for Study: foot pain Clinical History: Report Status: Verified Date Reported: MAR 09, 2024 Date Verified: MAR 09, 2024 Managing Consultant E-Sig:/COLT/AMARJIT TRACEY MD Report: Case #[id number]. Right [...] AMARJIT TRACEY MD, Staff Physician - Radiologist (Managing Consultant) /CHRISTI VELARDE [facility] Encounter Notes: All associated [...] renewed or not. /colt/ [employer] G[employer] MAIN FITTER Signed: 03/16/2024 08:11 Receipt Acknowledged By: 03/16/2024 12:58 /colt/ ENOC PAVON Physician [employer] Teacher, ENT === --- Original Document --- 03/10/24 COMMUNITY CARE-REQUEST FOR SERVICE NOTE STL: Request for Services (RFS) documentation has been sent for scanning to [facility] Community Care Consult: [facility] C[facility] ENT SURGERY Consult No: [id number] Date sent to scanning: Feb A Request for Service (RFS) form [id number] has been received which includes the following: Care Requested:ENT visits ICD-10 Dx code: none Date VA received request: Feb Date service required: TBD Requesting Community Provider Information: Name of Ordering Provider: Lissa Bruno Office:[facility] ENT Address, [facility], [facility]: [address] [place] [address] [address] [place] [address] Fax: [phone] RFS,notes to scanner, providers for review. /colt/ WONG HARRYN RN REGISTERED NURSE Signed: 03/10/2024 17:11 Receipt Acknowledged By: 03/13/2024 15:21 /es/ THANH ZAZUETA M.D. physician * AWAITING SIGNATURE * WONG CARREON 03/13/2024 ADDENDUM STATUS: COMPLETED [facility] received a call from Arielle at [facility]; 's name, last four of SSN, and date of were used to verify identity. REASON FOR CALL: RFS DECSION INQUIRY Caller states the is scheduled for Wednesday03/20/2024. Pharmacy Picking Tech communicated to the caller there is not yet a decision on this request. /es/ ANTOINETTE GIBSON ADVANCED GAS MAIN FITTER Signed: 03/13/2024 08:18 03/15/2024 ADDENDUM STATUS: COMPLETED Vet states she is scheduled for Wednesday03/20/2024 @ 1040. Pharmacy Picking Tech communicated to vet the consult is still pending. Vet stated that if she has to reschedule she will not be able to be seen until end of April 2025. Informed vet teletypewriter operator will alert CC RN. Vet agreed and understood to check status of referral before attending appt. /es/ DAMARIS STRINGER ADVANCED G[employer] MAIN FITTER Signed: 03/15/2024 13:22 03/16/2024 ADDENDUM STATUS: COMPLETED Follow up from Dr. Emmanuel Pavon to Contact ENT office and see if they want 's yearly surveillance MRI done prior to 's f/u appt in [facility]? If so, will request MRI [facility] and once completed, pt can be seen at the [place] by one of our Otologists. /colt/ [employer] G[employer] MAIN FITTER Signed: 03/16/2024 09:54 03/16/2024 ADDENDUM STATUS: COMPLETED Received communication to inquire if needs MRI before appt, called [facility] ENT, CC Provider will email Abilio Pavon /colt/ WONG CARREON BSN RN REGISTERED NURSE Signed: 03/16/2024 11:02 [employer] [facility] Mar 10, 2024 05:05 PM NONVA NOTE: LOCAL TITLE: COMMUNITY CARE-REQUEST FOR SERVICE NOTE STL STANDARD TITLE: NONVA NOTE DATE OF NOTE: MAR 10, 2024@17:05 ENTRY DATE: MAR 10, 2024@17:05:59 AUTHOR: WONG CARREON EXP COSIGNER: URGENCY: STATUS: COMPLETED COMMUNITY CARE-REQUEST FOR SERVICE NOTE STL Has ADDENDA Request for Services (RFS) [facility] ENT SURGERY Consult No: [id number] Date sent to scanning: Feb A Request for Service (RFS) form [id number] has been received which includes the following: Care Requested:ENT visits ICD-10 Dx code: none Date VA received request: Feb Date service required: TBD Requesting Community Provider Information: Name of Ordering Provider: Lissa Bruno Office:[facility]NT Address, [facility], [facility]: [address] [place] [address] [address] [place] [address] Fax: [phone] RFS,notes to scanner, providers for review. /colt/ WONG HARRYN RN REGISTERED NURSE Signed: 03/10/2024 17:11 Receipt Acknowledged By: 03/13/2024 15:21 /colt/ THANH ZAZUETA M.D. physician * AWAITING SIGNATURE * WONG CARREON 03/13/2024 ADDENDUM STATUS: [facility]PLETED [facility] Arielle at [facility]; 's name, last four of SSN, and date of were used to verify identity. REASON FOR CALL: [facility] DECSION INQUIRY Caller states the is scheduled for Wednesday03/20/2024. Pharmacy Picking Tech communicated to the caller there is not yet a decision on this request. /es/ ANTOINETTE GIBSON ADV[employer]ED G[employer] MAIN FITTER Signed: 03/13/2024 08:18 03/15/2024 ADDENDUM STATUS: COMPLETED Vet states she is scheduled for Wednesday03/20/2024 @ 1040. Pharmacy Picking Tech communicated to vet the consult is still pending. Vet stated that if she has to reschedule she will not be able to be seen until end of April 2025. Informed vet teletypewriter operator will alert CC RN. Vet agreed and understood to check status of referral before attending appt. /es/ DAMARIS STRINGER ADV[employer] G[employer] MAIN FITTER Signed: 03/15/2024 13:22 03/16/2024 ADDENDUM STATUS: COMPLETED Provider called checking status of this referral. Appt is 11.4.24 @ 10:40am. Please advise if referral will be renewed or not. /keyla [employer] ADV[employer]ED G[employer] MAIN FITTER Signed: 03/16/2024 08:11 Receipt Acknowledged By: * AWAITING SIGNATURE * ENOC PAVON 03/16/2024 ADDENDUM STATUS: COMPLETED Follow up from Dr. Emmanuel Pavon to Contact ENT office and see if they want 's yearly surveillance MRI done prior to 's f/u appt in [facility]? If so, will request MRI [facility] and once completed, pt can be seen at the [place] by one of our Otologists. /keyla [employer] ADV[employer]ED G[employer] MAIN FITTER Signed: 03/16/2024 09:54 03/16/2024 ADDENDUM STATUS: COMPLETED Received communication to inquire if needs MRI before appt, called [facility] ENT, CC Provider will email Abilio Pavon /colt/ WONG CARREON BSN RN REGISTERED NURSE Signed: 03/16/2024 11:02 WONG CARREON [facility]
--- OUTSIDE RECORDS SUMMARY | 2024-08-07 10:03 | XMS_ITS ---
Author Name Department of Veter[facility] ([place]) Organization [facility] [place] Address [address] [place] [address] Care Team Providers Care Principal Mechanical Engineer Name Role Phone THANH ZAZUETA Primary Care [...] [employer] VISIO N PLAN May 17, 2016 [id number] [phone] KADI MARTINEZ PATIENT EYEMED (WNR) VISION VISIO N May 17, 2019 [id number] [phone] KADI MARTINEZ PATIENT MEDICARE (WNR) MEDICARE (M) PART B Nov 14, 2022 PART B [id number] KADI MARTINEZ PATIENT MEDICARE (WNR) MEDICARE (M) PART A Nov 14, 2022 PART A [id number] KADI MARTINEZ PATIENT Selected Encounter This section includes the information on record at ID for the Encounter. Date/Time Encounter Type Encounter Description Reason Provider Source Aug 02, 2024 07:30 AM OFF/OP CNSLTJ NEW/EST LOW 30 PODIATRY ICD-10-CM M25.872 Other specified joint disorders, left ankle and foot RADHA,JENNY L IHE Encounter Template Text not used by ID Assessments - Encounter Diagnoses This section includes the primary and secondary diagnoses documented for the Encounter. Date/Time Primary/Secondary Diagnosis Diagnosis Name Provider Source Aug 02, 2024 08:57 PM PRIMARY Other specified joint disorders, left ankle and foot RADHA,JENNY L [facility] Aug 02, 2024 08:57 PM SECONDARY Other acquired deformities of unspecified foot RADHA,MAGNESS L [facility] Aug 02, 2024 08:57 PM SECONDARY Pain in left foot RADHA,[facility] Plan of Treatment: Future Appointments (+ 6 months) and Future Tests (+/- 45 days) The Plan of Treatment section includes future care activities for the patient [facility] This section includes future appointments and future orders which are active, pending or scheduled. Future Appointments This section includes appointments that were scheduled to occur 6 months from the date of the Encounter, up to a maximum of 20 appointments. The data comes from all ID treatment facilities. Appointment Date/Time Appointment Type Appointme nt Facility Name Aug 22, 2024 10:45 AM AMBULATORY - SURGERY [facility] Jan 16, 2025 10:00 AM AMBULATORY - SURGERY [facility] Social History: Smoking Status (Most current) [...] 2012 08:02 AM LIFETIME NON-USER OF TOBACCO [facility] Advance Directives: All historical and current Section Date Range: From patient's date of to the date document was created. This section includes ALL of a patient's completed or amended [place] Advance and Rescinded Directives. The entries below indicate that a directive exists for the patient, but an actual copy is not included with this document. The data comes from all ID facilities. Date Advance Directives Provider Source Feb 23, 2014 ADVANCE DIRECTIVE DISCUSSION ANGELITA AGUILA [facility]
--- OUTSIDE RECORDS SUMMARY | 2024-08-07 10:03 | XMS_ITS | Encounter Summary ---
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 Date/Time Encounter Type Encounter Description Reason Provider Source Feb 29, 2024 01:30 PM OFFICE O/P EST MOD 30 MIN CARDIOLOGY ICD-10-CM I48.0 Paroxysmal atrial fibrillation BRIAN ORTIZ Pho[place] Encounter Template Text not used by [place] Assessments - Encounter Diagnoses This section includes the primary and secondary diagnoses documented for the Encounter. Date/Time Primary/Secondary Diagnosis Diagnosis Name Provider Source Mar 07, 2024 10:17 AM PRIMARY Paroxysmal atrial fibrillation BRIAN ORTIZ [facility] Mar 07, 2024 10:17 AM SECONDARY Hyperlipidemia, unspecified BRIAN ORTIZ [facility] Mar 07, 2024 10:17 AM SECONDARY Sleep apnea, unspecified BRIAN ORTIZ [facility] Plan of Treatment: Future Appointments (+ 6 months) and Future Tests (+/- 45 days) The Plan of Treatment section includes [facility] care activities [facility] the [facility] [place] [facility] This section includes future appointments [...] 09, 2024 10:30 AM AMBULATORY - MEDICINE [facility] Mar 15, 2024 09:00 AM AMBULATORY - MEDICINE [facility] Mar 20, 2024 10:40 AM AMBULATORY - SUR[facility]ERY [facility] Apr 06, 2024 11:00 AM [facility]ONE [facility] Apr 07, 2024 09:30 AM AMBULATORY [facility] Apr 25, 2024 02:30 AM AMBULATORY - [facility]ERY [facility] Jul 25, 2024 10:00 AM AMBULATORY - [facility]ERY [facility] Aug 02, 2024 07:30 AM AMBULATORY - [facility] Aug 22, 2024 10:45 AM AMBULATORY - SUR[facility]ERY [facility] Active, Pending, and Scheduled Orders This section includes a listing of several types of active, pending, and scheduled orders, including clinic medications orders, diagnostic test orders, procedure orders and consult orders; where the start date of the order is 45 days before the date of the Encounter or 45 days after the date of theEncounter. The data comes from all [place] treatment facilities. Test Date/Time Test Type Test Details Facility Name Mar 13, 2024 03:23 PM Consult Order [facility] Cons Workers Compensation Consultant's Choice [facility] Lab Results: +/- 30 days of the encounter This section includes the Chemistry and Hematology Lab Results on record with [place] for the patient. Radiology Reports and Pathology Reports are provided separately, in subsequent sections. Lab Results This section contains the Chemistry/Hematology Results that were resulted 30 days before or 30 daysafter the date of the Encounter. Date/Time Source Result Type Result - Unit Interpretation Reference Range Comment Mar 09, 2024 11:30 AM [facility] LIPID PANEL (STL) Specimen Type: PLASMA Comment: No hemolysis noted. Ordering Provider: WARREN ZAZUETA Report Released Date/Time: Mar 09, 2024 10:49 AM Reporting Lab: [facility] [address] [address] Performing Lab: [facility] [address] [place] [phone] CHOLESTEROL 160 mg/dL 0-200 TRIGLYCERIDE 46 mg/dL 0-150 CALCULATED LDL 95 mg/dL HDL(New) 56 mg/dL >40 Mar 09, 2024 11:30 AM [facility] HGA1C Specimen Type: BLOOD No comment entered. Ordering Provider: WARREN ZAZUETA Report Released Date/Time: Mar 09, 2024 10:49 AM Reporting Lab: [facility] [address] [address] Performing Lab: [facility] [address] [place] [phone] HGA1C 5.6 4.0-6.0 Mar 09, 2024 11:30 AM [facility] TSH W/ REFLEX FT4 (STL) Specimen Type: PLASMA No comment entered. Ordering Provider: WARREN ZAZUETA Report Released Date/Time: Mar 09, 2024 10:49 AM Reporting Lab: [facility] [address] [place] [phone] Performing Lab: [facility] [address] [place] [phone] TSH 2.453 u[IU]/mL 0.47-5 Mar 09, 2024 11:30 AM [facility] URINALYSIS (STL-PB) Specimen Type: URINE No comment entered. Ordering Provider: WARREN ZAZUETA Report Released Date/Time: Mar 09, 2024 10:49 AM Reporting Lab: [facility] [address] [place] [phone] Performing Lab: [address] [phone] URINE COLOR Colorless Yellow U.BILIRUBIN Negative mg/dL Negative U.PH 7.0 5.0-8.0 APPEARANCE Clear Clear U.NITRITE Negative mg/dL Negative URN.GLUCOSE Normal mg/dL Negative URN.PROTEIN Negative mg/dL URN.UROBILINOGEN Normal mg/dL Normal URN.BLOOD Negative mg/dL Negative-Tra ce URN.KETONES Negative mg/dL Negative-Tra ce URN.LEUK.EST. Negative mg/dL Negative-Tra ce URN.SPECIFIC GRAVITY 1.004 L Mar 09, 2024 11:30 AM [facility] VITAMIN D, 25-HYDROXY Specimen Type: SERUM No comment entered. Ordering Provider: WARREN ZAZUETA Report Released Date/Time: Mar 09, 2024 10:49 AM Reporting Lab: [facility] [address] [place] [phone] Performing Lab: [facility] [address] [place] [phone] VITAMIN D, 25-HYDROXY 49.2 ng/mL 30-96 Mar 09, 2024 11:30 AM [facility] AMYLASE Specimen Type: PLASMA Comment: No hemolysis noted. Ordering Provider: WARREN ZAZUETA Report Released Date/Time: Mar 09, 2024 11:00 AM Reporting Lab: [facility] [address] [place] [phone] Performing Lab: [place] [address] [facility] [phone] AMYLASE 155 U/L H 25-125 Mar 09, 2024 11:30 AM [facility] LIPASE Specimen Type: PLASMA Comment: No hemolysis noted. Ordering Provider: WARREN ZAZUETA Report Released Date/Time: Mar 09, 2024 11:00 AM Reporting Lab: [address] [address] Performing Lab: [address] [address] LIPASE 267 U/L H 8-78 Mar 09, 2024 11:30 AM [facility] COMPREHENSIVE METABOLIC PANEL Specimen Type: PLASMA Comment: No hemolysis noted. Ordering Provider: WARREN ZAZUETA Report Released Date/Time: Mar 09, 2024 10:49 AM Reporting Lab: [address] [address] Performing Lab: [address] [address] CREATININE 0.96 mg/dL 0.6-1.1 UREA NITROGEN 16.6 [...] 65.3 >60 Mar 09, 2024 11:30 AM [facility] CBC Specimen Type: BLOOD No comment entered. Ordering Provider: WARREN ZAZUETA Report Released Date/Time: Mar 09, 2024 10:49 AM Reporting Lab: [facility] [address] [place] [phone] Performing Lab: [place] [address] [facility] [phone] WBC 4.2 10*3/uL 3.6-11.2 RBC 3.56 10*6/uL [...] 78 105/66 16 97 0 156.6 27 [facility] Social History: Smoking Status (Most [...] 2016 10:21 AM LIFETIME NON-USER OF TOBACCO [facility] Tobacco Use History This section includes a history of the smoking, or tobacco-related health factors, that were collected on or before the date of the Encounter. The data comes from the [place] facility where the Encounter took place. Date/Time Smoking Status/Tobacco Use Comment Mehreen acility Mar 04, 2015 08:10 AM LIFETIME NON-USER OF TOBACCO [facility] Aug 02, 2006 11:04 AM LIFETIME NON-USER OF TOBACCO [facility] Dec 22, 2005 03:00 PM LIFETIME NON-TOBACCO USER [facility] Feb 17, 2005 03:19 PM LIFETIME NON-TOBACCO USER [facility] Jul 17, 2004 02:13 PM LIFETIME NON-TOBACCO USER [facility] Jul 17, 2004 01:43 PM LIFETIME NON-TOBACCO USER [facility] Advance Directives: All historical and current [...] 23, 2014 ADVANCE DIRECTIVE DISCUSSION ANGELITA AGUILA [facility] Radiology Reports: +/- 30 days of [...] the Encounter. The data comes from all [place] treatment facilities. Date/Time Radiology Report Provider Source Mar 15, 2024 08:52 AM US ABDOMEN LIMITED W/BLOOD FLOW DOPPLER: KADI MARTINEZ [id number] -1955 F Exm Date: MAR 15, 2024@08:52 Req Phys: THANH ZAZUETA Pat Loc: [facility] PACT WH W2 PCP (Margaritaq'g L Img Loc: [facility]-ULTRASOUND [facility] Service: Unknown [facility], [address] [place] [address] (Case [id number] COMPLETE) US ABDOMEN LTD, SINGLE ORG OR GENARO(US Detailed) CPT:74133 Reason for Study: pain RUQ (Case 2071 COMPLETE) US BLOOD FLOW ABD/RENAL (LTD) (US Detailed) CPT:12442 Clinical History: Organ to Image: RUQ Reason for exam: pain after eating Report Status: Verified Date Reported: MAR 15, 2024 Date Verified: MAR 15, 2024 Child Care Specialist E-Sig:/ES/SAMANTHA SETHI Report: DATE: 03/15/2024 8:52 AM EXAM: US ABDOMEN LTD, SINGLE ORG OR QUADRANT, US BLOOD FLOW ABD/RENAL (LTD) ACCESSION NUMBERS: [id number], [id number] HISTORY: pain RUQ Technique: Real-time ultrasound examination [...] disease, recommend clinical correlation. Ruperto Awad MD (Make Up Editor) I, Samantha Sethi, have reviewed the images and report and concur with these findings. Primary Interpreting Staff: SAMANTHA SETHI MD (Child Care Specialist) Primary Interpreting Resident: RUPERTO AWAD, Resident Physician /SAMANTHA GONZALEZ [facility] Mar 09, 2024 12:28 PM KNEE,RIGHT 3 VIEWS: KADI MARTINEZ [id number] -1955 F Exm Date: MAR 09, 2024@12:28 Req Phys: THANH [facility] (Req'g L Img Loc: [facility] RADIOLOGY SUITE Service: Unknown [address] [address] (Case [id number] COMPLETE) KNEE,RIGHT 3 VIEWS (RAD Detailed) CPT:68297 Proc Modifiers : RIGHT Reason for Study: right knee pain after fall Clinical History: Report Status: Verified Date Reported: MAR 09, 2024 Date Verified: MAR 09, 2024 Child Care Specialist E-Sig:/COLT/AMARJIT TRACEY MD Report: Case #[id number]. Right [...] AMARJIT TRACEY MD, Staff Physician - Radiologist (Child Care Specialist) /CHRISTI VELARDE [facility] Mar 09, 2024 12:28 PM KNEE,LEFT, 3 VIEWS: KADI MARTINEZ [id number] -1955 F Exm Date: MAR 09, 2024@12:28 Req Phys: THANH ZAZUETA [facility] (Req'g L Img Loc: [facility] RADIOLOGY SUITE Service: Unknown [address] [address] (Case [id number] COMPLETE) KNEE,LEFT, 3 VIEWS (RAD Detailed) CPT:49869 Proc Modifiers : LEFT Reason for Study: pain in knee Clinical History: Report Status: Verified Date Reported: MAR 09, 2024 Date Verified: MAR 09, 2024 Child Care Specialist E-Sig:/COLT/AMARJIT TRACEY MD Report: Case #[id number]. Left [...] AMARJIT TRACEY MD, Staff Physician - Radiologist (Child Care Specialist) /CHRISTI VELARDE [facility] Mar 09, 2024 12:28 PM FOOT,LEFT 3 VIEWS OR MORE: KADI MARTINEZ Phoebe [id number] -1955 F Exm Date: MAR 09, 2024@12:28 Req Phys: THANH ZAZUETA [facility] PCP (Req'g L Img Loc: -MAIN RADIOLOGY SUITE Service: [address] [address] (Case [id number] COMPLETE) FOOT,LEFT 3 VIEWS OR MORE (RAD Detailed) CPT:19196 Proc Modifiers : LEFT Reason for Study: foot pain Clinical History: Report Status: Verified Date Reported: MAR 09, 2024 Date Verified: MAR 09, 2024 Child Care Specialist E-Sig:/ES/AMARJIT TRACEY MD Report: Case #[id number]. Left [...] AMARJIT TRACEY MD, Staff Physician - Radiologist (Child Care Specialist) /CHRISTI VELARDE [facility] Mar 09, 2024 12:28 PM FOOT,RIGHT,3 VIEWS OR MORE: MICHELLEKADI Phoebe [id number] -1955 F Exm Date: MAR 09, 2024@12:28 Req Phys: THANH ZAZUETA [facility] PCP (Req'g L Img Loc: [facility] RADIOLOGY SUITE Service: Unknown [facility], [address] [place] [address] (Case [id number] COMPLETE) FOOT,RIGHT,3 VIEWS OR MORE (RAD Detailed) CPT:45854 Proc Modifiers : RIGHT Reason for Study: foot pain Clinical History: Report Status: Verified Date Reported: MAR 09, 2024 Date Verified: MAR 09, 2024 Child Care Specialist E-Sig:/ES/AMARJIT TRACEY MD Report: Case #[id number]. Right [...] AMARJIT TRACEY MD, Staff Physician - Radiologist (Child Care Specialist) /CHRISTI VELARDE [facility] Encounter Notes: All associated encounter notes This section contains the clinical notes associated to the Encounter. Date/Time Encounter Note(s) Provider Source Feb 29, 2024 01:22 PM CARDIOLOGY OUTPATI ENT NOTE: LOCAL TITLE: CARDIOLOGY OUTPATIENT FOLLOW UP [facility] STANDARD TITLE: CARDIOLOGY OUTPATIENT NOTE DATE OF NOTE: FEB 29, 2024@13:22 ENTRY DATE: FEB 29, 2024@13:22:32 AUTHOR: BRIAN ORTIZ COSIGNER: URGENCY: STATUS: COMPLETED [facility] CARDIOLOGY SERVICE: FOLLOW-UP VISIT NOTE PRINCIPAL AND SECONDARY DIAGNOSES: #. Atrial fibrillation #. HLD #. ZEINA #. S/p meningioma resection and left cochlear implant #. Tension headaches #. Depression #. CKD CARE TEAM: 1. THANH ZAZUETA - pcp INTERVAL HISTORY: MsAbraham Martinez is a [...] mg B ID. S/p meningioma resection at [place]. Dr. 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 She previously took ASA 325 mg but had easy bleeding/bruising so this was decreased to ASA 81. There has been no documented AF on holter monitors in 2009 and 2017, or ECGs at the [place] since 2004. We discussed risks/benefits of AC. [...] for allowing us to participate in this [facility]. Please do not hesitate to call the HF team with any questions or concerns. /colt/ Brian Ortiz PA-C Cardiology Physician Coal Weigher Signed: 02/29/2024 15:03 BRIAN ORTIZ [facility]
--- OUTSIDE RECORDS SUMMARY | 2024-08-07 10:03 | XMS_ITS | Encounter Summary ---
Author Name [facility] [place] [facility] [place] Address [address] [place] [address] Care Team Providers Care Sales Agent Insurance Name Role Phone THANH ZAZUETA Primary Care [...] [employer] VISIO N PLAN May 17, 2016 [id number] [phone] KADI MARTINEZ PATIENT EYEMED (WNR) VISION VISIO N May 17, 2019 [id number] KADI MARTINEZ PATIENT MEDICARE (WNR) MEDICARE (M) PART A Nov 14, 2022 PART A [id number] KADI MARTINEZ PATIENT MEDICARE (WNR) MEDICARE (M) PART B Nov 14, 2022 PART B [id number] KADI MARTINEZ PATIENT Selected Encounter This section includes the information on record at [place] for the Encounter. Date/Time Encounter Type Encounter Description Reason Provider Source Apr 07, 2024 09:30 AM OFF/OP CNSLTJ NEW/EST MOD 40 PODIATRY ICD-10-CM M79.672 Pain in left foot RADHA,JENNY L IHE Encounter Template Text not used by [facility] Assessments - Encounter Diagnoses This section includes the primary and secondary diagnoses documented for the Encounter. Date/Time Primary/Secondary Diagnosis Diagnosis Name Provider Source Apr 09, 2024 09:36 AM PRIMARY Pain in left foot RADHA,JENNY L [facility] Apr 09, 2024 09:36 AM SECONDARY Neuralgia and neuritis, unspecified RADHA,JENNY L [facility] Apr 09, 2024 09:36 AM SECONDARY Other acquired deformities of unspecified foot RADHA,[facility] Apr 09, 2024 09:36 AM SECONDARY Pain in unspecified ankle and joints of unspecified foot RADHA,[facility] Plan of Treatment: Future Appointments (+ 6 months) and Future Tests (+/- 45 days) The Plan of Treatment section includes future care activities for the patient [facility] [place] [facility] This section includes future appointments and future orders which are active, pending or scheduled. Future Appointments This section includes appointments that were scheduled to occur 6 months from the date of the Encounter, up to a maximum of 20 appointments. The data comes from all [place] treatment facilities. Appointment Date/Time Appointment Type Appointme nt Facility Name Apr 25, 2024 02:30 AM AMBULATORY - SURGERY . [facility] Jul 25, 2024 10:00 AM AMBULATORY - SURGERY [facility] Aug 02, 2024 07:30 AM AMBULATORY - SURGERY [facility] Aug 22, 2024 10:45 AM AMBULATORY - SURGERY [facility] Active, Pending, and Scheduled Orders This section includes a listing of several types of active, pending, and scheduled orders, including clinic medications orders, diagnostic test orders, procedure orders and consult orders; where the start date of the order is 45 days before the date of the Encounter or 45 days after the date of theEncounter. The data comes from all [place] treatment facilities. Test Date/Time Test Type Test Details Facility Name Mar 13, 2024 03:23 PM Consult Order [facility] Cons Plunger Scoop Operator's Choice [facility] Lab Results: +/- 30 days of the encounter This section includes the Chemistry and Hematology Lab Results on record with [place] for the patient. Radiology Reports and Pathology Reports are provided separately, in subsequent sections. Lab Results This section contains the Chemistry/Hematology Results that were resulted 30 days before or 30 daysafter the date of the Encounter. Date/Time Source Result Type Result - Unit Interpretation Reference Range Comment Mar 09, 2024 11:30 AM [facility] LIPID PANEL (STL) Specimen Type: PLASMA Comment: No hemolysis noted. Ordering Provider: WARREN ZAZUETA Report Released Date/Time: Mar 09, 2024 10:49 AM Reporting Lab: [facility] [address] [facility] [phone] Performing Lab: [facility] [address] [facility] [phone] CHOLESTEROL 160 mg/dL 0-200 TRIGLYCERIDE 46 mg/dL 0-150 CALCULATED LDL 95 mg/dL HDL(New) 56 mg/dL >40 Mar 09, 2024 11:30 AM [facility] HGA1C Specimen Type: BLOOD No comment entered. Ordering Provider: WARREN ZAZUETA Report Released Date/Time: Mar 09, 2024 10:49 AM Reporting Lab: [facility] [address] [facility] [phone] Performing Lab: [facility] [address] [facility] [phone] HGA1C 5.6 4.0-6.0 Mar 09, 2024 11:30 AM [facility] TSH W/ REFLEX FT4 ([facility]) Specimen Type: PLASMA No comment entered. Ordering Provider: WARREN ZAZUETA Report Released Date/Time: Mar 09, 2024 10:49 AM Reporting Lab: [facility] [address] [facility] [phone] Performing Lab: [facility] [address] [place] [phone] TSH 2.453 u[IU]/mL 0.47-5 Mar 09, 2024 11:30 AM [facility] URINALYSIS (STL-PB) Specimen Type: URINE No comment entered. Ordering Provider: WARREN ZAZUETA Report Released Date/Time: Mar 09, 2024 10:49 AM Reporting Lab: [facility] [address] [place] [phone] Performing Lab: [facility] [address] [place] [phone] URINE COLOR Colorless Yellow U.BILIRUBIN Negative mg/dL Negative U.PH 7.0 5.0-8.0 APPEARANCE Clear Clear U.NITRITE Negative mg/dL Negative URN.GLUCOSE Normal mg/dL Negative URN.PROTEIN Negative mg/dL URN.UROBILINOGEN Normal mg/dL Normal URN.BLOOD Negative mg/dL Negative-Tra ce URN.KETONES Negative mg/dL Negative-Tra ce URN.LEUK.EST. Negative mg/dL Negative-Tra ce URN.SPECIFIC GRAVITY 1.004 L Mar 09, 2024 11:30 AM [facility] AMYLASE Specimen Type: PLASMA Comment: No hemolysis noted. Ordering Provider: WARREN ZAZUETA Report Released Date/Time: Mar 09, 2024 11:00 AM Reporting Lab: [facility] [address] [place] [phone] Performing Lab: [facility] [address] [place] [phone] AMYLASE 155 U/L H 25-125 Mar 09, 2024 11:30 AM [facility] VITAMIN D, 25-HYDROXY Specimen Type: SERUM No comment entered. Ordering Provider: WARREN ZAZUETA Report Released Date/Time: Mar 09, 2024 10:49 AM Reporting Lab: [facility] [address] [place] [phone] Performing Lab: [facility] [address] [place] [phone] VITAMIN D, 25-HYDROXY 49.2 ng/mL 30-96 Mar 09, 2024 11:30 AM [facility] LIPASE Specimen Type: PLASMA Comment: No hemolysis noted. Ordering Provider: WARREN ZAZUETA Report Released Date/Time: Mar 09, 2024 11:00 AM Reporting Lab: [facility] [address] [place] [phone] Performing Lab: [facility] [address] [place] [phone] LIPASE 267 U/L H 8-78 Mar 09, 2024 11:30 AM [facility] COMPREHENSIVE METABOLIC PANEL Specimen Type: PLASMA Comment: No hemolysis noted. Ordering Provider: WARREN ZAZUETA Report Released Date/Time: Mar 09, 2024 10:49 AM Reporting Lab: [address] [phone] Performing Lab: [address] [address] CREATININE 0.96 mg/dL 0.6-1.1 UREA NITROGEN 16.6 [...] 65.3 >60 Mar 09, 2024 11:30 AM [facility] CBC Specimen Type: BLOOD No comment entered. Ordering Provider: WARREN ZAZUETA Report Released Date/Time: Mar 09, 2024 10:49 AM Reporting Lab: [facility] [address] [place] [phone] Performing Lab: [address] [address] WBC 4.2 10*3/uL 3.6-11.2 RBC 3.56 10*6/uL [...] and tobacco- related health factors from the [place] facility where the Encounter took place. Current Smoking Status This section includes the most current smoking, or tobacco-related health factor, from the [place] facility where the Encounter took place. Date/Time Current Smoking Status Comment [place] October 12, 2013 08:01 AM LIFETIME NON-USER OF TOBACCO [facility] Tobacco Use History This section includes a history of the smoking, or tobacco-related health factors, that were collected on or before the date of the Encounter. The data comes from the [place] facility where the Encounter took place. Date/Time Smoking Status/Tobacco Use Comment F acility Dec 13, 2012 08:02 AM LIFETIME NON-USER OF TOBACCO [facility] Advance Directives: All historical and current Section Date Range: From patient's date of to the date document was created. This section includes ALL of a patient's completed or amended [place] Advance and Rescinded Directives. The entries below indicate that a directive exists for the patient, but an actual copy is not included with this document. The data comes from all [place] facilities. Date Advance Directives Provider Source Feb 23, 2014 ADVANCE DIRECTIVE DISCUSSION ANGELITA AGUILA [facility] Radiology Reports: +/- 30 days of [...] the Encounter. The data comes from all [place] treatment facilities. Date/Time Radiology Report Provider Source Mar 15, 2024 08:52 AM US ABDOMEN LIMITED W/BLOOD FLOW DOPPLER: KADI MARTINEZ [id number] -1955 F Exm Date: MAR 15, 2024@08:52 Req Phys: THANH ZAZUETA Loc: FRAN-OLV PACT WH W2 PCP (Req'g L Img Loc: FRAN-ULTRASOUND FRAN Service: [address] [address] (Case [id number] COMPLETE) US ABDOMEN LTD, SINGLE ORG OR GENARO(US Detailed) CPT:71794 Reason for Study: pain RUQ (Case [id number] COMPLETE) US BLOOD FLOW ABD/RENAL (LTD) (US Detailed) CPT:28186 Clinical History: Organ to Image: RUQ Reason for exam: pain after eating Report Status: Verified Date Reported: MAR 15, 2024 Date Verified: MAR 15, 2024 Vehicle Body Builder E-Sig:/ES/SAMANTHA ALEMAN Report: DATE: 03/15/2024 8:52 AM EXAM: US ABDOMEN LTD, SINGLE ORG OR QUADRANT, US BLOOD FLOW ABD/RENAL (LTD) ACCESSION NUMBERS: [id number], [id number] HISTORY: pain RUQ Technique: Real-time ultrasound examination [...] disease, recommend clinical correlation. Ruperto Awad MD (Manager Consumer Insights) I, Samantha Aleman, have reviewed the images and report and concur with these findings. Primary Interpreting Staff: SAMANTHA ALEMAN MD (Vehicle Body Builder) Primary Interpreting Resident: RUPERTO AWAD, Resident Physician /SAMANTHA GONZALEZ [facility] Mar 09, 2024 12:28 PM KNEE,LEFT, 3 VIEWS: MICHELLEKADI E [id number] -1955 F Exm Date: MAR 09, 2024@12:28 Req Phys: THANH ZAZUETA Loc: -OL PACT WH W2 PCP (Req'g L Img Loc: -MAIN RADIOLOGY SUITE Service: [facility], [facility] [address] [place] [address] (Case [id number] COMPLETE) KNEE,LEFT, 3 VIEWS (RAD Detailed) CPT:78926 Proc Modifiers : LEFT Reason for Study: pain in knee Clinical History: Report Status: Verified Date Reported: MAR 09, 2024 Date Verified: MAR 09, 2024 Vehicle Body Builder E-Sig:/ES/AMARJIT TRACEY MD Report: Case #[id number]. Left [...] AMARJIT TRACEY MD, Staff Physician - Radiologist (Vehicle Body Builder) /CHRISTI VELARDE [facility] Mar 09, 2024 12:28 PM KNEE,RIGHT 3 VIEWS: KADI MARTINEZ [id number] -1955 F Exm Date: MAR 09, 2024@12:28 Req Phys: THANH ZAZUETA Pat Loc: -[facility] PACT W2 PCP (Req'g L Img Loc: [facility] RADIOLOGY SUITE Service: Unknown [address] [address] (Case [id number] COMPLETE) KNEE,RIGHT 3 VIEWS (RAD Detailed) CPT:98990 Proc Modifiers : RIGHT Reason for Study: right knee pain after fall Clinical History: Report Status: Verified Date Reported: MAR 09, 2024 Date Verified: MAR 09, 2024 Vehicle Body Builder E-Sig:/ES/AMARJIT TRACEY MD Report: Case #[id number]. Right [...] AMARJIT TRACEY MD, Staff Physician - Radiologist (Vehicle Body Builder) /CHRISTI VELARDE [facility] Mar 09, 2024 12:28 PM FOOT,RIGHT,3 VIEWS OR MORE: KADI MARTINEZ [id number] -1955 F Exm Date: MAR 09, 2024@12:28 Req Phys: THANH ZAZUETA Loc: FRAN-OLV PACT W2 PCP (Req'g L Img Loc: [facility] RADIOLOGY SUITE Service: Unknown [address] [address] (Case [id number] COMPLETE) FOOT,RIGHT,3 VIEWS OR MORE (RAD Detailed) CPT:24722 Proc Modifiers : RIGHT Reason for Study: foot pain Clinical History: Report Status: Verified Date Reported: MAR 09, 2024 Date Verified: MAR 09, 2024 Vehicle Body Builder E-Sig:/ABHIJIT/AMARJIT TRACEY MD Report: Case #[id number]. Right foot [...] AMARJIT TRACEY MD, Staff Physician - Radiologist (Vehicle Body Builder) /CHRISTI VELARDE [facility] Mar 09, 2024 12:28 PM FOOT,LEFT 3 VIEWS OR MORE: KADI MARTINEZ [id number] -1955 F Exm Date: MAR 09, 2024@12:28 Req Phys: THANH ZAZUETA Pat Loc: -OLV PACT WH W2 PCP (Req'g L Img Loc: -MAIN RADIOLOGY SUITE Service: [facility], [address] [address] (Case [id number] COMPLETE) FOOT,LEFT 3 VIEWS OR MORE (RAD Detailed) CPT:37486 Proc Modifiers : LEFT Reason for Study: foot pain Clinical History: Report Status: Verified Date Reported: MAR 09, 2024 Date Verified: MAR 09, 2024 Vehicle Body Builder E-Sig:/ABHIJIT/AMARJIT TRACEY MD Report: Case #[id number]. Left foot [...] AMARJIT TRACEY MD, Staff Physician - Radiologist (Vehicle Body Builder) /CHRISTI VELARDE [facility] Encounter Notes: All associated encounter notes This section contains the clinical notes associated to the Encounter. Date/Time Encounter Note(s) Provider Source Apr 07, 2024 09:15 AM PODIATRY CONSULT: LOCAL TITLE: PODIATRY CONSULT ST STANDARD TITLE: PODIATRY CONSULT DATE OF NOTE: APR 07, 2024@09:15 ENTRY DATE: APR 07, 2024@09:15:58 AUTHOR: JENNY GARCIA EXP COSIGNER: URGENCY: STATUS: COMPLETED HEARING LOSS Last clinic appt on Jun 12, 2021 SUBJECTIVE: This 68 year old female patient presents for followup for her orthosis and shoes.The patient is currently using [facility] orthosis, received on Jan 22, 2021 by [...] The patient was treated by and nonVA District Associate Judge for 3 years for general feet care, [...] transplant (ICD-9-CM V58.44) 6) Cervicalgia (SNOMED CT 33470467) 7) Acne (ICD-9-CM 706.1) 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 tinel [...] etc. Pt continues to see her nonVA District Associate Judge for her feet. Not much more this [place] curtain cutter hand can offer the pt at this time [...] physical examination, x-ray receive, counseling/teaching, and documentation /es/ Chad KIRBYPAbrahamM. Staff Physician - Podiatry Signed: 05/20/2024 16:31 JENNY GARCIA [facility]
--- OUTSIDE RECORDS SUMMARY | 2024-08-07 10:04 | XMS_ITS | Clinical Summary ---
Author Organization [facility] Address [address] [place] [address] Care Team Providers Care Content Strategy Lead Name Role Phone Unavailable Primary Care Provider [...] of 1 - PCV) 2022 COVID-19 Vaccine (2023-2 5 season) 2024 Influenza Adult (#1) 2024 [...]
--- OUTSIDE RECORDS SUMMARY | 2024-08-07 10:04 | XMS_ITS | Encounter Summary ---
Author Name [facility] [facility] [place] [facility] [place] Address [address] [place] [address] Care Team Providers Care Chief Deputy Coroner Name Role Phone THANH ZAZUETA Primary Care [...] [employer] VISIO N PLAN May 17, 2016 [id number] [phone] KADI MARTINEZ PATIENT EYEMED (WNR) VISION VISIO N May 17, 2019 [id number] [phone] KADI MARTINEZ PATIENT MEDICARE (WNR) MEDICARE (M) PART A Nov 14, 2022 PART A [id number] KADI MARTINEZ PATIENT MEDICARE (WNR) MEDICARE (M) PART B Nov 14, 2022 PART B [id number] [phone] KADI MARTINEZ PATIENT Selected Encounter This section includes the information on record at [place] for the Encounter. Date/Time Encounter Type Encounter Description Reason Provider Source Sep 01, 2023 09:30 AM SELF CARE MNGMENT TRAINING PHYSICAL THERAPY ICD-10-CM M54.2 Cervicalgia LYNN DODSON E Encounter Template Text not used by [place] Assessments - Encounter Diagnoses This section includes the primary and secondary diagnoses documented for the Encounter. Date/Time Primary/Secondary Diagnosis Diagnosis Name Provider Source Sep 01, 2023 11:02 AM PRIMARY Cervicalgia KAROLINA DODSONIN Bernardino [facility] Plan of Treatment: Future Appointments (+ 6 months) and Future Tests (+/- 45 days) The Plan of Treatment section includes future care activities for the patient from all [place] treatmentfacilities. This section includes future appointments and future orders which are active, pending or scheduled. Future Appointments This section includes appointments that were scheduled to occur 6 months from the date of the Encounter, up to a maximum of 20 appointments. The data comes from all [place] treatment facilities. Appointment Date/Time Appointment Type Appointme nt Facility Name Sep 02, 2023 05:00 PM AMBULATORY - MEDICINE [facility] Sep 07, 2023 08:00 AM AMBULATORY - NONE [facility] Sep 08, 2023 10:00 AM AMBULATORY - NONE [facility] Jan 19, 2024 01:00 PM AMBULATORY - NONE [facility] Jan 26, 2024 09:30 AM AMBULATORY - SURGERY [facility] Feb 29, 2024 01:30 PM AMBULATORY - MEDICINE [facility] Advance Directives: All historical and current Section Date Range: From patient's date of to the date document was created. This section includes ALL of a patient's completed or amended [place] Advance and Rescinded Directives. The entries below indicate that a directive exists for the patient, but an actual copy is not included with this document. The data comes from all [place] facilities. Date Advance Directives Provider Source Feb 23, 2014 ADVANCE DIRECTIVE DISCUSSION ANGELITA AGUILA [facility] Encounter Notes: All associated encounter notes [...] STATUS: COMPLETED Chart Review: Imaging Chart Review: [facility] including: --- Referring provider: THANH ZAZUETA [...] neuro re-ed-added to HEP [] seated on Kittitian ball medial/lateral bounce slow down to a stop 5-10 sec x 3 reps [] seated on nauruan ball vertical bounce slow down to a [...] independence with sitting, standing, and sleeping postures.(ongoing) Group Home: (12 weeks) 1) Pt. will demonstrate independence [...] instruction /colt/ LYNN DODSON Physical Therapist Signed: 09/01/2023 11:05 LYNN DODSON [facility]
--- OUTSIDE RECORDS SUMMARY | 2024-08-07 10:04 | XMS_ITS | Clinical Summary ---
Author Organization [facility] Address [address] [place] [address] Care Team Providers Care Learning Administrator Name Role Phone Unavailable Primary Care Provider [...] on file Legal Sex Female 3:11 AM SWITCH CLEANER Gender Identity Not on file Sexual Orientation Not on file Last Filed Vital Signs Vital Sign Reading Time Taken Comments Blood Pressure 115/69 04/23/2020 11:18 AM SWITCH CLEANER Pulse 69 04/23/2020 11:18 AM SWITCH CLEANER Temperature 36.1 C (97 F) 04/23/2020 11:18 AM SWITCH CLEANER Respiratory Rate 16 04/23/2020 11:18 AM SWITCH CLEANER Oxygen Saturation 99% 04/23/2020 11:18 AM SWITCH CLEANER Inhaled Oxygen Concentration - - Weight - - Height - - Body Mass Index - - Plan of Treatment Health Maintenance Due Date Last Done Comments DTAP/TDAP/TD VACCINES (1 - Tdap) 1976 BREAST CANCER SCREENING 1997 COLORECTAL SCREENING 2002 Colorectal Cancer Screening 2002 FIT-DNA Q 3 years 2002 FIT/FOBT Q 1 year 2002 Flex Sig/CT Colonography Q 5 years 2002 PNEUMOCOCCAL VACCINE 50+ YEARS (1 of 1 - PCV) 12/01/19 08 ZOSTER VACCINE (1 of 2) 12/01/2007 OSTEOPOROSIS SCREENING 2022 INFLUENZA VACCINE (#1) 2023 RSV VACCINE (60+ or ) (1 - 1-dose 75+ series) [address] [place] [address]
--- OUTSIDE RECORDS SUMMARY | 2024-08-07 10:04 | XMS_ITS ---
Author Name [facility] [place] Address [address] [place] [address] Care Team Providers Care Daycare Assistant Name Role Phone THANH ZAZUETA Primary Care [...] [employer] VISIO [employer] PLAN May 17, 2016 [id number] [phone] KADI MARTINEZ PATIENT EYEMED (WNR) VISION VISIO N May 17, 2019 [id number] [phone] KADI MARTINEZ PATIENT MEDICARE (WNR) MEDICARE (M) PART B Nov 14, 2022 PART B [id number] [phone] KADI MARTINEZ PATIENT MEDICARE (WNR) MEDICARE (M) PART A Nov 14, 2022 PART A [id number] KADI MARTINEZ PATIENT Selected Encounter This section includes the information on record at [place] for the Encounter. Date/Time Encounter Type Encounter Description Reason Pro vider Source Apr 20, 2024 10:04 PM Outpatient Encounter GENERAL INTERNAL MEDICINE I[facility] Encounter Template Text not used by [place] Plan of Treatment: Future Appointments (+ 6 months) and Future Tests (+/- 45 days) The Plan of Treatment section includes future care activities for the patient from all [place] treatmentfacilities. This section includes future appointments and future orders which are active, pending or scheduled. Future Appointments This section includes appointments that were scheduled to occur 6 months from the date of the Encounter, up to a maximum of 20 appointments. The data comes from all [place] treatment facilities. Appointment Date/Time Appointment Type Appointme nt Facility Name Apr 25, 2024 02:30 AM AMBULATORY - SURGERY [facility] Jul 25, 2024 10:00 AM AMBULATORY - SURGERY [facility] Aug 02, 2024 07:30 AM AMBULATORY - SURGERY [facility] Aug 22, 2024 10:45 AM AMBULATORY - SURGERY [facility] Active, Pending, and Scheduled Orders This section includes a listing of several types of active, pending, and scheduled orders, including clinic medications orders, diagnostic test orders, procedure orders and consult orders; where the start date of the order is 45 days before the date of the Encounter or 45 days after the date of theEncounter. The data comes from all [place] treatment [facility]. Test Date/Time Test Type Test Details Facility Name Mar 13, 2024 03:23 PM Consult Order [facility] Cons Hinging Machine Operator's [facility] Social History: Smoking Status (Most current) and Tobacco Use (All prior to encounter date) This section includes the most current, and the historical, smoking and tobacco- related health factors from the [place] facility where the Encounter took place. Current Smoking Status This section includes the most current smoking, or tobacco-related health factor, from the [place] facility where the Encounter took place. Date/Time Current Smoking Status Elly pope Jan 15, 2016 10:21 AM LIFETIME NON-USER OF TOBACCO [facility] Tobacco Use History This section includes a history of the smoking, or tobacco-related health factors, that were collected on or before the date of the Encounter. The data comes from the [place] facility where the Encounter took place. Date/Time Smoking Status/Tobacco Use Comment F acility Mar 04, 2015 08:10 AM LIFETIME NON-USER OF TOBACCO [facility] Aug 02, 2006 11:04 AM LIFETIME NON-USER OF TOBACCO [facility] Dec 22, 2005 03:00 PM LIFETIME NON-TOBACCO USER [facility] Feb 17, 2005 03:19 PM LIFETIME NON-TOBACCO USER [facility] Jul 17, 2004 02:13 PM LIFETIME NON-TOBACCO USER [facility] Jul 17, 2004 01:43 PM LIFETIME NON-TOBACCO USER [facility] Advance Directives: All historical and current Section Date Range: From patient's date of to the date document was created. This section includes ALL of a patient's completed or amended [place] Advance and Rescinded Directives. The entries below indicate that a directive exists for the patient, but an actual copy is not included with this document. The data comes from all [place] facilities. Date Advance Directives Provider Source Feb 23, 2014 ADVANCE DIRECTIVE DISCUSSION ANGELITA AGUILA [facility] Encounter Notes: All associated encounter notes This [...] By: 04/24/2024 07:37 /colt/ RONI GONZALEZ ADVANCED PRIVATE CLIENT ADVISOR WONG CARREON [facility]
--- OUTSIDE RECORDS SUMMARY | 2024-08-07 10:04 | XMS_ITS | Data Portability ---
Author Organization [facility], Main Office Address [address] [place] [address] Care Team Providers Care Transmission Builder Name Role Phone SIRISHA TERRY Primary Care Provider [phone] SIRISHA TERRY Referring Provider [phone] Assessment Encounter Date Assessment Date Assessment LastModified [...] Recorded Time Extensor tenosynovit is of wrist 281075996 Active 2022 MIKE Ramey, [facility] 13:48:26 Acquired trigger finger of right ring finger [id number] 08 Active 2022 MIKE Ramey, [facility] 13:48:36 Problem Notes None recorded. Procedures Surgical History Date Name Laterality Status Provider Name and Address Organization Details Recorded Time 1 excision of bunion completed Not Available [facility] 07/15/2022 21:12:31 0 procedure on wrist completed Not Available [facility] 07/15/2022 21:12:31 0 Implant cochlear device completed Not Available [facility] 07/15/2022 21:12:31 1 Carpal tunnel surgery completed Not Available [facility] 07/15/2022 21:12:31 1 Carpal tunnel surgery completed Not Available [facility] 07/15/2022 21:12:31 6 Carpal tunnel surgery completed Not Available [facility] 07/15/2022 21:12:31 0 delivery completed Not Available [facility] 07/15/2022 21:12:31 3 delivery completed Not Available [facility] 07/15/2022 21:12:31 7 extraction of wisdom tooth completed Not Available [facility] 07/15/2022 21:12:31 delivery completed Not Available [facility] 07/15/2022 21:12:31 Eye Surgery completed Not Available [facility] 07/15/2022 21:12:31 Anterior cervical decompression/ fusiom completed Not Available [facility] 07/15/2022 21:12:31 Imaging Results None recorded. Procedure Notes None recorded. Medical Equipment None Reported. Allergies Allergen ID Allergen Name Allergen Category Reaction Reaction Severity Criticality Documentation Date Start Date Code Code System Note Provider Name and Address Organization Details Recorded Time 05967 iodine medicatio n Not available Not available Not available 07/15/2022 5933 RxNorm Not Available [facility] 21:14:13 89760 codeine medicatio n vomiting Not available Not available 07/15/2022 2670 RxNorm Not Available [facility] 21:14:13 35732 Betadine medicatio n Not available Not available Not available 07/15/2022 97594 0 RxNorm Not Available [facility] 21:14:13 Medications Name Sig Start Date [...] administe red by the provider 06/03 completed [facility]: 0003- 0494- 20 Not Available Not Available [...] administe red by the provider 06/03 completed [facility]: 0409- [phone]- [phone] Not Available Not Available [...] Date Recorded Body mass index (BMI) Body height Body weight Provider Name and Address Organization Details Last Updated DateTime 06/03/2022 28.2 kg/m2 162.56 cm 46467.15 g Not Available [facility] 21:12:39 Date Recorded Body mass index (BMI) Body height Body weight Provider Name and Address Organization Details Last Updated DateTime 07/07/2022 28.2 kg/m2 162.56 cm 25804.15 g Not Available [facility] 07/15/2022 21:12:39 Date Recorded Body height Body mass index (BMI) Body weight Provider Name and Address Organization Details Last Updated DateTime 09/08/2022 162.56 cm 27.6 kg/m2 43731.37 g MIKE Ramey [facility] [employer] [facility] 09/08/2022 13:47:58 Social History Question Answer Notes LastModified by Organizat ion Details LastModified Time Tobacco Smoking Status Never Smoker Shea Drew bennett, [facility] 09/08/2022 13:45:59 What Is Your Level Of Alcohol Consumption? None [id number] Information not available 07/15/2022 What Was The Date Of Your Most Recent Tobacco Screening? 06/03/2022 [email or web address] Information not available 09/08/2022 Sex: Unknown Functional Status None recorded. Mental Status None recorded. Family History Relationship Description Onset Age of this Age Resolved Age Notes LastModified by Organization Details LastModified Time Mother Hypertensive disorder [id number] Not available 07/15/2022 21:12:32 Mother Kidney disease [id number].328 [id number] Not available 07/15/2022 21:12:32 Brother Diabetes mellitus [id number] Not available 07/15/2022 21:12:32 Sister Diabetes mellitus [id number] Not available 07/15/2022 21:12:32 Medical History Condition Response LUNG DISEASE/DISORDER Y HEART ARRHYTHMIA Y Gynecological HistoryNo gynecological history recorded. Obstetrics History GPAL:G 0 P 0 0 0 0 Past Encounters Encounter ID Performer Location Encounter Start Date Encounter Closed Date Diagnosis/Indication Diagnosis SNOMED-CT Code Diagnosis ICD10 Code Diagnosis Note [id number] [facility] [address] [place] [address] 06/03/2022 00:00:00 06/03/2022 16:01:17 [id number] [facility] [address] [place] [address] 07/07/2022 00:00:00 07/07/2022 17:32:10 [id number] JEFF Lobato [facility] [address] [place] [address] 09/08/2022 13:44:42 09/08/2022 14:14:20 Extensor tenosynovitis of wrist 370552472 M65.839 Acquired t radio rigger finger of right ring finger 4273780906 47477 M65.341 Health Concerns Section Related Observation LastModified by Organization Detai ls LastModified Time None Recorded Concern Status LastModified by Organization Details LastModified Time None Recorded Advance Directives Directive None Recorded Payers Encounter Date Sequence Insurance Name Policy Number Policy Hoffmann Covered Member ID Hoffmann Member ID Guarantor Name 09/08/2022 1 [facility] Antonio Blake [id number] Charo Blake Notes Date Note Type Note [...] ulnar deviation or lifting objects. JEFF Lobato [address] [facility] [address], [place], [address], [facility] 09/08/2022 17:21:53 OBGyn Episode No OBEpisode recorded.
--- OUTSIDE RECORDS SUMMARY | 2024-08-07 10:04 | XMS_ITS ---
Author Name [facility] [place] Address [address] [place] [address] Care Team Providers Care Computer Teacher Name Role Phone THANH ZAZUETA Primary [...] [employer] VISIO N PLAN May 17, 2016 [id number] [phone] KADI MARTINEZ PATIENT EYEMED (WNR) VISION VISIO N May 17, 2019 [id number] [phone] KADI MARTINEZ PATIENT MEDICARE (WNR) MEDICARE (M) PART A Nov 14, 2022 PART A [id number] KADI MARTINEZ PATIENT MEDICARE (WNR) MEDICARE (M) PART B Nov 14, 2022 PART B [id number] [phone] KADI MARTINEZ PATIENT Selected Encounter This section includes the information on record at [place] for the Encounter. Date/Time Encounter Type Encounter [...] glaucoma, bilateral, mild stage LEBRON,EZE B III [facility] Plan of Treatment: Future Appointments (+ 6 months) and Future Tests (+/- 45 days) The Plan of Treatment section includes future care activities for the patient from all [place] treatmentfacilities. This section includes future appointments and future orders which are active, pending or scheduled. Future Appointments This section includes appointments that were scheduled to occur 6 months from the date of the Encounter, up to a maximum of 20 appointments. The data comes from all [place] treatment facilities. Appointment Date/Time Appointment Type Appointme nt Facility Name Feb 29, 2024 01:30 PM AMBULATORY - MEDICINE [facility] Mar 09, 2024 10:30 AM AMBULATORY - MEDICINE [facility] Mar 15, 2024 09:00 AM AMBULATORY - MEDICINE [facility] Mar 20, 2024 10:40 AM AMBULATORY - SURGERY [facility] Apr 06, 2024 11:00 AM AMBULATORY - NONE [facility] Apr 07, 2024 09:30 AM AMBULATORY - SURGERY [facility] Apr 25, 2024 02:30 AM AMBULATORY - SURGERY [facility] Jul 25, 2024 10:00 AM AMBULATORY - SURGERY [facility] Social History: Smoking Status (Most current) [...] AM LIFETIME NON-USER OF TOBACCO [facility] Tobacco Use History This section includes a history of the smoking, or tobacco-related health factors, that were collected on or before the date of the Encounter. The data comes from the [place] facility where the Encounter took place. Date/Time Smoking Status/Tobacco Use Comment F acility Mar 04, 2015 08:10 AM LIFETIME NON-USER OF TOBACCO [facility] Aug 02, 2006 11:04 AM LIFETIME NON-USER OF TOBACCO [facility] Dec 22, 2005 03:00 PM LIFETIME NON-TOBACCO USER [facility] Feb 17, 2005 03:19 PM LIFETIME NON-TOBACCO USER [facility] Jul 17, 2004 02:13 PM LIFETIME NON-TOBACCO USER [facility] Jul 17, 2004 01:43 PM LIFETIME NON-TOBACCO USER [facility] Advance Directives: All historical and current Section Date Range: From patient's date of to the date document was created. This section includes ALL of a patient's completed or amended [place] Advance and Rescinded Directives. The entries below indicate that a directive exists for the patient, but an actual copy is not included with this document. The data comes from all [place] facilities. Date Advance Directives Provider Source Feb 23, 2014 ADVANCE DIRECTIVE DISCUSSION ANGELITA AGUILA [facility] Radiology Reports: +/- 30 days of the [...] the Encounter. The data comes from all [place] treatment facilities. Date/Time Radiology Report Provider Source Jan 19, 2024 01:05 PM MAMM DIG SCREENING WITH CAD-P: KADI MARTINEZ [id number] -[id number] F Exm Date: JAN 19, 2024@13:05 Req Phys: THANH ZAZUETA Loc: [facility] AM (Req'g Loc) Img Loc: [facility]AMS Service: Unknown [facility] [address] [place] [address] (Case 1941 COMPLETE) SCREENING DIG BREAST JAZZY, BILAT,([facility] Detailed) CPT:55088 Reason for Study: #PSDS, screening 12/22/2022, BI-RADS 1 (Case 1942 COMPLETE) MAMMOGRAPHY SCREENING, BILAT INCL([facility] Detailed) CPT:26998 Clinical History: Report Status: Verified Date Reported: JAN 19, 2024 Date Verified: JAN 19, 2024 Chemical Cell Changer E-Sig:/ES/PERRY PEREZ Report: BILATERAL SCREENING MAMMOGRAM CASE NUMBERS: [id number], [id number] DATE: 01/29/2024. COMPARISON: Multiple prior mammograms, most [...] mammography according to the [employer] / [employer] guidelines in consultation with primary healthcare provider. 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 Still has some visual confusion/diplopia. 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
--- OUTSIDE RECORDS SUMMARY | 2024-08-07 10:04 | XMS_ITS | Encounter Summary ---
Author Name [facility] [place] Address [address] [place] [address] Care Team Providers Care Agitator Operator Name Role Phone THANH ZAZUETA Primary [...] [employer] VISIO N PLAN May 17, 2016 [id number] [phone] KADI MARTINEZ PATIENT EYEMED (WNR) VISION VISIO N May 17, 2019 [id number] [phone] KADI MARTINEZ PATIENT MEDICARE (WNR) MEDICARE (M) PART A Nov 14, 2022 PART A [id number] KADI MARTINEZ PATIENT MEDICARE (WNR) MEDICARE (M) PART B Nov 14, 2022 PART B [id number] KADI MARTINEZ PATIENT Selected Encounter This section includes the information on record at [place] for the Encounter. Date/Time Encounter Type Encounter Description Reason Provider Source Sep 07, 2023 08:00 AM DIAB SHOE FOR DENSITY INSERT PROSTHETICS/ORTHO TICS ICD-10-CM Z46.89 Encounter for fitting and adjustment of oth devices SAMANTHA SHARMA I[facility] Encounter Template Text not used by [place] Assessments - Encounter Diagnoses This section includes the primary and secondary diagnoses documented for the Encounter. Date/Time Primary/Secondary Diagnosis Diagnosis Name Provider Source Sep 07, 2023 01:28 PM PRIMARY Encounter for fitting and adjustment of oth devices SAMANTHA SHARMA [facility] Plan of Treatment: Future Appointments (+ 6 months) and Future Tests (+/- 45 days) The Plan of Treatment section includes future care activities for the patient [facility] [place] [facility] This section includes future appointments [...] 2023 10:00 AM AMBULATORY - NONE [facility] Jan 19, 2024 01:00 PM AMBULATORY - NONE [facility] Jan 26, 2024 09:30 AM AMBULATORY - SURGERY [facility] Feb 29, 2024 01:30 PM AMBULATORY - MEDICINE [facility] Social History: Smoking Status (Most current) and [...] 2013 08:01 AM LIFETIME NON-USER OF TOBACCO [facility] Tobacco Use History This section includes a history of the smoking, or tobacco-related health factors, that were collected on or before the date of the Encounter. The data comes from the [place] facility where the Encounter took place. Date/Time Smoking Status/Tobacco Use Comment F acility Dec 13, 2012 08:02 AM LIFETIME NON-USER OF TOBACCO [facility] Advance Directives: All historical and [...] ADVANCE DIRECTIVE DISCUSSION ANGELITA AGUILA [facility] Encounter Notes: All associated encounter [...] follow prn. 30 min. /colt/ SAMANTHA SHARMA Orthotic/Barrel Repairer Signed: 09/07/2023 13:28 SAMANTHA SHARMA [facility]
--- OUTSIDE RECORDS SUMMARY | 2024-08-07 10:04 | XMS_ITS ---
Author Name [facility] [facility] [place] Address [address] [place] [address] Care Team Providers Care Forensic Toxicologist Name Role Phone THANH ZAZUETA Primary Care [...] [employer] VIS[employer] PLAN May 17, 2016 [id number] [phone] KADI MARTINEZ PATIENT EYEMED (WNR) VISION VISIO N May 17, 2019 [id number] [phone] KADI MARTINEZ PATIENT MEDICARE (WNR) MEDICARE (M) PART A Nov 14, 2022 PART A [id number] KADI MARTINEZ PATIENT MEDICARE (WNR) MEDICARE (M) PART B Nov 14, 2022 PART B [id number] [phone] KADI MARTINEZ PATIENT Selected Encounter This section includes the information on record at [place] for the Encounter. Date/Time Encounter Type Encounter Description Reason Provider Source Jul 25, 2024 10:00 AM OFFICE O/P EST HI 40 MIN OPHTHALMOLOGY ICD-10-CM 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, bilateral, mild stage LEBRON,EZE B III [facility] Encounter Template Text not used by [facility] Assessments - Encounter Diagnoses This section includes the primary and secondary diagnoses documented for the Encounter. Date/Time Primary/Secondary Diagnosis Diagnosis Name Provider Source Jul 25, 2024 10:40 AM PRIMARY Low-tension glaucoma, bilateral, mild stage LEBRON,EZE B [facility] Jul 25, 2024 10:40 AM SECONDARY Age-related nuclear cataract, bilateral [facility] Plan of Treatment: Future Appointments (+ 6 months) and Future Tests (+/- 45 days) The Plan of Treatment section includes future care activities for the patient from all [place] treatmentfacilities. This section includes future appointments and future orders which are active, pending or scheduled. Future Appointments This section includes appointments that were scheduled to occur 6 months from the date of the Encounter, up to a maximum of 20 appointments. The data comes from all [place] treatment facilities. Appointment Date/Time Appointment Type Appointme nt Facility Name Aug 02, 2024 07:30 AM AMBULATORY - SURGERY [facility] Aug 22, 2024 10:45 AM AMBULATORY - SURGERY [facility] Jan 16, 2025 10:00 AM AMBULATORY - SURGERY [facility] Social History: Smoking Status (Most current) and Tobacco Use (All prior to encounter date) This section includes the most current, and the historical, smoking and tobacco- related health factors from the [place] facility where the Encounter took place. Current Smoking Status This section includes the most current smoking, or tobacco-related health factor, from the [place] facility where the Encounter took place. Date/Time Current Smoking Status Comment Nehal pope Jan 15, 2016 10:21 AM LIFETIME NON-USER OF TOBACCO [facility] Tobacco Use History This section includes a history of the smoking, or tobacco-related health factors, that were collected on or before the date of the Encounter. The data comes from the [place] facility where the Encounter took place. Date/Time Smoking Status/Tobacco Use Comment Mehreen gabriel Mar 04, 2015 08:10 AM LIFETIME NON-USER OF TOBACCO [facility] Aug 02, 2006 11:04 AM LIFETIME NON-USER OF TOBACCO [facility] Dec 22, 2005 03:00 PM LIFETIME NON-TOBACCO USER [facility] Feb 17, 2005 03:19 PM LIFETIME NON-TOBACCO USER [facility] Jul 17, 2004 02:13 PM LIFETIME NON-TOBACCO USER [facility] Jul 17, 2004 01:43 PM LIFETIME NON-TOBACCO USER [facility] Advance Directives: All historical and current Section Date Range: From patient's date of to the date document was created. This section includes ALL of a patient's completed or amended [facility] Advance and Rescinded Directives. The entries below indicate that a directive exists for the patient, but an actual copy is not included with this document. The data comes from all [place] facilities. Date Advance Directives Provider Source Feb 23, 2014 ADVANCE DIRECTIVE DISCUSSION ANGELITA AGUILA [facility] Encounter Notes: All associated encounter notes This section contains the clinical notes associated to the Encounter. Date/Time Encounter Note(s) Provider Source Jul 25, 2024 10:14 AM OPHTHALMOLOGY CONS ULT: LOCAL TITLE: OPHTHALMOLOGY CONSULT ST STANDARD TITLE: OPHTHALMOLOGY CONSULT DATE OF NOTE: JUL 25, 2024@10:14 ENTRY DATE: JUL 25, 2024@10:14:58 AUTHOR: EZE LEBRON II EXP COSIGNER: URGENCY: STATUS: [facility] Follow up normal-tension glaucoma Vision stable ===== Prior strabismus surgeries: 04/03/92: RSRc 8mm + RMR 3mm for ET and DVD OD (pre-op and post-op measurements not recorded) 06/27/92: LSRc (amount unrecorded) + LMR myectomy for continued ET and LHT. 07/01/10: LIOc (Titi at [facility]) ==== Alignment: 8 RE(T) _ 10 RET [...] OU + inf thinning OD - 68/71 NFL (08/08): superior thinning OU - 71/71 GCL (07/07): supronasal thinning OS>OD (70/70) GCL (07/09): supronasal thinning OU (69/70) - slight progression OD GCL (08/07): supronasal thinning OU (70/70) - stable GCL (08/08): superior thinning OU (71/71) - stable HVF 24-2 (01/30): Shallow inferior [...] OU - slt worse but similar to HVF 24-2 12/22/22: Shallow inferior depressions OS>OD-slt worse but similar to HVF 24-2 9/11/24: Shallow inferior depressions OS>OD - variable but pos worse ======Ocular Examination====== VA: 20/20- OU P Dilated G(06/23/22): Grade III OU with 2+ pigment - Slight double hump G(01/26/24): Grade II-III OU with 2+ pigment - Slight double hump Tap: 07/25/24 12 11 no drops 01/26/24 13 13 no drops 07/28/23 13 [...] Vessels: wnl Periphery: flat, retina intact OCT (07/25/24): wnl OU === A/P: 68 year old with... 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 - Keep current tinted polycarb PALs, polarized with backside A/R. # Mild cataract OU - not VS - follow # MGD/DAVID - Con't AT/WC/LS # H/O infantile ET with DVD OD - h/o multiple prior strab surgeries (see above) most recently with Calvin Walls at [facility]. Still has some visual confusion/diplopia. 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 /colt/ Isis Lebron III MD Staff Physician, Ophthalmology Signed: 07/25/2024 10:40 EZE LEBRON III [facility]
--- OUTSIDE RECORDS SUMMARY | 2024-08-07 10:04 | XMS_ITS | Encounter Summary ---
Author Name [facility] [place] [facility] [place] Address [address] [place] [address] Care Team Providers Care Public Relations Manager Name Role Phone THANH ZAZUETA Primary [...] [employer] VIS[employer] PLAN May 17, 2016 [id number] [phone] KADI MARTINEZ PATIENT EYEMED (WNR) VISION VISIO N May 17, 2019 [id number] [phone] KADI MARTINEZ PATIENT MEDICARE (WNR) MEDICARE (M) PART B Nov 14, 2022 PART B [id number] [phone] KADI MARTINEZ PATIENT MEDICARE (WNR) MEDICARE (M) PART A Nov 14, 2022 PART A [id number] KADI MARTINEZ PATIENT Selected Encounter This section includes the information on record at [place] for the Encounter. Date/Time Encounter Type Encounter Description Reason Pro vider Source Aug 05, 2024 07:54 AM Outpatient Encounter ADMIN PAT ACTIVTIES (MASNONCT) IHE Encounter Template Text not used by [...] 22, 2024 10:45 AM AMBULATORY - SURGERY [facility] Jan 16, 2025 10:00 AM AMBULATORY - SURGERY [facility] Social History: Smoking Status (Most current) [...] 2016 10:21 AM LIFETIME NON-USER OF TOBACCO [facility] Tobacco Use History This section includes a history of the smoking, or tobacco-related health factors, that were collected on or before the date of the Encounter. The data comes from the [place] facility where the Encounter took place. Date/Time Smoking Status/Tobacco Use Comment Mehreen [email or web address] Mar 04, 2015 08:10 AM LIFETIME NON-USER OF TOBACCO [facility] Aug 02, 2006 11:04 AM LIFETIME NON-USER OF TOBACCO [facility] Dec 22, 2005 03:00 PM LIFETIME NON-TOBACCO USER [facility] Feb 17, 2005 03:19 PM LIFETIME NON-TOBACCO USER [facility] Jul 17, 2004 02:13 PM LIFETIME NON-TOBACCO USER [facility] Jul 17, 2004 01:43 PM LIFETIME NON-TOBACCO USER [facility] Advance Directives: All historical and current [...] 23, 2014 ADVANCE DIRECTIVE DISCUSSION ANGELITA AGUILA [facility] Encounter Notes: All associated encounter notes This section contains the clinical notes associated to the Encounter. Date/Time Encounter Note(s) Provider Source Aug 05, 2024 07:54 AM ADMINISTRATIVE NOT E: LOCAL TITLE: ADMINISTRATIVE STL STANDARD TITLE: ADMINISTRATIVE NOTE DATE OF NOTE: AUG 05, 2024@07:54 ENTRY DATE: AUG 05, 2024@07:54:21 AUTHOR: AZALIA YANG EXP COSIGNER: URGENCY: STATUS: COMPLETED THIS PATIENT ENTERED A MOBILE ALERT STATING... Dr Conklin (plumbing technician) suggested I have blood work to determine if there is an underlying condition such as rheumatoid arthritis causing the multiple joint pain. Im not sure if Sasha had this sort of blood work before or not. ALERTING RNCM OF PT CONCERNS /es/ AZALIA YANG LEAD DIETETIC INTERN Signed: 08/05/2024 07:55 Receipt Acknowledged By: * AWAITING SIGNATURE * DELONTE HELLER [facility]ICA [facility]
== END 2024-08-07 09:09 | disposition home or self-care (01) ==
LOC: CHSIMG 09:12
PROVIDERS: PCP Family Medicine; Visit Provider Family Medicine
DX: Z78.0 Asymptomatic menopausal state (principal)
CPT/HCPCS: 77080